=== PATIENT | male | born 1965 | race Caucasian/White ===

== ENCOUNTER 2017-12-07 01:11 | Inpatient (IN) | payer SELFPAY ==
--- NOTE | 2017-12-07 01:23 | ER Document Report ---
ED Extremity Problem, Upper - General Chief Complaint: Arm Injury Stated Complaint: FALL Time Seen by Provider: 12/07/17 01:22 Notes: 52-year-old male to the emergency department complaining of severe pain in the left arm. States that he lost his balance and fell onto his left side. Deformity noted to his left upper extremity. Pain is 10/10 on a numeric pain scale. Patient admits to being a heavy drinker and has been drinking tonight. History of "heart problems" history of dislocation in the past. Has not had a dislocation of the shoulder in over 5 years according to patient. Denies any other symptoms at this time. Denies any chest pain or shortness of breath. Does not remember if he hit his head or not. TRAVEL OUTSIDE OF THE [place] IN LAST 30 DAYS: No - HPI Patient complains to provider of: Pain, Arm, Shoulder Onset: Just prior to arrival Where: Home Severity of pain: Severe Pain Level: 5 Context: Fall Associated symptoms: None Exacerbated by: Movement Relieved by: Nothing - Related Data Allergies/Adverse Reactions: Penicillins Allergy (Unknown, Verified 06/25/16 21:15) Sulfa (Sulfonamide Antibiotics) Allergy (Unknown, Verified 10/07/11 00:42) Past Medical History - General Information source: Patient - Social History Smoking Status: Current Every Day Smoker Cigarette use (# per day): Yes Smoking Education Provided: Yes Frequency of alcohol use: Heavy Drug Abuse: None Lives with: Alone Family History: Reviewed & Not Pertinent - Past Medical History Cardiac Medical History: Reports: Hx Coronary Artery Disease, Hx Hypercholesterolemia, Hx Hypertension Denies: Hx Atrial Fibrillation, Hx Congestive Heart Failure, Hx DVT, Hx Heart Attack, Hx Peripheral Vascular Disease, Hx Pulmonary Embolism, Hx Heart Murmur Pulmonary Medical History: Reports: Hx COPD, Hx Pneumonia Denies: Hx Asthma, Hx Bronchitis, Hx Respiratory Failure, Hx Sleep Apnea, Hx Tuberculosis Neurological Medical History: Reports: Hx Cerebrovascular Accident - TIA 3 years ago, Hx Seizures - Possible seizure; see history and physical, 06/25/2016 Endocrine Medical History: Denies: Hx Diabetes Mellitus Type 1, Hx Diabetes Mellitus Type 2, Hx Graves' Disease, Hx Hyperthyroidism, Hx Hypothyroidism Renal/ Medical History: Denies: Hx Benign Prostatic Hyperplasia, Hx End Stage Renal Disease, Hx Kidney Stones, Hx Peritoneal Dialysis Malignancy Medical History: Denies Hx Leukemia, Denies Hx Lung Cancer GI Medical History: Denies: Hx Cirrhosis, Hx Crohn's Disease, Hx Gastroesophageal Reflux Disease, Hx Hepatitis, Hx Hiatal Hernia, Hx Irritable Bowel, Hx Liver Failure, Hx Pancreatitis, Hx Ulcer Musculoskeltal Medical History: Reports Hx Arthritis - hands, Denies Hx Fibromyalgia, Denies Hx Multiple Sclerosis, Denies Hx Muscular Dystrophy Psychiatric Medical History: Reports: Hx Depression Denies: Hx Bipolar Disorder, Hx Dementia, Hx Post Traumatic Stress Disorder, Hx Schizophrenia Traumatic Medical History: Denies: Hx Fractures Infectious Medical History: Denies: Hx Hepatitis, Hx HIV Past Surgical History: Reports: Hx Cardiac Surgery, Hx Coronary Artery Bypass Graft - x3 (2009), Hx Coronary Stent, Hx Open Heart Surgery, Other - Incision and drainage of dental abscess, with tooth extraction, 2005.. Denies: Hx Appendectomy, Hx Bowel Surgery, Hx Cholecystectomy, Hx Colostomy, Hx Gastric Bypass Surgery, Hx Herniorrhaphy, Hx Pacemaker, Hx Tonsillectomy - Immunizations Hx Diphtheria, Pertussis, Tetanus Vaccination: Yes Hx Pneumococcal Vaccination: 05/18/12 Review of Systems - Review of Systems Constitutional: denies: Fever, Malaise, Weakness EENT: denies: Ear pain, Difficulty swallowing, Throat swelling, Mouth pain Cardiovascular: denies: Chest pain, Palpitations, Heart racing, Syncope, Dizziness, Lightheaded Respiratory: denies: Cough, Hurts to breathe, Short of breath, Wheezing Gastrointestinal: denies: Abdominal pain, Diarrhea, Nausea Genitourinary: denies: Burning, Dysuria, Discharge Musculoskeletal: See HPI, Joint pain, Deformity. denies: Back pain, Gout Skin: denies: Dryness, Lesions, Lumps, Rash Hematologic/Lymphatic: Easy bleeding, Easy bruising. denies: Anemia, Blood clots Neurological/Psychological: denies: Confusion, Weakness, Numbness Physical Exam - Vital signs Vitals: Resp Pulse Ox 11 L 100 12/07/17 01:24 12/07/17 01:24 Interpretation: Normal - Notes Notes: Intoxicated. Strong smell of alcohol on breath. - General General appearance: Appears well, Alert - HEENT Head: Normocephalic, Atraumatic Eyes: Normal Pupils: PERRL - Respiratory Respiratory status: No respiratory distress Chest status: Nontender Breath sounds: Normal Chest palpation: Normal - Cardiovascular Rhythm: Regular Heart sounds: Normal auscultation Murmur: No - Abdominal Inspection: Normal Distension: No distension Bowel sounds: Normal Tenderness: Nontender Organomegaly: No organomegaly - Back Back: Normal, Nontender - Extremities General upper extremity: Nontender, Tender, Normal color, Normal strength, Normal temperature, Other - There is tenderness to palpation of the left upper extremity with potential for dislocation of the left shoulder. Clavicle appears intact. Pulses are present in the radius and ulnar arteries at the wrist of the affected extremity. No: Normal ROM General lower extremity: Normal inspection, Nontender, Normal color, Normal ROM , Normal temperature, Normal weight bearing. No: Amanda's sign Shoulder: Tender, Deformity, Dislocation Arm: Normal Forearm: Normal Wrist: Normal Hand: Normal Hip: Normal Ankle: Normal - Neurological Neuro grossly intact: Yes Cognition: Normal Orientation: AAOx4 [place] Coma Scale Eye Opening: Spontaneous [place] Coma Scale Verbal: Oriented [place] Coma Scale Motor: Obeys Commands [place] Coma Scale Total: 15 Speech: Normal Motor strength normal: LUE, RUE, LLE, RLE Sensory: Normal - Psychological Associated symptoms: Normal affect, Normal mood - Skin Skin Temperature: Warm Skin Moisture: Dry Skin Color: Normal Course - Re-evaluation Re-evalutation: 12/07/17 03:24 X-ray was obtained which revealed anterior shoulder dislocation. No obvious fracture. Patient is intoxicated than 200 mcg of fentanyl were given. Shoulder was even easily reduced. Postreduction films reveal shoulder was dislocated. Repeat dose of 100 mcg of fentanyl was given. Shoulder was ranged and there was an audible and palpable pop consistent with reduction. Patient was placed in a sling and shoulder would pop back out and become dislocated again. My colleague was asked to come assess patient as well. Dr. Perrin was able to mobilize shoulder and had same results with very easy reduction but then shoulder with re-dislocate. At that time decision was made to place patient in a sling and consult with orthopedics. Patient will need to be evaluated by orthopedics. Will admit to the hospitalist at this time based on patient's comorbid conditions he will need to be assessed and evaluated for potential for intraoperative repair if needed. Dr. Morel was consulted. Hospitalist consulted will proceed with admission at this time. 12/07/17 03:59 Hospitalist consulted. Hospitalist to follow-up on the CT head and chest x-ray as well as labs. Will go ahead and put order for admission at this time. - Vital Signs Vital signs: Temp Pulse Resp BP Pulse Ox 97.7 F 11 L 163/77 H 100 12/07/17 01:30 12/07/17 03:03 12/07/17 03:03 12/07/17 03:03 - EKG Interpretation by Me EKG shows normal: Sinus rhythm, Intervals, QRS Complexes, ST-T Waves. abnormal : [place]/QRS: Left axis deviation Voltage: Consistant with LVH When compared to previous EKG there are: No significant change Procedures - Joint Reduction/Fracture Care Left Shoulder Time completed: 03:27 Consent obtained: Yes Conscious sedation: No Pre-procedure NV exam: Yes Post-procedure NV exam: Yes Post-reduction x-ray: Joint not reduced, No fracture seen Reduction attempts: 4 Complications: No Discharge - Discharge Clinical Impression: Intoxication Anterior dislocation of left shoulder Qualifiers: Encounter type: initial encounter Qualified Code(s): S43.015A - Anterior dislocation of left humerus, initial encounter Condition: Good Disposition: ADMITTED OBSERVATION Admitting Provider: Hospitalist - [facility] Unit Admitted: Telemetry
[2017-12-07] MEDS: FENTANYL CITRATE INJ/PF 100 MCG/2 ML AMPUL IV PRN ×4 (01:30→06:52)
--- NOTE | 2017-12-07 01:44 | RADIOLOGY REPORT (SQ) ---
EXAM DESCRIPTION: HUMERUS LEFT CLINICAL HISTORY: possible fx COMPARISON: None. FINDINGS: 2 views of the left humerus. Left anterior glenohumeral dislocation. No definite fractures identified. No abnormalities of the visualized left hemithorax. IMPRESSION: 1. Left anterior shoulder dislocation.
--- NOTE | 2017-12-07 02:27 | RADIOLOGY REPORT (SQ) ---
EXAM DESCRIPTION: SHOULDER LEFT 1 VIEW CLINICAL HISTORY: post red COMPARISON: None. FINDINGS: Single view of the left shoulder. Persistent left anterior shoulder dislocation. No acute abnormalities of left hemithorax. No acute fractures identified. IMPRESSION: 1. Persistent left anterior shoulder dislocation.
--- NOTE | 2017-12-07 03:17 | RADIOLOGY REPORT (SQ) ---
EXAM DESCRIPTION: SHOULDER LEFT 1 VIEW CLINICAL HISTORY: post reduction COMPARISON: None. FINDINGS: 3 views of the left shoulder. The first image demonstrates persistent dislocation. Second image demonstrates partial reduction however third image in sequence demonstrate persistent anterior dislocation. No acute abnormalities of the left hemithorax. IMPRESSION: 1. Persistent anterior dislocation of the left shoulder.
[2017-12-07] MEDS ORDERED: ONDANSETRON HCL INJ/PF 4 MG/2 ML SDV IV PRN (03:48)
[2017-12-07] MEDS ORDERED: LORAZEPAM INJ 2 MG/1 ML VIAL IV PRN (03:52)
[2017-12-07] MEDS ORDERED: FOLIC ACID INJ 5 MG/1 ML 10 ML VIAL IV PRN (04:26)
[2017-12-07] MEDS ORDERED: THIAMINE HCL INJ 200 MG/2 ML VIAL IV PRN (04:27)
[2017-12-07 04:30] LABS: APPEARANCE,URINE CLEAR; BILIRUBIN,URINE NEGATIVE (NEGATIVE); COLOR,URINE YELLOW; GLUCOSE, URINE NEGATIVE (NEGATIVE); KETONES,URINE NEGATIVE (NEGATIVE); LEUKOCYTE ESTERASE,URINE NEGATIVE (NEGATIVE); NITRITE,URINE NEGATIVE (NEGATIVE); PROTEIN,URINE NEGATIVE (NEGATIVE); URINE SPECIFIC GRAVITY 1.011
[2017-12-07] MEDS ORDERED: THIAMINE HCL 100 MG, FOLIC ACID 1 MG in NORMAL SALINE 250 ML IV ONE (04:30)
[2017-12-07 04:34] LABS: INTERNATIONAL RATION (INR) 1.48; PROTHROMBIN TIME 18.6 SEC (11.4-15.4)
[2017-12-07 04:35] LABS: PARTIAL THROMBOPLASTIN TIME 47.6 SEC (23.5-35.8)
[2017-12-07 04:40] LABS: ABSOLUTE LYMPHOCYTES (AUTO) 1.1 10^3/uL (0.5-4.7); ABSOLUTE MONOCYTES (AUTO) 0.4 10^3/uL (0.1-1.4); ABSOLUTE NEUT (AUTO) 3.5 10^3/uL (1.7-8.2); BASOPHILS % (AUTO) 0.8 % (0-2); EOSINOPHILS % (AUTO) 0.4 % (0-6); HEMATOCRIT 36.2 % (37.9-51.0); HEMOGLOBIN 12.4 g/dL (13.5-17.0); MEAN CORPUSCULAR HGB CONC 34.2 g/dL (32.0-36.0); MEAN CORPUSCULAR VOLUME 105 fl (80-97); MONOCYTES % (AUTO) 8.7 % (3-13); RED BLOOD COUNT 3.44 10^6/uL (4.35-5.55); RED CELL DISTRIBUTION WIDTH 16.2 % (11.5-14.0); SEGMENTED NEUTROPHILS % (AUTO) 68.1 % (42-78); TOTAL CELLS COUNTED % (AUTO) 100 %; WHITE BLOOD COUNT 5.1 10^3/uL (4.0-10.5)
[2017-12-07 04:42] LABS: ALANINE AMINOTRANSFERASE 58 U/L (21-72); ALBUMIN 3.7 g/dL (3.5-5.0); ALCOHOL 277 mg/dL (NONE DETECTED); ALKALINE PHOSPHATASE 209 U/L (38-126); ANION GAP 18 (5-19); ASPARTATE AMINO TRANSFERASE 131 U/L (17-59); BILIRUBIN,DIRECT 1.7 mg/dL (0.0-0.4); BILIRUBIN,TOTAL 3.8 mg/dL (0.2-1.3); BLOOD UREA NITROGEN 8 mg/dL (7-20); CALCIUM 8.9 mg/dL (8.4-10.2); CARBON DIOXIDE 22 mmol/L (22-30); CHLORIDE 108 mmol/L (98-107); GLUCOSE 141 mg/dL (75-110); POTASSIUM 4.2 mmol/L (3.6-5.0); SODIUM 148.1 mmol/L (137-145)
--- NOTE | 2017-12-07 04:43 | PDOC H&P ---
History of Present Illness Admission Date/PCP: 12/07/17 03:56 History of Present Illness: TASHA FUENTES is a 52 year old male patient whose past medical history of hypertension, hyperlipidemia, CAD status post CABG and alcohol dependence and possible cirrhosis of the liver presents after being involved mechanical fall and dislocated his left shoulder. He states that he lost his balance and fell onto his left side. His plain x-ray showed left anterior dislocation. During my encounter patient is acutely intoxicated but he is able to give some history history. He complains of excruciating left shoulder pain. ER attending attempt to correct the dislocation but failed. Orthopedic surgeon consulted and he is going to see him in the morning. Past Medical History Cardiac Medical History: Reports: Coronary Artery Disease, Hyperlipidema, Hypertension Denies: Atrial Fibrillation, Congestive Heart Failure, DVT, Myocardial Infarction, Peripheral Vascular Disease, Pulmonary Embolism, Heart Murmur Pulmonary Medical History: Reports: Chronic Obstructive Pulmonary Disease (COPD) , Pneumonia Denies: Asthma, Bronchitis, Respiratory Failure, Sleep Apnea, Tuberculosis Neurological Medical History: Reports: Seizures - Possible seizure; see history and physical, 06/25/2016 Endocrine Medical History: Denies: Diabetes Mellitus Type 1, Diabetes Mellitus Type 2, Hyperthyroidism, Hypothyroidism Renal/ Medical History: Denies: End Stage Renal Disease Malignancy Medical History: Denies: Leukemia, Lung Cancer GI Medical History: Denies: Cirrhosis, Crohn's Disease, Gastroesophageal Reflux Disease, Hepatitis, Hiatal Hernia Musculoskeltal Medical History: Reports: Arthritis - hands Denies: Fibromyalgia Psychiatric Medical History: Reports: Depression Denies: Bipolar Disorder, Dementia, Post Traumatic Stress Disorder Hematology: Denies: Anemia, Hemophilia, Sickle Cell Disease Infectious Medical History: Denies: HIV Past Surgical History Past Surgical History: Reports: Coronary Artery Bypass Graft - x3 (2009), Coronary Stent, Other - Incision and drainage of dental abscess, with tooth extraction, 2005. Denies: Appendectomy, Cholecystectomy, Colostomy, Gastric Bypass Surgery, Herniorrhaphy, Pacemaker, Tonsillectomy Social History Lives with: Alone Smoking Status: Current Every Day Smoker Frequency of Alcohol Use: Heavy - History of alcohol abuse; now down to 3-5 beers a week, per patient Hx Recreational Drug Use: No Hx Prescription Drug Abuse: No Family History Family History: Reviewed & Not Pertinent Parental Family History Reviewed: Yes Children Family History Reviewed: Yes Sibling(s) Family History Reviewed.: Yes Medication/Allergy Home Medications: No Home Medications 06/26/16 Allergies/Adverse Reactions: Penicillins Allergy (Unknown, Verified 06/25/16 21:15) Sulfa (Sulfonamide Antibiotics) Allergy (Unknown, Verified 10/07/11 00:42) Review of Systems Constitutional: ABSENT: chills, fever(s), headache(s), weight gain, weight loss Respiratory: ABSENT: cough, hemoptysis Gastrointestinal: ABSENT: abdominal pain, constipation, diarrhea, hematemesis, hematochezia, nausea, vomiting Psychiatric: PRESENT: as per HPI Physical Exam Vital Signs: Temp Pulse Resp BP Pulse Ox 97.7 F 11 L 163/77 H 100 12/07/17 01:30 12/07/17 03:03 12/07/17 03:03 12/07/17 03:03 General appearance: PRESENT: mild distress Head exam: PRESENT: atraumatic Respiratory exam: PRESENT: clear to auscultation noreen. ABSENT: rales, rhonchi, wheezes Cardiovascular exam: PRESENT: RRR. ABSENT: diastolic murmur, rubs, systolic murmur GI/Abdominal exam: PRESENT: normal bowel sounds, soft. ABSENT: distended, guarding, mass, organolmegaly, rebound, tenderness Extremities exam: PRESENT: joint swelling - Right shoulder Results Laboratory Results: 12/07/17 04:03 Urine Color YELLOW Urine Appearance CLEAR Urine pH 6.0 Ur Specific [place] 1.011 Urine Protein NEGATIVE Urine Glucose (UA) NEGATIVE Urine Ketones NEGATIVE Urine Blood NEGATIVE Urine Nitrite NEGATIVE Ur Leukocyte Esterase NEGATIVE Urine WBC (Auto) 1 Urine RBC (Auto) 0 Impressions: Humerus X-Ray 12/07/17 00:00 IMPRESSION: 1. Left anterior shoulder dislocation. Shoulder X-Ray 12/07/17 01:56 IMPRESSION: 1. Persistent left anterior shoulder dislocation. Assessment & Plan - Diagnosis (1) Anterior dislocation of left shoulder Qualifiers: Encounter type: subsequent encounter Qualified Code(s): S43.015D - Anterior dislocation of left humerus, subsequent encounter Is this a current diagnosis for this admission?: Yes Plan: Pain management. Definitive management per orthopedic surgeon (2) Alcohol intoxication Qualifiers: Complication of substance-induced condition: uncomplicated Qualified Code(s ): F10.920 - Alcohol use, unspecified with intoxication, uncomplicated Is this a current diagnosis for this admission?: Yes Plan: Monitor (3) Coronary artery disease Qualifiers: Coronary Disease-Associated Artery/Lesion type: [place] artery Is this a current diagnosis for this admission?: Yes Plan: Continue his home medications. (4) Alcohol dependence Qualifiers: Substance use status: with intoxication Is this a current diagnosis for this admission?: Yes Plan: Patient has been started on 2 mg every 2 hours as needed and scheduled dose of diazepam. He started also on folic acid, thiamine and magnesium. - Time Time Spent: 30 to 50 Minutes - Inpatient Certification Medical Necessity: Need Close Monitoring Due to Risk of Patient Decompensation
[2017-12-07 04:50] LABS: URINE AMPHETAMINES SCREEN NEGATIVE; URINE BARBITURATES SCREEN NEGATIVE; URINE BENZODIAZEPINES SCREEN NEGATIVE; URINE COCAINE SCREEN NEGATIVE; URINE MARIJUANA (THC) SCREEN NEGATIVE; URINE METHADONE SCREEN NEGATIVE; URINE PHENCYCLIDINE SCREEN NEGATIVE
[2017-12-07 05:02] LABS: PLATELET COUNT 50 10^3/uL (150-450)
--- NOTE | 2017-12-07 05:04 | RADIOLOGY REPORT (SQ) ---
EXAM DESCRIPTION: CHEST SINGLE VIEW CLINICAL HISTORY: fall COMPARISON: None. FINDINGS: Single frontal view of the chest. Prior median sternotomy. Heart is upper limits of normal in size. Leads overlie the chest. No consolidation, pneumothorax, or pleural effusion. Left anterior shoulder dislocation again identified. Upper abdominal soft tissues are unremarkable. IMPRESSION: 1. No acute pulmonary process identified. 2. Left anterior shoulder dislocation.
--- NOTE | 2017-12-07 05:09 | RADIOLOGY REPORT (SQ) ---
EXAM DESCRIPTION: CT HEAD WITHOUT CLINICAL HISTORY: fall,thrombocytopenia COMPARISON: None available TECHNIQUE: Axial CT of the head obtained from the skull apex to the skull base without contrast. FINDINGS: No acute intracranial hemorrhage identified. No mass, mass effect, shift of the midline, abnormal extra-axial fluid collection or CT evidence of acute ischemic change identified. The ventricular system and sulcal spaces are mildly enlarged compatible with mild cerebral atrophy. Scattered areas of hypodensity throughout the supratentorial white matter are nonspecific and may be related to chronic small vessel ischemic change. The visualized paranasal sinuses and the mastoids are clear. No skull fracture identified. Visualized orbits and globes are unremarkable. Atherosclerotic calcification of the intracranial internal carotid arteries. 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 DLP: 1017.17 mGy-cm IMPRESSION: 1. No acute intracranial abnormality by CT criteria. This exam was performed according to our departmental dose-optimization program, which includes automated exposure control, adjustment of the mA and/or kV according to patient size and/or use of iterative reconstruction technique.
[2017-12-07] MEDS: LANSOPRAZOLE 30 MG TAB.RAP.DR PO SCH (05:31)
[2017-12-07] MEDS: THIAMINE HCL 100 MG, FOLIC ACID 1 MG in NORMAL SALINE 250 ML IV SCH (05:34)
[2017-12-07] MEDS ORDERED: DIAZEPAM 5 MG TABLET PO SCH (06:00)
[2017-12-07] MEDS: OXYCODONE-ACETAMINOPHEN 5-325 MG TABLET PO PRN ×3 (06:35→20:28)
--- NOTE | 2017-12-07 09:15 | EKG REPORT ---
SEVERITY:- ABNORMAL ECG - SINUS RHYTHM LEFT ATRIAL ABNORMALITY LEFT VENTRICULAR HYPERTROPHY PROBABLE INFERIOR INFARCT, OLD BORDERLINE PROLONGED QT INTERVAL : Confirmed by: Howard Adrian 07-Dec-2017 09:13:46
[2017-12-07] MEDS: NORMAL SALINE 1000 ML 1,000 ML IV PRN (09:23)
[2017-12-07] MEDS ORDERED: THIAMINE HCL 100 MG, FOLIC ACID 1 MG in NORMAL SALINE 250 ML IV SCH (10:00)
[2017-12-07] MEDS ORDERED: ASPIRIN 325 MG TABLET PO ONE (15:00)
--- NOTE | 2017-12-07 17:38 | PDOC PROGRESS REPORT ---
Subjective Progress Note for:: 12/07/17 Subjective:: TASHA FUENTES is a 52 year old male with a PMH of HTN, HLD, CAD post CABG, EtOH dependence. He presents to the emergency department following a mechanical fall that dislocated his left shoulder. X-ray reveals anterior dislocation of the left shoulder, no fractures noted. The patient was seen this morning on rounds. He is resting comfortably in bed on supplemental oxygen wearing a left arm sling. He endorses pain to the left shoulder, which is grossly deformed. The patient does complain of paresthesia to the L hand but has full range of motion of his wrist and all fingers. Did not remove sling to test ROM of L elbow. The patient was seen by orthopedic surgeon, . Plan for manual shoulder replacement tomorrow morning, if unsuccessful the patient will require surgical intervention. Reason For Visit: LEFT ANTERIOR SHOULDER DISLOCATION Physical Exam Vital Signs: Temp Pulse Resp BP Pulse Ox 98.0 F 94 16 130/66 H 100 12/07/17 15:23 12/07/17 15:23 12/07/17 15:23 12/07/17 15:23 12/07/17 15:23 Intake & Output 12/06/17 12/07/17 12/08/17 06:59 06:59 06:59 Intake Total 200 Output Total 400 Balance -200 Weight 89.4 kg Extremities exam: PRESENT: joint swelling - Left shoulder Musculoskeletal exam: ABSENT: full ROM - No range of motion to the left shoulder. Patient is currently in a sling Neurological exam: PRESENT: alert, awake, oriented to person, oriented to place , oriented to time, oriented to situation Results Laboratory Results: 12/07/17 04:10 12/07/17 04:10 12/07/17 12/07/17 12/07/17 04:03 04:10 04:10 WBC 5.1 RBC 3.44 L Hgb 12.4 L Hct 36.2 L MCV 105 H MCH 36.0 H MCHC 34.2 RDW 16.2 H Plt Count 50 L Seg Neutrophils % 68.1 Lymphocytes % 22.0 Monocytes % 8.7 Eosinophils % 0.4 Basophils % 0.8 Absolute Neutrophils 3.5 Absolute Lymphocytes 1.1 Absolute Monocytes 0.4 Absolute Eosinophils 0.0 Absolute Basophils 0.0 Sodium 148.1 H Potassium 4.2 Chloride 108 H Carbon Dioxide 22 Anion Gap 18 BUN 8 Creatinine 0.91 Est GFR ( Amer) > 60 Est GFR (Non-Af Amer) > 60 Glucose 141 H Calcium 8.9 Magnesium 1.8 Total Bilirubin 3.8 H AST 131 H ALT 58 Alkaline Phosphatase 209 H Total Protein 8.0 Albumin 3.7 Urine Color YELLOW Urine Appearance CLEAR Urine pH 6.0 Ur Specific [place] 1.011 Urine Protein NEGATIVE Urine Glucose (UA) NEGATIVE Urine Ketones NEGATIVE Urine Blood NEGATIVE Urine Nitrite NEGATIVE Ur Leukocyte Esterase NEGATIVE Urine WBC (Auto) 1 Urine RBC (Auto) 0 Blood Type Antibody Screen 12/07/17 09:24 WBC RBC Hgb Hct MCV MCH MCHC RDW Plt Count Seg Neutrophils % Lymphocytes % Monocytes % Eosinophils % Basophils % Absolute Neutrophils Absolute Lymphocytes Absolute Monocytes Absolute Eosinophils Absolute Basophils Sodium Potassium Chloride Carbon Dioxide Anion Gap BUN Creatinine Est GFR ( Amer) Est GFR (Non-Af Amer) Glucose Calcium Magnesium Total Bilirubin AST ALT Alkaline Phosphatase Total Protein Albumin Urine Color Urine Appearance Urine pH Ur Specific [place] Urine Protein Urine Glucose (UA) Urine Ketones Urine Blood Urine Nitrite Ur Leukocyte Esterase Urine WBC (Auto) Urine RBC (Auto) Blood Type O POSITIVE Antibody Screen NEGATIVE Impressions: Humerus X-Ray 12/07/17 00:00 IMPRESSION: 1. Left anterior shoulder dislocation. Shoulder X-Ray 12/07/17 01:56 IMPRESSION: 1. Persistent left anterior shoulder dislocation. Head CT 12/07/17 03:07 IMPRESSION: 1. No acute intracranial abnormality by CT criteria. This exam was performed according to our departmental dose-optimization program, which includes automated exposure control, adjustment of the mA and/or kV according to patient size and/or use of iterative reconstruction technique. Chest X-Ray 12/07/17 03:36 IMPRESSION: 1. No acute pulmonary process identified. 2. Left anterior shoulder dislocation. Status: Imported from PACS Assessment & Plan - Diagnosis (1) Anterior dislocation of left shoulder Qualifiers: Encounter type: initial encounter Qualified Code(s): S43.015A - Anterior dislocation of left humerus, initial encounter Is this a current diagnosis for this admission?: Yes Plan: Anterior dislocation of left shoulder following mechanical fall. The patient denies LOC. Denies head trauma. Unsuccessful manual replacement of left shoulder by emergency department physician. Patient evaluated by orthopedic surgeon, . Plan for trip to [place] tomorrow morning. First attempt to manually replace shoulder, if unsuccessful plan for surgical intervention. Patient endorses 5 out of 5 pain to left shoulder. Percocet and IV morphine as needed. The patient will wear the left arm sling until otherwise directed. (2) Alcohol intoxication Qualifiers: Complication of substance-induced condition: uncomplicated Qualified Code(s ): F10.920 - Alcohol use, unspecified with intoxication, uncomplicated Is this a current diagnosis for this admission?: Yes Plan: The patient endorses drinking 2-3 beers "most" days of the week. The patient denies a history of seizures while withdrawing from alcohol. EtOH level upon admission 277. Maintenance IVF. Daily thiamine and folate. PRN IV Ativan for EtOH withdrawal symptoms (3) Coronary artery disease Qualifiers: Coronary Disease-Associated Artery/Lesion type: [place] artery Is this a current diagnosis for this admission?: Yes Plan: The patient endorses a history of coronary artery disease Continue full dose aspirin - Time Time Spent with patient: 15-24 minutes Medications reviewed and adjusted accordingly: Yes Anticipated discharge: Home - Inpatient Certification Based on my medical assessment, after consideration of the patient's comorbidities, presenting symptoms, or acuity I expect that the services needed warrant INPATIENT care.: Yes I certify that my determination is in accordance with my understanding of Medicare's requirements for reasonable and necessary INPATIENT services [42 CFR 412.3e].: Yes Medical Necessity: Need for Surgery - Plan Summary Plan Summary: At this time, the plan is for orthopedic surgery to evaluate and treat the patient tomorrow. Unclear at this time if the patient will require surgical intervention. Appreciate orthopedic surgery recommendations.
[2017-12-07] MEDS: MORPHINE SULFATE 10 MG/ML INJ IV PRN ×2 (18:09→22:49)
[2017-12-08] MEDS: LORAZEPAM INJ 2 MG/1 ML VIAL IV PRN ×2 (02:48→21:12)
[2017-12-08] MEDS: NORMAL SALINE 1000 ML 1,000 ML IV PRN ×2 (02:48→16:24)
[2017-12-08] MEDS: LANSOPRAZOLE 30 MG TAB.RAP.DR PO SCH (04:23)
[2017-12-08] MEDS: MORPHINE SULFATE 10 MG/ML INJ IV PRN (05:35)
[2017-12-08] MEDS ORDERED: FENTANYL CITRATE INJ/PF 100 MCG/2 ML AMPUL ONE (06:49)
[2017-12-08] MEDS ORDERED: LIDOCAINE 2% INJ-PF (20 MG/ML) 10 ML AMPUL ONE (06:49)
[2017-12-08] MEDS ORDERED: PROPOFOL INJ 200 MG/20 ML VIAL IV ONE (06:50)
[2017-12-08] MEDS ORDERED: MIDAZOLAM 2 MG/2 ML INJ ONE (06:50)
[2017-12-08 06:52] LABS: ALANINE AMINOTRANSFERASE 51 U/L (21-72); ALKALINE PHOSPHATASE 111 U/L (38-126); ANION GAP 12 (5-19); ASPARTATE AMINO TRANSFERASE 97 U/L (17-59); BLOOD UREA NITROGEN 12 mg/dL (7-20); CALCIUM 8.3 mg/dL (8.4-10.2); CARBON DIOXIDE 21 mmol/L (22-30); CHLORIDE 109 mmol/L (98-107); GLUCOSE 102 mg/dL (75-110); POTASSIUM 4.2 mmol/L (3.6-5.0); SODIUM 142.1 mmol/L (137-145); TOTAL PROTEIN 6.4 g/dL (6.3-8.2)
[2017-12-08 08:18] LABS: ABSOLUTE EOSINOPHILS # (AUTO) 0.1 10^3/uL (0.0-0.6); ABSOLUTE LYMPHOCYTES (AUTO) 1.2 10^3/uL (0.5-4.7); ABSOLUTE MONOCYTES (AUTO) 0.7 10^3/uL (0.1-1.4); ABSOLUTE NEUT (AUTO) 3.3 10^3/uL (1.7-8.2); BASOPHILS % (AUTO) 0.9 % (0-2); EOSINOPHILS % (AUTO) 1.9 % (0-6); HEMATOCRIT 23.7 % (37.9-51.0); LYMPHOCYTES % (AUTO) 22.8 % (13-45); MEAN CORPUSCULAR HEMOGLOBIN 36.5 pg (27.0-33.4); MEAN CORPUSCULAR HGB CONC 34.7 g/dL (32.0-36.0); MEAN CORPUSCULAR VOLUME 105 fl (80-97); MONOCYTES % (AUTO) 12.9 % (3-13); RED BLOOD COUNT 2.24 10^6/uL (4.35-5.55); RED CELL DISTRIBUTION WIDTH 15.8 % (11.5-14.0); SEGMENTED NEUTROPHILS % (AUTO) 61.5 % (42-78); TOTAL CELLS COUNTED % (AUTO) 100 %; WHITE BLOOD COUNT 5.4 10^3/uL (4.0-10.5)
[2017-12-08 08:46] LABS: HEMOGLOBIN 8.2 g/dL (13.5-17.0)
[2017-12-08 08:48] LABS: PLATELET COUNT 35 10^3/uL (150-450)
[2017-12-08 09:18] LABS: INTERNATIONAL RATION (INR) 1.75; PROTHROMBIN TIME 21.3 SEC (11.4-15.4)
[2017-12-08] MEDS ORDERED: ASPIRIN 325 MG TABLET PO SCH (10:00)
--- NOTE | 2017-12-08 11:37 | RADIOLOGY REPORT (SQ) ---
EXAM DESCRIPTION: SHOULDER LEFT 2 OR MORE VIEWS; NO CHG FLUORO COMPLETED DATE/TIME: 12/08/2017 11:03 am REASON FOR STUDY: CLOSED REDUCTION ASST WITH FLUORO IN OR COMPARISON: 12/07/2017 left shoulder three views FLUOROSCOPY TIME: 30 seconds total fluoro time 4 digital C-arm images saved to PACS. TECHNIQUE: Intra-operative images acquired during surgical procedure to evaluate progress. NUMBER OF IMAGES: 4 digital C-arm images saved to pac's LIMITATIONS: None. FINDINGS: Post closed reduction left glenohumeral dislocation in the OR. Post manipulation fluoro i mages demonstrate anatomic alignment. Please see the operative report for further details IMPRESSION: Intra procedural imaging and fluoro COMMENT: Quality ID [id number]: Final reports for procedures using fluoroscopy that document radiation exp osure indices, or exposure time and number of fluorographic images (if radiation exposure indices are not available) Please consult full operative report of the attending physician for description of the procedure. TECHNICAL DOCUMENTATION: JOB ID: [id number] [employer]- All Rights Reserved Reading location - IP/workstation name: [email or web address]
--- NOTE | 2017-12-08 11:37 | RADIOLOGY REPORT (SQ) ---
EXAM DESCRIPTION: SHOULDER LEFT 2 OR MORE VIEWS; NO CHG FLUORO COMPLETED DATE/TIME: 12/08/2017 11:03 am REASON FOR STUDY: CLOSED REDUCTION ASST WITH FLUORO IN OR COMPARISON: 12/07/2017 left shoulder three views FLUOROSCOPY TIME: 30 seconds total fluoro time 4 digital C-arm images saved to PACS. TECHNIQUE: Intra-operative images acquired during surgical procedure to evaluate progress. NUMBER OF IMAGES: 4 digital C-arm images saved to pac's LIMITATIONS: None. FINDINGS: Post closed reduction left glenohumeral dislocation in the OR. Post manipulation fluoro i mages demonstrate anatomic alignment. Please see the operative report for further details IMPRESSION: Intra procedural imaging and fluoro COMMENT: Quality ID [id number]: Final reports for procedures using fluoroscopy that document radiation exp osure indices, or exposure time and number of fluorographic images (if radiation exposure indices are not available) Please consult full operative report of the attending physician for description of the procedure. TECHNICAL DOCUMENTATION: JOB ID: [id number] [employer]- All Rights Reserved Reading location - IP/workstation name: [email or web address]
[2017-12-08] MEDS: OXYCODONE-ACETAMINOPHEN 5-325 MG TABLET PO PRN (12:41)
[2017-12-08 12:58] LABS: ABSOLUTE BASOPHILS # (AUTO) 0.1 10^3/uL (0.0-0.2); ABSOLUTE EOSINOPHILS # (AUTO) 0.1 10^3/uL (0.0-0.6); ABSOLUTE LYMPHOCYTES (AUTO) 1.1 10^3/uL (0.5-4.7); ABSOLUTE MONOCYTES (AUTO) 0.5 10^3/uL (0.1-1.4); ABSOLUTE NEUT (AUTO) 2.6 10^3/uL (1.7-8.2); BASOPHILS % (AUTO) 1.4 % (0-2); EOSINOPHILS % (AUTO) 2.2 % (0-6); HEMATOCRIT 22.6 % (37.9-51.0); LYMPHOCYTES % (AUTO) 25.3 % (13-45); MEAN CORPUSCULAR HEMOGLOBIN 36.8 pg (27.0-33.4); MEAN CORPUSCULAR HGB CONC 34.9 g/dL (32.0-36.0); MEAN CORPUSCULAR VOLUME 105 fl (80-97); RED BLOOD COUNT 2.14 10^6/uL (4.35-5.55); RED CELL DISTRIBUTION WIDTH 15.7 % (11.5-14.0); SEGMENTED NEUTROPHILS % (AUTO) 59.1 % (42-78); TOTAL CELLS COUNTED % (AUTO) 100 %; WHITE BLOOD COUNT 4.4 10^3/uL (4.0-10.5)
[2017-12-08 13:12] LABS: ALANINE AMINOTRANSFERASE 47 U/L (21-72); ALBUMIN 2.9 g/dL (3.5-5.0); ALKALINE PHOSPHATASE 99 U/L (38-126); ANION GAP 9 (5-19); ASPARTATE AMINO TRANSFERASE 92 U/L (17-59); BILIRUBIN,DIRECT 2.1 mg/dL (0.0-0.4); BILIRUBIN,TOTAL 6.9 mg/dL (0.2-1.3); BLOOD UREA NITROGEN 13 mg/dL (7-20); CALCIUM 8.3 mg/dL (8.4-10.2); CARBON DIOXIDE 24 mmol/L (22-30); CHLORIDE 108 mmol/L (98-107); GLUCOSE 92 mg/dL (75-110); PHOSPHORUS 3.3 mg/dL (2.5-4.5); POTASSIUM 4.3 mmol/L (3.6-5.0); TOTAL PROTEIN 6.4 g/dL (6.3-8.2)
[2017-12-08 13:18] LABS: HEMOGLOBIN 7.9 g/dL (13.5-17.0); PLATELET COUNT 31 10^3/uL (150-450)
[2017-12-08] MEDS ORDERED: LORAZEPAM INJ 2 MG/1 ML VIAL IV ONE (16:35)
--- NOTE | 2017-12-08 17:01 | PDOC PROGRESS REPORT ---
Subjective Progress Note for:: 12/08/17 Subjective:: TASHA FUENTES is a 52 year old male with a PMH of HTN, HLD, CAD post CABG, EtOH dependence. He presents to the emergency department following a mechanical fall that dislocated his left shoulder. X-ray reveals anterior dislocation of the left shoulder, no fractures noted. The patient was seen this morning on rounds following fluoroscopy-guided shoulder replacement. He is resting comfortably in bed on supplemental oxygen wearing a left arm sling. He states that his left shoulder feels "much better" now that is back in place. The patient still endorses paresthesia to the L hand but has full range of motion of his wrist and all fingers. Of note, the patient appears to be noticeably jaundice today. + Icterus. The patient denies abdominal pain, abdominal distention, nausea or vomiting. Patient denies a history of liver disease, but as noted earlier he does have a history of alcohol dependence. Reason For Visit: LEFT ANTERIOR SHOULDER DISLOCATION Physical Exam Vital Signs: Temp Pulse Resp BP Pulse Ox 98.4 F 96 20 137/69 H 100 12/08/17 15:34 12/08/17 15:34 12/08/17 15:34 12/08/17 15:34 12/08/17 15:34 Intake & Output 12/07/17 12/08/17 12/09/17 06:59 06:59 06:59 Intake Total 935 1350 Output Total 950 Balance -15 1350 Weight 99.1 kg General appearance: PRESENT: no acute distress Eye exam: PRESENT: EOMI, PERRLA, scleral icterus Mouth exam: PRESENT: dry mucosa, other - dried blood along the gumline Teeth exam: PRESENT: poor dentation Neck exam: PRESENT: full ROM Respiratory exam: PRESENT: clear to auscultation noreen, symmetrical, unlabored Cardiovascular exam: PRESENT: +S1, +S2 Pulses: PRESENT: normal radial pulses, normal dorsalis pedis pul GI/Abdominal exam: PRESENT: normal bowel sounds, soft. ABSENT: ascites, distended, tenderness Rectal exam: PRESENT: deferred Extremities exam: PRESENT: full ROM. ABSENT: pedal edema Musculoskeletal exam: PRESENT: ambulatory, full ROM Neurological exam: PRESENT: alert, awake, oriented to person, oriented to place , oriented to time, oriented to situation Psychiatric exam: PRESENT: anxious Skin exam: PRESENT: dry, intact, jaundice Results Laboratory Results: 12/08/17 12:34 12/08/17 12:34 12/08/17 12/08/17 12/08/17 05:42 05:42 12:34 WBC 5.4 4.4 RBC 2.24 L 2.14 L Hgb 8.2 L D 7.9 L Hct 23.7 L 22.6 L MCV 105 H 105 H MCH 36.5 H 36.8 H MCHC 34.7 34.9 RDW 15.8 H 15.7 H Plt Count 35 L 31 L Seg Neutrophils % 61.5 59.1 Lymphocytes % 22.8 25.3 Monocytes % 12.9 12.0 Eosinophils % 1.9 2.2 Basophils % 0.9 1.4 Absolute Neutrophils 3.3 2.6 Absolute Lymphocytes 1.2 1.1 Absolute Monocytes 0.7 0.5 Absolute Eosinophils 0.1 0.1 Absolute Basophils 0.0 0.1 Sodium 142.1 Potassium 4.2 Chloride 109 H Carbon Dioxide 21 L Anion Gap 12 BUN 12 Creatinine 0.69 Est GFR ( Amer) > 60 Est GFR (Non-Af Amer) > 60 Glucose 102 Calcium 8.3 L Phosphorus Magnesium 1.7 Total Bilirubin 7.0 H AST 97 H ALT 51 Alkaline Phosphatase 111 Total Protein 6.4 Albumin 3.0 L 12/08/17 12:34 WBC RBC Hgb Hct MCV MCH MCHC RDW Plt Count Seg Neutrophils % Lymphocytes % Monocytes % Eosinophils % Basophils % Absolute Neutrophils Absolute Lymphocytes Absolute Monocytes Absolute Eosinophils Absolute Basophils Sodium 141.0 Potassium 4.3 Chloride 108 H Carbon Dioxide 24 Anion Gap 9 BUN 13 Creatinine 0.68 Est GFR ( Amer) > 60 Est GFR (Non-Af Amer) > 60 Glucose 92 Calcium 8.3 L Phosphorus 3.3 Magnesium 1.6 Total Bilirubin 6.9 H AST 92 H ALT 47 Alkaline Phosphatase 99 Total Protein 6.4 Albumin 2.9 L Impressions: Humerus X-Ray 12/07/17 00:00 IMPRESSION: 1. Left anterior shoulder dislocation. Head CT 12/07/17 03:07 IMPRESSION: 1. No acute intracranial abnormality by CT criteria. This exam was performed according to our departmental dose-optimization program, which includes automated exposure control, adjustment of the mA and/or kV according to patient size and/or use of iterative reconstruction technique. Chest X-Ray 12/07/17 03:36 IMPRESSION: 1. No acute pulmonary process identified. 2. Left anterior shoulder dislocation. Fluoroscopy 12/08/17 00:00 IMPRESSION: Intra procedural imaging and fluoro Shoulder X-Ray 12/08/17 00:00 IMPRESSION: Intra procedural imaging and fluoro Assessment & Plan - Diagnosis (1) Anterior dislocation of left shoulder Qualifiers: Encounter type: initial encounter Qualified Code(s): S43.015A - Anterior dislocation of left humerus, initial encounter Is this a current diagnosis for this admission?: Yes Plan: S/p fluoroscopy-guided manual replacement of left shoulder by orthopedic surgeon. Presented with anterior dislocation of left shoulder following mechanical fall. The patient denies LOC or head trauma. Unsuccessful manual replacement of left shoulder by emergency department physician. The patient will wear the left arm sling until otherwise directed. (2) Liver cirrhosis, alcoholic Qualifiers: Ascites presence: without ascites Qualified Code(s): K70.30 - Alcoholic cirrhosis of liver without ascites Is this a current diagnosis for this admission?: Yes Plan: Possible acute liver failure secondary to alcoholic cirrhosis. Patient admits to drinking 2-3 beers "most" days of the week, and he endorses a history of "heavier" drinking. The patient is jaundiced this morning with icterus. This is a new finding today. Bleeding gums noted this morning upon evaluation, nursing staff reports spontaneous epistaxis MRI abdomen pending Moderate elevation of AST 92, ALT 47 is within normal range Worsening INR 1.4 -> 1.75 LDH pending Thrombocytopenia Platelets 31,000. Transfuse if platelet count drops < 20 Hgb downtrending 12 -> 7.9. This could be dilutional as the patient received multiple IVF boluses in the ED as well as in the OR. If Hgb drops < 7.0 plan to transfuse. This patient has a high bleeding risk. Plan for q6h CBC starting 1800 tonight (3) Alcohol intoxication Qualifiers: Complication of substance-induced condition: uncomplicated Qualified Code(s ): F10.920 - Alcohol use, unspecified with intoxication, uncomplicated Is this a current diagnosis for this admission?: Yes Plan: The patient endorses drinking 2-3 beers "most" days of the week. The patient denies a history of seizures while withdrawing from alcohol. EtOH level upon admission 277. Down to < 10 this morning Maintenance IVF. Daily thiamine and folate. PRN IV Ativan for EtOH withdrawal symptoms (4) Coronary artery disease Qualifiers: Coronary Disease-Associated Artery/Lesion type: [place] artery Is this a current diagnosis for this admission?: Yes Plan: The patient endorses a history of coronary artery disease In light of his worsening anemia and thrombocytopenia, discontinued Aspirin therapy - Time Time Spent with patient: 15-24 minutes Medications reviewed and adjusted accordingly: Yes Anticipated discharge: Home - Inpatient Certification Based on my medical assessment, after consideration of the patient's comorbidities, presenting symptoms, or acuity I expect that the services needed warrant INPATIENT care.: Yes I certify that my determination is in accordance with my understanding of Medicare's requirements for reasonable and necessary INPATIENT services [42 CFR 412.3e].: Yes Medical Necessity: Need For IV Fluids, Risk of Complication if Not Cared For in Hospital - Plan Summary Plan Summary: At this time, the patient's disposition is unclear. He is currently too unstable to discharge home. He is experiencing symptoms of alcohol withdrawal as well as possible acute liver failure secondary to alcoholic cirrhosis. The patient will remain inpatient for the time being.
--- NOTE | 2017-12-08 18:03 | Operative Report ---
Operative Report DATE OF SURGERY: 12/08/17 PREOPERATIVE DIAGNOSIS: Left shoulder dislocation POSTOPERATIVE DIAGNOSIS: Same OPERATION: Closed reduction of left shoulder glenohumeral joint dislocation under anesthesia SURGEON: MEREDITH TSE ANESTHESIA: Moderate Sedation TISSUE REMOVED OR ALTERED: None COMPLICATIONS: None ESTIMATED BLOOD LOSS: None INTRAOPERATIVE FINDINGS: As above PROCEDURE: 52-year-old gentleman was brought to the operating room where he received minimal anesthetic concentration. A she was placed under the left armpit for countertraction. C-arm pictures confirm patient still anterior inferior dislocated glenohumeral joint on the left side. After timeout was done identifying the left shoulder is a correct site I pulled traction and with C and was able to confirm reduction of the left shoulder dislocation. AP and modified scapular Y pictures confirm reduction. Patient was then placed in a sling immobilizer and re-x-ray to make sure that he did not really dislocate. At this point sedation was alleviated patient then was transferred to PACU in a stable condition.
[2017-12-08 18:11] LABS: HEMATOCRIT 21.5 % (37.9-51.0); MEAN CORPUSCULAR HEMOGLOBIN 36.1 pg (27.0-33.4); MEAN CORPUSCULAR HGB CONC 34.2 g/dL (32.0-36.0); MEAN CORPUSCULAR VOLUME 105 fl (80-97); RED BLOOD COUNT 2.04 10^6/uL (4.35-5.55); RED CELL DISTRIBUTION WIDTH 15.8 % (11.5-14.0); WHITE BLOOD COUNT 4.5 10^3/uL (4.0-10.5)
[2017-12-08 18:18] LABS: HEMOGLOBIN 7.4 g/dL (13.5-17.0); PLATELET COUNT 30 10^3/uL (150-450)
[2017-12-08] MEDS ORDERED: NORMAL SALINE 250 ML IV PRN (19:31)
[2017-12-09] MEDS: MORPHINE SULFATE 10 MG/ML INJ IV PRN ×2 (06:01→20:10)
[2017-12-09] MEDS: LANSOPRAZOLE 30 MG TAB.RAP.DR PO SCH (06:01)
[2017-12-09 06:16] LABS: ALANINE AMINOTRANSFERASE 48 U/L (21-72); ALBUMIN 2.7 g/dL (3.5-5.0); ALKALINE PHOSPHATASE 90 U/L (38-126); ANION GAP 11 (5-19); ASPARTATE AMINO TRANSFERASE 82 U/L (17-59); BILIRUBIN,DIRECT 2.1 mg/dL (0.0-0.4); BILIRUBIN,TOTAL 7.3 mg/dL (0.2-1.3); BLOOD UREA NITROGEN 14 mg/dL (7-20); CALCIUM 8.3 mg/dL (8.4-10.2); CARBON DIOXIDE 22 mmol/L (22-30); CHLORIDE 108 mmol/L (98-107); GLUCOSE 92 mg/dL (75-110); POTASSIUM 3.9 mmol/L (3.6-5.0); SODIUM 140.9 mmol/L (137-145); TOTAL PROTEIN 6.1 g/dL (6.3-8.2)
[2017-12-09 06:40] LABS: HEMATOCRIT 23.8 % (37.9-51.0); HEMOGLOBIN 8.3 g/dL (13.5-17.0); MEAN CORPUSCULAR HEMOGLOBIN 35.5 pg (27.0-33.4); MEAN CORPUSCULAR VOLUME 102 fl (80-97); RED BLOOD COUNT 2.33 10^6/uL (4.35-5.55); WHITE BLOOD COUNT 4.7 10^3/uL (4.0-10.5)
[2017-12-09 06:41] LABS: MEAN CORPUSCULAR HGB CONC 34.8 g/dL (32.0-36.0); RED CELL DISTRIBUTION WIDTH 18.5 % (11.5-14.0)
[2017-12-09 06:50] LABS: PLATELET COUNT 29 10^3/uL (150-450)
[2017-12-09 08:44] LABS: HEPATITIS A AB IGM Negative (Negative); HEPATITIS B CORE AB IGM Negative (Negative); HEPATITS B SURFACE ANTIGEN Negative (Negative)
[2017-12-09 09:31] LABS: HEPATITIS C VIRUS ANTIBODY <0.1 s/co ratio (0.0-0.9)
[2017-12-09] MEDS: THIAMINE HCL 100 MG, FOLIC ACID 1 MG in NORMAL SALINE 250 ML IV SCH (09:32)
[2017-12-09] MEDS: LORAZEPAM INJ 2 MG/1 ML VIAL IV PRN ×2 (11:02→22:23)
--- NOTE | 2017-12-09 11:09 | RADIOLOGY REPORT (SQ) ---
EXAM DESCRIPTION: U/S ABDOMEN COMPLETE W/DOPPLER COMPLETED DATE/TIME: 12/09/2017 10:55 am REASON FOR STUDY: acute liver failure. Splenic pathology. COMPARISON: 05/18/2012 TECHNIQUE: Dynamic and static grayscale images acquired of the abdomen and recorded on PACS. Norris wolf selected color Doppler and spectral images recorded. LIMITATIONS: None. FINDINGS: PANCREAS: Obscured by gas. LIVER: 17.7 cm. Increased echogenicity. LIVER VASCULATURE: Normal directional flow of the main portal vein and hepatic veins. GALLBLADDER: No stones or wall thickening. There does appear to be some pericholecystic fluid. ULTRASOUND-DETECTED ECHE[place]RIA'S SIGN: Negative. INTRAHEPATIC DUCTS AND COMMON DUCT: Common bile duct is dilated at 9 mm. There does not appear to be significant intrahepatic ductal dilatation. INFERIOR VENA CAVA: Patent AORTA: Obscured by gas. RIGHT KIDNEY: Normal size, 10.5 cm. Normal echogenicity. No solid or suspicious masses. No hyd ronephrosis. No calcifications. LEFT KIDNEY: Normal size, 10.8 cm. The left kidney is poorly seen. No obvious masses, calcificati ons, or hydronephrosis. SPLEEN: 15.1 cm. PERITONEAL AND PLEURAL SPACES: No ascites or effusions. OTHER: No other significant finding. IMPRESSION: 1. Fatty infiltration of the liver. Splenomegaly. 2. Dilatation of the common bile duct with no significant intrahepatic ductal dilatation. 3. There appears to be some pericholecystic fluid. No gallstones are present. No gallbladder wall thickening is seen. TECHNICAL DOCUMENTATION: JOB ID: [id number] [employer]- All Rights Reserved Reading location - IP/workstation name: [email or web address]
[2017-12-09 12:55] LABS: HEMATOCRIT 24.8 % (37.9-51.0); HEMOGLOBIN 8.7 g/dL (13.5-17.0); MEAN CORPUSCULAR HEMOGLOBIN 35.7 pg (27.0-33.4); MEAN CORPUSCULAR VOLUME 102 fl (80-97); RED BLOOD COUNT 2.43 10^6/uL (4.35-5.55); RED CELL DISTRIBUTION WIDTH 18.8 % (11.5-14.0); WHITE BLOOD COUNT 5.2 10^3/uL (4.0-10.5)
[2017-12-09 13:24] LABS: PLATELET COUNT 33 10^3/uL (150-450)
--- NOTE | 2017-12-09 14:12 | PDOC CONSULTATION ---
Consultation Consult Date: 12/07/17 Consult reason:: Left shoulder dislocation History of Present Illness Admission Date/PCP: 12/07/17 03:56 History of Present Illness: TASHA FUENTES is a 52 year old male with a blood alcohol of 277 and status post fall suffered a left shoulder dislocation that the ER attempt to reduce but felt like it was dislocating again. Patient was admitted due to his blood alcohol level although patient denies drinking more than a couple beers a day. Patient denies any numbness or tingling or paresthesias distally. Complains of swelling and pain and inability to move his left shoulder. He states the fall happened the day before and 12/07. No previous surgeries and no previous injuries except for the fact that he does admit he dislocated that left shoulder about 20 years ago. Past Medical History Cardiac Medical History: Reports: Coronary Artery Disease, Hyperlipidema, Hypertension Denies: Atrial Fibrillation, Congestive Heart Failure, DVT, Myocardial Infarction, Peripheral Vascular Disease, Pulmonary Embolism, Heart Murmur Pulmonary Medical History: Reports: Chronic Obstructive Pulmonary Disease (COPD) , Pneumonia Denies: Asthma, Bronchitis, Respiratory Failure, Sleep Apnea, Tuberculosis Neurological Medical History: Reports: Seizures - Possible seizure; see history and physical, 06/25/2016 Endocrine Medical History: Denies: Diabetes Mellitus Type 1, Diabetes Mellitus Type 2, Hyperthyroidism, Hypothyroidism Renal/ Medical History: Denies: End Stage Renal Disease Malignancy Medical History: Denies: Leukemia, Lung Cancer GI Medical History: Denies: Cirrhosis, Crohn's Disease, Gastroesophageal Reflux Disease, Hepatitis, Hiatal Hernia Musculoskeltal Medical History: Reports: Arthritis - hands Denies: Fibromyalgia Psychiatric Medical History: Reports: Depression Denies: Bipolar Disorder, Dementia, Post Traumatic Stress Disorder Hematology: Denies: Anemia, Hemophilia, Sickle Cell Disease Infectious Medical History: Denies: HIV Past Surgical History Past Surgical History: Reports: Coronary Artery Bypass Graft - x3 (2009), Coronary Stent, Other - Incision and drainage of dental abscess, with tooth extraction, 2005. Denies: Appendectomy, Cholecystectomy, Colostomy, Gastric Bypass Surgery, Herniorrhaphy, Pacemaker, Tonsillectomy Social History Lives with: Alone Smoking Status: Current Every Day Smoker Frequency of Alcohol Use: Occasional Hx Recreational Drug Use: No Drugs: None Hx Prescription Drug Abuse: No Family History Family History: None Parental Family History Reviewed: No Children Family History Reviewed: Yes Sibling(s) Family History Reviewed.: Yes Medication/Allergy Home Medications: No Home Medications 06/26/16 Aspirin [Aspirin 325 mg Tablet] 325 mg PO DAILY 12/07/17 Allergies/Adverse Reactions: Penicillins Allergy (Unknown, Verified 06/25/16 21:15) Sulfa (Sulfonamide Antibiotics) Allergy (Unknown, Verified 10/07/11 00:42) Review of Systems ROS unobtainable: Due to mental status - intoxicated. Physical Exam Vital Signs: Temp Pulse Resp BP Pulse Ox 36.7 C 14 119/71 100 12/07/17 06:01 12/07/17 10:49 12/07/17 10:49 12/07/17 10:49 General appearance: PRESENT: disheveled, other - Overweight Eye exam: PRESENT: EOMI, scleral icterus. ABSENT: nystagmus Ear exam: PRESENT: normal external ear exam Mouth exam: PRESENT: neck supple Neck exam: ABSENT: lymphadenopathy, thyromegaly Respiratory exam: PRESENT: symmetrical, unlabored. ABSENT: tachypnea Pulses: PRESENT: normal radial pulses Vascular exam: PRESENT: normal capillary refill Neurological exam: PRESENT: awake, oriented to person, oriented to place. ABSENT: alert Skin exam: ABSENT: rash, skin tears, vesicles Adult Front & Back Image: 1 - Ecchymosis and bruising of the left anterior shoulder, arm and part of the chest wall. He has obvious deformity with inability to move the left shoulder. Any attempted range of motion causes exquisite pain. He is neurovascular intact distally to the radial ulnar median nerve distribution to his left hand. Results Laboratory Results: 12/07/17 04:10 12/07/17 04:10 12/07/17 12/07/17 12/07/17 04:03 04:10 04:10 WBC 5.1 RBC 3.44 L Hgb 12.4 L Hct 36.2 L MCV 105 H MCH 36.0 H MCHC 34.2 RDW 16.2 H Plt Count 50 L Seg Neutrophils % 68.1 Lymphocytes % 22.0 Monocytes % 8.7 Eosinophils % 0.4 Basophils % 0.8 Absolute Neutrophils 3.5 Absolute Lymphocytes 1.1 Absolute Monocytes 0.4 Absolute Eosinophils 0.0 Absolute Basophils 0.0 Sodium 148.1 H Potassium 4.2 Chloride 108 H Carbon Dioxide 22 Anion Gap 18 BUN 8 Creatinine 0.91 Est GFR ( Amer) > 60 Est GFR (Non-Af Amer) > 60 Glucose 141 H Calcium 8.9 Magnesium 1.8 Total Bilirubin 3.8 H AST 131 H ALT 58 Alkaline Phosphatase 209 H Total Protein 8.0 Albumin 3.7 Urine Color YELLOW Urine Appearance CLEAR Urine pH 6.0 Ur Specific [place] 1.011 Urine Protein NEGATIVE Urine Glucose (UA) NEGATIVE Urine Ketones NEGATIVE Urine Blood NEGATIVE Urine Nitrite NEGATIVE Ur Leukocyte Esterase NEGATIVE Urine WBC (Auto) 1 Urine RBC (Auto) 0 Blood Type Antibody Screen 12/07/17 09:24 WBC RBC Hgb Hct MCV MCH MCHC RDW Plt Count Seg Neutrophils % Lymphocytes % Monocytes % Eosinophils % Basophils % Absolute Neutrophils Absolute Lymphocytes Absolute Monocytes Absolute Eosinophils Absolute Basophils Sodium Potassium Chloride Carbon Dioxide Anion Gap BUN Creatinine Est GFR ( Amer) Est GFR (Non-Af Amer) Glucose Calcium Magnesium Total Bilirubin AST ALT Alkaline Phosphatase Total Protein Albumin Urine Color Urine Appearance Urine pH Ur Specific [place] Urine Protein Urine Glucose (UA) Urine Ketones Urine Blood Urine Nitrite Ur Leukocyte Esterase Urine WBC (Auto) Urine RBC (Auto) Blood Type O POSITIVE Antibody Screen NEGATIVE Impressions: Humerus X-Ray 12/07/17 00:00 IMPRESSION: 1. Left anterior shoulder dislocation. Shoulder X-Ray 12/07/17 01:56 IMPRESSION: 1. Persistent left anterior shoulder dislocation. Head CT 12/07/17 03:07 IMPRESSION: 1. No acute intracranial abnormality by CT criteria. This exam was performed according to our departmental dose-optimization program, which includes automated exposure control, adjustment of the mA and/or kV according to patient size and/or use of iterative reconstruction technique. Chest X-Ray 12/07/17 03:36 IMPRESSION: 1. No acute pulmonary process identified. 2. Left anterior shoulder dislocation. Status: Image reviewed by me Assessment & Plan - Diagnosis (1) Anterior dislocation of left shoulder Qualifiers: Encounter type: initial encounter Qualified Code(s): S43.015A - Anterior dislocation of left humerus, initial encounter Is this a current diagnosis for this admission?: Yes Plan: 52-year-old gentleman admitted for his alcohol level. Will take the patient's to the OR for closed reduction of his left shoulder in the next 24 hours. Meantime chest pain control in a sling. Limits range of motion or motion of the left shoulder in the meantime. Okay to give pain control as necessary. Will defer to primary team for any further management
--- NOTE | 2017-12-09 14:13 | PDOC PROGRESS REPORT ---
Subjective Progress Note for:: 12/09/17 Subjective:: Patient sleeping in bed with the sling on. Pain is slightly improved from yesterday. Reason For Visit: ETOH WITHDRAWL, ACUTE LIVER FAILURE Physical Exam Vital Signs: Temp Pulse Resp BP Pulse Ox 37.2 C 99 16 144/74 H 100 12/09/17 11:46 12/09/17 11:46 12/09/17 11:46 12/09/17 11:46 12/09/17 11:46 Intake & Output 12/08/17 12/09/17 12/10/17 06:59 06:59 06:59 Intake Total 935 2670 Output Total 950 910 Balance -15 1760 Weight 99.1 kg 99.1 kg Adult Front & Back Image: 1 - Sling on left shoulder with normal swelling ecchymosis. Neurovascular intact distally. Unchanged from yesterday. Has more motion at the shoulder before pain develops. Results Laboratory Results: 12/09/17 12:22 12/09/17 04:48 12/07/17 12/08/17 12/09/17 09:24 17:44 04:48 WBC 4.5 4.7 RBC 2.04 L 2.33 L Hgb 7.4 L 8.3 L Hct 21.5 L 23.8 L MCV 105 H 102 H MCH 36.1 H 35.5 H MCHC 34.2 34.8 RDW 15.8 H 18.5 H Plt Count 30 L* 29 L* Sodium Potassium Chloride Carbon Dioxide Anion Gap BUN Creatinine Est GFR ( Amer) Est GFR (Non-Af Amer) Glucose Calcium Total Bilirubin AST ALT Alkaline Phosphatase Total Protein Albumin Blood Type O POSITIVE Antibody Screen NEGATIVE 12/09/17 12/09/17 04:48 12:22 WBC 5.2 RBC 2.43 L Hgb 8.7 L Hct 24.8 L MCV 102 H MCH 35.7 H MCHC 35.0 RDW 18.8 H Plt Count 33 L Sodium 140.9 Potassium 3.9 Chloride 108 H Carbon Dioxide 22 Anion Gap 11 BUN 14 Creatinine 0.78 Est GFR ( Amer) > 60 Est GFR (Non-Af Amer) > 60 Glucose 92 Calcium 8.3 L Total Bilirubin 7.3 H AST 82 H ALT 48 Alkaline Phosphatase 90 Total Protein 6.1 L Albumin 2.7 L Blood Type Antibody Screen Impressions: Humerus X-Ray 12/07/17 00:00 IMPRESSION: 1. Left anterior shoulder dislocation. Head CT 12/07/17 03:07 IMPRESSION: 1. No acute intracranial abnormality by CT criteria. This exam was performed according to our departmental dose-optimization program, which includes automated exposure control, adjustment of the mA and/or kV according to patient size and/or use of iterative reconstruction technique. Chest X-Ray 12/07/17 03:36 IMPRESSION: 1. No acute pulmonary process identified. 2. Left anterior shoulder dislocation. Fluoroscopy 12/08/17 00:00 IMPRESSION: Intra procedural imaging and fluoro Shoulder X-Ray 12/08/17 00:00 IMPRESSION: Intra procedural imaging and fluoro Abdomen Ultrasound 12/09/17 00:00 IMPRESSION: 1. Fatty infiltration of the liver. Splenomegaly. 2. Dilatation of the common bile duct with no significant intrahepatic ductal dilatation. 3. There appears to be some pericholecystic fluid. No gallstones are present. No gallbladder wall thickening is seen. Assessment & Plan - Diagnosis (1) Anterior dislocation of left shoulder Qualifiers: Encounter type: initial encounter Qualified Code(s): S43.015A - Anterior dislocation of left humerus, initial encounter Is this a current diagnosis for this admission?: Yes - Plan Summary Plan Summary: 52-year-old gentleman status post close reduction of the left shoulder. Instructed to wear the sling for the next 6 weeks. Instructed to be nonweightbearing. Can be discharged per orthopedic issue and will defer to primary team for his other medical issues.
--- NOTE | 2017-12-09 18:22 | PDOC PROGRESS REPORT ---
Subjective Progress Note for:: 12/09/17 Subjective:: TASHA FUENTES is a 52 year old male with a PMH of HTN, HLD, CAD post CABG, EtOH dependence. He presents to the emergency department following a mechanical fall that dislocated his left shoulder. X-ray reveals anterior dislocation of the left shoulder, no fractures noted. The patient was seen this morning on rounds, he is resting comfortably in bed on supplemental oxygen wearing a left arm sling. The patient still appears to be noticeably jaundice today. + Icterus. The patient denies abdominal pain, abdominal distention, nausea or vomiting. Patient denies a history of liver disease, but as noted earlier he does have a history of alcohol dependence. The patient's lab work is consistent with severe anemia, requiring 2 Units PRBCs. Post transfusion CBC shows mild improvement. Reason For Visit: ETOH WITHDRAWL, ACUTE LIVER FAILURE Physical Exam Vital Signs: Temp Pulse Resp BP Pulse Ox 99.0 F 103 H 16 144/74 H 100 12/09/17 11:46 12/09/17 14:00 12/09/17 11:46 12/09/17 11:46 12/09/17 11:46 Intake & Output 12/08/17 12/09/17 12/10/17 06:59 06:59 06:59 Intake Total 935 2670 1600 Output Total 950 910 Balance -15 1760 1600 Weight 99.1 kg 99.1 kg General appearance: PRESENT: no acute distress Eye exam: PRESENT: conjunctiva pink, EOMI, PERRLA Mouth exam: PRESENT: moist Neck exam: PRESENT: full ROM Cardiovascular exam: PRESENT: RRR, +S1, +S2 Pulses: PRESENT: normal radial pulses, normal dorsalis pedis pul GI/Abdominal exam: PRESENT: normal bowel sounds, soft. ABSENT: ascites, tenderness Extremities exam: PRESENT: full ROM - Left upper extremity in sling. fluro guided shoulder replacement s/p anterior shoulder dislocation Musculoskeletal exam: PRESENT: ambulatory, full ROM Neurological exam: PRESENT: alert, awake, oriented to person, oriented to place , oriented to time, oriented to situation Psychiatric exam: PRESENT: unusual affect, other Skin exam: PRESENT: dry, jaundice Results Laboratory Results: 12/09/17 12:22 12/09/17 04:48 12/07/17 12/08/17 12/09/17 09:24 17:44 04:48 WBC 4.5 4.7 RBC 2.04 L 2.33 L Hgb 7.4 L 8.3 L Hct 21.5 L 23.8 L MCV 105 H 102 H MCH 36.1 H 35.5 H MCHC 34.2 34.8 RDW 15.8 H 18.5 H Plt Count 30 L* 29 L* Sodium Potassium Chloride Carbon Dioxide Anion Gap BUN Creatinine Est GFR ( Amer) Est GFR (Non-Af Amer) Glucose Calcium Total Bilirubin AST ALT Alkaline Phosphatase Total Protein Albumin Blood Type O POSITIVE Antibody Screen NEGATIVE 12/09/17 12/09/17 04:48 12:22 WBC 5.2 RBC 2.43 L Hgb 8.7 L Hct 24.8 L MCV 102 H MCH 35.7 H MCHC 35.0 RDW 18.8 H Plt Count 33 L Sodium 140.9 Potassium 3.9 Chloride 108 H Carbon Dioxide 22 Anion Gap 11 BUN 14 Creatinine 0.78 Est GFR ( Amer) > 60 Est GFR (Non-Af Amer) > 60 Glucose 92 Calcium 8.3 L Total Bilirubin 7.3 H AST 82 H ALT 48 Alkaline Phosphatase 90 Total Protein 6.1 L Albumin 2.7 L Blood Type Antibody Screen Impressions: Humerus X-Ray 12/07/17 00:00 IMPRESSION: 1. Left anterior shoulder dislocation. Head CT 12/07/17 03:07 IMPRESSION: 1. No acute intracranial abnormality by CT criteria. This exam was performed according to our departmental dose-optimization program, which includes automated exposure control, adjustment of the mA and/or kV according to patient size and/or use of iterative reconstruction technique. Chest X-Ray 12/07/17 03:36 IMPRESSION: 1. No acute pulmonary process identified. 2. Left anterior shoulder dislocation. Fluoroscopy 12/08/17 00:00 IMPRESSION: Intra procedural imaging and fluoro Shoulder X-Ray 12/08/17 00:00 IMPRESSION: Intra procedural imaging and fluoro Abdomen Ultrasound 12/09/17 00:00 IMPRESSION: 1. Fatty infiltration of the liver. Splenomegaly. 2. Dilatation of the common bile duct with no significant intrahepatic ductal dilatation. 3. There appears to be some pericholecystic fluid. No gallstones are present. No gallbladder wall thickening is seen. Status: Imported from PACS Assessment & Plan - Diagnosis (1) Liver cirrhosis, alcoholic Qualifiers: Ascites presence: without ascites Qualified Code(s): K70.30 - Alcoholic cirrhosis of liver without ascites Is this a current diagnosis for this admission?: Yes Plan: Possible acute liver failure secondary to alcoholic cirrhosis. Patient admits to drinking 2-3 beers "most" days of the week, and he endorses a history of "heavier" drinking. The patient is jaundiced this morning with icterus. This is a new finding during this hospitalization US abdomen reveals fatty infiltration of liver, splenomegaly, dilation of the CBD with no significant intrahepatic ductal dilation, some castillo-cholecystic fluid. No call stones or wall thickening. Bleeding gums noted and nursing staff reports spontaneous epistaxis MRI abdomen pending Moderate elevation of AST 82, ALT 48 is within normal range Worsening INR 1.4 -> 1.75 LDH 586 Thrombocytopenia Platelets 31,000. Transfuse if platelet count drops < 20 Hgb downtrending over initial 24hrs 12 -> 7.9. Transfused 2U PRBC. Hgb now up to 8.3 This patient has a high bleeding risk. Plan for q6h CBC (2) Anterior dislocation of left shoulder Qualifiers: Encounter type: initial encounter Qualified Code(s): S43.015A - Anterior dislocation of left humerus, initial encounter Is this a current diagnosis for this admission?: Yes Plan: S/p fluoroscopy-guided manual replacement of left shoulder by orthopedic surgeon. Presented with anterior dislocation of left shoulder following mechanical fall. The patient denies LOC or head trauma. Unsuccessful manual replacement of left shoulder by emergency department physician. The patient will wear the left arm sling until otherwise directed. (3) Alcohol intoxication Qualifiers: Complication of substance-induced condition: uncomplicated Qualified Code(s ): F10.920 - Alcohol use, unspecified with intoxication, uncomplicated Is this a current diagnosis for this admission?: Yes Plan: The patient endorses drinking 2-3 beers "most" days of the week. The patient denies a history of seizures while withdrawing from alcohol. EtOH level upon admission 277. Maintenance IVF. Daily thiamine and folate. PRN IV Ativan for EtOH withdrawal symptoms (4) Coronary artery disease Qualifiers: Coronary Disease-Associated Artery/Lesion type: [place] artery Is this a current diagnosis for this admission?: Yes Plan: The patient endorses a history of coronary artery disease In light of his worsening anemia and thrombocytopenia, discontinued Aspirin therapy - Time Time Spent with patient: 15-24 minutes Medications reviewed and adjusted accordingly: Yes Anticipated discharge: Home - Inpatient Certification Based on my medical assessment, after consideration of the patient's comorbidities, presenting symptoms, or acuity I expect that the services needed warrant INPATIENT care.: Yes I certify that my determination is in accordance with my understanding of Medicare's requirements for reasonable and necessary INPATIENT services [42 CFR 412.3e].: Yes Medical Necessity: Risk of Complication if Not Cared For in Hospital
[2017-12-09 18:32] LABS: ABSOLUTE RETICS # 0.065 10^6/uL (0.028-0.122); HEMATOCRIT 24.9 % (37.9-51.0); HEMOGLOBIN 8.8 g/dL (13.5-17.0); MEAN CORPUSCULAR HEMOGLOBIN 35.9 pg (27.0-33.4); MEAN CORPUSCULAR HGB CONC 35.1 g/dL (32.0-36.0); MEAN CORPUSCULAR VOLUME 102 fl (80-97); RED BLOOD COUNT 2.44 10^6/uL (4.35-5.55); RED CELL DISTRIBUTION WIDTH 18.7 % (11.5-14.0); RETICULOCYTE COUNT (AUTO) 2.66 % (0.66-2.85)
[2017-12-09 18:54] LABS: PLATELET COUNT 34 10^3/uL (150-450)
[2017-12-10] MEDS: MORPHINE SULFATE 10 MG/ML INJ IV PRN ×2 (00:33→22:47)
[2017-12-10] MEDS ORDERED: NORMAL SALINE 250 ML IV PRN ×3 (01:57→17:47)
[2017-12-10 02:41] LABS: ABSOLUTE EOSINOPHILS # (AUTO) 0.1 10^3/uL (0.0-0.6); ABSOLUTE LYMPHOCYTES (AUTO) 1.1 10^3/uL (0.5-4.7); ABSOLUTE MONOCYTES (AUTO) 0.7 10^3/uL (0.1-1.4); ABSOLUTE NEUT (AUTO) 4.1 10^3/uL (1.7-8.2); BASOPHILS % (AUTO) 0.6 % (0-2); EOSINOPHILS % (AUTO) 2.2 % (0-6); HEMATOCRIT 23.3 % (37.9-51.0); LYMPHOCYTES % (AUTO) 18.1 % (13-45); MEAN CORPUSCULAR HEMOGLOBIN 35.7 pg (27.0-33.4); MEAN CORPUSCULAR HGB CONC 34.6 g/dL (32.0-36.0); MEAN CORPUSCULAR VOLUME 103 fl (80-97); MONOCYTES % (AUTO) 11.7 % (3-13); RED BLOOD COUNT 2.25 10^6/uL (4.35-5.55); RED CELL DISTRIBUTION WIDTH 18.3 % (11.5-14.0); SEGMENTED NEUTROPHILS % (AUTO) 67.4 % (42-78); TOTAL CELLS COUNTED % (AUTO) 100 %; WHITE BLOOD COUNT 6.1 10^3/uL (4.0-10.5)
[2017-12-10 02:50] LABS: ALANINE AMINOTRANSFERASE 47 U/L (21-72); ALBUMIN 2.8 g/dL (3.5-5.0); ALKALINE PHOSPHATASE 87 U/L (38-126); ANION GAP 13 (5-19); ASPARTATE AMINO TRANSFERASE 75 U/L (17-59); BILIRUBIN,DIRECT 3.1 mg/dL (0.0-0.4); BILIRUBIN,TOTAL 8.1 mg/dL (0.2-1.3); BLOOD UREA NITROGEN 11 mg/dL (7-20); CALCIUM 8.3 mg/dL (8.4-10.2); CARBON DIOXIDE 21 mmol/L (22-30); CHLORIDE 107 mmol/L (98-107); GLUCOSE 103 mg/dL (75-110); POTASSIUM 3.8 mmol/L (3.6-5.0); SODIUM 140.7 mmol/L (137-145); TOTAL PROTEIN 6.2 g/dL (6.3-8.2)
[2017-12-10 02:57] LABS: PLATELET COUNT 34 10^3/uL (150-450)
[2017-12-10] MEDS: LANSOPRAZOLE 30 MG TAB.RAP.DR PO SCH (05:07)
[2017-12-10] MEDS: LORAZEPAM INJ 2 MG/1 ML VIAL IV PRN ×8 (06:14→22:46)
[2017-12-10] MEDS: THIAMINE HCL 100 MG, FOLIC ACID 1 MG in NORMAL SALINE 250 ML IV SCH (08:49)
[2017-12-10 09:06] LABS: INTERNATIONAL RATION (INR) 1.58; PROTHROMBIN TIME 19.7 SEC (11.4-15.4)
[2017-12-10] MEDS ORDERED: PHYTONADIONE INJ 10 MG/1 ML AMPULE SUBCUT ONE (11:30)
[2017-12-10 17:28] LABS: HEMATOCRIT 21.8 % (37.9-51.0); MEAN CORPUSCULAR HEMOGLOBIN 36.1 pg (27.0-33.4); MEAN CORPUSCULAR HGB CONC 34.7 g/dL (32.0-36.0); MEAN CORPUSCULAR VOLUME 104 fl (80-97); RED CELL DISTRIBUTION WIDTH 18.5 % (11.5-14.0); WHITE BLOOD COUNT 7.9 10^3/uL (4.0-10.5)
[2017-12-10 17:30] LABS: HEMOGLOBIN 7.6 g/dL (13.5-17.0)
[2017-12-10 17:31] LABS: PLATELET COUNT 90 10^3/uL (150-450)
[2017-12-11 03:12] LABS: ABSOLUTE EOSINOPHILS # (AUTO) 0.2 10^3/uL (0.0-0.6); ABSOLUTE LYMPHOCYTES (AUTO) 1.2 10^3/uL (0.5-4.7); ABSOLUTE MONOCYTES (AUTO) 0.7 10^3/uL (0.1-1.4); ABSOLUTE NEUT (AUTO) 3.8 10^3/uL (1.7-8.2); BASOPHILS % (AUTO) 0.8 % (0-2); EOSINOPHILS % (AUTO) 2.9 % (0-6); HEMATOCRIT 24.4 % (37.9-51.0); HEMOGLOBIN 8.8 g/dL (13.5-17.0); LYMPHOCYTES % (AUTO) 19.6 % (13-45); MEAN CORPUSCULAR HEMOGLOBIN 35.4 pg (27.0-33.4); MONOCYTES % (AUTO) 12.6 % (3-13); RED BLOOD COUNT 2.49 10^6/uL (4.35-5.55); RED CELL DISTRIBUTION WIDTH 20.2 % (11.5-14.0); SEGMENTED NEUTROPHILS % (AUTO) 64.1 % (42-78); TOTAL CELLS COUNTED % (AUTO) 100 %; WHITE BLOOD COUNT 5.9 10^3/uL (4.0-10.5)
[2017-12-11 03:18] LABS: MEAN CORPUSCULAR VOLUME 98 fl (80-97); PLATELET COUNT 57 10^3/uL (150-450)
[2017-12-11 03:24] LABS: ALANINE AMINOTRANSFERASE 39 U/L (21-72); ALBUMIN 2.6 g/dL (3.5-5.0); ALKALINE PHOSPHATASE 74 U/L (38-126); ANION GAP 10 (5-19); ASPARTATE AMINO TRANSFERASE 83 U/L (17-59); BILIRUBIN,DIRECT 3.6 mg/dL (0.0-0.4); BILIRUBIN,TOTAL 8.9 mg/dL (0.2-1.3); BLOOD UREA NITROGEN 10 mg/dL (7-20); CARBON DIOXIDE 23 mmol/L (22-30); CHLORIDE 109 mmol/L (98-107); GLUCOSE 93 mg/dL (75-110); POTASSIUM 3.5 mmol/L (3.6-5.0); SODIUM 141.9 mmol/L (137-145); TOTAL PROTEIN 5.9 g/dL (6.3-8.2)
[2017-12-11] MEDS: LORAZEPAM INJ 2 MG/1 ML VIAL IV PRN ×2 (04:13→22:09)
[2017-12-11] MEDS: LANSOPRAZOLE 30 MG TAB.RAP.DR PO SCH (05:29)
[2017-12-11] MEDS: THIAMINE HCL 100 MG, FOLIC ACID 1 MG in NORMAL SALINE 250 ML IV SCH (07:58)
[2017-12-11] MEDS ORDERED: POTASSI CL 20 MEQ/50 ML RIDER 20 MEQ/50 ML RTUPB IV ONE (10:00)
[2017-12-11] MEDS ORDERED: ALBUMIN HUMAN 50 ML IV ONE (10:00)
[2017-12-11] MEDS: MORPHINE SULFATE 10 MG/ML INJ IV PRN (14:49)
[2017-12-11 17:19] LABS: HEMATOCRIT 26.2 % (37.9-51.0); HEMOGLOBIN 9.2 g/dL (13.5-17.0); MEAN CORPUSCULAR HEMOGLOBIN 34.9 pg (27.0-33.4); MEAN CORPUSCULAR HGB CONC 35.3 g/dL (32.0-36.0); MEAN CORPUSCULAR VOLUME 99 fl (80-97); RED BLOOD COUNT 2.65 10^6/uL (4.35-5.55); RED CELL DISTRIBUTION WIDTH 20.9 % (11.5-14.0)
[2017-12-11 17:42] LABS: PLATELET COUNT 56 10^3/uL (150-450)
[2017-12-11] MEDS: NORMAL SALINE 1000 ML 1,000 ML IV PRN (19:25)
[2017-12-12] MEDS: LORAZEPAM INJ 2 MG/1 ML VIAL IV PRN ×2 (00:38→04:10)
[2017-12-12] MEDS: MORPHINE SULFATE 10 MG/ML INJ IV PRN ×2 (02:14→12:11)
[2017-12-12] MEDS: NORMAL SALINE 1000 ML 1,000 ML IV PRN ×2 (03:51→14:36)
[2017-12-12] MEDS: LANSOPRAZOLE 30 MG TAB.RAP.DR PO SCH (05:16)
[2017-12-12] MEDS: THIAMINE HCL 100 MG, FOLIC ACID 1 MG in NORMAL SALINE 250 ML IV SCH (09:50)
[2017-12-12 09:52] LABS: HEMATOCRIT 27.2 % (37.9-51.0); HEMOGLOBIN 9.5 g/dL (13.5-17.0); MEAN CORPUSCULAR HGB CONC 34.9 g/dL (32.0-36.0); MEAN CORPUSCULAR VOLUME 100 fl (80-97); RED BLOOD COUNT 2.72 10^6/uL (4.35-5.55); RED CELL DISTRIBUTION WIDTH 21.1 % (11.5-14.0); WHITE BLOOD COUNT 5.5 10^3/uL (4.0-10.5)
[2017-12-12] MEDS: MAGNESIUM SULFATE/D5W 1 GM/100 ML RTUPB IV SCH ×2 (09:52→11:13)
[2017-12-12 10:14] LABS: PLATELET COUNT 59 10^3/uL (150-450)
[2017-12-12] MEDS: POTASSI CL 20 MEQ/50 ML RIDER 20 MEQ/50 ML RTUPB IV SCH ×2 (12:24→14:31)
[2017-12-12 12:35] LABS: ANION GAP 11 (5-19); BLOOD UREA NITROGEN 9 mg/dL (7-20); CALCIUM 8.1 mg/dL (8.4-10.2); CARBON DIOXIDE 22 mmol/L (22-30); CHLORIDE 109 mmol/L (98-107); GLUCOSE 95 mg/dL (75-110); POTASSIUM 3.4 mmol/L (3.6-5.0); SODIUM 141.8 mmol/L (137-145)
--- NOTE | 2017-12-12 13:51 | PDOC PROGRESS REPORT ---
Subjective Progress Note for:: 12/10/17 Subjective:: TASHA FUENTES is a 52 year old male with a PMH of HTN, HLD, CAD post CABG, EtOH dependence. He presents to the emergency department following a mechanical fall that dislocated his left shoulder. X-ray reveals anterior dislocation of the left shoulder, no fractures noted. The patient is found resting in bed on room air. He has removed his left shoulder sling. Nursing reports staff that the patient has become increasingly confused overnight, attempting to get out of bed, removing his left shoulder sling, and not consistently oriented to time place person situation. The patient still appears to be noticeably jaundice today. + Icterus. The patient denies abdominal pain, abdominal distention, nausea or vomiting. Nursing staff reported to [facility] that the patient began experiencing hematuria. 4 packed cells of platelets were ordered, currently being shipped from [place]. [facility] GI/Print Inspector Attending, Dr. Saucedo, was consulted this morning. He does not think that this patient needs to be transferred to a tertiary facility. He he believes that the patient is exhibiting signs and symptoms of alcoholic hepatitis. He recommends administering a dose of vitamin K, and otherwise simply offer supportive care. He states that the patient is not in acute liver failure as evidenced by his relatively normal liver enzymes and his downtrending bilirubin. There is no further imaging warranted at this time. He recommends to continue with the current plan of care. Reason For Visit: ETOH WITHDRAWL, ACUTE LIVER FAILURE Physical Exam Vital Signs: Temp Pulse Resp BP Pulse Ox 98.6 F 96 20 124/60 99 12/10/17 13:37 12/10/17 13:37 12/10/17 13:37 12/10/17 13:37 12/10/17 13:37 Intake & Output 12/09/17 12/10/17 12/11/17 06:59 06:59 06:59 Intake Total 2670 2300 398 Output Total 910 600 160 Balance 1760 1700 238 Weight 99.1 kg 100.8 kg General appearance: PRESENT: no acute distress Eye exam: PRESENT: conjunctiva pink, PERRLA Mouth exam: PRESENT: moist Teeth exam: PRESENT: poor dentation Neck exam: PRESENT: full ROM Respiratory exam: PRESENT: clear to auscultation noreen, symmetrical, unlabored Cardiovascular exam: PRESENT: RRR, +S1, +S2 Pulses: PRESENT: normal radial pulses, normal dorsalis pedis pul GI/Abdominal exam: PRESENT: normal bowel sounds, soft. ABSENT: ascites, distended, tenderness Rectal exam: PRESENT: deferred Gentrourinary exam: PRESENT: other - Nursing reports episodes of hematuria overnight. ABSENT: indwelling catheter Extremities exam: PRESENT: full ROM - Limited R OM to left upper extremity, joint swelling - Left shoulder Musculoskeletal exam: PRESENT: ambulatory, full ROM - Limited range of motion 2 left upper extremity, tenderness Neurological exam: PRESENT: alert, awake, oriented to person, oriented to place , oriented to time, oriented to situation Psychiatric exam: PRESENT: appropriate affect Skin exam: PRESENT: jaundice Results Laboratory Results: 12/10/17 02:28 12/10/17 02:28 12/09/17 12/10/17 12/10/17 18:08 02:28 02:28 WBC 6.0 6.1 RBC 2.44 L 2.25 L Hgb 8.8 L 8.0 L Hct 24.9 L 23.3 L MCV 102 H 103 H MCH 35.9 H 35.7 H MCHC 35.1 34.6 RDW 18.7 H 18.3 H Plt Count 34 L 34 L Seg Neutrophils % 67.4 Lymphocytes % 18.1 Monocytes % 11.7 Eosinophils % 2.2 Basophils % 0.6 Absolute Neutrophils 4.1 Absolute Lymphocytes 1.1 Absolute Monocytes 0.7 Absolute Eosinophils 0.1 Absolute Basophils 0.0 Retic Count (auto) 2.66 Absolute Retic 0.065 Sodium 140.7 Potassium 3.8 Chloride 107 Carbon Dioxide 21 L Anion Gap 13 BUN 11 Creatinine 0.69 Est GFR ( Amer) > 60 Est GFR (Non-Af Amer) > 60 Glucose 103 Calcium 8.3 L Total Bilirubin 8.1 H AST 75 H ALT 47 Alkaline Phosphatase 87 Total Protein 6.2 L Albumin 2.8 L Blood Type Antibody Screen 12/10/17 08:13 WBC RBC Hgb Hct MCV MCH MCHC RDW Plt Count Seg Neutrophils % Lymphocytes % Monocytes % Eosinophils % Basophils % Absolute Neutrophils Absolute Lymphocytes Absolute Monocytes Absolute Eosinophils Absolute Basophils Retic Count (auto) Absolute Retic Sodium Potassium Chloride Carbon Dioxide Anion Gap BUN Creatinine Est GFR ( Amer) Est GFR (Non-Af Amer) Glucose Calcium Total Bilirubin AST ALT Alkaline Phosphatase Total Protein Albumin Blood Type O POSITIVE Antibody Screen NEGATIVE Impressions: Humerus X-Ray 12/07/17 00:00 IMPRESSION: 1. Left anterior shoulder dislocation. Head CT 12/07/17 03:07 IMPRESSION: 1. No acute intracranial abnormality by CT criteria. This exam was performed according to our departmental dose-optimization program, which includes automated exposure control, adjustment of the mA and/or kV according to patient size and/or use of iterative reconstruction technique. Chest X-Ray 12/07/17 03:36 IMPRESSION: 1. No acute pulmonary process identified. 2. Left anterior shoulder dislocation. Fluoroscopy 12/08/17 00:00 IMPRESSION: Intra procedural imaging and fluoro Shoulder X-Ray 12/08/17 00:00 IMPRESSION: Intra procedural imaging and fluoro Abdomen Ultrasound 12/09/17 00:00 IMPRESSION: 1. Fatty infiltration of the liver. Splenomegaly. 2. Dilatation of the common bile duct with no significant intrahepatic ductal dilatation. 3. There appears to be some pericholecystic fluid. No gallstones are present. No gallbladder wall thickening is seen. Status: Imported from PACS Assessment & Plan - Diagnosis (1) Liver cirrhosis, alcoholic Qualifiers: Ascites presence: without ascites Qualified Code(s): K70.30 - Alcoholic cirrhosis of liver without ascites Is this a current diagnosis for this admission?: Yes Plan: Possible acute liver failure secondary to alcoholic cirrhosis. Patient admits to drinking 2-3 beers "most" days of the week, and he endorses a history of "heavier" drinking. The patient is jaundiced this morning with icterus. This is a new finding during this hospitalization US abdomen reveals fatty infiltration of liver, splenomegaly, dilation of the CBD with no significant intrahepatic ductal dilation, some castillo-cholecystic fluid. No gallstones or wall thickening. Thrombocytopenia Platelets 31,000. Bleeding gums noted and nursing staff reports spontaneous epistaxis. Nursing staff reports hematuria, twister doffer ordered 4pk Platelets. They are currently being shipped from [place]. Moderate elevation of AST 82, ALT 48 is within normal range Improving INR 1.75-> 1.58 [facility] GI/Print Inspector consulted, he recommends Vitamin K 10mg SC x 1 and supportive care. No need for transfer at this time LDH 586 Hgb downtrending over initial 24hrs 12 -> 7.9. Transfused 2U PRBC. Hgb now stabilized at 8.3 This patient has a high bleeding risk. Plan for q12h CBC (2) Anterior dislocation of left shoulder Qualifiers: Encounter type: initial encounter Qualified Code(s): S43.015A - Anterior dislocation of left humerus, initial encounter Is this a current diagnosis for this admission?: Yes Plan: S/p fluoroscopy-guided manual replacement of left shoulder by orthopedic surgeon. Presented with anterior dislocation of left shoulder following mechanical fall. The patient denies LOC or head trauma. Unsuccessful manual replacement of left shoulder by emergency department physician. The patient will wear the left arm sling until otherwise directed. (3) Alcohol intoxication Qualifiers: Complication of substance-induced condition: uncomplicated Qualified Code(s ): F10.920 - Alcohol use, unspecified with intoxication, uncomplicated Is this a current diagnosis for this admission?: Yes Plan: The patient endorses drinking 2-3 beers "most" days of the week. The patient denies a history of seizures while withdrawing from alcohol. EtOH level upon admission 277. Maintenance IVF. Daily thiamine and folate. PRN IV Ativan for EtOH withdrawal symptoms (4) Coronary artery disease Qualifiers: Coronary Disease-Associated Artery/Lesion type: [place] artery Is this a current diagnosis for this admission?: Yes Plan: The patient endorses a history of coronary artery disease In light of his worsening anemia and thrombocytopenia, discontinued Aspirin therapy - Time Time Spent with patient: 15-24 minutes Smoking Cessation Education: 3 to 10 minutes Medications reviewed and adjusted accordingly: Yes Anticipated discharge: Home - Inpatient Certification Based on my medical assessment, after consideration of the patient's comorbidities, presenting symptoms, or acuity I expect that the services needed warrant INPATIENT care.: Yes I certify that my determination is in accordance with my understanding of Medicare's requirements for reasonable and necessary INPATIENT services [42 CFR 412.3e].: Yes Medical Necessity: Risk of Complication if Not Cared For in Hospital - Plan Summary Plan Summary: At this time, the patient's disposition is unclear. He remains too unstable for discharge give his active ETOH withdrawal and persistent anemia/thrombocytopenia
--- NOTE | 2017-12-12 13:53 | PDOC PROGRESS REPORT ---
Subjective Progress Note for:: 12/11/17 Subjective:: TASHA FUENTES is a 52 year old male with a PMH of HTN, HLD, CAD post CABG, EtOH dependence. He presents to the emergency department following a mechanical fall that dislocated his left shoulder. X-ray reveals anterior dislocation of the left shoulder, no fractures noted. The patient is found resting in bed on room air. Nursing reports staff that the patient is very calm and cooperative today. The patient still appears to be noticeably jaundice today. + Icterus. The patient denies abdominal pain, abdominal distention, nausea or vomiting. [facility] GI/Outdoor Advertising Leasing Agent Attending, Dr. Saucedo, was consulted yesterday. He does not think that this patient needs to be transferred to a tertiary facility. He he believes that the patient is exhibiting signs and symptoms of alcoholic hepatitis. He recommends administering a dose of vitamin K, and otherwise simply offer supportive care. He states that the patient is not in acute liver failure as evidenced by his relatively normal liver enzymes and his downtrending bilirubin. There is no further imaging warranted at this time. He recommends to continue with the current plan of care. Reason For Visit: ETOH WITHDRAWL, ACUTE LIVER FAILURE Physical Exam Vital Signs: Temp Pulse Resp BP Pulse Ox 98.7 F 92 20 125/67 99 12/11/17 11:24 12/11/17 14:00 12/11/17 11:24 12/11/17 11:24 12/11/17 11:24 Intake & Output 12/10/17 12/11/17 12/12/17 06:59 06:59 06:59 Intake Total 2300 3287 118 Output Total 600 970 550 Balance 1700 2317 -432 Weight 100.8 kg 101.5 kg General appearance: PRESENT: no acute distress Eye exam: PRESENT: PERRLA, scleral icterus Mouth exam: PRESENT: moist Teeth exam: PRESENT: poor dentation Neck exam: PRESENT: full ROM Respiratory exam: PRESENT: clear to auscultation noreen, symmetrical, unlabored Cardiovascular exam: PRESENT: +S1, +S2 Pulses: PRESENT: normal radial pulses, normal dorsalis pedis pul GI/Abdominal exam: PRESENT: normal bowel sounds, soft. ABSENT: ascites, distended, tenderness Rectal exam: PRESENT: deferred Extremities exam: PRESENT: full ROM - limited ROM to LUE Musculoskeletal exam: PRESENT: ambulatory, full ROM - limited ROM to LUE Neurological exam: PRESENT: alert, awake, oriented to person, oriented to place , oriented to time, oriented to situation Psychiatric exam: PRESENT: appropriate affect Skin exam: PRESENT: jaundice Results Laboratory Results: 12/11/17 03:02 12/11/17 03:02 12/10/17 12/10/17 12/11/17 08:13 16:45 03:02 WBC 7.9 RBC 2.10 L Hgb 7.6 L Hct 21.8 L MCV 104 H MCH 36.1 H MCHC 34.7 RDW 18.5 H Plt Count 90 L D Seg Neutrophils % Lymphocytes % Monocytes % Eosinophils % Basophils % Absolute Neutrophils Absolute Lymphocytes Absolute Monocytes Absolute Eosinophils Absolute Basophils Sodium 141.9 Potassium 3.5 L Chloride 109 H Carbon Dioxide 23 Anion Gap 10 BUN 10 Creatinine 0.64 Est GFR ( Amer) > 60 Est GFR (Non-Af Amer) > 60 Glucose 93 Calcium 8.0 L Total Bilirubin 8.9 H AST 83 H ALT 39 Alkaline Phosphatase 74 Total Protein 5.9 L Albumin 2.6 L Blood Type O POSITIVE Antibody Screen NEGATIVE 12/11/17 03:02 WBC 5.9 RBC 2.49 L Hgb 8.8 L Hct 24.4 L MCV 98 H D MCH 35.4 H MCHC 36.0 RDW 20.2 H Plt Count 57 L Seg Neutrophils % 64.1 Lymphocytes % 19.6 Monocytes % 12.6 Eosinophils % 2.9 Basophils % 0.8 Absolute Neutrophils 3.8 Absolute Lymphocytes 1.2 Absolute Monocytes 0.7 Absolute Eosinophils 0.2 Absolute Basophils 0.0 Sodium Potassium Chloride Carbon Dioxide Anion Gap BUN Creatinine Est GFR ( Amer) Est GFR (Non-Af Amer) Glucose Calcium Total Bilirubin AST ALT Alkaline Phosphatase Total Protein Albumin Blood Type Antibody Screen Impressions: Humerus X-Ray 12/07/17 00:00 IMPRESSION: 1. Left anterior shoulder dislocation. Head CT 12/07/17 03:07 IMPRESSION: 1. No acute intracranial abnormality by CT criteria. This exam was performed according to our departmental dose-optimization program, which includes automated exposure control, adjustment of the mA and/or kV according to patient size and/or use of iterative reconstruction technique. Chest X-Ray 12/07/17 03:36 IMPRESSION: 1. No acute pulmonary process identified. 2. Left anterior shoulder dislocation. Fluoroscopy 12/08/17 00:00 IMPRESSION: Intra procedural imaging and fluoro Shoulder X-Ray 12/08/17 00:00 IMPRESSION: Intra procedural imaging and fluoro Abdomen Ultrasound 12/09/17 00:00 IMPRESSION: 1. Fatty infiltration of the liver. Splenomegaly. 2. Dilatation of the common bile duct with no significant intrahepatic ductal dilatation. 3. There appears to be some pericholecystic fluid. No gallstones are present. No gallbladder wall thickening is seen. Status: Imported from PACS Assessment & Plan - Diagnosis (1) Liver cirrhosis, alcoholic Qualifiers: Ascites presence: without ascites Qualified Code(s): K70.30 - Alcoholic cirrhosis of liver without ascites Is this a current diagnosis for this admission?: Yes Plan: Possible acute liver failure secondary to alcoholic cirrhosis. Patient admits to drinking 2-3 beers "most" days of the week, and he endorses a history of "heavier" drinking. The patient is jaundiced this morning with icterus. This is a new finding during this hospitalization US abdomen reveals fatty infiltration of liver, splenomegaly, dilation of the CBD with no significant intrahepatic ductal dilation, some castillo-cholecystic fluid. No gallstones or wall thickening. Thrombocytopenia requiring transfusion of 4pk Platelets. Bleeding gums noted, nursing staff reports spontaneous epistaxis and hematuria. Platelet count dropped as low as 29. Moderate elevation of AST 83, ALT 39 is within normal range Improving INR 1.75-> 1.6 [facility] GI/Outdoor Advertising Leasing Agent consulted, he recommended Vitamin K 10mg SC x 1 and supportive care. No need for transfer at this time LDH 586 Hgb stabilized at 8.4 following multiple transfusions (2) Anterior dislocation of left shoulder Qualifiers: Encounter type: initial encounter Qualified Code(s): S43.015A - Anterior dislocation of left humerus, initial encounter Is this a current diagnosis for this admission?: Yes Plan: S/p fluoroscopy-guided manual replacement of left shoulder by orthopedic surgeon. Presented with anterior dislocation of left shoulder following mechanical fall. The patient denies LOC or head trauma. Unsuccessful manual replacement of left shoulder by emergency department physician. The patient will wear the left arm sling until otherwise directed. (3) Alcohol intoxication Qualifiers: Complication of substance-induced condition: uncomplicated Qualified Code(s ): F10.920 - Alcohol use, unspecified with intoxication, uncomplicated Is this a current diagnosis for this admission?: Yes Plan: The patient endorses drinking 2-3 beers "most" days of the week. The patient denies a history of seizures while withdrawing from alcohol. EtOH level upon admission 277. Maintenance IVF. Daily thiamine and folate. PRN IV Ativan for EtOH withdrawal symptoms (4) Coronary artery disease Qualifiers: Coronary Disease-Associated Artery/Lesion type: [place] artery Is this a current diagnosis for this admission?: Yes Plan: The patient endorses a history of coronary artery disease In light of his anemia and thrombocytopenia, discontinued Aspirin therapy - Time Time Spent with patient: 15-24 minutes Medications reviewed and adjusted accordingly: Yes Anticipated discharge: Home - Inpatient Certification Based on my medical assessment, after consideration of the patient's comorbidities, presenting symptoms, or acuity I expect that the services needed warrant INPATIENT care.: Yes I certify that my determination is in accordance with my understanding of Medicare's requirements for reasonable and necessary INPATIENT services [42 CFR 412.3e].: Yes
--- NOTE | 2017-12-12 14:35 | PDOC PROGRESS REPORT ---
Subjective Progress Note for:: 12/12/17 Subjective:: TASHA FUENTES is a 52 year old male with a PMH of HTN, HLD, CAD post CABG, EtOH dependence. He presents to the emergency department following a mechanical fall that dislocated his left shoulder. X-ray reveals anterior dislocation of the left shoulder, no fractures noted. Ortho performed a fluoroscopy guided closed reduction of the L shoulder on 12/08/2017. The patient is found resting in bed on room air with his legs hanging off the side of the bed and he has pulled off his shoulder sling. The patient is oriented to self, location, and situation, he does not know the year. The patient still appears to be noticeably jaundice today. + Icterus. The patient denies abdominal pain, abdominal distention, nausea or vomiting. Nursing reports that the patient has been calm and cooperative for the last 36 hrs, no longer requiring a 1:1 sitter. Reason For Visit: ETOH WITHDRAWL, ACUTE LIVER FAILURE Physical Exam Vital Signs: Temp Pulse Resp BP Pulse Ox 99.6 F 95 18 149/78 H 98 12/12/17 11:22 12/12/17 11:22 12/12/17 11:22 12/12/17 11:22 12/12/17 11:22 Intake & Output 12/11/17 12/12/17 12/13/17 06:59 06:59 06:59 Intake Total 3287 2818 Output Total 970 550 Balance 2317 2268 Weight 101.5 kg 102.7 kg General appearance: PRESENT: disheveled, well-developed Head exam: PRESENT: atraumatic Eye exam: PRESENT: EOMI, PERRLA, scleral icterus Mouth exam: PRESENT: moist Teeth exam: PRESENT: poor dentation Neck exam: PRESENT: full ROM Respiratory exam: PRESENT: clear to auscultation noreen, symmetrical, unlabored Cardiovascular exam: PRESENT: +S1, +S2 Pulses: PRESENT: normal radial pulses, normal dorsalis pedis pul GI/Abdominal exam: PRESENT: normal bowel sounds, soft. ABSENT: ascites, distended, tenderness Rectal exam: PRESENT: deferred Extremities exam: PRESENT: full ROM Musculoskeletal exam: PRESENT: ambulatory, full ROM Neurological exam: PRESENT: alert, awake, oriented to person, oriented to place , oriented to time, oriented to situation. ABSENT: normal gait Skin exam: PRESENT: dry, intact, jaundice, other - BRUISING TO THE ANTERIOR L CHEST AND ANTERIOR L SHOULDER Results Laboratory Results: 12/12/17 09:35 12/12/17 09:35 12/11/17 12/11/17 12/12/17 17:10 17:10 09:35 WBC 5.0 5.5 RBC 2.65 L 2.72 L Hgb 9.2 L 9.5 L Hct 26.2 L 27.2 L MCV 99 H 100 H MCH 34.9 H 35.0 H MCHC 35.3 34.9 RDW 20.9 H 21.1 H Plt Count 56 L 59 L Sodium Potassium Chloride Carbon Dioxide Anion Gap BUN Creatinine Est GFR ( Amer) Est GFR (Non-Af Amer) Glucose Calcium Phosphorus 3.7 Magnesium 12/12/17 12/12/17 09:35 09:35 WBC RBC Hgb Hct MCV MCH MCHC RDW Plt Count Sodium 141.8 Potassium 3.4 L Chloride 109 H Carbon Dioxide 22 Anion Gap 11 BUN 9 Creatinine 0.67 Est GFR ( Amer) > 60 Est GFR (Non-Af Amer) > 60 Glucose 95 Calcium 8.1 L Phosphorus 3.5 Magnesium 1.6 Impressions: Humerus X-Ray 12/07/17 00:00 IMPRESSION: 1. Left anterior shoulder dislocation. Head CT 12/07/17 03:07 IMPRESSION: 1. No acute intracranial abnormality by CT criteria. This exam was performed according to our departmental dose-optimization program, which includes automated exposure control, adjustment of the mA and/or kV according to patient size and/or use of iterative reconstruction technique. Chest X-Ray 12/07/17 03:36 IMPRESSION: 1. No acute pulmonary process identified. 2. Left anterior shoulder dislocation. Fluoroscopy 12/08/17 00:00 IMPRESSION: Intra procedural imaging and fluoro Shoulder X-Ray 12/08/17 00:00 IMPRESSION: Intra procedural imaging and fluoro Abdomen Ultrasound 12/09/17 00:00 IMPRESSION: 1. Fatty infiltration of the liver. Splenomegaly. 2. Dilatation of the common bile duct with no significant intrahepatic ductal dilatation. 3. There appears to be some pericholecystic fluid. No gallstones are present. No gallbladder wall thickening is seen. Status: Imported from PACS Assessment & Plan - Diagnosis (1) Liver cirrhosis, alcoholic Qualifiers: Ascites presence: without ascites Qualified Code(s): K70.30 - Alcoholic cirrhosis of liver without ascites Is this a current diagnosis for this admission?: Yes Plan: Possible acute liver failure secondary to alcoholic cirrhosis. Patient admits to drinking 2-3 beers "most" days of the week, and he endorses a history of "heavier" drinking. The patient jaundice with icterus 24hrs after admission. This is a new finding during this hospitalization US abdomen reveals fatty infiltration of liver, splenomegaly, dilation of the CBD with no significant intrahepatic ductal dilation, some castillo-cholecystic fluid. No gallstones or wall thickening. Thrombocytopenia requiring transfusion of 4pk Platelets. Bleeding gums noted, nursing staff reports spontaneous epistaxis and hematuria. Platelet count dropped as low as 29. Moderate elevation of AST 83, ALT 39 is within normal range MELD score 20, has not changed since admission. Associated mortality rate 27% Improving INR 1.75-> 1.6 LDH 586 Hgb stabilized at 9.5 following multiple transfusions [facility] GI/Transport Aide Attending, Dr. Saucedo, was consulted 12/10/2017. He does not think that this patient needs to be transferred to a tertiary facility. He he believes that the patient is exhibiting signs and symptoms of alcoholic hepatitis. He recommends administering a dose of vitamin K, and otherwise simply offer supportive care. He states that the patient is not in acute liver failure as evidenced by his relatively normal liver enzymes and his downtrending bilirubin. There is no further imaging warranted at this time. He recommends to continue with the current plan of care. (2) Anterior dislocation of left shoulder Qualifiers: Encounter type: initial encounter Qualified Code(s): S43.015A - Anterior dislocation of left humerus, initial encounter Is this a current diagnosis for this admission?: Yes Plan: S/p fluoroscopy-guided manual replacement of left shoulder by orthopedic surgeon. Presented with anterior dislocation of left shoulder following mechanical fall. The patient denies LOC or head trauma. Unsuccessful manual replacement of left shoulder by emergency department physician. Given the patient's altered mental state secondary to his ETOH withdrawal, he oftentimes removes his shoulder sling. Large area of bruising to the L anterior chest and shoulder, mild swelling to L arm. Ortho, Dr. Banks, aware. No plans for imaging or intervention. (3) Alcohol intoxication Qualifiers: Complication of substance-induced condition: uncomplicated Qualified Code(s ): F10.920 - Alcohol use, unspecified with intoxication, uncomplicated Is this a current diagnosis for this admission?: Yes Plan: The patient is currently in active alcohol withdrawal. He is oriented to person and place only. No visible tremors. Nursing staff reports the patient was hallucinating 5/4 and 5/5, requiring a 1:1 sitter. His mental state has improved since that time, but he is still very impulsive, confused, and not eligible for discharge at this time. The patient endorses drinking 2-3 beers "most" days of the week. The patient denies a history of seizures while withdrawing from alcohol. EtOH level upon admission 277. Maintenance IVF. Daily thiamine and folate. PRN IV Ativan for EtOH withdrawal symptoms (4) Electrolyte abnormality Is this a current diagnosis for this admission?: Yes Plan: Consisten HYPOkalemia and HYPOmagnesemia likely secondary to malnutrition and acute disease process Requiring IV electrolyte replacement, not a candidate for oral medication due to his altered mental status Continue to monitor CMP daily (5) Coronary artery disease Qualifiers: Coronary Disease-Associated Artery/Lesion type: [place] artery Is this a current diagnosis for this admission?: Yes Plan: The patient endorses a history of coronary artery disease In light of his anemia and thrombocytopenia, discontinued Aspirin therapy - Time Time Spent with patient: 15-24 minutes Medications reviewed and adjusted accordingly: Yes Anticipated discharge: Home - Inpatient Certification Based on my medical assessment, after consideration of the patient's comorbidities, presenting symptoms, or acuity I expect that the services needed warrant INPATIENT care.: Yes I certify that my determination is in accordance with my understanding of Medicare's requirements for reasonable and necessary INPATIENT services [42 CFR 412.3e].: Yes Medical Necessity: Risk of Complication if Not Cared For in Hospital
[2017-12-13 05:15] LABS: HEMATOCRIT 27.8 % (37.9-51.0); HEMOGLOBIN 9.6 g/dL (13.5-17.0); MEAN CORPUSCULAR HEMOGLOBIN 34.8 pg (27.0-33.4); MEAN CORPUSCULAR HGB CONC 34.6 g/dL (32.0-36.0); MEAN CORPUSCULAR VOLUME 101 fl (80-97); RED BLOOD COUNT 2.76 10^6/uL (4.35-5.55); RED CELL DISTRIBUTION WIDTH 21.6 % (11.5-14.0); WHITE BLOOD COUNT 5.9 10^3/uL (4.0-10.5)
[2017-12-13 05:27] LABS: ALANINE AMINOTRANSFERASE 50 U/L (21-72); ALBUMIN 2.8 g/dL (3.5-5.0); ALKALINE PHOSPHATASE 89 U/L (38-126); ANION GAP 11 (5-19); ASPARTATE AMINO TRANSFERASE 131 U/L (17-59); BILIRUBIN,DIRECT 6.3 mg/dL (0.0-0.4); BILIRUBIN,TOTAL 13.7 mg/dL (0.2-1.3); BLOOD UREA NITROGEN 9 mg/dL (7-20); CALCIUM 8.2 mg/dL (8.4-10.2); CARBON DIOXIDE 20 mmol/L (22-30); CHLORIDE 110 mmol/L (98-107); GLUCOSE 89 mg/dL (75-110); PHOSPHORUS 3.5 mg/dL (2.5-4.5); POTASSIUM 3.6 mmol/L (3.6-5.0); TOTAL PROTEIN 6.4 g/dL (6.3-8.2)
[2017-12-13 05:37] LABS: INTERNATIONAL RATION (INR) 1.73; PROTHROMBIN TIME 21.1 SEC (11.4-15.4)
[2017-12-13 05:41] LABS: PLATELET COUNT 57 10^3/uL (150-450)
[2017-12-13] MEDS: LANSOPRAZOLE 30 MG TAB.RAP.DR PO SCH (05:43)
[2017-12-13] MEDS: NORMAL SALINE 1000 ML 1,000 ML IV PRN (05:43)
[2017-12-13] MEDS ORDERED: IPRATROPIUM/ALBUTEROL 0.5-2.5 MG/3 ML AMPUL NEB ONE (08:32)
[2017-12-13] MEDS ORDERED: IPRATROPIUM/ALBUTEROL 0.5-2.5 MG/3 ML AMPUL NEB PRN (08:32)
[2017-12-13] MEDS ORDERED: LORAZEPAM INJ 2 MG/1 ML VIAL IV PRN (08:33)
[2017-12-13 09:19] LABS: VENOUS BLOOD BASE EXCESS -3.2 mmol/L; VENOUS BLOOD HCO3 19.8 mmol/L (20-32); VENOUS BLOOD PCO2 28.3 mmHg (35-63); VENOUS BLOOD PH 7.46 (7.30-7.42)
--- NOTE | 2017-12-13 09:28 | RADIOLOGY REPORT (SQ) ---
EXAM DESCRIPTION: CHEST SINGLE VIEW COMPLETED DATE/TIME: 12/13/2017 9:18 am REASON FOR STUDY: fever, rhonchi/wheezing COMPARISON: None. EXAM PARAMETERS: NUMBER OF VIEWS: One view. TECHNIQUE: Single frontal radiographic view of the chest acquired. RADIATION DOSE: NA LIMITATIONS: None. FINDINGS: LUNGS AND PLEURA: Few markings left base. MEDIASTINUM AND HILAR STRUCTURES: No masses. Contour normal. HEART AND VASCULAR STRUCTURES: Heart normal in size. Normal vasculature. BONES: No acute findings. HARDWARE: None in the chest. OTHER: No other significant finding. IMPRESSION: Atelectasis or infiltrate left base. TECHNICAL DOCUMENTATION: JOB ID: [id number] [employer]- All Rights Reserved Reading location - IP/workstation name: [email or web address]
[2017-12-13] MEDS: THIAMINE HCL 100 MG, FOLIC ACID 1 MG in NORMAL SALINE 250 ML IV SCH (10:00)
[2017-12-13] MEDS ORDERED: NORMAL SALINE 1000 ML 1,000 ML IV PRN (10:07)
[2017-12-13 12:40] LABS: ARTERIAL BLOOD BASE EXCESS -2.1 mmol/L; ARTERIAL BLOOD H2CO3 0.85 mmol/L (1.05-1.35); ARTERIAL BLOOD HCO3 20.6 mmol/L (20-26); ARTERIAL BLOOD O2 SATURATION 96.7 % (94-98); ARTERIAL BLOOD PCO2 28.2 mmHg (35-45); ARTERIAL BLOOD PH 7.48 (7.35-7.45); ARTERIAL BLOOD PO2 80.2 mmHg (80-100); ARTERIAL BLOOD TOTAL CO2 21.4 mmol/L (23-27)
[2017-12-13 12:41] LABS: ARTERIAL BLOOD FIO2 21%
[2017-12-13] MEDS ORDERED: POTASSI CL 20 MEQ/D5NS 1L 20 MEQ/1,000 ML RTUINJ IV PRN (12:57)
[2017-12-13] MEDS: IPRATROPIUM/ALBUTEROL 0.5-2.5 MG/3 ML AMPUL NEB SCH ×2 (13:11→19:47)
[2017-12-13] MEDS ORDERED: FUROSEMIDE INJ/PF 20 MG/2 ML SDV IV ONE (13:30)
[2017-12-13] MEDS ORDERED: SPIRONOLACTONE 25 MG TABLET PO ONE (14:00)
[2017-12-13] MEDS ORDERED: LEVALBUTEROL HCL NEB 1.25 MG/3 ML AMPUL NEB PRN (14:13)
--- NOTE | 2017-12-13 14:25 | PDOC PROGRESS REPORT ---
Subjective Progress Note for:: 12/13/17 Subjective:: The patient is a 52-year-old male with past medical history of hypertension, hyperlipidemia, CAD post CABG, EtOH dependence who was admitted on 12/08/17 for a left shoulder dislocation requiring fluoroscopic guided close reduction by orthopedics. He subsequently developed acute alcohol liver failure. The patient is seen on morning rounds. He is found resting in bed on room air. He is quite obtunded and does not respond to verbal or tactile stimuli; he does withdraw to sternal rub. He is noted to have tachypnea, rhonchi, and wheezing. Per nursing, the patient had a low-grade temperature overnight. Otherwise, they have no new concerns. ROS is unable to be obtained secondary to altered mental status. Reason For Visit: ETOH WITHDRAWL, ACUTE LIVER FAILURE Physical Exam Vital Signs: Temp Pulse Resp BP Pulse Ox 99.7 F 93 19 131/73 H 98 12/13/17 07:41 12/13/17 07:41 12/13/17 07:41 12/13/17 07:41 12/13/17 07:41 Intake & Output 12/12/17 12/13/17 12/14/17 06:59 06:59 06:59 Intake Total 2818 1363 Output Total 550 Balance 2268 1363 Weight 102.7 kg 102.5 kg General appearance: PRESENT: no acute distress, well-developed, well-nourished, other - Overweight Head exam: PRESENT: atraumatic, normocephalic Eye exam: PRESENT: conjunctiva pink, PERRLA, scleral icterus Ear exam: PRESENT: normal external ear exam Mouth exam: PRESENT: moist, tongue midline Neck exam: ABSENT: carotid bruit, JVD, lymphadenopathy, thyromegaly Respiratory exam: PRESENT: prolonged expiratory phas, rhonchi, tachypnea, wheezes. ABSENT: rales Cardiovascular exam: PRESENT: RRR. ABSENT: diastolic murmur, rubs, systolic murmur Pulses: PRESENT: normal dorsalis pedis pul Vascular exam: PRESENT: normal capillary refill GI/Abdominal exam: PRESENT: ascites, normal bowel sounds, soft. ABSENT: distended, guarding, mass, organolmegaly, rebound, tenderness Rectal exam: PRESENT: deferred Extremities exam: ABSENT: calf tenderness, clubbing, full ROM - Rt shoulder limited 2/2 pain, pedal edema Neurological exam: PRESENT: other - Obtunded. ABSENT: motor sensory deficit Psychiatric exam: ABSENT: homicidal ideation, suicidal ideation Skin exam: PRESENT: dry, intact, jaundice, warm, other - Echymosis to Rt shoulder, chest, and rt flank. ABSENT: cyanosis, rash Results Laboratory Results: 12/13/17 04:18 12/13/17 04:18 12/12/17 12/12/17 12/12/17 09:35 09:35 09:35 WBC 5.5 RBC 2.72 L Hgb 9.5 L Hct 27.2 L MCV 100 H MCH 35.0 H MCHC 34.9 RDW 21.1 H Plt Count 59 L Sodium 141.8 Potassium 3.4 L Chloride 109 H Carbon Dioxide 22 Anion Gap 11 BUN 9 Creatinine 0.67 Est GFR ( Amer) > 60 Est GFR (Non-Af Amer) > 60 Glucose 95 Calcium 8.1 L Phosphorus 3.5 Magnesium 1.6 Total Bilirubin AST ALT Alkaline Phosphatase Total Protein Albumin 12/13/17 12/13/17 04:18 04:18 WBC 5.9 RBC 2.76 L Hgb 9.6 L Hct 27.8 L MCV 101 H MCH 34.8 H MCHC 34.6 RDW 21.6 H Plt Count 57 L Sodium 141.0 Potassium 3.6 Chloride 110 H Carbon Dioxide 20 L Anion Gap 11 BUN 9 Creatinine 0.63 Est GFR ( Amer) > 60 Est GFR (Non-Af Amer) > 60 Glucose 89 Calcium 8.2 L Phosphorus 3.5 Magnesium 1.7 Total Bilirubin 13.7 H AST 131 H ALT 50 Alkaline Phosphatase 89 Total Protein 6.4 Albumin 2.8 L Impressions: Humerus X-Ray 12/07/17 00:00 IMPRESSION: 1. Left anterior shoulder dislocation. Head CT 12/07/17 03:07 IMPRESSION: 1. No acute intracranial abnormality by CT criteria. This exam was performed according to our departmental dose-optimization program, which includes automated exposure control, adjustment of the mA and/or kV according to patient size and/or use of iterative reconstruction technique. Chest X-Ray 12/07/17 03:36 IMPRESSION: 1. No acute pulmonary process identified. 2. Left anterior shoulder dislocation. Fluoroscopy 12/08/17 00:00 IMPRESSION: Intra procedural imaging and fluoro Shoulder X-Ray 12/08/17 00:00 IMPRESSION: Intra procedural imaging and fluoro Abdomen Ultrasound 12/09/17 00:00 IMPRESSION: 1. Fatty infiltration of the liver. Splenomegaly. 2. Dilatation of the common bile duct with no significant intrahepatic ductal dilatation. 3. There appears to be some pericholecystic fluid. No gallstones are present. No gallbladder wall thickening is seen. Assessment & Plan - Diagnosis (1) Alcoholic hepatitis with ascites Is this a current diagnosis for this admission?: Yes Plan: Per H&P, the patient admitted to drinking 2-3 beers most days of the week with endorsing recent history of heavier drinking. He was also found to be acutely intoxicated with an alcohol level of 277. The patient developed jaundice with icterus 24 hours following admission. The patient developed thrombocytopenia (PLT 29) requiring transfusions of 4 packs of platelets, and anemia (Hgb 7.4) with active bleeding requiring 4 units of packed red blood cells. Ultrasound of the abdomen revealed fatty infiltration of the liver, splenomegaly , dilatation of the common bile duct without significant intrahepatic ductal dilatation, some pericholecystic fluid. No gallstones or wall thickening was noted. LFTs reveal an elevated bilirubin of 13.7, AST 131, ALT 50, alkaline phosphatase 89, and albumin of 2.8. Hemoglobin currently 9.6 and platelets 57. Ammonia 25.2 MELD score: 22; 3 month mortality estimated to be approximately 19%. The previous provider spoke with [facility] GI/energy management specialist attending, who believed that the patient was exhibiting signs of alcoholic hepatitis. He recommended administering a dose of vitamin K, which the patient received, and supportive care. He stated that the patient was not in acute liver failure and so no further imaging was warranted at this time. He did not feel that the patient needed to be transferred to a tertiary facility at that time. Today the patient is placed on Lasix 40 mg twice daily for evidence of ascites as well as fluid volume overload (BNP greater than 2000). He is placed on spironolactone 100 mg p.o. daily. He is receiving Prevacid for ulcer prophylaxis. IV fluids are changed to D5NS w/ 20 KCL at 75 mL/hr. Will monitor closely for signs of worsening fluid volume overload. We will consult the registered dietitian in anticipation of need for TPN; the patient has already had minimal p.o. intake for the previous 5 days. (2) Anterior dislocation of left shoulder Qualifiers: Encounter type: initial encounter Qualified Code(s): S43.015A - Anterior dislocation of left humerus, initial encounter Is this a current diagnosis for this admission?: Yes Plan: S/p fluoroscopy-guided reduction of left shoulder by orthopedic surgeon. Large area of swelling and ecchymosis to left shoulder, anterior and left chest wall. Orthopedics is aware. Shoulder sling in place; encourage use. Primary plan per Orthopedics. (3) Acute metabolic encephalopathy Is this a current diagnosis for this admission?: Yes Plan: Multifactorial secondary to acute alcohol intoxication with withdrawal, alcohol hepatitis, respiratory alkalosis and sedating medications. Ammonia is 25.2. Plan for alcohol hepatitis as above. Acute intoxicated period is resolved; no evidence of ongoing withdrawal symptoms. Will decrease available Ativan from 4mg q2 hrs prn to Ativan 1 mg IV as needed q 6 hours. Have discontinued IV morphine. Respiratory alkalosis likely secondary to LLL PNA. Will start IV antibiotics, scheduled nebulizer treatments, and oxygen as needed to maintain oxygen saturations. Fall and aspiration precautions are instituted. (4) LLL pneumonia Qualifiers: Pneumonia type: due to unspecified organism Qualified Code(s): J18.1 - Lobar pneumonia, unspecified organism Is this a current diagnosis for this admission?: Yes Plan: Patient was noted to be tachypnic with rhonchi and wheezing. ABG reveals Respiratory Alkalosis. CXR atelectasis versus infiltrate of the left lung base. Blood cultures are pending. The patient is empirically placed on IV Levaquin (penicillin and sulfa allergy is noted). Scheduled and as needed nebulizer treatments are provided. Turn/reposition patient every 2 hours; encourage IS once more alert. Supplemental oxygen as required to maintain oxygen saturations greater than 90%. (5) Fluid volume excess Qualifiers: Hypervolemia type: unspecified Qualified Code(s): E87.70 - Fluid overload, unspecified Is this a current diagnosis for this admission?: Yes Plan: The patient is noted to have 13.1 kg weight gain over the course of this admission. He is s/p 4 units of PLT and 4 units of PRBC. I&Os confirm a positive 8 L of combined IVF. pro-BNP elevated to 2230. Will monitor strict I&Os and daily weight. Have initiated furosemide 40 mg IV twice daily and spironolactone 100 mg p.o daily. As the patient has a history of CAD with CABG; will also obtain echocardiogram to evaluate for underlying CHF. (6) Electrolyte abnormality Is this a current diagnosis for this admission?: Yes Plan: Corrected; patient had persistent hypokalemia and hypomagnesemia secondary to malnutrition, chronic alcohol abuse, and acute disease process. Will continue to monitor daily chemistries and replace as needed. (7) Coronary artery disease Qualifiers: Coronary Disease-Associated Artery/Lesion type: [place] artery Is this a current diagnosis for this admission?: Yes Plan: Holding Aspirin secondary to thrombocytopenia and anemia with acute blood loss requiring transfusions. (8) Tobacco abuse Is this a current diagnosis for this admission?: Yes Plan: Nicotine replacement therapy is provided. (9) Alcohol intoxication Qualifiers: Complication of substance-induced condition: uncomplicated Qualified Code(s ): F10.920 - Alcohol use, unspecified with intoxication, uncomplicated Is this a current diagnosis for this admission?: Yes Plan: The patient was admitted with an EtOH level of 277. He endorses as chronic alcohol intake of at least 2-3 beers daily. He was placed on alcohol withdrawal protocol with IV Ativan, maintenance IV fluids, daily thiamine and folate supplementation, and a 1:1 sitter for safety. Will begin weaning ativan today. - Time Time Spent with patient: 35 or more minutes Medications reviewed and adjusted accordingly: Yes - Inpatient Certification Based on my medical assessment, after consideration of the patient's comorbidities, presenting symptoms, or acuity I expect that the services needed warrant INPATIENT care.: Yes I certify that my determination is in accordance with my understanding of Medicare's requirements for reasonable and necessary INPATIENT services [42 CFR 412.3e].: Yes Medical Necessity: Need Close Monitoring Due to Risk of Patient Decompensation - Plan Summary Plan Summary: Patient case reviewed with Dr. Funes.
[2017-12-13] MEDS: LEVOFLOXACIN 750 MG/D5W RTU 750 MG/150 ML RTUPB IV SCH (18:11)
[2017-12-13] MEDS: LORAZEPAM INJ 2 MG/1 ML VIAL IV PRN ×2 (18:11→22:22)
[2017-12-13] MEDS: FUROSEMIDE INJ/PF 20 MG/2 ML SDV IV SCH (22:23)
[2017-12-14] MEDS: IPRATROPIUM/ALBUTEROL 0.5-2.5 MG/3 ML AMPUL NEB SCH ×4 (02:06→19:53)
[2017-12-14] MEDS: LORAZEPAM INJ 2 MG/1 ML VIAL IV PRN ×3 (04:28→20:47)
[2017-12-14] MEDS: LANSOPRAZOLE 30 MG TAB.RAP.DR PO SCH (06:51)
[2017-12-14 07:10] LABS: HEMATOCRIT 29.4 % (37.9-51.0); HEMOGLOBIN 10.3 g/dL (13.5-17.0); MEAN CORPUSCULAR HEMOGLOBIN 35.1 pg (27.0-33.4); MEAN CORPUSCULAR HGB CONC 34.8 g/dL (32.0-36.0); MEAN CORPUSCULAR VOLUME 101 fl (80-97); RED BLOOD COUNT 2.92 10^6/uL (4.35-5.55)
[2017-12-14 07:27] LABS: ALANINE AMINOTRANSFERASE 56 U/L (21-72); ALBUMIN 3.1 g/dL (3.5-5.0); ALKALINE PHOSPHATASE 96 U/L (38-126); ANION GAP 14 (5-19); ASPARTATE AMINO TRANSFERASE 136 U/L (17-59); BILIRUBIN,DIRECT 6.8 mg/dL (0.0-0.4); BILIRUBIN,TOTAL 15.7 mg/dL (0.2-1.3); BLOOD UREA NITROGEN 8 mg/dL (7-20); CALCIUM 8.6 mg/dL (8.4-10.2); CARBON DIOXIDE 25 mmol/L (22-30); CHLORIDE 102 mmol/L (98-107); GLUCOSE 104 mg/dL (75-110); PHOSPHORUS 3.7 mg/dL (2.5-4.5); SODIUM 141.4 mmol/L (137-145); TOTAL PROTEIN 6.9 g/dL (6.3-8.2)
[2017-12-14 07:41] LABS: PLATELET COUNT 60 10^3/uL (150-450)
[2017-12-14] MEDS ORDERED: DEXTROSE 5%-NORMAL SALINE 1,000 ML IV PRN (07:53)
[2017-12-14] MEDS ORDERED: POTASSI CL 20 MEQ/50 ML RIDER 20 MEQ/50 ML RTUPB IV SCH (08:00)
[2017-12-14] MEDS: POTASSI CL 20 MEQ/D5NS 1L 20 MEQ/1,000 ML RTUINJ IV PRN ×2 (09:20→14:34)
[2017-12-14] MEDS: FUROSEMIDE INJ/PF 20 MG/2 ML SDV IV SCH (09:54)
[2017-12-14] MEDS: NICOTINE 14 MG/24 HR PATCH.TD24 TD SCH (09:54)
[2017-12-14] MEDS: FOLIC ACID IV SCH (09:54)
[2017-12-14] MEDS: SPIRONOLACTONE 25 MG TABLET PO SCH (09:54)
[2017-12-14] MEDS: NORMAL SALINE IV SCH (09:54)
[2017-12-14] MEDS: THIAMINE HCL IV SCH (09:54)
[2017-12-14] MEDS ORDERED: FUROSEMIDE INJ/PF 20 MG/2 ML SDV IV SCH (10:00)
[2017-12-14] MEDS ORDERED: LEVOFLOXACIN 750 MG/D5W RTU 750 MG/150 ML RTUPB IV SCH (10:00)
[2017-12-14] MEDS: POTASSIUM CHLORIDE 20 MEQ/15 ML UDCUP PO SCH ×2 (14:29→20:44)
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
[2017-12-14] MEDS: LEVOFLOXACIN 750 MG/D5W RTU 750 MG/150 ML RTUPB IV SCH (17:37)
[2017-12-15] MEDS: IPRATROPIUM/ALBUTEROL 0.5-2.5 MG/3 ML AMPUL NEB SCH ×3 (01:04→14:10)
[2017-12-15] MEDS: LORAZEPAM INJ 2 MG/1 ML VIAL IV PRN ×3 (03:39→23:16)
[2017-12-15] MEDS: POTASSI CL 20 MEQ/D5NS 1L 20 MEQ/1,000 ML RTUINJ IV PRN ×2 (03:39→22:57)
[2017-12-15] MEDS ORDERED: LORAZEPAM INJ 2 MG/1 ML VIAL IV ONE ×2 (05:15→05:52)
[2017-12-15] MEDS ORDERED: LORAZEPAM INJ 2 MG/1 ML VIAL ONE ×2 (05:18→05:52)
[2017-12-15 05:42] LABS: ALANINE AMINOTRANSFERASE 47 U/L (21-72); ALKALINE PHOSPHATASE 86 U/L (38-126); ANION GAP 11 (5-19); ASPARTATE AMINO TRANSFERASE 104 U/L (17-59); BILIRUBIN,DIRECT 6.1 mg/dL (0.0-0.4); BLOOD UREA NITROGEN 8 mg/dL (7-20); CALCIUM 8.5 mg/dL (8.4-10.2); CARBON DIOXIDE 26 mmol/L (22-30); CHLORIDE 105 mmol/L (98-107); GLUCOSE 105 mg/dL (75-110); LIPASE 91.2 U/L (23-300); PHOSPHORUS 3.5 mg/dL (2.5-4.5); POTASSIUM 3.3 mmol/L (3.6-5.0); SODIUM 141.7 mmol/L (137-145); TOTAL PROTEIN 6.8 g/dL (6.3-8.2)
[2017-12-15] MEDS: LANSOPRAZOLE 30 MG TAB.RAP.DR PO SCH (05:55)
[2017-12-15 07:28] LABS: HEMOGLOBIN 9.8 g/dL (13.5-17.0); MEAN CORPUSCULAR HEMOGLOBIN 35.2 pg (27.0-33.4); MEAN CORPUSCULAR HGB CONC 35.1 g/dL (32.0-36.0); MEAN CORPUSCULAR VOLUME 100 fl (80-97); RED BLOOD COUNT 2.79 10^6/uL (4.35-5.55); RED CELL DISTRIBUTION WIDTH 22.4 % (11.5-14.0); WHITE BLOOD COUNT 4.7 10^3/uL (4.0-10.5)
[2017-12-15 07:32] LABS: PLATELET COUNT 47 10^3/uL (150-450)
[2017-12-15] MEDS ORDERED: FUROSEMIDE INJ/PF 20 MG/2 ML SDV IV SCH (08:00)
[2017-12-15] MEDS: FUROSEMIDE INJ/PF 40 MG/4 ML SDV IV SCH ×2 (08:07→13:31)
[2017-12-15] MEDS: MAGNESIUM SULFATE/D5W 1 GM/100 ML RTUPB IV SCH ×2 (08:16→09:10)
[2017-12-15] MEDS: POTASSIUM CHLORIDE 20 MEQ/15 ML UDCUP PO SCH ×3 (08:16→19:43)
[2017-12-15] MEDS ORDERED: ONDANSETRON HCL INJ/PF 4 MG/2 ML SDV IV PRN (08:30)
[2017-12-15] MEDS: SPIRONOLACTONE 25 MG TABLET PO SCH (09:11)
[2017-12-15] MEDS: NICOTINE 14 MG/24 HR PATCH.TD24 TD SCH (09:12)
[2017-12-15] MEDS: NORMAL SALINE IV SCH (11:30)
[2017-12-15] MEDS: FOLIC ACID IV SCH (11:30)
[2017-12-15] MEDS: THIAMINE HCL IV SCH (11:30)
[2017-12-15] MEDS: VALPROATE SODIUM SYRUP 250 MG/5 ML UDCUP PO SCH ×2 (11:58→17:18)
[2017-12-15] MEDS ORDERED: FUROSEMIDE INJ/PF 40 MG/4 ML SDV IV SCH (16:33)
[2017-12-15] MEDS: LEVOFLOXACIN 750 MG/D5W RTU 750 MG/150 ML RTUPB IV SCH (17:18)
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
--- NOTE | 2017-12-15 18:44 | XCELERA REPORT ---
[address] [address] Transthoracic Echocardiogram Report Name: TASHA FUENTES Age: 52 yrs Gender: Male : 1965 Patient Status: Inpatient Patient Location: [address] [place] [address] Study Date: 12/15/2017 10:48 AM Procedure: A complete two-dimensional transthoracic echocardiogram was performed (2D, M-mode, spectral and color flow Doppler). The study was technically difficult with many images being suboptimal in quality. Reason For Study: fluid volume overload, Hx CAD s/p GABG ?CHF Ordering Physician: TIN HERNANDES, TAPPER SHANK-C Performed By: Neelima Brandt Interpretation Summary The left ventricular ejection fraction is normal. There is mild concentric left ventricular hypertrophy. The left ventricle is grossly normal size. Doppler measurements suggest pseudonormalized left ventricular relaxation, which is associated with grade II/IV or mild to moderate diastolic dysfunction Regional wall motion abnormalities cannot be excluded due to limited visualization. The right ventricle is mildly dilated. The right ventricular systolic function is normal. Borderline right atrial enlargement. Borderline left atrial enlargement. There is a trace amount of mitral regurgitation There is no mitral valve stenosis. There is a trace to mild amount of aortic regurgitation There is no aortic valve stenosis There is no tricuspid stenosis. No tricuspid regurgitation. The aortic root is not well visualized but is probably normal size. The inferior vena cava appeared normal and decreased > 50% with respiration (RAP 5-10 mmHg) There is no pericardial effusion. The study was technically difficult with many images being suboptimal in quality. MMode/2D Measurements & Calculations RVDd: 3.0 cm LVIDd: 4.8 cmFS: 45.4 % Ao root diam: 3.7 cm IVSd: 1.5 cm LVIDs: 2.6 cmEDV(Teich): 109.8 mlAo root area: 10.5 cm2 LVPWd: 1.3 cmESV(Teich): 25.7 ml LA dimension: 3.8 cm EF(Teich): 76.6 % LVOT diam: 2.3 cm LVOT area: 4.2 cm2 Doppler Measurements & Calculations MV E max charity: MV P1/2t max charity: Ao V2 max: LV V1 max P.9 cm/sec 92.5 cm/sec 185.2 cm/sec 8.9 mmHg MV A max charity: MV P1/2t: 67.0 msec Ao max PG: LV V1 max: 87.6 cm/sec 13.7 mmHg 149.5 cm/sec MV E/A: 1.0 MVA(P1/2t): 3.3 cm2 MV dec slope: LAURENCE(V,D): 3.4 cm2 404.6 cm/sec2 TV V2 max: PA V2 max: 133.8 cm/sec 98.1 cm/sec TV max PG: PA max P.9 mmHg 7.2 mmHg Left Ventricle The left ventricle is grossly normal size. There is mild concentric left ventricular hypertrophy. The left ventricular ejection fraction is normal. Doppler measurements suggest pseudonormalized left ventricular relaxation, which is associated with grade II/IV or mild to moderate diastolic dysfunction. Regional wall motion abnormalities cannot be excluded due to limited visualization. Right Ventricle The right ventricle is mildly dilated. There is normal right ventricular wall thickness. The right ventricular systolic function is normal. Atria Borderline right atrial enlargement. Borderline left atrial enlargement. Interarterial septum not well visualized and not well dopplered. Cannot comment on ASD/PFO presence. Mitral Valve There is mild mitral leaflet calcification. There is no mitral valve stenosis. There is a trace amount of mitral regurgitation. Aortic Valve The aortic valve is not well visualized secondary to technical limitations. There is no aortic valve stenosis. There is a trace to mild amount of aortic regurgitation. Tricuspid Valve The tricuspid valve is not well visualized secondary to technical limitations. There is no tricuspid stenosis. No tricuspid regurgitation. Pulmonic Valve The pulmonic valve is not well visualized. Great Vessels The aortic root is not well visualized but is probably normal size. The inferior vena cava appeared normal and decreased > 50% with respiration (RAP 5-10 mmHg). Effusions There is no pericardial effusion. : JOSE ROMERO > Howard Adrian
[2017-12-16] MEDS: VALPROATE SODIUM SYRUP 250 MG/5 ML UDCUP PO SCH ×4 (00:23→17:25)
[2017-12-16] MEDS: POTASSIUM CHLORIDE 20 MEQ/15 ML UDCUP PO SCH ×3 (05:14→17:25)
[2017-12-16] MEDS: LORAZEPAM INJ 2 MG/1 ML VIAL IV PRN (05:33)
[2017-12-16] MEDS: LANSOPRAZOLE 30 MG TAB.RAP.DR PO SCH (05:33)
[2017-12-16 07:05] LABS: HEMATOCRIT 27.3 % (37.9-51.0); HEMOGLOBIN 9.5 g/dL (13.5-17.0); MEAN CORPUSCULAR HEMOGLOBIN 35.3 pg (27.0-33.4); MEAN CORPUSCULAR VOLUME 101 fl (80-97); RED BLOOD COUNT 2.71 10^6/uL (4.35-5.55); RED CELL DISTRIBUTION WIDTH 22.5 % (11.5-14.0); WHITE BLOOD COUNT 5.7 10^3/uL (4.0-10.5)
[2017-12-16 07:15] LABS: ALANINE AMINOTRANSFERASE 42 U/L (21-72); ALBUMIN 2.8 g/dL (3.5-5.0); ALKALINE PHOSPHATASE 93 U/L (38-126); ANION GAP 10 (5-19); ASPARTATE AMINO TRANSFERASE 82 U/L (17-59); BILIRUBIN,DIRECT 4.8 mg/dL (0.0-0.4); BILIRUBIN,TOTAL 12.7 mg/dL (0.2-1.3); BLOOD UREA NITROGEN 13 mg/dL (7-20); CALCIUM 8.8 mg/dL (8.4-10.2); CARBON DIOXIDE 26 mmol/L (22-30); CHLORIDE 106 mmol/L (98-107); GLUCOSE 108 mg/dL (75-110); POTASSIUM 3.6 mmol/L (3.6-5.0); SODIUM 141.8 mmol/L (137-145); TOTAL PROTEIN 6.4 g/dL (6.3-8.2)
[2017-12-16 07:58] LABS: PLATELET COUNT 51 10^3/uL (150-450)
[2017-12-16] MEDS: FUROSEMIDE INJ/PF 20 MG/2 ML SDV IV SCH ×2 (09:36→14:23)
[2017-12-16] MEDS: NORMAL SALINE IV SCH (11:22)
[2017-12-16] MEDS: FOLIC ACID IV SCH (11:22)
[2017-12-16] MEDS: SPIRONOLACTONE 25 MG TABLET PO SCH (11:22)
[2017-12-16] MEDS: NICOTINE 14 MG/24 HR PATCH.TD24 TD SCH (11:22)
[2017-12-16] MEDS: THIAMINE HCL IV SCH (11:22)
[2017-12-16] MEDS: POTASSI CL 20 MEQ/D5NS 1L 20 MEQ/1,000 ML RTUINJ IV PRN (14:20)
--- NOTE | 2017-12-16 15:37 | PDOC PROGRESS REPORT ---
Subjective Progress Note for:: 12/16/17 Subjective:: The patient is a 52-year-old male with past medical history of hypertension, hyperlipidemia, CAD post CABG, EtOH dependence who was admitted on 12/08/17 for a left shoulder dislocation requiring fluoroscopic guided close reduction by orthopedics. He subsequently developed acute alcohol liver failure. The patient is seen on morning rounds. He is found resting in bed on room air. He is sleeping soundly and will not wake at this time; he received IV Ativan earlier this morning for agitation and aggressive outbursts. The patient was attempting to get out of bed and again began fighting with the nursing staff as they were directed to him. Nursing has no other questions or concerns today. Reason For Visit: ETOH WITHDRAWL, ACUTE LIVER FAILURE Physical Exam Vital Signs: Temp Pulse Resp BP Pulse Ox 98.6 F 82 18 139/75 H 100 12/16/17 11:16 12/16/17 14:00 12/16/17 11:16 12/16/17 11:16 12/16/17 11:16 Intake & Output 12/15/17 12/16/17 12/17/17 06:59 06:59 06:59 Intake Total 1455 1853 355 Balance 1455 1853 355 Weight 98.1 kg 95.1 kg General appearance: PRESENT: no acute distress, disheveled, well-developed, well -nourished, other - Overweight Head exam: PRESENT: atraumatic, normocephalic Eye exam: PRESENT: conjunctiva pink, PERRLA, scleral icterus Ear exam: PRESENT: normal external ear exam Mouth exam: PRESENT: moist, tongue midline Neck exam: ABSENT: carotid bruit, JVD, lymphadenopathy, thyromegaly Respiratory exam: PRESENT: clear to auscultation noreen, symmetrical, unlabored. ABSENT: rales, rhonchi, wheezes Cardiovascular exam: PRESENT: RRR, +S1, +S2. ABSENT: diastolic murmur, rubs, systolic murmur Pulses: PRESENT: normal dorsalis pedis pul Vascular exam: PRESENT: normal capillary refill GI/Abdominal exam: PRESENT: ascites, normal bowel sounds, soft. ABSENT: distended, guarding, mass, organolmegaly, rebound, tenderness Rectal exam: PRESENT: deferred Extremities exam: PRESENT: full ROM. ABSENT: calf tenderness, clubbing, pedal edema Neurological exam: PRESENT: oriented to person, oriented to place, other - Somnolent. ABSENT: oriented to time, oriented to situation, motor sensory deficit Psychiatric exam: ABSENT: homicidal ideation, suicidal ideation Skin exam: PRESENT: dry, intact, jaundice, warm, other - Ecchymosis 2 anterior chest wall and left shoulder and upper extremity. ABSENT: cyanosis, rash Results Laboratory Results: 12/16/17 06:20 12/16/17 06:20 12/16/17 12/16/17 06:20 06:20 WBC 5.7 RBC 2.71 L Hgb 9.5 L Hct 27.3 L MCV 101 H MCH 35.3 H MCHC 35.0 RDW 22.5 H Plt Count 51 L Sodium 141.8 Potassium 3.6 Chloride 106 Carbon Dioxide 26 Anion Gap 10 BUN 13 Creatinine 0.73 Est GFR ( Amer) > 60 Est GFR (Non-Af Amer) > 60 Glucose 108 Calcium 8.8 Total Bilirubin 12.7 H AST 82 H ALT 42 Alkaline Phosphatase 93 Total Protein 6.4 Albumin 2.8 L 12/13/17 12/15/17 09:03 04:28 NT-Pro-B Natriuret Pep 2230 H 913 H Impressions: Humerus X-Ray 12/07/17 00:00 IMPRESSION: 1. Left anterior shoulder dislocation. Head CT 12/07/17 03:07 IMPRESSION: 1. No acute intracranial abnormality by CT criteria. This exam was performed according to our departmental dose-optimization program, which includes automated exposure control, adjustment of the mA and/or kV according to patient size and/or use of iterative reconstruction technique. Fluoroscopy 12/08/17 00:00 IMPRESSION: Intra procedural imaging and fluoro Shoulder X-Ray 12/08/17 00:00 IMPRESSION: Intra procedural imaging and fluoro Abdomen Ultrasound 12/09/17 00:00 IMPRESSION: 1. Fatty infiltration of the liver. Splenomegaly. 2. Dilatation of the common bile duct with no significant intrahepatic ductal dilatation. 3. There appears to be some pericholecystic fluid. No gallstones are present. No gallbladder wall thickening is seen. Chest X-Ray 12/13/17 00:00 IMPRESSION: Atelectasis or infiltrate left base. Assessment & Plan - Diagnosis (1) Alcoholic hepatitis with ascites Is this a current diagnosis for this admission?: Yes Plan: Slight improvement noted in laboratory work today; bilirubin is 12.7 and AST is 82. The patient continues to have altered mental status with agitation, icterus , and jaundice. Per H&P, the patient admitted to drinking 2-3 beers most days of the week with endorsing recent history of heavier drinking. He was also found to be acutely intoxicated with an alcohol level of 277. The patient developed jaundice with icterus 24 hours following admission. The patient developed thrombocytopenia (PLT 29) requiring transfusions of 4 packs of platelets, and anemia (Hgb 7.4) with active bleeding requiring 4 units of packed red blood cells. Ultrasound of the abdomen revealed fatty infiltration of the liver, splenomegaly , dilatation of the common bile duct without significant intrahepatic ductal dilatation, some pericholecystic fluid. No gallstones or wall thickening was noted. Hgb and PLT stable; no evidence of active bleeding. Ammonia 13.6 Lipase is 91.2 MELD score: 23; 3 month mortality estimated to be approximately 19%. Continue Lasix 20 mg twice daily and spironolactone 100 mg p.o. daily. He is receiving Prevacid for ulcer prophylaxis. Continue D5NS w/ 20 KCL at 75 mL/hr. Will monitor closely for signs of worsening fluid volume overload. We will monitor nutritional status closely and initiate tube feeds as necessary. I did speak with the patient's brother today, Mark, who is his next of kin. Per Mark, the patient has been a chronic alcoholic for several years. He reports that he is on surprised by the significance of the patient's liver failure. He advises that he wishes the patient to be made DNR. All questions and concerns were addressed to his satisfaction. (2) Anterior dislocation of left shoulder Qualifiers: Encounter type: initial encounter Qualified Code(s): S43.015A - Anterior dislocation of left humerus, initial encounter Is this a current diagnosis for this admission?: Yes Plan: S/p fluoroscopy-guided reduction of left shoulder by orthopedic surgeon. Large area of swelling and ecchymosis to left shoulder, anterior and left chest wall. Orthopedics is aware. Shoulder sling in place; encourage use. Primary plan per Orthopedics. (3) Acute metabolic encephalopathy Is this a current diagnosis for this admission?: Yes Plan: Unchanged, remains significantly disoriented and confused. Acute metabolic encephalopathy is secondary to alcohol hepatitis and sedating medications. Ammonia is 13.6. Plan for alcohol hepatitis as above. Ativan 2 mg IV as needed q 3 hours for acute agitation. Avoid narcotics. Fall and aspiration precautions are instituted. (4) LLL pneumonia Qualifiers: Pneumonia type: due to unspecified organism Qualified Code(s): J18.1 - Lobar pneumonia, unspecified organism Is this a current diagnosis for this admission?: Yes Plan: Improved today; lung sounds are clear and the patient is maintaining oxygen saturations on room air. ABG revealed Respiratory Alkalosis. CXR atelectasis versus infiltrate of the left lung base. Blood cultures have no growth to date. The patient is empirically placed on Levaquin (penicillin and sulfa allergy is noted); day #4 of 7. As needed nebulizer treatments are provided. Turn/reposition patient every 2 hours; encourage IS once more alert. Supplemental oxygen as required to maintain oxygen saturations greater than 90%. (5) Fluid volume excess Qualifiers: Hypervolemia type: unspecified Qualified Code(s): E87.70 - Fluid overload, unspecified Is this a current diagnosis for this admission?: Yes Plan: Improving. Pro BNP trending down from 2230 to 913. Weight is down approximately 5 kg. Echocardiogram reveals mild to moderate diastolic dysfunction with a preserved ejection fraction. Strict I&Os limited secondary to incontinence. I am concerned about placing a Martinez as the patient has been removing IV lines. I do not wish to restrain or sedate if avoidable. Daily weights. Continue furosemide 20 mg IV twice daily and spironolactone 100 mg p.o daily. (6) Electrolyte abnormality Is this a current diagnosis for this admission?: Yes Plan: Patient had persistent hypokalemia and hypomagnesemia secondary to malnutrition , chronic alcohol abuse, and acute disease process. IV fluids have been changed to D5NS with 20 KCl. Anticipating that electrolytes will stabilize as the patient is now eating meals ; however, he may require chronic potassium replacement as he has been initiated on Lasix for management of liver disease with ascites. Will continue to monitor daily chemistries and replace as needed. (7) Coronary artery disease Qualifiers: Coronary Disease-Associated Artery/Lesion type: [place] artery Is this a current diagnosis for this admission?: Yes Plan: Holding Aspirin secondary to thrombocytopenia and anemia with acute blood loss requiring transfusions. (8) Tobacco abuse Is this a current diagnosis for this admission?: Yes Plan: Nicotine replacement therapy is provided. (9) Alcohol intoxication Qualifiers: Complication of substance-induced condition: uncomplicated Qualified Code(s ): F10.920 - Alcohol use, unspecified with intoxication, uncomplicated Is this a current diagnosis for this admission?: Yes Plan: Resolved; The patient was admitted with an EtOH level of 277, repeat EtOH <10 He endorses as chronic alcohol intake of at least 2-3 beers daily. He was placed on alcohol withdrawal protocol with IV Ativan, maintenance IV fluids, daily thiamine and folate supplementation, and a 1:1 sitter for safety. (10) DNR (do not resuscitate) Is this a current diagnosis for this admission?: Yes - Time Time Spent with patient: [id number] time with patient 40 minutes with greater than 50% spent in counseling and coordination of care (specifically discussion of diagnoses, prognoses, and likely need for usp versus hospice services with the patient's brother/next of kin). Time Spent with patient: 35 or more minutes
[2017-12-16] MEDS: LEVOFLOXACIN 750 MG TABLET PO SCH (17:25)
[2017-12-17] MEDS: LORAZEPAM INJ 2 MG/1 ML VIAL IV PRN ×2 (00:10→20:37)
[2017-12-17] MEDS: VALPROATE SODIUM SYRUP 250 MG/5 ML UDCUP PO SCH ×5 (00:10→23:01)
[2017-12-17] MEDS: POTASSIUM CHLORIDE 20 MEQ/15 ML UDCUP PO SCH ×5 (00:15→23:01)
[2017-12-17] MEDS: POTASSI CL 20 MEQ/D5NS 1L 20 MEQ/1,000 ML RTUINJ IV PRN ×2 (03:28→16:08)
[2017-12-17 05:18] LABS: HEMATOCRIT 27.7 % (37.9-51.0); HEMOGLOBIN 9.5 g/dL (13.5-17.0); MEAN CORPUSCULAR HGB CONC 34.3 g/dL (32.0-36.0); MEAN CORPUSCULAR VOLUME 102 fl (80-97); RED BLOOD COUNT 2.72 10^6/uL (4.35-5.55); RED CELL DISTRIBUTION WIDTH 23.1 % (11.5-14.0); WHITE BLOOD COUNT 6.1 10^3/uL (4.0-10.5)
[2017-12-17 05:32] LABS: INTERNATIONAL RATION (INR) 1.76; PROTHROMBIN TIME 21.4 SEC (11.4-15.4)
[2017-12-17 05:37] LABS: PLATELET COUNT 49 10^3/uL (150-450)
[2017-12-17 05:40] LABS: ALANINE AMINOTRANSFERASE 40 U/L (21-72); ALBUMIN 2.9 g/dL (3.5-5.0); ALKALINE PHOSPHATASE 108 U/L (38-126); ANION GAP 9 (5-19); ASPARTATE AMINO TRANSFERASE 67 U/L (17-59); BILIRUBIN,DIRECT 4.4 mg/dL (0.0-0.4); BILIRUBIN,TOTAL 11.7 mg/dL (0.2-1.3); BLOOD UREA NITROGEN 13 mg/dL (7-20); CALCIUM 8.9 mg/dL (8.4-10.2); CARBON DIOXIDE 23 mmol/L (22-30); CHLORIDE 107 mmol/L (98-107); GLUCOSE 97 mg/dL (75-110); TOTAL PROTEIN 6.7 g/dL (6.3-8.2)
[2017-12-17 05:55] LABS: POTASSIUM 4.6 mmol/L (3.6-5.0)
[2017-12-17] MEDS: LANSOPRAZOLE 30 MG TAB.RAP.DR PO SCH (06:05)
[2017-12-17] MEDS: FUROSEMIDE INJ/PF 20 MG/2 ML SDV IV SCH (08:32)
[2017-12-17] MEDS: SPIRONOLACTONE 25 MG TABLET PO SCH (10:17)
[2017-12-17] MEDS: NICOTINE 14 MG/24 HR PATCH.TD24 TD SCH (10:17)
[2017-12-17] MEDS: NORMAL SALINE IV SCH (10:18)
[2017-12-17] MEDS: THIAMINE HCL IV SCH (10:18)
[2017-12-17] MEDS: FOLIC ACID IV SCH (10:18)
--- NOTE | 2017-12-17 12:37 | PDOC PROGRESS REPORT ---
Subjective Progress Note for:: 12/17/17 Subjective:: The patient is a 52-year-old male with past medical history of hypertension, hyperlipidemia, CAD post CABG, EtOH dependence who was admitted on 12/08/17 for a left shoulder dislocation requiring fluoroscopic guided close reduction by orthopedics. He subsequently developed acute alcohol liver failure. The patient is seen on morning rounds. He is found resting in bed on room air. He is sleeping but wakes easily when I say his name. He is oriented to self and [facility]. He tells me that he was admitted for multiple surgeries (did go to the OR suite for a closed reduction of left shoulder) and states that the year is 1997, but knows that the president is Roseline. He is much more clear in speech with more coherent sentences. Although he is not fully oriented to situation, it is much more appropriate than what he has had previously. He denies headache, dizziness, chest pain, palpitations, shortness of breath, abdominal pain, nausea vomiting and diarrhea. He does endorse shoulder and hip pain. He also tells me that he has generalized weakness and he is afraid of falling. Nursing has no concerns; did not require Ativan overnight. Reason For Visit: ETOH WITHDRAWL, ACUTE LIVER FAILURE Physical Exam Vital Signs: Temp Pulse Resp BP Pulse Ox 98.9 F 74 20 117/53 L 94 12/17/17 11:33 12/17/17 11:33 12/17/17 11:33 12/17/17 11:33 12/17/17 11:33 Intake & Output 12/16/17 12/17/17 12/18/17 06:59 06:59 06:59 Intake Total 1852 2046 Balance [id number] Weight 95.1 kg 97.9 kg General appearance: PRESENT: no acute distress, disheveled, well-developed, well -nourished Head exam: PRESENT: atraumatic, normocephalic Eye exam: PRESENT: conjunctiva pink, EOMI, PERRLA, scleral icterus - Improved from yesterday Ear exam: PRESENT: normal external ear exam Mouth exam: PRESENT: moist, tongue midline Neck exam: ABSENT: carotid bruit, JVD, lymphadenopathy, thyromegaly Respiratory exam: PRESENT: clear to auscultation noreen, symmetrical, unlabored. ABSENT: rales, rhonchi, wheezes Cardiovascular exam: PRESENT: RRR, +S1, +S2. ABSENT: diastolic murmur, rubs, systolic murmur Pulses: PRESENT: normal dorsalis pedis pul Vascular exam: PRESENT: normal capillary refill GI/Abdominal exam: PRESENT: ascites, normal bowel sounds, soft. ABSENT: distended, guarding, mass, organolmegaly, rebound, tenderness Rectal exam: PRESENT: deferred Extremities exam: ABSENT: calf tenderness, clubbing, full ROM - Left shoulder limited secondary to pain; recent dislocation, pedal edema Neurological exam: PRESENT: alert, awake, oriented to person, oriented to place , CN II-XII grossly intact, other - Mental alertness and orientation significantly improved from yesterday.. ABSENT: oriented to time, oriented to situation, motor sensory deficit Psychiatric exam: PRESENT: appropriate affect, normal mood. ABSENT: homicidal ideation, suicidal ideation Skin exam: PRESENT: dry, intact, jaundice - Improved from yesterday, warm, other - Ecchymosis to anterior chest wall and left shoulder; improved. ABSENT: cyanosis, rash Results Laboratory Results: 12/17/17 04:33 12/17/17 04:33 12/17/17 12/17/17 04:33 04:33 WBC 6.1 RBC 2.72 L Hgb 9.5 L Hct 27.7 L MCV 102 H MCH 35.0 H MCHC 34.3 RDW 23.1 H Plt Count 49 L Sodium 139.0 Potassium 4.6 D Chloride 107 Carbon Dioxide 23 Anion Gap 9 BUN 13 Creatinine 0.70 Est GFR ( Amer) > 60 Est GFR (Non-Af Amer) > 60 Glucose 97 Calcium 8.9 Total Bilirubin 11.7 H AST 67 H ALT 40 Alkaline Phosphatase 108 Total Protein 6.7 Albumin 2.9 L 12/13/17 12/15/17 09:03 04:28 NT-Pro-B Natriuret Pep 2230 H 913 H Impressions: Humerus X-Ray 12/07/17 00:00 IMPRESSION: 1. Left anterior shoulder dislocation. Head CT 12/07/17 03:07 IMPRESSION: 1. No acute intracranial abnormality by CT criteria. This exam was performed according to our departmental dose-optimization program, which includes automated exposure control, adjustment of the mA and/or kV according to patient size and/or use of iterative reconstruction technique. Fluoroscopy 12/08/17 00:00 IMPRESSION: Intra procedural imaging and fluoro Shoulder X-Ray 12/08/17 00:00 IMPRESSION: Intra procedural imaging and fluoro Abdomen Ultrasound 12/09/17 00:00 IMPRESSION: 1. Fatty infiltration of the liver. Splenomegaly. 2. Dilatation of the common bile duct with no significant intrahepatic ductal dilatation. 3. There appears to be some pericholecystic fluid. No gallstones are present. No gallbladder wall thickening is seen. Chest X-Ray 12/13/17 00: IMPRESSION: Atelectasis or infiltrate left base. Assessment & Plan - Diagnosis (1) Alcoholic hepatitis with ascites Is this a current diagnosis for this admission?: Yes Plan: Continued improvement noted in laboratory work today; bilirubin is 11.7 and AST is 67. The patient continues to be disoriented. His orientation, jaundice, and icterus are all notably improved today. Per H&P, the patient admitted to drinking 2-3 beers most days of the week with endorsing recent history of heavier drinking. He was also found to be acutely intoxicated with an alcohol level of 277. The patient developed jaundice with icterus 24 hours following admission. The patient developed thrombocytopenia (PLT 29) requiring transfusions of 4 packs of platelets, and anemia (Hgb 7.4) with active bleeding requiring 4 units of packed red blood cells. Ultrasound of the abdomen revealed fatty infiltration of the liver, splenomegaly , dilatation of the common bile duct without significant intrahepatic ductal dilatation, some pericholecystic fluid. No gallstones or wall thickening was noted. Hgb and PLT stable; no evidence of active bleeding. Ammonia 13.6 Lipase is 91.2 MELD score: 22; 3 month mortality estimated to be approximately 19%. Continue Lasix 20 mg twice daily and spironolactone 100 mg p.o. daily. He is receiving Prevacid for ulcer prophylaxis. Continue banana bag daily. Will monitor closely for signs of worsening fluid volume overload. We will monitor nutritional status closely and initiate tube feeds as necessary. I did speak with the patient's brother yesterday, Mark, who is his next of kin. Per Mark, the patient has been a chronic alcoholic for several years. He reports that he is on surprised by the significance of the patient's liver failure. He advises that he wishes the patient to be made DNR. All questions and concerns were addressed to his satisfaction. (2) Anterior dislocation of left shoulder Qualifiers: Encounter type: initial encounter Qualified Code(s): S43.015A - Anterior dislocation of left humerus, initial encounter Is this a current diagnosis for this admission?: Yes Plan: S/p fluoroscopy-guided reduction of left shoulder by orthopedic surgeon. Large area of swelling and ecchymosis to left shoulder, anterior and left chest wall. Orthopedics is aware. Shoulder sling in place; encourage use. Primary plan per Orthopedics. (3) Acute metabolic encephalopathy Is this a current diagnosis for this admission?: Yes Plan: Improved; now oriented to self and place. While he remains disoriented to situation and time he is conversationally appropriate Acute metabolic encephalopathy is secondary to alcohol hepatitis and sedating medications. Plan for alcohol hepatitis as above. Ativan 2 mg IV as needed q 3 hours for acute agitation. Avoid narcotics. Fall and aspiration precautions are instituted. (4) LLL pneumonia Qualifiers: Pneumonia type: due to unspecified organism Qualified Code(s): J18.1 - Lobar pneumonia, unspecified organism Is this a current diagnosis for this admission?: Yes Plan: Improved; lung sounds are clear and the patient is maintaining oxygen saturations on room air. ABG revealed Respiratory Alkalosis. CXR atelectasis versus infiltrate of the left lung base. Blood cultures have no growth to date. The patient is empirically placed on Levaquin (penicillin and sulfa allergy is noted); day #5 of 7. As needed nebulizer treatments are provided. Turn/reposition patient every 2 hours; encourage IS once more alert. Supplemental oxygen as required to maintain oxygen saturations greater than 90%. (5) Fluid volume excess Qualifiers: Hypervolemia type: unspecified Qualified Code(s): E87.70 - Fluid overload, unspecified Is this a current diagnosis for this admission?: Yes Plan: Improving. Pro BNP trending down from 2230 to 913. Echocardiogram reveals mild to moderate diastolic dysfunction with a preserved ejection fraction. Strict I&Os limited secondary to incontinence. I am concerned about placing a Martinez as the patient has been removing IV lines. I do not wish to restrain or sedate if avoidable. Daily weights. Continue furosemide 20 mg p.o twice daily and spironolactone 100 mg p.o daily. (6) Electrolyte abnormality Is this a current diagnosis for this admission?: Yes Plan: Patient had persistent hypokalemia and hypomagnesemia secondary to malnutrition , chronic alcohol abuse, and acute disease process. Anticipating that electrolytes will stabilize as the patient is now eating meals ; however, he may require chronic potassium replacement as he has been initiated on Lasix for management of liver disease with ascites. Will continue to monitor daily chemistries and replace as needed. (7) Coronary artery disease Qualifiers: Coronary Disease-Associated Artery/Lesion type: [place] artery Is this a current diagnosis for this admission?: Yes Plan: Holding Aspirin secondary to thrombocytopenia and anemia with acute blood loss requiring transfusions. (8) Tobacco abuse Is this a current diagnosis for this admission?: Yes Plan: Nicotine replacement therapy is provided. (9) Alcohol intoxication Qualifiers: Complication of substance-induced condition: uncomplicated Qualified Code(s ): F10.920 - Alcohol use, unspecified with intoxication, uncomplicated Is this a current diagnosis for this admission?: Yes Plan: Resolved; The patient was admitted with an EtOH level of 277, repeat EtOH <10 He endorses as chronic alcohol intake of at least 2-3 beers daily. He was placed on alcohol withdrawal protocol with IV Ativan, maintenance IV fluids, daily thiamine and folate supplementation, and a 1:1 sitter for safety. (10) DNR (do not resuscitate) Is this a current diagnosis for this admission?: Yes - Time Time Spent with patient: 25-34 minutes Medications reviewed and adjusted accordingly: Yes
[2017-12-17] MEDS: IPRATROPIUM/ALBUTEROL 0.5-2.5 MG/3 ML AMPUL NEB PRN (12:55)
[2017-12-17] MEDS: FUROSEMIDE 20 MG TABLET PO SCH (13:21)
[2017-12-17 14:45] LABS: HEMOGLOBIN 10.6 g/dL (13.5-17.0); MEAN CORPUSCULAR HEMOGLOBIN 34.9 pg (27.0-33.4); MEAN CORPUSCULAR HGB CONC 34.2 g/dL (32.0-36.0); MEAN CORPUSCULAR VOLUME 102 fl (80-97); RED BLOOD COUNT 3.03 10^6/uL (4.35-5.55); RED CELL DISTRIBUTION WIDTH 22.8 % (11.5-14.0); WHITE BLOOD COUNT 5.9 10^3/uL (4.0-10.5)
[2017-12-17 14:49] LABS: ALANINE AMINOTRANSFERASE 36 U/L (21-72); ALBUMIN 3.1 g/dL (3.5-5.0); ALKALINE PHOSPHATASE 99 U/L (38-126); ANION GAP 12 (5-19); ASPARTATE AMINO TRANSFERASE 65 U/L (17-59); BILIRUBIN,DIRECT 4.1 mg/dL (0.0-0.4); BILIRUBIN,TOTAL 11.2 mg/dL (0.2-1.3); BLOOD UREA NITROGEN 12 mg/dL (7-20); CALCIUM 8.9 mg/dL (8.4-10.2); CARBON DIOXIDE 23 mmol/L (22-30); CHLORIDE 105 mmol/L (98-107); GLUCOSE 119 mg/dL (75-110); POTASSIUM 4.9 mmol/L (3.6-5.0); SODIUM 139.5 mmol/L (137-145)
[2017-12-17 14:57] LABS: PLATELET COUNT 53 10^3/uL (150-450)
[2017-12-17 15:06] LABS: ABSOLUTE LYMPHOCYTES# (MANUAL) 1.9 10^3/uL (0.5-4.7); ABSOLUTE MONOCYTES # (MANUAL) 0.6 10^3/uL (0.1-1.4); ABSOLUTE NEUTROPHILS# (MANUAL) 3.2 10^3/uL (1.7-8.2); BASOPHILS % (MANUAL) 0 % (0-2); EOSINOPHILS % (MANUAL) 1 % (0-6); LYMPHOCYTES % (MANUAL) 33 % (13-45); MONOCYTES % (MANUAL) 11 % (3-13); SEGMENTED NEUTROPHILS % (MAN) 55 % (42-78); TOTAL CELLS COUNTED 100
[2017-12-17 15:07] LABS: ANISOCYTOSIS 3+; POLYCHROMASIA SLIGHT
[2017-12-17 15:08] LABS: PLATELET COMMENT DECREASED
[2017-12-17] MEDS: LEVOFLOXACIN 750 MG TABLET PO SCH (17:22)
[2017-12-18] MEDS: LORAZEPAM INJ 2 MG/1 ML VIAL IV PRN ×2 (01:09→11:04)
[2017-12-18 05:10] LABS: HEMATOCRIT 29.6 % (37.9-51.0); HEMOGLOBIN 10.4 g/dL (13.5-17.0); MEAN CORPUSCULAR HEMOGLOBIN 35.3 pg (27.0-33.4); MEAN CORPUSCULAR HGB CONC 35.1 g/dL (32.0-36.0); MEAN CORPUSCULAR VOLUME 101 fl (80-97); RED BLOOD COUNT 2.94 10^6/uL (4.35-5.55); WHITE BLOOD COUNT 6.8 10^3/uL (4.0-10.5)
[2017-12-18 05:13] LABS: PLATELET COUNT 49 10^3/uL (150-450)
[2017-12-18 05:21] LABS: ALANINE AMINOTRANSFERASE 35 U/L (21-72); ALBUMIN 2.8 g/dL (3.5-5.0); ALKALINE PHOSPHATASE 102 U/L (38-126); ANION GAP 13 (5-19); ASPARTATE AMINO TRANSFERASE 60 U/L (17-59); BILIRUBIN,DIRECT 3.7 mg/dL (0.0-0.4); BILIRUBIN,TOTAL 10.7 mg/dL (0.2-1.3); BLOOD UREA NITROGEN 11 mg/dL (7-20); CALCIUM 8.8 mg/dL (8.4-10.2); CARBON DIOXIDE 24 mmol/L (22-30); CHLORIDE 104 mmol/L (98-107); GLUCOSE 102 mg/dL (75-110); POTASSIUM 4.4 mmol/L (3.6-5.0); SODIUM 140.5 mmol/L (137-145); TOTAL PROTEIN 6.7 g/dL (6.3-8.2)
[2017-12-18] MEDS: POTASSIUM CHLORIDE 20 MEQ/15 ML UDCUP PO SCH ×3 (05:45→17:25)
[2017-12-18] MEDS: LANSOPRAZOLE 30 MG TAB.RAP.DR PO SCH (05:45)
[2017-12-18] MEDS: VALPROATE SODIUM SYRUP 250 MG/5 ML UDCUP PO SCH ×3 (05:45→17:25)
[2017-12-18] MEDS: FUROSEMIDE 20 MG TABLET PO SCH ×2 (07:50→14:32)
[2017-12-18] MEDS: SPIRONOLACTONE 25 MG TABLET PO SCH (10:42)
[2017-12-18] MEDS: THIAMINE HCL IV SCH (10:42)
[2017-12-18] MEDS: NORMAL SALINE IV SCH (10:42)
[2017-12-18] MEDS: FOLIC ACID IV SCH (10:42)
[2017-12-18] MEDS: NICOTINE 14 MG/24 HR PATCH.TD24 TD SCH (10:43)
[2017-12-18] MEDS ORDERED: LORAZEPAM INJ 2 MG/1 ML VIAL IV PRN (12:48)
--- NOTE | 2017-12-18 13:09 | PDOC PROGRESS REPORT ---
Subjective Progress Note for:: 12/18/17 Subjective:: The patient is a 52-year-old male with past medical history of hypertension, hyperlipidemia, CAD post CABG, EtOH dependence who was admitted on 12/08/17 for a left shoulder dislocation requiring fluoroscopic guided close reduction by orthopedics. He subsequently developed acute alcohol liver failure. The patient is seen on morning rounds. He is found resting in bed comfortably on room air. He is sleeping and arouses slightly when I say his name but does not fully wake. Per nursing staff, the patient recently received IV Ativan for anxiety. He did drink some Boost this morning but was not interested in eating breakfast. Nursing reports that he was oriented to self, place but not time or situation. 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 Otherwise, they felt him to have overall improved orientation and decreased confusion from yesterday. Nursing has no concerns. Reason For Visit: ETOH WITHDRAWL, ACUTE LIVER FAILURE Physical Exam Vital Signs: Temp Pulse Resp BP Pulse Ox 98.6 F 77 17 112/49 L 100 12/18/17 07:42 12/18/17 07:42 12/18/17 07:42 12/18/17 07:42 12/18/17 07:42 Intake & Output 12/17/17 12/18/17 12/19/17 06:59 06:59 06:59 Intake Total 2046 2255 Output Total 625 Balance 2046 1630 Weight 97.9 kg 96.8 kg General appearance: PRESENT: no acute distress, well-developed, other - Overweight Head exam: PRESENT: atraumatic, normocephalic Eye exam: PRESENT: conjunctiva pink, PERRLA, scleral icterus Ear exam: PRESENT: normal external ear exam Mouth exam: PRESENT: moist, tongue midline Neck exam: ABSENT: carotid bruit, JVD, lymphadenopathy, thyromegaly Respiratory exam: PRESENT: clear to auscultation noreen, symmetrical, unlabored. ABSENT: rales, rhonchi, wheezes Cardiovascular exam: PRESENT: RRR, +S1, +S2. ABSENT: diastolic murmur, rubs, systolic murmur Pulses: PRESENT: normal dorsalis pedis pul Vascular exam: PRESENT: normal capillary refill GI/Abdominal exam: PRESENT: ascites, normal bowel sounds, soft. ABSENT: distended, guarding, mass, organolmegaly, rebound, tenderness Rectal exam: PRESENT: deferred Extremities exam: ABSENT: calf tenderness, clubbing, full ROM - Left arm secondary to pain; recent dislocation., pedal edema Neurological exam: PRESENT: altered, other - Somnolent after receiving Ativan. Per nursing patient is oriented to person and place only.. ABSENT: oriented to time, oriented to situation, motor sensory deficit Psychiatric exam: ABSENT: homicidal ideation, suicidal ideation Skin exam: PRESENT: dry, intact, jaundice - Improved from yesterday, warm, other - Ecchymosis to anterior chest wall and left upper extremity. ABSENT: cyanosis, rash Results Laboratory Results: 12/18/17 04:21 12/18/17 04:21 12/17/17 12/17/17 12/18/17 13:38 13:38 04:21 WBC 5.9 6.8 RBC 3.03 L 2.94 L Hgb 10.6 L 10.4 L Hct 31.0 L 29.6 L MCV 102 H 101 H MCH 34.9 H 35.3 H MCHC 34.2 35.1 RDW 22.8 H 23.0 H Plt Count 53 L 49 L Seg Neutrophils % Not Reportable Lymphocytes % Not Reportable Monocytes % Not Reportable Eosinophils % Not Reportable Basophils % Not Reportable Absolute Neutrophils Not Reportable Absolute Lymphocytes Not Reportable Absolute Monocytes Not Reportable Absolute Eosinophils Not Reportable Absolute Basophils Not Reportable Sodium 139.5 Potassium 4.9 Chloride 105 Carbon Dioxide 23 Anion Gap 12 BUN 12 Creatinine 0.73 Est GFR ( Amer) > 60 Est GFR (Non-Af Amer) > 60 Glucose 119 H Calcium 8.9 Total Bilirubin 11.2 H AST 65 H ALT 36 Alkaline Phosphatase 99 Total Protein 7.0 Albumin 3.1 L 12/18/17 04:21 WBC RBC Hgb Hct MCV MCH MCHC RDW Plt Count Seg Neutrophils % Lymphocytes % Monocytes % Eosinophils % Basophils % Absolute Neutrophils Absolute Lymphocytes Absolute Monocytes Absolute Eosinophils Absolute Basophils Sodium 140.5 Potassium 4.4 Chloride 104 Carbon Dioxide 24 Anion Gap 13 BUN 11 Creatinine 0.70 Est GFR ( Amer) > 60 Est GFR (Non-Af Amer) > 60 Glucose 102 Calcium 8.8 Total Bilirubin 10.7 H AST 60 H ALT 35 Alkaline Phosphatase 102 Total Protein 6.7 Albumin 2.8 L 12/13/17 12/15/17 09:03 04:28 NT-Pro-B Natriuret Pep 2230 H 913 H Impressions: Humerus X-Ray 12/07/17 00:00 IMPRESSION: 1. Left anterior shoulder dislocation. Head CT 12/07/17 03:07 IMPRESSION: 1. No acute intracranial abnormality by CT criteria. This exam was performed according to our departmental dose-optimization program, which includes automated exposure control, adjustment of the mA and/or kV according to patient size and/or use of iterative reconstruction technique. Fluoroscopy 12/08/17 00:00 IMPRESSION: Intra procedural imaging and fluoro Shoulder X-Ray 12/08/17 00:00 IMPRESSION: Intra procedural imaging and fluoro Abdomen Ultrasound 12/09/17 00:00 IMPRESSION: 1. Fatty infiltration of the liver. Splenomegaly. 2. Dilatation of the common bile duct with no significant intrahepatic ductal dilatation. 3. There appears to be some pericholecystic fluid. No gallstones are present. No gallbladder wall thickening is seen. Chest X-Ray 12/13/17 00:00 IMPRESSION: Atelectasis or infiltrate left base. Assessment & Plan - Diagnosis (1) Alcoholic hepatitis with ascites Is this a current diagnosis for this admission?: Yes Plan: Continued improvement noted in laboratory work today; bilirubin is 10.7 and AST is 60. The patient continues to be disoriented. His orientation, jaundice, and icterus are all notably improved today. Per H&P, the patient admitted to drinking 2-3 beers most days of the week with endorsing recent history of heavier drinking. He was also found to be acutely intoxicated with an alcohol level of 277. The patient developed jaundice with icterus 24 hours following admission. The patient developed thrombocytopenia (PLT 29) requiring transfusions of 4 packs of platelets, and anemia (Hgb 7.4) with active bleeding requiring 4 units of packed red blood cells. Ultrasound of the abdomen revealed fatty infiltration of the liver, splenomegaly , dilatation of the common bile duct without significant intrahepatic ductal dilatation, some pericholecystic fluid. No gallstones or wall thickening was noted. Hgb and PLT stable; no evidence of active bleeding. Ammonia 13.6 Lipase is 91.2 MELD score: 22; 3 month mortality estimated to be approximately 19%. Continue Lasix 20 mg twice daily and spironolactone 100 mg p.o. daily. He is receiving Prevacid for ulcer prophylaxis. Continue banana bag daily. Will monitor closely for signs of worsening fluid volume overload. We will monitor nutritional status closely and initiate tube feeds as necessary. (2) Anterior dislocation of left shoulder Qualifiers: Encounter type: initial encounter Qualified Code(s): S43.015A - Anterior dislocation of left humerus, initial encounter Is this a current diagnosis for this admission?: Yes Plan: S/p fluoroscopy-guided reduction of left shoulder by orthopedic surgeon. Large area of swelling and ecchymosis to left shoulder, anterior and left chest wall. Shoulder sling in place; encourage use. Primary plan per Orthopedics. (3) Acute metabolic encephalopathy Is this a current diagnosis for this admission?: Yes Plan: Improved; now oriented to self and place. While he remains disoriented to situation and time he is conversationally appropriate. Acute metabolic encephalopathy is secondary to alcohol hepatitis and sedating medications. Plan for alcohol hepatitis as above. Depakote 250 mg every 6 hours for anxiety, agitation, aggressive behaviors. Ativan 1 mg IV as needed q 4 hours for acute agitation. Avoid narcotics. Fall and aspiration precautions are instituted. (4) LLL pneumonia Qualifiers: Pneumonia type: due to unspecified organism Qualified Code(s): J18.1 - Lobar pneumonia, unspecified organism Is this a current diagnosis for this admission?: Yes Plan: Improved; lung sounds are clear and the patient is maintaining oxygen saturations on room air. ABG revealed Respiratory Alkalosis. CXR atelectasis versus infiltrate of the left lung base. Blood cultures have no growth to date. The patient is empirically placed on Levaquin (penicillin and sulfa allergy is noted); day #6 of 7. As needed nebulizer treatments are provided. Turn/reposition patient every 2 hours; encourage IS once more alert. Supplemental oxygen as required to maintain oxygen saturations greater than 90%. (5) Fluid volume excess Qualifiers: Hypervolemia type: unspecified Qualified Code(s): E87.70 - Fluid overload, unspecified Is this a current diagnosis for this admission?: Yes Plan: Resolved; breath sounds are clear, no edema to perineum/extremities. Pro BNP trending down from 2230 to 913. Echocardiogram reveals mild to moderate diastolic dysfunction with a preserved ejection fraction. Strict I&Os limited secondary to incontinence. I am concerned about placing a Martinez as the patient has been removing IV lines. I do not wish to restrain or sedate if avoidable. Daily weights. Continue furosemide 20 mg p.o twice daily and spironolactone 100 mg p.o daily. (6) Electrolyte abnormality Is this a current diagnosis for this admission?: Yes Plan: Resolved. Patient had persistent hypokalemia and hypomagnesemia secondary to malnutrition , chronic alcohol abuse, and acute disease process. Anticipating that electrolytes will stabilize as the patient is now eating meals ; however, he may require chronic potassium replacement as he has been initiated on Lasix for management of liver disease with ascites. Will continue to monitor daily chemistries and replace as needed. (7) Coronary artery disease Qualifiers: Coronary Disease-Associated Artery/Lesion type: [place] artery Is this a current diagnosis for this admission?: Yes Plan: Holding Aspirin secondary to thrombocytopenia and anemia with acute blood loss requiring transfusions. (8) Tobacco abuse Is this a current diagnosis for this admission?: Yes Plan: Nicotine replacement therapy is provided. (9) Alcohol intoxication Qualifiers: Complication of substance-induced condition: uncomplicated Qualified Code(s ): F10.920 - Alcohol use, unspecified with intoxication, uncomplicated Is this a current diagnosis for this admission?: Yes Plan: Resolved; The patient was admitted with an EtOH level of 277, repeat EtOH <10 He endorses as chronic alcohol intake of at least 2-3 beers daily. He was placed on alcohol withdrawal protocol with IV Ativan, maintenance IV fluids, daily thiamine and folate supplementation, and a 1:1 sitter for safety. (10) DNR (do not resuscitate) Is this a current diagnosis for this admission?: Yes (11) Hypoalbuminemia Is this a current diagnosis for this admission?: Yes Plan: Secondary to alcohol hepatitis and ascites. The patient has also had very low p.o. intake for the last 11 days (ate 50% of breakfast and lunch on one day and otherwise has either refused or only bites documented). Albumin is trending down from 3.8-2.7. The registered dietitian has been consulted and has made recommendations for tube feedings should the patient's p.o. intake not improve. Will obtain BMP, magnesium, and phosphorus levels with morning labs in anticipation of beginning tube feeds. - Time Time Spent with patient: 15-24 minutes Medications reviewed and adjusted accordingly: Yes
[2017-12-18] MEDS: IPRATROPIUM/ALBUTEROL 0.5-2.5 MG/3 ML AMPUL NEB PRN (14:58)
[2017-12-18] MEDS: LEVOFLOXACIN 750 MG TABLET PO SCH (17:25)
[2017-12-18] MEDS ORDERED: OXYCODONE HCL IR 5 MG TABLET PO ONE (18:30)
[2017-12-18] MEDS: POTASSI CL 20 MEQ/D5NS 1L 20 MEQ/1,000 ML RTUINJ IV PRN (20:24)
[2017-12-19] MEDS: VALPROATE SODIUM SYRUP 250 MG/5 ML UDCUP PO SCH ×2 (00:42→06:27)
[2017-12-19] MEDS: POTASSIUM CHLORIDE 20 MEQ/15 ML UDCUP PO SCH ×5 (00:42→23:02)
[2017-12-19] MEDS: LANSOPRAZOLE 30 MG TAB.RAP.DR PO SCH (06:27)
[2017-12-19 07:29] LABS: ALANINE AMINOTRANSFERASE 34 U/L (21-72); ALBUMIN 3.1 g/dL (3.5-5.0); ALKALINE PHOSPHATASE 105 U/L (38-126); ANION GAP 13 (5-19); ASPARTATE AMINO TRANSFERASE 54 U/L (17-59); BILIRUBIN,DIRECT 3.5 mg/dL (0.0-0.4); BLOOD UREA NITROGEN 13 mg/dL (7-20); CARBON DIOXIDE 26 mmol/L (22-30); CHLORIDE 101 mmol/L (98-107); GLUCOSE 103 mg/dL (75-110); PHOSPHORUS 5.2 mg/dL (2.5-4.5); SODIUM 139.9 mmol/L (137-145); TOTAL PROTEIN 7.2 g/dL (6.3-8.2)
[2017-12-19 08:45] LABS: HEMATOCRIT 33.8 % (37.9-51.0); HEMOGLOBIN 11.4 g/dL (13.5-17.0); MEAN CORPUSCULAR HEMOGLOBIN 34.8 pg (27.0-33.4); MEAN CORPUSCULAR HGB CONC 33.9 g/dL (32.0-36.0); MEAN CORPUSCULAR VOLUME 103 fl (80-97); RED BLOOD COUNT 3.29 10^6/uL (4.35-5.55); RED CELL DISTRIBUTION WIDTH 23.4 % (11.5-14.0); WHITE BLOOD COUNT 6.2 10^3/uL (4.0-10.5)
[2017-12-19 09:23] LABS: PLATELET COUNT 50 10^3/uL (150-450)
[2017-12-19] MEDS ORDERED: LORAZEPAM INJ 2 MG/1 ML VIAL IV PRN (10:02)
[2017-12-19] MEDS ORDERED: TRAMADOL HCL 50 MG TABLET PO PRN (10:03)
[2017-12-19] MEDS: POTASSI CL 20 MEQ/D5NS 1L 20 MEQ/1,000 ML RTUINJ IV PRN (10:17)
[2017-12-19] MEDS: FUROSEMIDE 20 MG TABLET PO SCH ×2 (10:21→14:36)
[2017-12-19] MEDS: SPIRONOLACTONE 25 MG TABLET PO SCH (10:22)
[2017-12-19] MEDS: NICOTINE 14 MG/24 HR PATCH.TD24 TD SCH (10:22)
--- NOTE | 2017-12-19 11:18 | PDOC PROGRESS REPORT ---
Subjective Progress Note for:: 12/19/17 Subjective:: The patient is a 52-year-old male with past medical history of hypertension, hyperlipidemia, CAD post CABG, EtOH dependence who was admitted on 12/08/17 for a left shoulder dislocation requiring fluoroscopic guided close reduction by orthopedics. He subsequently developed acute alcohol liver failure. The patient is seen on morning rounds. He is found resting in bed comfortably on room air. He is sleeping but arouses easily when I say his name. He is sluggish and slow to respond but alert and orientated x 4. He reports left shoulder pain and asks for pain medication. Per nursing, the patient has been eating small bites, but requires frequent prompting and assistance. They report only needing ativan x 1 overnight. The patient denies headache, dizziness, chest pain, palpitations, shortness of breath, cough, abdominal pain, nausea vomiting and diarrhea. He does endorse left shoulder pain. He has no other questions or concerns. Reason For Visit: ETOH WITHDRAWL, ACUTE LIVER FAILURE Physical Exam Vital Signs: Temp Pulse Resp BP Pulse Ox 97.8 F 73 19 114/59 L 100 12/19/17 07:43 12/19/17 07:43 12/19/17 07:43 12/19/17 07:43 12/19/17 07:43 Intake & Output 12/18/17 12/19/17 12/20/17 06:59 06:59 06:59 Intake Total 2255 3187 Output Total 625 1200 Balance 1630 1987 Weight 96.8 kg 96.8 kg General appearance: PRESENT: no acute distress, disheveled, well-developed, well -nourished Head exam: PRESENT: atraumatic, normocephalic Eye exam: PRESENT: conjunctiva pink, EOMI, PERRLA, scleral icterus - Improved from yesterday Ear exam: PRESENT: normal external ear exam Mouth exam: PRESENT: moist, tongue midline Neck exam: ABSENT: carotid bruit, JVD, lymphadenopathy, thyromegaly Respiratory exam: PRESENT: clear to auscultation noreen, symmetrical, unlabored. ABSENT: rales, rhonchi, wheezes Cardiovascular exam: PRESENT: RRR, +S1, +S2. ABSENT: diastolic murmur, rubs, systolic murmur Pulses: PRESENT: normal dorsalis pedis pul Vascular exam: PRESENT: normal capillary refill GI/Abdominal exam: PRESENT: normal bowel sounds, soft. ABSENT: distended, guarding, mass, organolmegaly, rebound, tenderness Rectal exam: PRESENT: deferred Extremities exam: PRESENT: tenderness - Lt shoulder. ABSENT: calf tenderness, clubbing, full ROM - Left shoulder, pedal edema Neurological exam: PRESENT: alert, awake, oriented to person, oriented to place , oriented to time, oriented to situation, CN II-XII grossly intact, other - Sluggish/delayed responses but with clear speach and appropriate responses.. ABSENT: motor sensory deficit Psychiatric exam: PRESENT: appropriate affect, normal mood. ABSENT: homicidal ideation, suicidal ideation Skin exam: PRESENT: dry, intact, jaundice, warm, other - echymosis to anterior chest wall and LUE. ABSENT: cyanosis, rash Results Laboratory Results: 12/19/17 08:30 12/19/17 06:21 12/19/17 12/19/17 12/19/17 06:21 06:21 08:30 WBC Cancelled 6.2 RBC Cancelled 3.29 L Hgb Cancelled 11.4 L Hct Cancelled 33.8 L MCV Cancelled 103 H MCH Cancelled 34.8 H MCHC Cancelled 33.9 RDW Cancelled 23.4 H Plt Count Cancelled 50 L Sodium 139.9 Potassium 5.0 Chloride 101 Carbon Dioxide 26 Anion Gap 13 BUN 13 Creatinine 0.74 Est GFR ( Amer) > 60 Est GFR (Non-Af Amer) > 60 Glucose 103 Calcium 9.0 Phosphorus 5.2 H Magnesium 1.9 Total Bilirubin 11.0 H AST 54 ALT 34 Alkaline Phosphatase 105 Total Protein 7.2 Albumin 3.1 L 12/13/17 15:00 Blood Blood Culture - Final NO GROWTH IN 5 DAYS 12/13/17 14:33 Blood Blood Culture - Final NO GROWTH IN 5 DAYS 12/13/17 12/15/17 09:03 04:28 NT-Pro-B Natriuret Pep 2230 H 913 H Impressions: Humerus X-Ray 12/07/17 00:00 IMPRESSION: 1. Left anterior shoulder dislocation. Head CT 12/07/17 03:07 IMPRESSION: 1. No acute intracranial abnormality by CT criteria. This exam was performed according to our departmental dose-optimization program, which includes automated exposure control, adjustment of the mA and/or kV according to patient size and/or use of iterative reconstruction technique. Fluoroscopy 12/08/17 00:00 IMPRESSION: Intra procedural imaging and fluoro Shoulder X-Ray 12/08/17 00:00 IMPRESSION: Intra procedural imaging and fluoro Abdomen Ultrasound 12/09/17 00:00 IMPRESSION: 1. Fatty infiltration of the liver. Splenomegaly. 2. Dilatation of the common bile duct with no significant intrahepatic ductal dilatation. 3. There appears to be some pericholecystic fluid. No gallstones are present. No gallbladder wall thickening is seen. Chest X-Ray 12/13/17 00:00 IMPRESSION: Atelectasis or infiltrate left base. Assessment & Plan - Diagnosis (1) Alcoholic hepatitis with ascites Is this a current diagnosis for this admission?: Yes Plan: Improved mentation today; bilirubin is 11.0 and AST is 54. His jaundice and icterus continue to improve. Per H&P, the patient admitted to drinking 2-3 beers most days of the week with endorsing recent history of heavier drinking. He was also found to be acutely intoxicated with an alcohol level of 277. The patient developed jaundice with icterus 24 hours following admission. The patient developed thrombocytopenia (PLT 29) requiring transfusions of 4 packs of platelets, and anemia (Hgb 7.4) with active bleeding requiring 4 units of packed red blood cells. Ultrasound of the abdomen revealed fatty infiltration of the liver, splenomegaly , dilatation of the common bile duct without significant intrahepatic ductal dilatation, some pericholecystic fluid. No gallstones or wall thickening was noted. Hgb and PLT stable; no evidence of active bleeding. Ammonia 13.6 Lipase is 91.2 MELD score: 22; 3 month mortality estimated to be approximately 19%. Continue Lasix 20 mg twice daily and spironolactone 100 mg p.o. daily. He is receiving Prevacid for ulcer prophylaxis. Continue banana bag daily. Will monitor closely for signs of worsening fluid volume overload. Once tolerating increase p.o. fluids will transition to oral thiamin and folic acid supplements. We will monitor nutritional status closely and initiate tube feeds as necessary. (2) Anterior dislocation of left shoulder Qualifiers: Encounter type: initial encounter Qualified Code(s): S43.015A - Anterior dislocation of left humerus, initial encounter Is this a current diagnosis for this admission?: Yes Plan: S/p fluoroscopy-guided reduction of left shoulder by orthopedic surgeon. Large area of ecchymosis to left shoulder, anterior and left chest wall; slight improvement. Shoulder sling in place; encourage use. Orthopedics has signed off. Hepatically dosed tramadol for pain. Avoid sedating (narcotic) medications. (3) Acute metabolic encephalopathy Is this a current diagnosis for this admission?: Yes Plan: Improved; now A&O x4. Acute metabolic encephalopathy is secondary to alcohol hepatitis and sedating medications. Plan for alcohol hepatitis as above. Depakote EC 250 mg BID for anxiety, agitation, aggressive behaviors. Ativan 0.5 mg IV as needed q 8 hours for acute agitation. Avoid narcotics. Fall and aspiration precautions are instituted. (4) LLL pneumonia Qualifiers: Pneumonia type: due to unspecified organism Qualified Code(s): J18.1 - Lobar pneumonia, unspecified organism Is this a current diagnosis for this admission?: Yes Plan: Improved; lung sounds are clear and the patient is maintaining oxygen saturations on room air. ABG revealed Respiratory Alkalosis. CXR atelectasis versus infiltrate of the left lung base. Blood cultures have no growth to date. The patient is empirically placed on Levaquin (penicillin and sulfa allergy is noted); day #7 of 7. As needed nebulizer treatments are provided. Turn/reposition patient every 2 hours; encourage IS once more alert. Supplemental oxygen as required to maintain oxygen saturations greater than 90%. (5) Fluid volume excess Qualifiers: Hypervolemia type: unspecified Qualified Code(s): E87.70 - Fluid overload, unspecified Is this a current diagnosis for this admission?: Yes Plan: Resolved; breath sounds are clear, no edema to perineum/extremities. Pro BNP trending down from 2230 to 913. Echocardiogram reveals mild to moderate diastolic dysfunction with a preserved ejection fraction. Strict I&Os limited secondary to incontinence. I am concerned about placing a Martinez as the patient has been removing IV lines. I do not wish to restrain or sedate if avoidable. Daily weights. Wt trending down (103.5 kg --> 96.8 kg) Continue furosemide 20 mg p.o twice daily and spironolactone 100 mg p.o daily. (6) Electrolyte abnormality Is this a current diagnosis for this admission?: Yes Plan: Resolved. Patient had persistent hypokalemia and hypomagnesemia secondary to malnutrition , chronic alcohol abuse, and acute disease process. Anticipating that electrolytes will stabilize as the patient is now eating meals ; however, he may require chronic potassium replacement as he has been initiated on Lasix for management of liver disease with ascites. Will continue to monitor daily chemistries and replace as needed. (7) Coronary artery disease Qualifiers: Coronary Disease-Associated Artery/Lesion type: campo artery Is this a current diagnosis for this admission?: Yes Plan: Holding Aspirin secondary to thrombocytopenia and anemia with acute blood loss requiring transfusions. (8) Tobacco abuse Is this a current diagnosis for this admission?: Yes Plan: Nicotine replacement therapy is provided. (9) Alcohol intoxication Qualifiers: Complication of substance-induced condition: uncomplicated Qualified Code(s ): F10.920 - Alcohol use, unspecified with intoxication, uncomplicated Is this a current diagnosis for this admission?: Yes Plan: Resolved; The patient was admitted with an EtOH level of 277, repeat EtOH <10 He endorses as chronic alcohol intake of at least 2-3 beers daily. He was placed on alcohol withdrawal protocol with IV Ativan, maintenance IV fluids, daily thiamine and folate supplementation, and a 1:1 sitter for safety. (10) DNR (do not resuscitate) Is this a current diagnosis for this admission?: Yes (11) Hypoalbuminemia Is this a current diagnosis for this admission?: Yes Plan: Secondary to alcohol hepatitis and ascites. The patient has also had very low p.o. intake for the last 11 days (ate 50% of breakfast and lunch on one day and otherwise has either refused or only bites documented). Albumin is trending down from 3.8-2.7. The registered dietitian has been consulted and has made recommendations for tube feedings should the patient's p.o. intake not improve. Patient's mentation is significantly improved this morning. Discussed with nursing the importance of frequent offerings/assistance with meals. Patient likely will not tolerate large meals and will need frequent/small bites or sips. Will continue to monitor. (12) Thrombocytopenia Is this a current diagnosis for this admission?: Yes Plan: Stable; PLTs 50. Secondary to liver failure. Now s/p 4 units PLTs. Will continue to monitor closely. Fall and bleeding precautions. (13) Anemia Qualifiers: Anemia type: unspecified type Qualified Code(s): D64.9 - Anemia, unspecified Is this a current diagnosis for this admission?: Yes Plan: Multifactorial secondary to alcohol dependence, liver failure, folate/B12 deficiency and ABLA anemia. Pt is now s/p 4 units PRBC. Hgb trending up, 11.4 today. Folate and thiamin supplementation. Will continue to monitor. - Time Time Spent with patient: 25-34 minutes Medications reviewed and adjusted accordingly: Yes Anticipated discharge: Other - Unclear; patient may require [facility]/SNF at discharge if mentation does not continue to improve.
[2017-12-19] MEDS: FOLIC ACID IV SCH (12:14)
[2017-12-19] MEDS: NORMAL SALINE IV SCH (12:14)
[2017-12-19] MEDS: THIAMINE HCL IV SCH (12:14)
--- NOTE | 2017-12-19 14:12 | RADIOLOGY REPORT (SQ) ---
EXAM DESCRIPTION: SHOULDER LEFT 2 OR MORE VIEWS COMPLETED DATE/TIME: 12/19/2017 2:03 pm REASON FOR STUDY: pain; dislocation 1 week ago s/p reduction COMPARISON: Left shoulder fluoroscopy 12/08/2017 Left shoulder films 12/07/2017 NUMBER OF VIEWS: AP and Y-view TECHNIQUE: AP and Y-view images acquired of the left shoulder. LIMITATIONS: None. FINDINGS: MINERALIZATION: Osteopenic BONES: No acute fracture. No lytic or blastic lesions JOINTS: No glenohumeral dislocation. No acromioclavicular joint widening. VISUALIZED LUNGS AND RIBS: No pneumothorax. No rib fracture. SOFT TISSUES: No radiopaque foreign body. OTHER: No other significant finding. IMPRESSION: No acute fracture. No glenohumeral joint or AC joint malalignment TECHNICAL DOCUMENTATION: JOB ID: [id number] [employer]- All Rights Reserved Reading location - IP/workstation name: [email or web address]
[2017-12-19] MEDS ORDERED: LIDOCAINE 5% (700 MG) TRANSDERMAL ADH..PATCH TP ONE (14:30)
[2017-12-19] MEDS: OXYCODONE HCL IR 5 MG TABLET PO PRN ×2 (14:34→22:58)
[2017-12-19] MEDS: LEVOFLOXACIN 750 MG TABLET PO SCH (17:09)
[2017-12-19] MEDS: DIVALPROEX SODIUM 250 MG TABLET.DR PO SCH (22:58)
[2017-12-20] MEDS: POTASSI CL 20 MEQ/D5NS 1L 20 MEQ/1,000 ML RTUINJ IV PRN ×2 (00:52→17:03)
[2017-12-20 05:16] LABS: HEMATOCRIT 31.3 % (37.9-51.0); HEMOGLOBIN 10.8 g/dL (13.5-17.0); MEAN CORPUSCULAR HEMOGLOBIN 35.2 pg (27.0-33.4); MEAN CORPUSCULAR HGB CONC 34.4 g/dL (32.0-36.0); MEAN CORPUSCULAR VOLUME 102 fl (80-97); RED BLOOD COUNT 3.06 10^6/uL (4.35-5.55); RED CELL DISTRIBUTION WIDTH 22.7 % (11.5-14.0); WHITE BLOOD COUNT 7.3 10^3/uL (4.0-10.5)
[2017-12-20] MEDS: POTASSIUM CHLORIDE 20 MEQ/15 ML UDCUP PO SCH ×3 (05:22→17:06)
[2017-12-20] MEDS: LANSOPRAZOLE 30 MG TAB.RAP.DR PO SCH (05:22)
[2017-12-20 05:33] LABS: ALANINE AMINOTRANSFERASE 30 U/L (21-72); ALBUMIN 3.5 g/dL (3.5-5.0); ALKALINE PHOSPHATASE 113 U/L (38-126); ANION GAP 12 (5-19); ASPARTATE AMINO TRANSFERASE 53 U/L (17-59); BILIRUBIN,DIRECT 4.4 mg/dL (0.0-0.4); BILIRUBIN,TOTAL 12.9 mg/dL (0.2-1.3); BLOOD UREA NITROGEN 13 mg/dL (7-20); CALCIUM 9.5 mg/dL (8.4-10.2); CARBON DIOXIDE 24 mmol/L (22-30); CHLORIDE 99 mmol/L (98-107); GLUCOSE 112 mg/dL (75-110); POTASSIUM 5.1 mmol/L (3.6-5.0); SODIUM 135.1 mmol/L (137-145); TOTAL PROTEIN 7.7 g/dL (6.3-8.2)
[2017-12-20 05:38] LABS: INTERNATIONAL RATION (INR) 1.56; PROTHROMBIN TIME 19.4 SEC (11.4-15.4)
[2017-12-20 05:43] LABS: PLATELET COUNT 54 10^3/uL (150-450)
[2017-12-20] MEDS: LIDOCAINE 5% (700 MG) TRANSDERMAL ADH..PATCH TP SCH (09:31)
[2017-12-20] MEDS: FUROSEMIDE 20 MG TABLET PO SCH ×2 (09:31→14:24)
[2017-12-20] MEDS: NICOTINE 14 MG/24 HR PATCH.TD24 TD SCH (09:31)
[2017-12-20] MEDS: DIVALPROEX SODIUM 250 MG TABLET.DR PO SCH ×2 (09:31→21:42)
[2017-12-20] MEDS: SPIRONOLACTONE 25 MG TABLET PO SCH (09:31)
[2017-12-20] MEDS: THIAMINE HCL IV SCH (09:37)
[2017-12-20] MEDS: NORMAL SALINE IV SCH (09:37)
[2017-12-20] MEDS: FOLIC ACID IV SCH (09:37)
[2017-12-20] MEDS: OXYCODONE HCL IR 5 MG TABLET PO PRN (14:30)
--- NOTE | 2017-12-20 16:37 | PDOC PROGRESS REPORT ---
Subjective Progress Note for:: 12/20/17 Subjective:: TASHA FUENTES is a 52 year old male with a PMH of HTN, HLD, CAD post CABG, EtOH dependence. He presents to the emergency department following a mechanical fall that dislocated his left shoulder. X-ray reveals anterior dislocation of the left shoulder, no fractures noted. Ortho performed a fluoroscopy guided closed reduction of the L shoulder on 12/08/2017. The patient is found resting in bed on room air. The patient is oriented to self , location, and year, he does not know why he is in the hospital ("I broke my collarbone"). The patient still appears to be noticeably jaundice today. + Icterus. The patient denies abdominal pain, abdominal distention, nausea or vomiting. Nursing reports that the patient has been calm and cooperative, no longer requiring a 1:1 sitter, but his appetite remains to be very poor. Reason For Visit: ETOH WITHDRAWL, ACUTE LIVER FAILURE Physical Exam Vital Signs: Temp Pulse Resp BP Pulse Ox 97.9 F 80 18 130/54 H 99 12/20/17 15:47 12/20/17 15:47 12/20/17 15:47 12/20/17 15:47 12/20/17 15:47 Intake & Output 12/19/17 12/20/17 12/21/17 06:59 06:59 06:59 Intake Total 3187 1825 Output Total 1200 1300 Balance 1987 525 Weight 96.8 kg 96.1 kg 96.1 kg General appearance: PRESENT: disheveled Head exam: PRESENT: atraumatic Eye exam: PRESENT: EOMI, PERRLA, scleral icterus Mouth exam: PRESENT: moist Teeth exam: PRESENT: poor dentation Neck exam: PRESENT: full ROM Respiratory exam: PRESENT: clear to auscultation noreen, symmetrical, unlabored Cardiovascular exam: PRESENT: +S1, +S2 Pulses: PRESENT: normal radial pulses, normal dorsalis pedis pul GI/Abdominal exam: PRESENT: normal bowel sounds, soft. ABSENT: ascites, distended, tenderness Rectal exam: PRESENT: deferred Extremities exam: PRESENT: full ROM Musculoskeletal exam: PRESENT: ambulatory, full ROM Neurological exam: PRESENT: alert, awake, oriented to person, oriented to place , oriented to time. ABSENT: oriented to situation Psychiatric exam: PRESENT: other - drowsy. confused. impulsive but able to be redirected.. ABSENT: appropriate affect Focused psych exam: PRESENT: restlessness Skin exam: PRESENT: intact, jaundice, other - Extensive amount of bruising to the anterior chest wall. ABSENT: normal color Results Laboratory Results: 12/20/17 04:40 12/20/17 04:40 12/20/17 12/20/17 04:40 04:40 WBC 7.3 RBC 3.06 L Hgb 10.8 L Hct 31.3 L MCV 102 H MCH 35.2 H MCHC 34.4 RDW 22.7 H Plt Count 54 L Sodium 135.1 L Potassium 5.1 H Chloride 99 Carbon Dioxide 24 Anion Gap 12 BUN 13 Creatinine 0.73 Est GFR ( Amer) > 60 Est GFR (Non-Af Amer) > 60 Glucose 112 H Calcium 9.5 Total Bilirubin 12.9 H AST 53 ALT 30 Alkaline Phosphatase 113 Total Protein 7.7 Albumin 3.5 12/13/17 12/15/17 09:03 04:28 NT-Pro-B Natriuret Pep 2230 H 913 H Impressions: Humerus X-Ray 12/07/17 00:00 IMPRESSION: 1. Left anterior shoulder dislocation. Head CT 12/07/17 03:07 IMPRESSION: 1. No acute intracranial abnormality by CT criteria. This exam was performed according to our departmental dose-optimization program, which includes automated exposure control, adjustment of the mA and/or kV according to patient size and/or use of iterative reconstruction technique. Fluoroscopy 12/08/17 00:00 IMPRESSION: Intra procedural imaging and fluoro Abdomen Ultrasound 12/09/17 00:00 IMPRESSION: 1. Fatty infiltration of the liver. Splenomegaly. 2. Dilatation of the common bile duct with no significant intrahepatic ductal dilatation. 3. There appears to be some pericholecystic fluid. No gallstones are present. No gallbladder wall thickening is seen. Chest X-Ray 12/13/17 00:00 IMPRESSION: Atelectasis or infiltrate left base. Shoulder X-Ray 12/19/17 00:00 IMPRESSION: No acute fracture. No glenohumeral joint or AC joint malalignment Status: Imported from PACS Assessment & Plan - Diagnosis (1) Liver cirrhosis, alcoholic Qualifiers: Ascites presence: with ascites Qualified Code(s): K70.31 - Alcoholic cirrhosis of liver with ascites Is this a current diagnosis for this admission?: Yes Plan: Improved mentation today; bilirubin is 12.9 and AST is 53. Per H&P, the patient admitted to drinking 2-3 beers most days of the week with endorsing recent history of heavier drinking. He was also found to be acutely intoxicated with an alcohol level of 277. The patient developed jaundice with icterus 24 hours following admission. The patient developed thrombocytopenia (PLT 29) requiring transfusions of 4 packs of platelets, and anemia (Hgb 7.4) with active bleeding requiring 4 units of packed red blood cells. Ultrasound of the abdomen revealed fatty infiltration of the liver, splenomegaly , dilatation of the common bile duct without significant intrahepatic ductal dilatation, some pericholecystic fluid. No gallstones or wall thickening was noted. Hgb and PLT stable; no evidence of active bleeding. Ammonia 13.6 (12/15/2017) Lipase is 91.2 (12/15/2017) MELD score: 18; 3 month mortality estimated to be approximately 27%. Continue Lasix 20 mg twice daily and spironolactone 100 mg p.o. daily. He is receiving Prevacid for ulcer prophylaxis. Continue banana bag daily. Will monitor closely for signs of worsening fluid volume overload. Once tolerating increase p.o. fluids will transition to oral thiamin and folic acid supplements. We will monitor nutritional status closely and initiate tube feeds as necessary. (2) Anterior dislocation of left shoulder Qualifiers: Encounter type: initial encounter Qualified Code(s): S43.015A - Anterior dislocation of left humerus, initial encounter Is this a current diagnosis for this admission?: Yes Plan: S/p fluoroscopy-guided reduction of left shoulder by orthopedic surgeon. Large area of ecchymosis to left shoulder, anterior and left chest wall; slight improvement. Patient has very limited ROM to LUE, strength is only 1-2/5. XRAY done yesterday does not show dislocation. After consultation with hospitalist attending, plan for PT/OT. No further imaging warranted at this time. Shoulder sling NOT in place; patient has been consistently noncompliant, encourage use. Orthopedics has signed off. Hepatically dosed tramadol for pain. Avoid sedating (narcotic) medications. (3) LLL pneumonia Qualifiers: Pneumonia type: due to unspecified organism Qualified Code(s): J18.1 - Lobar pneumonia, unspecified organism Is this a current diagnosis for this admission?: Yes Plan: Improved; lung sounds are clear and the patient is maintaining oxygen saturations on room air. ABG revealed Respiratory Alkalosis. CXR atelectasis versus infiltrate of the left lung base. Blood cultures have no growth to date. The patient was empirically covered with 7 days of Levaquin (penicillin and sulfa allergy is noted). As needed nebulizer treatments are provided. Turn/reposition patient every 2 hours; encourage IS once more alert. Supplemental oxygen as required to maintain oxygen saturations greater than 90%. (4) Fluid volume excess Qualifiers: Hypervolemia type: unspecified Qualified Code(s): E87.70 - Fluid overload, unspecified Is this a current diagnosis for this admission?: Yes Plan: Resolved; breath sounds are clear, no edema to perineum/extremities. Pro BNP trending down from 2230 to 913. Echocardiogram reveals mild to moderate diastolic dysfunction with a preserved ejection fraction. Strict I&Os limited secondary to incontinence. No plan to place a Martinez given that the patient has been removing IV lines. Do not restrain or sedate if avoidable. Daily weights. Weight trending down (103.5 kg --> 96.8 kg) Continue furosemide 20 mg p.o twice daily and spironolactone 100 mg p.o daily. (5) Electrolyte abnormality Is this a current diagnosis for this admission?: Yes Plan: Resolved. Patient had persistent hypokalemia and hypomagnesemia secondary to malnutrition , chronic alcohol abuse, and acute disease process. Anticipating that electrolytes will stabilize as the patient is now eating meals ; however, he may require chronic potassium replacement as he has been initiated on Lasix for management of liver disease with ascites. Will continue to monitor daily chemistries and replace as needed. (6) Coronary artery disease Qualifiers: Coronary Disease-Associated Artery/Lesion type: red devil artery Is this a current diagnosis for this admission?: Yes Plan: The patient endorses a history of coronary artery disease In light of his anemia and thrombocytopenia, discontinued Aspirin therapy (7) Alcohol intoxication Qualifiers: Complication of substance-induced condition: uncomplicated Qualified Code(s ): F10.920 - Alcohol use, unspecified with intoxication, uncomplicated Is this a current diagnosis for this admission?: Yes Plan: Resolved; The patient was admitted with an EtOH level of 277, repeat EtOH <10 He endorses as chronic alcohol intake of at least 2-3 beers daily. He was placed on alcohol withdrawal protocol with IV Ativan, maintenance IV fluids, daily thiamine and folate supplementation, and a 1:1 sitter for safety. (8) Acute metabolic encephalopathy Is this a current diagnosis for this admission?: Yes (9) DNR (do not resuscitate) Is this a current diagnosis for this admission?: Yes (10) Hypoalbuminemia Is this a current diagnosis for this admission?: Yes Plan: Secondary to alcohol hepatitis and ascites. The patient has also had very low p.o. intake for the last 12 (ate 50% of breakfast and lunch on one day and otherwise has either refused or only bites documented). Albumin is trending down from 3.8-2.7. The registered dietitian has been consulted and has made recommendations for tube feedings should the patient's p.o. intake not improve. Patient's mentation is significantly improved this morning. Discussed with nursing the importance of frequent offerings/assistance with meals. Patient likely will not tolerate large meals and will need frequent/small bites or sips. Will continue to monitor. (11) Thrombocytopenia Is this a current diagnosis for this admission?: Yes Plan: Stable; PLTs 51. Secondary to liver failure. Now s/p 4 units PLTs. Will continue to monitor closely. Fall and bleeding precautions. (12) Anemia Qualifiers: Anemia type: unspecified type Qualified Code(s): D64.9 - Anemia, unspecified Is this a current diagnosis for this admission?: Yes Plan: Multifactorial secondary to alcohol dependence, liver failure, folate/B12 deficiency and ABLA anemia. Patient is now s/p 4 units PRBC. Hgb trending up, 10.8 today. Folate and thiamin supplementation. Will continue to monitor. (13) Tobacco abuse Is this a current diagnosis for this admission?: Yes Plan: Nicotine patch provided - Time Time Spent with patient: 15-24 minutes Medications reviewed and adjusted accordingly: Yes Anticipated discharge: Home - Inpatient Certification Based on my medical assessment, after consideration of the patient's comorbidities, presenting symptoms, or acuity I expect that the services needed warrant INPATIENT care.: Yes I certify that my determination is in accordance with my understanding of Medicare's requirements for reasonable and necessary INPATIENT services [42 CFR 412.3e].: Yes Medical Necessity: Risk of Complication if Not Cared For in Hospital - Plan Summary Plan Summary: Ultimately, the plan is to discharge the patient home once he is no longer withdrawing from alcohol.
[2017-12-20] MEDS: LEVOFLOXACIN 750 MG TABLET PO SCH (17:06)
[2017-12-21] MEDS: POTASSIUM CHLORIDE 20 MEQ/15 ML UDCUP PO SCH ×4 (00:02→18:44)
[2017-12-21 05:05] LABS: INTERNATIONAL RATION (INR) 1.61; PROTHROMBIN TIME 19.9 SEC (11.4-15.4)
[2017-12-21 05:13] LABS: HEMATOCRIT 32.7 % (37.9-51.0); HEMOGLOBIN 11.3 g/dL (13.5-17.0); MEAN CORPUSCULAR HEMOGLOBIN 35.3 pg (27.0-33.4); MEAN CORPUSCULAR HGB CONC 34.6 g/dL (32.0-36.0); MEAN CORPUSCULAR VOLUME 102 fl (80-97); RED CELL DISTRIBUTION WIDTH 22.4 % (11.5-14.0); WHITE BLOOD COUNT 7.3 10^3/uL (4.0-10.5)
[2017-12-21 05:30] LABS: ALANINE AMINOTRANSFERASE 30 U/L (21-72); ALBUMIN 3.6 g/dL (3.5-5.0); ALKALINE PHOSPHATASE 138 U/L (38-126); ANION GAP 15 (5-19); ASPARTATE AMINO TRANSFERASE 60 U/L (17-59); BILIRUBIN,DIRECT 4.9 mg/dL (0.0-0.4); BILIRUBIN,TOTAL 13.6 mg/dL (0.2-1.3); BLOOD UREA NITROGEN 14 mg/dL (7-20); CALCIUM 9.6 mg/dL (8.4-10.2); CARBON DIOXIDE 24 mmol/L (22-30); CHLORIDE 96 mmol/L (98-107); GLUCOSE 128 mg/dL (75-110); POTASSIUM 5.3 mmol/L (3.6-5.0); SODIUM 135.1 mmol/L (137-145); TOTAL PROTEIN 8.2 g/dL (6.3-8.2)
[2017-12-21 05:52] LABS: PLATELET COUNT 57 10^3/uL (150-450)
[2017-12-21 05:59] LABS: ABSOLUTE LYMPHOCYTES# (MANUAL) 0.9 10^3/uL (0.5-4.7); ABSOLUTE MONOCYTES # (MANUAL) 1.2 10^3/uL (0.1-1.4); BAND NEUTROPHILS % (MANUAL) 1 % (3-5); BASOPHILS % (MANUAL) 0 % (0-2); EOSINOPHILS % (MANUAL) 2 % (0-6); LYMPHOCYTES % (MANUAL) 13 % (13-45); MONOCYTES % (MANUAL) 16 % (3-13); SEGMENTED NEUTROPHILS % (MAN) 68 % (42-78); TOTAL CELLS COUNTED 100; TOXIC GRANULATION SLIGHT; TOXIC VACUOLATION PRESENT
[2017-12-21 06:00] LABS: ACANTHOCYTES 2+; ANISOCYTOSIS 3+; PLATELET COMMENT DECREASED; PLATELET LARGE PRESENT; POIKILOCYTOSIS 1+
[2017-12-21] MEDS: LANSOPRAZOLE 30 MG TAB.RAP.DR PO SCH (06:46)
[2017-12-21] MEDS: POTASSI CL 20 MEQ/D5NS 1L 20 MEQ/1,000 ML RTUINJ IV PRN ×2 (08:48→22:51)
[2017-12-21] MEDS: FUROSEMIDE 20 MG TABLET PO SCH ×2 (08:48→13:42)
[2017-12-21] MEDS ORDERED: DIVALPROEX SODIUM 250 MG TABLET.DR PO SCH (10:00)
[2017-12-21] MEDS: THIAMINE HCL IV SCH (10:12)
[2017-12-21] MEDS: NICOTINE 14 MG/24 HR PATCH.TD24 TD SCH (10:12)
[2017-12-21] MEDS: SPIRONOLACTONE 25 MG TABLET PO SCH (10:12)
[2017-12-21] MEDS: LIDOCAINE 5% (700 MG) TRANSDERMAL ADH..PATCH TP SCH (10:12)
[2017-12-21] MEDS: FOLIC ACID IV SCH (10:12)
[2017-12-21] MEDS: DIVALPROEX SODIUM 250 MG TABLET.DR PO SCH (10:12)
[2017-12-21] MEDS: NORMAL SALINE IV SCH (10:12)
[2017-12-21] MEDS: OXYCODONE HCL IR 5 MG TABLET PO PRN (15:06)
--- NOTE | 2017-12-21 15:57 | PDOC PROGRESS REPORT ---
Subjective Progress Note for:: 12/21/17 Subjective:: TASHA FUENTES is a 52 year old male with a PMH of HTN, HLD, CAD post CABG, EtOH dependence. He presents to the emergency department following a mechanical fall that dislocated his left shoulder. X-ray reveals anterior dislocation of the left shoulder, no fractures noted. Ortho performed a fluoroscopy guided closed reduction of the L shoulder on 12/08/2017. The patient is found resting in bed on room air. He is very drowsy but arousable. The patient is oriented to self, location, and year, he does not know why he is in the hospital. The patient still appears to be noticeably jaundice. + Icterus. The patient denies abdominal pain, abdominal distention, nausea or vomiting. Nursing reports that the patient has been calm and cooperative, no longer requiring a 1:1 sitter, but his appetite remains to be very poor. Encouraged nursing staff to have DRIVING TEACHER feed the patient at each meal. Reason For Visit: ETOH WITHDRAWL, ACUTE LIVER FAILURE Physical Exam Vital Signs: Temp Pulse Resp BP Pulse Ox 97.9 F 89 18 117/61 100 12/21/17 11:34 12/21/17 11:34 12/21/17 11:34 12/21/17 11:34 12/21/17 11:34 Intake & Output 12/20/17 12/21/17 12/22/17 06:59 06:59 06:59 Intake Total 1825 800 Output Total 1300 600 Balance 525 200 Weight 96.1 kg 93.1 kg General appearance: PRESENT: no acute distress Eye exam: PRESENT: PERRLA, scleral icterus Mouth exam: PRESENT: moist Teeth exam: PRESENT: poor dentation Neck exam: PRESENT: full ROM Respiratory exam: PRESENT: clear to auscultation noreen, symmetrical, unlabored Cardiovascular exam: PRESENT: +S1, +S2 Pulses: PRESENT: normal radial pulses, normal dorsalis pedis pul GI/Abdominal exam: PRESENT: normal bowel sounds, soft. ABSENT: ascites, distended, tenderness Rectal exam: PRESENT: deferred Extremities exam: PRESENT: full ROM. ABSENT: pedal edema Musculoskeletal exam: PRESENT: full ROM Neurological exam: PRESENT: oriented to person, oriented to place, oriented to time. ABSENT: awake - drowsy, oriented to situation Skin exam: PRESENT: dry, other - Large area of bruising covering the anterior chest wall Results Laboratory Results: 05/16/18 04:48 12/21/17 04:48 12/21/17 12/21/17 12/21/17 04:48 04:48 04:48 WBC 7.3 RBC 3.20 L Hgb 11.3 L Hct 32.7 L MCV 102 H MCH 35.3 H MCHC 34.6 RDW 22.4 H Plt Count 57 L Seg Neutrophils % Not Reportable Lymphocytes % Not Reportable Monocytes % Not Reportable Eosinophils % Not Reportable Basophils % Not Reportable Absolute Neutrophils Not Reportable Absolute Lymphocytes Not Reportable Absolute Monocytes Not Reportable Absolute Eosinophils Not Reportable Absolute Basophils Not Reportable Sodium 135.1 L Potassium 5.3 H Chloride 96 L Carbon Dioxide 24 Anion Gap 15 BUN 14 Creatinine 0.74 Est GFR ( Amer) > 60 Est GFR (Non-Af Amer) > 60 Glucose 128 H Calcium 9.6 Total Bilirubin 13.6 H AST 60 H ALT 30 Alkaline Phosphatase 138 H Ammonia 23.8 Total Protein 8.2 Albumin 3.6 12/13/17 12/15/17 09:03 04:28 NT-Pro-B Natriuret Pep 2230 H 913 H Impressions: Humerus X-Ray 12/07/17 00:00 IMPRESSION: 1. Left anterior shoulder dislocation. Head CT 12/07/17 03:07 IMPRESSION: 1. No acute intracranial abnormality by CT criteria. This exam was performed according to our departmental dose-optimization program, which includes automated exposure control, adjustment of the mA and/or kV according to patient size and/or use of iterative reconstruction technique. Fluoroscopy 12/08/17 00:00 IMPRESSION: Intra procedural imaging and fluoro Abdomen Ultrasound 12/09/17 00:00 IMPRESSION: 1. Fatty infiltration of the liver. Splenomegaly. 2. Dilatation of the common bile duct with no significant intrahepatic ductal dilatation. 3. There appears to be some pericholecystic fluid. No gallstones are present. No gallbladder wall thickening is seen. Chest X-Ray 12/13/17 00:00 IMPRESSION: Atelectasis or infiltrate left base. Shoulder X-Ray 12/19/17 00:00 IMPRESSION: No acute fracture. No glenohumeral joint or AC joint malalignment Status: Imported from PACS Assessment & Plan - Diagnosis (1) Liver cirrhosis, alcoholic Qualifiers: Ascites presence: with ascites Qualified Code(s): K70.31 - Alcoholic cirrhosis of liver with ascites Is this a current diagnosis for this admission?: Yes Plan: Improved mentation today; bilirubin is 13.6 and AST is 60. Per H&P, the patient admitted to drinking 2-3 beers most days of the week with endorsing recent history of heavier drinking. He was also found to be acutely intoxicated with an alcohol level of 277. The patient developed jaundice with icterus 24 hours following admission. The patient developed thrombocytopenia (PLT 29) requiring transfusions of 4 packs of platelets, and anemia (Hgb 7.4) with active bleeding requiring 4 units of packed red blood cells. Ultrasound of the abdomen revealed fatty infiltration of the liver, splenomegaly , dilatation of the common bile duct without significant intrahepatic ductal dilatation, some pericholecystic fluid. No gallstones or wall thickening was noted. Hgb and PLT stable; no evidence of active bleeding. Ammonia 23.8 (12/21/2017) Lipase is 91.2 (12/15/2017) MELD score: 18; 3 month mortality estimated to be approximately 27%. Continue Lasix 20 mg twice daily and spironolactone 100 mg p.o. daily. He is receiving Prevacid for ulcer prophylaxis. Continue banana bag daily. Will monitor closely for signs of worsening fluid volume overload. Once tolerating increase p.o. fluids will transition to oral thiamin and folic acid supplements. We will monitor nutritional status closely and initiate tube feeds as necessary. (2) Anterior dislocation of left shoulder Qualifiers: Encounter type: initial encounter Qualified Code(s): S43.015A - Anterior dislocation of left humerus, initial encounter Is this a current diagnosis for this admission?: Yes Plan: S/p fluoroscopy-guided reduction of left shoulder by orthopedic surgeon. Large area of ecchymosis to left shoulder, anterior and left chest wall; slight improvement. Patient has very limited ROM to LUE, strength is only 1-2/5. XRAY done yesterday does not show dislocation. After consultation with hospitalist attending, plan for PT/OT. No further imaging warranted at this time. Shoulder sling NOT in place; patient has been consistently noncompliant, encourage use. Orthopedics has signed off. Hepatically dosed tramadol for pain. Avoid sedating (narcotic) medications. (3) LLL pneumonia Qualifiers: Pneumonia type: due to unspecified organism Qualified Code(s): J18.1 - Lobar pneumonia, unspecified organism Is this a current diagnosis for this admission?: Yes Plan: Improved; lung sounds are clear and the patient is maintaining oxygen saturations on room air. ABG revealed Respiratory Alkalosis. CXR atelectasis versus infiltrate of the left lung base. Blood cultures have no growth to date. The patient was empirically covered with 7 days of Levaquin (penicillin and sulfa allergy is noted). As needed nebulizer treatments are provided. Turn/reposition patient every 2 hours; encourage IS once more alert. Supplemental oxygen as required to maintain oxygen saturations greater than 90%. (4) Fluid volume excess Qualifiers: Hypervolemia type: unspecified Qualified Code(s): E87.70 - Fluid overload, unspecified Is this a current diagnosis for this admission?: Yes Plan: Resolved; breath sounds are clear, no edema to perineum/extremities. Pro BNP trending down from 2230 to 913. Echocardiogram reveals mild to moderate diastolic dysfunction with a preserved ejection fraction. Strict I&Os limited secondary to incontinence. No plan to place a Martinez given that the patient has been removing IV lines. Do not restrain or sedate if avoidable. Daily weights. Weight trending down (103.5 kg --> 93.1 kg) Continue furosemide 20 mg p.o twice daily and spironolactone 100 mg p.o daily. (5) Electrolyte abnormality Is this a current diagnosis for this admission?: Yes Plan: Resolved. Patient had persistent hypokalemia and hypomagnesemia secondary to malnutrition , chronic alcohol abuse, and acute disease process. Anticipating that electrolytes will stabilize as the patient is now eating meals ; however, he may require chronic potassium replacement as he has been initiated on Lasix for management of liver disease with ascites. Will continue to monitor daily chemistries and replace as needed. (6) Coronary artery disease Qualifiers: Coronary Disease-Associated Artery/Lesion type: [place] artery Is this a current diagnosis for this admission?: Yes Plan: The patient endorses a history of coronary artery disease In light of his anemia and thrombocytopenia, discontinued Aspirin therapy (7) Alcohol intoxication Qualifiers: Complication of substance-induced condition: uncomplicated Qualified Code(s ): F10.920 - Alcohol use, unspecified with intoxication, uncomplicated Is this a current diagnosis for this admission?: Yes Plan: Resolved; The patient was admitted with an EtOH level of 277, repeat EtOH <10 He endorses as chronic alcohol intake of at least 2-3 beers daily. He was placed on alcohol withdrawal protocol with IV Ativan, maintenance IV fluids, daily thiamine and folate supplementation, and a 1:1 sitter for safety. (8) Acute metabolic encephalopathy Is this a current diagnosis for this admission?: Yes Plan: Improved. Now A&O 3 Acute metabolic encephalopathy secondary to alcoholic hepatitis and sedating medications. Plan for alcoholic hepatitis listed above. Plan to wean from Depakote, originally prescribed for anxiety, agitation, aggressive behaviors. However, the patient continues to be excessively drowsy, not very participatory in care and not interested in eating. Hopefully, as the patient wakes up, he will be more participatory in his rehabilitation can continue to progress. Ativan 0.5 mg IV as needed every 8 hours for acute agitation. Avoid narcotics. Fall and aspiration precautions. (9) DNR (do not resuscitate) Is this a current diagnosis for this admission?: Yes (10) Hypoalbuminemia Is this a current diagnosis for this admission?: Yes Plan: Secondary to alcohol hepatitis and ascites. The patient has also had very low p.o. intake for the last 12 (ate 50% of breakfast and lunch on one day and otherwise has either refused or only bites documented). Albumin is trending down from 3.8-3.0. The registered dietitian has been consulted and has made recommendations for tube feedings should the patient's p.o. intake not improve. Patient's mentation is significantly improved this morning. Discussed with nursing the importance of frequent offerings/assistance with meals. Patient likely will not tolerate large meals and will need frequent/small bites or sips. Will continue to monitor. (11) Thrombocytopenia Is this a current diagnosis for this admission?: Yes Plan: Stable; PLTs 57. Secondary to liver failure. Now s/p 4 units PLTs. Will continue to monitor closely. Fall and bleeding precautions. (12) Anemia Qualifiers: Anemia type: unspecified type Qualified Code(s): D64.9 - Anemia, unspecified Is this a current diagnosis for this admission?: Yes Plan: Multifactorial secondary to alcohol dependence, liver failure, folate/B12 deficiency and ABLA anemia. Patient is now s/p 4 units PRBC. Hgb trending up, 10.8 today. Folate and thiamin supplementation. Will continue to monitor. (13) Tobacco abuse Is this a current diagnosis for this admission?: Yes Plan: Nicotine patch provided - Time Time Spent with patient: 15-24 minutes Medications reviewed and adjusted accordingly: Yes Anticipated discharge: Home - Inpatient Certification Based on my medical assessment, after consideration of the patient's comorbidities, presenting symptoms, or acuity I expect that the services needed warrant INPATIENT care.: Yes I certify that my determination is in accordance with my understanding of Medicare's requirements for reasonable and necessary INPATIENT services [42 CFR 412.3e].: Yes Medical Necessity: Risk of Complication if Not Cared For in Hospital - Plan Summary Plan Summary: Plan is to wean the patient from Depakote. He has not exhibited seizure-like activity, and he is not very aggressive or agitated. Hopefully, the patient become more awake following the discontinuation of his Depakote.
[2017-12-22] MEDS: POTASSIUM CHLORIDE 20 MEQ/15 ML UDCUP PO SCH ×2 (00:20→05:33)
[2017-12-22] MEDS: OXYCODONE HCL IR 5 MG TABLET PO PRN ×2 (03:04→13:42)
[2017-12-22] MEDS: LANSOPRAZOLE 30 MG TAB.RAP.DR PO SCH (05:33)
[2017-12-22] MEDS: FUROSEMIDE 20 MG TABLET PO SCH ×2 (08:10→13:42)
[2017-12-22] MEDS: FOLIC ACID IV SCH (09:11)
[2017-12-22] MEDS: NORMAL SALINE IV SCH (09:11)
[2017-12-22] MEDS: THIAMINE HCL IV SCH (09:11)
[2017-12-22] MEDS: LIDOCAINE 5% (700 MG) TRANSDERMAL ADH..PATCH TP SCH (09:19)
[2017-12-22] MEDS: NICOTINE 14 MG/24 HR PATCH.TD24 TD SCH (09:19)
[2017-12-22] MEDS: SPIRONOLACTONE 25 MG TABLET PO SCH (09:19)
[2017-12-22 09:48] LABS: HEMOGLOBIN 10.7 g/dL (13.5-17.0); MEAN CORPUSCULAR HEMOGLOBIN 35.4 pg (27.0-33.4); MEAN CORPUSCULAR HGB CONC 34.6 g/dL (32.0-36.0); MEAN CORPUSCULAR VOLUME 102 fl (80-97); RED BLOOD COUNT 3.03 10^6/uL (4.35-5.55); RED CELL DISTRIBUTION WIDTH 23.5 % (11.5-14.0); WHITE BLOOD COUNT 8.2 10^3/uL (4.0-10.5)
[2017-12-22 09:57] LABS: INTERNATIONAL RATION (INR) 1.57; PROTHROMBIN TIME 19.6 SEC (11.4-15.4)
--- NOTE | 2017-12-22 10:00 | EKG REPORT ---
SEVERITY:- ABNORMAL ECG - SINUS RHYTHM PROBABLE LEFT ATRIAL ABNORMALITY PROBABLE INFERIOR INFARCT, OLD BORDERLINE PROLONGED QT INTERVAL : Confirmed by: Howard Adrian 22-Dec-2017 10:00:16
[2017-12-22 10:03] LABS: ALANINE AMINOTRANSFERASE 29 U/L (21-72); ALBUMIN 3.6 g/dL (3.5-5.0); ALKALINE PHOSPHATASE 104 U/L (38-126); ANION GAP 15 (5-19); ASPARTATE AMINO TRANSFERASE 57 U/L (17-59); BILIRUBIN,DIRECT 5.5 mg/dL (0.0-0.4); BLOOD UREA NITROGEN 18 mg/dL (7-20); CALCIUM 9.6 mg/dL (8.4-10.2); CARBON DIOXIDE 24 mmol/L (22-30); CHLORIDE 98 mmol/L (98-107); GLUCOSE 111 mg/dL (75-110); POTASSIUM 5.3 mmol/L (3.6-5.0); TOTAL PROTEIN 8.2 g/dL (6.3-8.2)
[2017-12-22 10:25] LABS: ABSOLUTE LYMPHOCYTES# (MANUAL) 1.6 10^3/uL (0.5-4.7); ABSOLUTE MONOCYTES # (MANUAL) 1.4 10^3/uL (0.1-1.4); BASOPHILS % (MANUAL) 2 % (0-2); EOSINOPHILS % (MANUAL) 0 % (0-6); LYMPHOCYTES % (MANUAL) 20 % (13-45); MONOCYTES % (MANUAL) 17 % (3-13); SEGMENTED NEUTROPHILS % (MAN) 61 % (42-78); TOTAL CELLS COUNTED 100
[2017-12-22 10:31] LABS: TOXIC VACUOLATION PRESENT
[2017-12-22 10:32] LABS: ANISOCYTOSIS 3+; BURR CELLS 1+; OVALOCYTES 1+; PLATELET COMMENT DECREASED; PLATELET COUNT 75 10^3/uL (150-450); POIKILOCYTOSIS 1+; SCHISTOCYTES SLIGHT
--- NOTE | 2017-12-22 15:53 | PDOC PROGRESS REPORT ---
Subjective Progress Note for:: 12/22/17 Subjective:: TASHA FUENTES is a 52 year old male with a PMH of HTN, HLD, CAD post CABG, EtOH dependence. He presents to the emergency department following a mechanical fall that dislocated his left shoulder. X-ray reveals anterior dislocation of the left shoulder, no fractures noted. Ortho performed a fluoroscopy guided closed reduction of the L shoulder on 12/08/2017. The patient is found resting in bed on room air. He is very drowsy but arousable. The patient is oriented to self, and year, he does not know the location or why he is in the hospital (states "I broke my clavicle") The patient still appears to be noticeably jaundice. + Icterus. The patient denies abdominal pain, abdominal distention, nausea or vomiting. Nursing reports that the patient has been calm and cooperative, no longer requiring a 1:1 sitter. The POUL[employer]NER has been assisting with feeding the patient at each meal, and he now tolerates about 25% of his meals. Reason For Visit: ETOH WITHDRAWL, ACUTE LIVER FAILURE Physical Exam Vital Signs: Temp Pulse Resp BP Pulse Ox 99.9 F 91 16 123/59 L 100 12/22/17 11:24 12/22/17 14:00 12/22/17 11:24 12/22/17 11:24 12/22/17 11:24 Intake & Output 12/21/17 12/22/17 12/23/17 06:59 06:59 06:59 Intake Total 800 1437 Output Total 600 850 Balance 200 587 Weight 93.1 kg 91.2 kg General appearance: PRESENT: no acute distress Eye exam: PRESENT: PERRLA, scleral icterus Mouth exam: PRESENT: moist Teeth exam: PRESENT: poor dentation Neck exam: PRESENT: full ROM Respiratory exam: PRESENT: clear to auscultation noreen, symmetrical, unlabored Cardiovascular exam: PRESENT: irregular rhythm, +S1, +S2 Pulses: PRESENT: normal radial pulses, normal dorsalis pedis pul GI/Abdominal exam: PRESENT: normal bowel sounds, soft. ABSENT: ascites, distended, tenderness Rectal exam: PRESENT: deferred Extremities exam: PRESENT: full ROM Musculoskeletal exam: PRESENT: full ROM Neurological exam: PRESENT: alert, awake, oriented to person. ABSENT: oriented to place, oriented to time, oriented to situation Skin exam: PRESENT: dry, intact, jaundice Results Laboratory Results: 12/22/17 09:30 12/22/17 09:30 12/22/17 12/22/17 09:30 09:30 WBC 8.2 RBC 3.03 L Hgb 10.7 L Hct 31.0 L MCV 102 H MCH 35.4 H MCHC 34.6 RDW 23.5 H Plt Count 75 L Seg Neutrophils % Not Reportable Lymphocytes % Not Reportable Monocytes % Not Reportable Eosinophils % Not Reportable Basophils % Not Reportable Absolute Neutrophils Not Reportable Absolute Lymphocytes Not Reportable Absolute Monocytes Not Reportable Absolute Eosinophils Not Reportable Absolute Basophils Not Reportable Sodium 137.0 Potassium 5.3 H Chloride 98 Carbon Dioxide 24 Anion Gap 15 BUN 18 Creatinine 0.83 Est GFR ( Amer) > 60 Est GFR (Non-Af Amer) > 60 Glucose 111 H Calcium 9.6 Total Bilirubin 15.0 H AST 57 ALT 29 Alkaline Phosphatase 104 Total Protein 8.2 Albumin 3.6 12/13/17 12/15/17 09:03 04:28 NT-Pro-B Natriuret Pep 2230 H 913 H Impressions: Humerus X-Ray 12/07/17 00:00 IMPRESSION: 1. Left anterior shoulder dislocation. Head CT 12/07/17 03:07 IMPRESSION: 1. No acute intracranial abnormality by CT criteria. This exam was performed according to our departmental dose-optimization program, which includes automated exposure control, adjustment of the mA and/or kV according to patient size and/or use of iterative reconstruction technique. Fluoroscopy 12/08/17 00:00 IMPRESSION: Intra procedural imaging and fluoro Abdomen Ultrasound 12/09/17 00:00 IMPRESSION: 1. Fatty infiltration of the liver. Splenomegaly. 2. Dilatation of the common bile duct with no significant intrahepatic ductal dilatation. 3. There appears to be some pericholecystic fluid. No gallstones are present. No gallbladder wall thickening is seen. Chest X-Ray 12/13/17 00:00 IMPRESSION: Atelectasis or infiltrate left base. Shoulder X-Ray 12/19/17 00:00 IMPRESSION: No acute fracture. No glenohumeral joint or AC joint malalignment Status: Imported from PACS Assessment & Plan - Diagnosis (1) Liver cirrhosis, alcoholic Qualifiers: Ascites presence: with ascites Qualified Code(s): K70.31 - Alcoholic cirrhosis of liver with ascites Is this a current diagnosis for this admission?: Yes Plan: Improved mentation today; bilirubin is 15 and AST is 57. Per H&P, the patient admitted to drinking 2-3 beers most days of the week with endorsing recent history of heavier drinking. He was also found to be acutely intoxicated with an alcohol level of 277. The patient developed jaundice with icterus 24 hours following admission. The patient developed thrombocytopenia (PLT 29) requiring transfusions of 4 packs of platelets, and anemia (Hgb 7.4) with active bleeding requiring 4 units of packed red blood cells. Ultrasound of the abdomen revealed fatty infiltration of the liver, splenomegaly , dilatation of the common bile duct without significant intrahepatic ductal dilatation, some pericholecystic fluid. No gallstones or wall thickening was noted. Hgb and PLT stable; no evidence of active bleeding. Ammonia 23.8 (12/21/2017) Lipase is 91.2 (12/15/2017) MELD score: 18; 3 month mortality estimated to be approximately 27%. Continue Lasix 20 mg twice daily and spironolactone 100 mg p.o. daily. He is receiving Prevacid for ulcer prophylaxis. Continue daily multivitamin. Now tolerating p.o. fluids, will transition to oral thiamin and folic acid supplements. We will monitor nutritional status closely. Since the patient is able to eat, albeit requiring a lot of coaching, I don't think he will require enteral feeding. (2) Anterior dislocation of left shoulder Qualifiers: Encounter type: initial encounter Qualified Code(s): S43.015A - Anterior dislocation of left humerus, initial encounter Is this a current diagnosis for this admission?: Yes Plan: S/p fluoroscopy-guided reduction of left shoulder by orthopedic surgeon. Large area of ecchymosis to left shoulder, anterior and left chest wall; slight improvement. Patient has very limited ROM to LUE, strength is only 1-2/5. XRAY done yesterday does not show dislocation. After consultation with hospitalist attending, plan for PT/OT. No further imaging warranted at this time. Shoulder sling NOT in place; patient has been consistently noncompliant, encourage use. Orthopedics has signed off. Hepatically dosed tramadol for pain. Avoid sedating (narcotic) medications. (3) LLL pneumonia Qualifiers: Pneumonia type: due to unspecified organism Qualified Code(s): J18.1 - Lobar pneumonia, unspecified organism Is this a current diagnosis for this admission?: Yes Plan: Improved; lung sounds are clear and the patient is maintaining oxygen saturations on room air. ABG revealed Respiratory Alkalosis. CXR atelectasis versus infiltrate of the left lung base. Blood cultures have no growth to date. The patient was empirically covered with 7 days of Levaquin (penicillin and sulfa allergy is noted). As needed nebulizer treatments are provided. Turn/reposition patient every 2 hours; encourage IS once more alert. Supplemental oxygen as required to maintain oxygen saturations greater than 90%. (4) Fluid volume excess Qualifiers: Hypervolemia type: unspecified Qualified Code(s): E87.70 - Fluid overload, unspecified Is this a current diagnosis for this admission?: Yes Plan: Resolved; breath sounds are clear, no edema to perineum/extremities. Pro BNP trending down from 2230 to 913. Echocardiogram reveals mild to moderate diastolic dysfunction with a preserved ejection fraction. Strict I&Os limited secondary to incontinence. No plan to place a Martinez given that the patient has been removing IV lines. Do not restrain or sedate if avoidable. Daily weights. Weight trending down (103.5 kg --> 91.2 kg) Continue furosemide 20 mg p.o twice daily and spironolactone 100 mg p.o daily. (5) Electrolyte abnormality Is this a current diagnosis for this admission?: Yes Plan: Resolved. Patient had persistent hypokalemia and hypomagnesemia secondary to malnutrition , chronic alcohol abuse, and acute disease process. Daily potassium has been discontinued. Anticipating that electrolytes will stabilize as the patient is now eating meals ; On Lasix for management of liver disease with ascites. Will continue to monitor daily chemistries and replace as needed. (6) Coronary artery disease Qualifiers: Coronary Disease-Associated Artery/Lesion type: [place] artery Is this a current diagnosis for this admission?: Yes Plan: The patient endorses a history of coronary artery disease In light of his anemia and thrombocytopenia, discontinued Aspirin therapy (7) Alcohol intoxication Qualifiers: Complication of substance-induced condition: uncomplicated Qualified Code(s ): F10.920 - Alcohol use, unspecified with intoxication, uncomplicated Is this a current diagnosis for this admission?: Yes Plan: Resolved; The patient was admitted with an EtOH level of 277, repeat EtOH <10 He endorses as chronic alcohol intake of at least 2-3 beers daily. He was placed on alcohol withdrawal protocol with IV Ativan, maintenance IV fluids, daily thiamine and folate supplementation, and a 1:1 sitter for safety. (8) Acute metabolic encephalopathy Is this a current diagnosis for this admission?: Yes Plan: Waxes and wanes. At the time of my assessment, the patient was only oriented to self, but he has previously been A&O 3. Acute metabolic encephalopathy secondary to alcoholic hepatitis and sedating medications. Plan for alcoholic hepatitis listed above. Depakote has been discontinued, originally prescribed for anxiety, agitation, aggressive behaviors. However, the patient continues to be excessively drowsy, not very participatory in care and not interested in eating. Hopefully, as the patient wakes up, he will be more participatory and his rehabilitation can continue to progress. Ativan 0.5 mg IV as needed every 8 hours for acute agitation. Avoid narcotics. Fall and aspiration precautions. (9) DNR (do not resuscitate) Is this a current diagnosis for this admission?: Yes (10) Hypoalbuminemia Is this a current diagnosis for this admission?: Yes Plan: Secondary to alcohol hepatitis and ascites. The patient has also had very low p.o. intake. With assistance from the [employer], he is able to eat about 25% of his meals. Albumin is trending down from 3.8-3.0. The registered dietitian has been consulted and has made recommendations for tube feedings should the patient's p.o. intake not improve. Patient's mentation relatively the same this morning. Discussed with nursing the importance of frequent offerings/assistance with meals. Patient likely will not tolerate large meals and will need frequent/small bites or sips. Will continue to monitor. (11) Thrombocytopenia Is this a current diagnosis for this admission?: Yes Plan: Stable; PLTs 75. Secondary to liver failure. Now s/p 4 units PLTs. Will continue to monitor closely. Fall and bleeding precautions. (12) Anemia Qualifiers: Anemia type: unspecified type Qualified Code(s): D64.9 - Anemia, unspecified Is this a current diagnosis for this admission?: Yes Plan: Multifactorial secondary to alcohol dependence, liver failure, folate/B12 deficiency and ABLA anemia. Patient is now s/p 4 units PRBC. Hgb trending up, 10.7 today. Folate and thiamin supplementation. Will continue to monitor. (13) Tobacco abuse Is this a current diagnosis for this admission?: Yes Plan: Nicotine patch provided - Time Time Spent with patient: 15-24 minutes Medications reviewed and adjusted accordingly: Yes Anticipated discharge: Home - Inpatient Certification Based on my medical assessment, after consideration of the patient's comorbidities, presenting symptoms, or acuity I expect that the services needed warrant INPATIENT care.: Yes I certify that my determination is in accordance with my understanding of Medicare's requirements for reasonable and necessary INPATIENT services [42 CFR 412.3e].: Yes Medical Necessity: Risk of Complication if Not Cared For in Hospital - Plan Summary Plan Summary: Ultimately, the plan is to discharge the patient home.
[2017-12-22] MEDS: PHARMACY COMMUNICATION ORDER MC SCH (21:42)
[2017-12-23] MEDS: OXYCODONE HCL IR 5 MG TABLET PO PRN ×2 (03:04→11:45)
[2017-12-23] MEDS: LANSOPRAZOLE 30 MG TAB.RAP.DR PO SCH (06:14)
[2017-12-23 07:08] LABS: HEMATOCRIT 30.5 % (37.9-51.0); HEMOGLOBIN 10.9 g/dL (13.5-17.0); MEAN CORPUSCULAR HEMOGLOBIN 36.3 pg (27.0-33.4); MEAN CORPUSCULAR HGB CONC 35.9 g/dL (32.0-36.0); MEAN CORPUSCULAR VOLUME 101 fl (80-97); RED BLOOD COUNT 3.02 10^6/uL (4.35-5.55); RED CELL DISTRIBUTION WIDTH 22.8 % (11.5-14.0); WHITE BLOOD COUNT 9.3 10^3/uL (4.0-10.5)
[2017-12-23 07:23] LABS: ALANINE AMINOTRANSFERASE 26 U/L (21-72); ALBUMIN 3.7 g/dL (3.5-5.0); ALKALINE PHOSPHATASE 130 U/L (38-126); ANION GAP 14 (5-19); ASPARTATE AMINO TRANSFERASE 62 U/L (17-59); BILIRUBIN,DIRECT 6.5 mg/dL (0.0-0.4); BILIRUBIN,TOTAL 16.4 mg/dL (0.2-1.3); BLOOD UREA NITROGEN 20 mg/dL (7-20); CALCIUM 9.6 mg/dL (8.4-10.2); CARBON DIOXIDE 23 mmol/L (22-30); CHLORIDE 95 mmol/L (98-107); GLUCOSE 111 mg/dL (75-110); POTASSIUM 4.5 mmol/L (3.6-5.0); SODIUM 131.8 mmol/L (137-145); TOTAL PROTEIN 8.4 g/dL (6.3-8.2)
[2017-12-23 08:00] LABS: PLATELET COUNT 84 10^3/uL (150-450)
[2017-12-23] MEDS: FUROSEMIDE 20 MG TABLET PO SCH ×2 (08:48→14:39)
[2017-12-23] MEDS: SPIRONOLACTONE 25 MG TABLET PO SCH (09:40)
[2017-12-23] MEDS: NICOTINE 14 MG/24 HR PATCH.TD24 TD SCH (09:41)
[2017-12-23] MEDS: LIDOCAINE 5% (700 MG) TRANSDERMAL ADH..PATCH TP SCH (09:44)
[2017-12-23] MEDS: THIAMINE HCL IV SCH (09:46)
[2017-12-23] MEDS: NORMAL SALINE IV SCH (09:46)
[2017-12-23] MEDS: FOLIC ACID IV SCH (09:46)
--- NOTE | 2017-12-23 17:06 | PDOC PROGRESS REPORT ---
Subjective Progress Note for:: 12/23/17 Subjective:: TASHA FUENTES is a 52 year old male with a PMH of HTN, HLD, CAD post CABG, EtOH dependence. He presents to the emergency department following a mechanical fall that dislocated his left shoulder. X-ray reveals anterior dislocation of the left shoulder, no fractures noted. Ortho performed a fluoroscopy guided closed reduction of the L shoulder on 12/08/2017. The patient is found resting in bed on room air. His mental status has greatly improved today. The patient is oriented to self, and year, location and situation. The patient still appears to be noticeably jaundice. + Icterus. The patient denies abdominal pain, abdominal distention, nausea or vomiting. Nursing reports that the patient has been calm and cooperative, no longer requiring a 1:1 sitter. The [employer]ARD has been assisting with feeding the patient at each meal, and he now tolerates about 25% of his meals. Reason For Visit: ETOH WITHDRAWL, ACUTE LIVER FAILURE Physical Exam Vital Signs: Temp Pulse Resp BP Pulse Ox 99.6 F 91 18 108/52 L 98 12/23/17 15:34 12/23/17 15:34 12/23/17 15:34 12/23/17 15:34 12/23/17 15:34 Intake & Output 12/22/17 12/23/17 12/24/17 06:59 06:59 06:59 Intake Total 1437 1263 Output Total 850 900 Balance 587 363 Weight 91.2 kg 90.4 kg General appearance: PRESENT: no acute distress Eye exam: PRESENT: PERRLA, scleral icterus Mouth exam: PRESENT: moist Teeth exam: PRESENT: poor dentation Neck exam: PRESENT: full ROM Respiratory exam: PRESENT: clear to auscultation noreen, symmetrical, unlabored Cardiovascular exam: PRESENT: +S1, +S2 Pulses: PRESENT: normal radial pulses, normal dorsalis pedis pul Vascular exam: PRESENT: normal capillary refill GI/Abdominal exam: PRESENT: normal bowel sounds, soft. ABSENT: ascites, tenderness Rectal exam: PRESENT: deferred Extremities exam: PRESENT: full ROM, joint swelling - L shoulder Musculoskeletal exam: PRESENT: ambulatory, full ROM Neurological exam: PRESENT: alert, awake, oriented to person, oriented to place , oriented to time, oriented to situation Skin exam: PRESENT: dry, intact, other - large area of ecchymosis over the L shoulder and anterior chest wall. ABSENT: normal color Results Laboratory Results: 12/23/17 06:30 12/23/17 06:30 12/23/17 12/23/17 06:30 06:30 WBC 9.3 RBC 3.02 L Hgb 10.9 L Hct 30.5 L MCV 101 H MCH 36.3 H MCHC 35.9 RDW 22.8 H Plt Count 84 L Sodium 131.8 L Potassium 4.5 Chloride 95 L Carbon Dioxide 23 Anion Gap 14 BUN 20 Creatinine 0.76 Est GFR ( Amer) > 60 Est GFR (Non-Af Amer) > 60 Glucose 111 H Calcium 9.6 Total Bilirubin 16.4 H AST 62 H ALT 26 Alkaline Phosphatase 130 H Total Protein 8.4 H Albumin 3.7 12/13/17 12/15/17 09:03 04:28 NT-Pro-B Natriuret Pep 2230 H 913 H Impressions: Humerus X-Ray 12/07/17 00:00 IMPRESSION: 1. Left anterior shoulder dislocation. Head CT 12/07/17 03:07 IMPRESSION: 1. No acute intracranial abnormality by CT criteria. This exam was performed according to our departmental dose-optimization program, which includes automated exposure control, adjustment of the mA and/or kV according to patient size and/or use of iterative reconstruction technique. Fluoroscopy 12/08/17 00:00 IMPRESSION: Intra procedural imaging and fluoro Abdomen Ultrasound 12/09/17 00:00 IMPRESSION: 1. Fatty infiltration of the liver. Splenomegaly. 2. Dilatation of the common bile duct with no significant intrahepatic ductal dilatation. 3. There appears to be some pericholecystic fluid. No gallstones are present. No gallbladder wall thickening is seen. Chest X-Ray 12/13/17 00:00 IMPRESSION: Atelectasis or infiltrate left base. Shoulder X-Ray 12/19/17 00:00 IMPRESSION: No acute fracture. No glenohumeral joint or AC joint malalignment Status: Imported from PACS Assessment & Plan - Diagnosis (1) Liver cirrhosis, alcoholic Qualifiers: Ascites presence: with ascites Qualified Code(s): K70.31 - Alcoholic cirrhosis of liver with ascites Is this a current diagnosis for this admission?: Yes Plan: Improved mentation today; bilirubin is 16.4 and AST is 62. Per H&P, the patient admitted to drinking 2-3 beers most days of the week with endorsing recent history of heavier drinking. He was also found to be acutely intoxicated with an alcohol level of 277. The patient developed jaundice with icterus 24 hours following admission. The patient developed thrombocytopenia (PLT 29) requiring transfusions of 4 packs of platelets, and anemia (Hgb 7.4) with active bleeding requiring 4 units of packed red blood cells. Ultrasound of the abdomen revealed fatty infiltration of the liver, splenomegaly , dilatation of the common bile duct without significant intrahepatic ductal dilatation, some pericholecystic fluid. No gallstones or wall thickening was noted. Hgb and PLT stable; no evidence of active bleeding. Ammonia 23.8 (12/21/2017) Lipase is 91.2 (12/15/2017) MELD score: 18; 3 month mortality estimated to be approximately 27%. Continue Lasix 20 mg twice daily and spironolactone 100 mg p.o. daily. He is receiving Prevacid for ulcer prophylaxis. Continue daily multivitamin. Now tolerating p.o. fluids, will transition to oral thiamin and folic acid supplements. We will monitor nutritional status closely. Since the patient is able to eat, albeit requiring a lot of coaching, I don't think he will require enteral feeding. (2) Anterior dislocation of left shoulder Qualifiers: Encounter type: initial encounter Qualified Code(s): S43.015A - Anterior dislocation of left humerus, initial encounter Is this a current diagnosis for this admission?: Yes Plan: S/p fluoroscopy-guided reduction of left shoulder by orthopedic surgeon. Large area of ecchymosis to left shoulder, anterior and left chest wall; slight improvement. Patient has very limited ROM to LUE, strength is only 1-2/5. XRAY done yesterday does not show dislocation. After consultation with hospitalist attending, plan for PT/OT. No further imaging warranted at this time. Shoulder sling NOT in place; patient has been consistently noncompliant, encourage use. Orthopedics has signed off. Hepatically dosed tramadol for pain. Avoid sedating (narcotic) medications. (3) LLL pneumonia Qualifiers: Pneumonia type: due to unspecified organism Qualified Code(s): J18.1 - Lobar pneumonia, unspecified organism Is this a current diagnosis for this admission?: Yes Plan: Improved; lung sounds are clear and the patient is maintaining oxygen saturations on room air. ABG initially revealed Respiratory Alkalosis. CXR atelectasis versus infiltrate of the left lung base. Blood cultures have no growth to date. The patient was empirically covered with 7 days of Levaquin (penicillin and sulfa allergy is noted). As needed nebulizer treatments are provided. Turn/reposition patient every 2 hours; encourage IS once more alert. Supplemental oxygen as required to maintain oxygen saturations greater than 90%. (4) Fluid volume excess Qualifiers: Hypervolemia type: unspecified Qualified Code(s): E87.70 - Fluid overload, unspecified Is this a current diagnosis for this admission?: Yes Plan: Resolved; breath sounds are clear, no edema to perineum/extremities. Pro BNP trending down from 2230 to 913. Echocardiogram reveals mild to moderate diastolic dysfunction with a preserved ejection fraction. Strict I&Os limited secondary to incontinence. No plan to place a Martinez given that the patient has been removing IV lines. Do not restrain or sedate if avoidable. Daily weights. Weight trending down (103.5 kg --> 91.2 kg) Continue furosemide 20 mg p.o twice daily and spironolactone 100 mg p.o daily. (5) Electrolyte abnormality Is this a current diagnosis for this admission?: Yes Plan: Resolved. Patient had persistent hypokalemia and hypomagnesemia secondary to malnutrition , chronic alcohol abuse, and acute disease process. Daily potassium has been discontinued. Anticipating that electrolytes will stabilize as the patient is now eating meals ; On Lasix for management of liver disease with ascites. Will continue to monitor daily chemistries and replace as needed. (6) Coronary artery disease Qualifiers: Coronary Disease-Associated Artery/Lesion type: [place] artery Is this a current diagnosis for this admission?: Yes Plan: The patient endorses a history of coronary artery disease In light of his anemia and thrombocytopenia, discontinued Aspirin therapy (7) Alcohol intoxication Qualifiers: Complication of substance-induced condition: uncomplicated Qualified Code(s ): F10.920 - Alcohol use, unspecified with intoxication, uncomplicated Is this a current diagnosis for this admission?: Yes Plan: Resolved; The patient was admitted with an EtOH level of 277, repeat EtOH <10 He endorses as chronic alcohol intake of at least 2-3 beers daily. The patient' s roommate states he was drinking 2-3 40oz beers per day. Not long ago, he was drinking 10-12 40 oz. beers per day. He was placed on alcohol withdrawal protocol with IV Ativan, maintenance IV fluids, daily thiamine and folate supplementation, and a 1:1 sitter for safety. (8) Acute metabolic encephalopathy Is this a current diagnosis for this admission?: Yes Plan: Greatly improved today, the patient A&O x 3, he is able to state why he is in the hospital (which he previously always answered incorrectly) Acute metabolic encephalopathy secondary to alcoholic hepatitis and sedating medications. Plan for alcoholic hepatitis listed above. Noticeable improvement in level of alertness since discontinuation of Depakote. Ativan 0.5 mg IV as needed every 8 hours for acute agitation. Avoid narcotics. Fall and aspiration precautions. (9) DNR (do not resuscitate) Is this a current diagnosis for this admission?: Yes (10) Hypoalbuminemia Is this a current diagnosis for this admission?: Yes Plan: Secondary to alcohol hepatitis and ascites. The patient has also had very low p.o. intake. With assistance from the [employer], he is able to eat about 25% of his meals. Albumin is trending down from 3.8-3.0. The registered dietitian has been consulted and has made recommendations for tube feedings should the patient's p.o. intake not improve. Patient's mentation is greatly improved today, he is much more awake and alert. He still requires frequent food and drink offerings/assistance at mealtime. Patient likely will not tolerate large meals and will need frequent/small bites or sips. Will continue to monitor. (11) Thrombocytopenia Is this a current diagnosis for this admission?: Yes Plan: Improving; PLTs 84. Secondary to liver failure. Now s/p 4 units PLTs. Will continue to monitor closely. Fall and bleeding precautions. (12) Anemia Qualifiers: Anemia type: unspecified type Qualified Code(s): D64.9 - Anemia, unspecified Is this a current diagnosis for this admission?: Yes Plan: Multifactorial secondary to alcohol dependence, liver failure, folate/B12 deficiency and ABLA anemia. Patient is now s/p 4 units PRBC. Hgb trending up, 10.9 today. Folate and thiamin supplementation. Will continue to monitor. (13) Tobacco abuse Is this a current diagnosis for this admission?: Yes Plan: Nicotine patch provided - Time Time Spent with patient: 15-24 minutes Medications reviewed and adjusted accordingly: Yes Anticipated discharge: Home - Inpatient Certification Based on my medical assessment, after consideration of the patient's comorbidities, presenting symptoms, or acuity I expect that the services needed warrant INPATIENT care.: Yes I certify that my determination is in accordance with my understanding of Medicare's requirements for reasonable and necessary INPATIENT services [42 CFR 412.3e].: Yes Medical Necessity: Risk of Complication if Not Cared For in Hospital - Plan Summary Plan Summary: Ultimately, the plan is to discharge the patient home
[2017-12-23] MEDS: ACETAMINOPHEN 325 MG TABLET PO PRN (21:25)
[2017-12-24] MEDS: OXYCODONE HCL IR 5 MG TABLET PO PRN (01:03)
[2017-12-24] MEDS: PHARMACY COMMUNICATION ORDER MC SCH ×2 (01:24→23:24)
[2017-12-24] MEDS: LANSOPRAZOLE 30 MG TAB.RAP.DR PO SCH (05:19)
[2017-12-24 06:30] LABS: HEMATOCRIT 27.7 % (37.9-51.0); MEAN CORPUSCULAR HEMOGLOBIN 36.6 pg (27.0-33.4); MEAN CORPUSCULAR HGB CONC 36.1 g/dL (32.0-36.0); MEAN CORPUSCULAR VOLUME 101 fl (80-97); RED BLOOD COUNT 2.74 10^6/uL (4.35-5.55); RED CELL DISTRIBUTION WIDTH 23.2 % (11.5-14.0)
[2017-12-24 06:51] LABS: ALANINE AMINOTRANSFERASE 31 U/L (21-72); ALBUMIN 3.4 g/dL (3.5-5.0); ALKALINE PHOSPHATASE 146 U/L (38-126); ANION GAP 12 (5-19); ASPARTATE AMINO TRANSFERASE 59 U/L (17-59); BILIRUBIN,DIRECT 5.8 mg/dL (0.0-0.4); BILIRUBIN,TOTAL 14.2 mg/dL (0.2-1.3); BLOOD UREA NITROGEN 23 mg/dL (7-20); CALCIUM 9.3 mg/dL (8.4-10.2); CARBON DIOXIDE 26 mmol/L (22-30); CHLORIDE 94 mmol/L (98-107); GLUCOSE 98 mg/dL (75-110); LIPASE 63.8 U/L (23-300); POTASSIUM 4.2 mmol/L (3.6-5.0); TOTAL PROTEIN 7.8 g/dL (6.3-8.2)
[2017-12-24 06:54] LABS: PLATELET COUNT 84 10^3/uL (150-450)
[2017-12-24] MEDS: FUROSEMIDE 20 MG TABLET PO SCH ×2 (08:33→15:31)
[2017-12-24] MEDS: THIAMINE HCL 100 MG TABLET PO SCH (11:06)
[2017-12-24] MEDS: NICOTINE 14 MG/24 HR PATCH.TD24 TD SCH (11:06)
[2017-12-24] MEDS: SPIRONOLACTONE 25 MG TABLET PO SCH (11:06)
[2017-12-24] MEDS: LIDOCAINE 5% (700 MG) TRANSDERMAL ADH..PATCH TP SCH (11:07)
[2017-12-24] MEDS: FOLIC ACID 1 MG TABLET PO SCH (11:07)
[2017-12-25] MEDS: ACETAMINOPHEN 325 MG TABLET PO PRN (00:07)
[2017-12-25 04:15] LABS: HEMATOCRIT 27.8 % (37.9-51.0); MEAN CORPUSCULAR HGB CONC 35.8 g/dL (32.0-36.0); MEAN CORPUSCULAR VOLUME 103 fl (80-97); RED BLOOD COUNT 2.69 10^6/uL (4.35-5.55); WHITE BLOOD COUNT 10.3 10^3/uL (4.0-10.5)
[2017-12-25 04:17] LABS: INTERNATIONAL RATION (INR) 1.77; PROTHROMBIN TIME 21.5 SEC (11.4-15.4)
[2017-12-25 04:30] LABS: PLATELET COUNT 98 10^3/uL (150-450)
[2017-12-25 04:32] LABS: ALANINE AMINOTRANSFERASE 35 U/L (21-72); ALBUMIN 3.4 g/dL (3.5-5.0); ALKALINE PHOSPHATASE 141 U/L (38-126); ANION GAP 15 (5-19); ASPARTATE AMINO TRANSFERASE 75 U/L (17-59); BILIRUBIN,DIRECT 5.7 mg/dL (0.0-0.4); BILIRUBIN,TOTAL 14.7 mg/dL (0.2-1.3); BLOOD UREA NITROGEN 24 mg/dL (7-20); CALCIUM 9.3 mg/dL (8.4-10.2); CARBON DIOXIDE 24 mmol/L (22-30); CHLORIDE 95 mmol/L (98-107); GLUCOSE 124 mg/dL (75-110); POTASSIUM 4.3 mmol/L (3.6-5.0); SODIUM 133.8 mmol/L (137-145); TOTAL PROTEIN 7.8 g/dL (6.3-8.2)
[2017-12-25] MEDS: LANSOPRAZOLE 30 MG TAB.RAP.DR PO SCH (05:39)
[2017-12-25] MEDS ORDERED: ONDANSETRON 4 MG TAB.RAPDIS PO PRN (09:50)
[2017-12-25] MEDS: SPIRONOLACTONE 25 MG TABLET PO SCH (10:49)
[2017-12-25] MEDS: FUROSEMIDE 20 MG TABLET PO SCH ×2 (10:49→15:43)
[2017-12-25] MEDS: FOLIC ACID 1 MG TABLET PO SCH (10:49)
[2017-12-25] MEDS: THIAMINE HCL 100 MG TABLET PO SCH (10:49)
[2017-12-25] MEDS: NICOTINE 14 MG/24 HR PATCH.TD24 TD SCH (10:50)
[2017-12-25] MEDS: LIDOCAINE 5% (700 MG) TRANSDERMAL ADH..PATCH TP SCH (10:51)
[2017-12-25] MEDS ORDERED: HALOPERIDOL LACTATE INJ 5 MG/1 ML VIAL IV PRN (11:02)
[2017-12-25] MEDS: TRAMADOL HCL 50 MG TABLET PO PRN (13:02)
--- NOTE | 2017-12-25 14:32 | RADIOLOGY REPORT (SQ) ---
EXAM DESCRIPTION: CT CHEST WITH; CT ABD/PELVIS WITH IV ONLY COMPLETED DATE/TIME: 12/25/2017 1:53 pm REASON FOR STUDY: new L flank bruising. Eval for RP hemorrhage CONTRAST TYPE AND DOSE: contrast/concentration: Isovue 370.00 mg/ml; Total Contrast Delivered: 96.0 ml; Total Saline Delivered: 71.0 ml RENAL FUNCTION: GFR > 60. COMPARISON: None. TECHNIQUE: CT scan of the chest performed using helical scanning technique with dynamic intravenous contrast injection. Images reviewed with lung, soft tissue and bone windows. Reconstructed coronal a nd sagittal MPR images reviewed. All images stored on PACS. All CT scanners at this facility use dose modulation, iterative reconstruction, and/or weight based d osing when appropriate to reduce radiation dose to as low as reasonably achievable (ALARA). [facility]: Dose Right [facility]: CareDose [facility]: Dose Right [facility]: Teradose 4D [facility]: HeatGenie RADIATION DOSE: CT Rad equipment meets quality standard of care and radiation dose reduction techniq ues were employed. CTDIvol: 16.1 - 19.4 mGy. DLP: 2208 mGy-cm.. LIMITATIONS: Respiratory motion artifact at the level of the diaphragm FINDINGS: AXILLAE: No adenopathy. CHEST WALL: No masses. No subcutaneous air. Bilateral gynecomastia is present. LUNGS: No nodules or masses. No pneumothorax. No infiltrates. PLEURA: No effusions. No calcifications. THYROID: No masses or significant asymmetry. HILAR AND MEDIASTINAL STRUCTURES: No identified masses or abnormal nodes. AORTA AND GREAT VESSELS: No aneurysm. No dissection. Scattered aortic mural calcifications present. PULMONARY ARTERIES: No identified pulmonary emboli. Study not optimized for the pulmonary arteries. HEART: No pericardial effusion. Coronary artery calcifications are observed. HARDWARE AND LIFELINES: None. BONES: No significant finding. OTHER: No other significant finding. IMPRESSION: CHRONIC CHANGES ABOVE. NO ACUTE FINDINGS. COMPARISON: None. RADIATION DOSE: CT Rad equipment meets quality standard of care and radiation dose reduction techniq ues were employed. CTDIvol: 16.1 - 19.4 mGy. DLP: 2208 mGy-cm.mGy. TECHNIQUE: CT scan of the abdomen and pelvis performed with intravenous contrast using helical scann ing technique with dynamic intravenous contrast injection. Images reviewed with lung, soft tissue an d bone windows. Reconstructed coronal and sagittal MPR images reviewed. Delayed images for evaluati on of the urinary system also acquired and evaluated. All images stored on PACS. All CT scanners at this facility use dose modulation, iterative reconstruction, and/or weight based d osing when appropriate to reduce radiation dose to as low as reasonably achievable (ALARA). [facility]: Dose Right [facility]: SureCare [facility]: Dose Right [facility]: Teradose 4D [facility]: HeatGenie FINDINGS: LIVER: Limited evaluation of the liver secondary to respiratory motion artifact. Otherwi se, size. No masses. No dilated ducts appreciated. SPLEEN: Normal size. No focal lesions. PANCREAS: No masses. No significant calcifications. No adjacent inflammation or peripancreatic flui d collections. Pancreatic duct not dilated. GALLBLADDER: No identified stones by CT criteria. No inflammatory changes to suggest cholecystitis. ADRENAL GLANDS: No significant masses or asymmetry. RIGHT KIDNEY AND URETER: No solid masses. No significant calcification. No hydronephrosis or hydroure ter. LEFT KIDNEY AND URETER: No solid masses. No significant calcification. No hydronephrosis or hydrouret er. AORTA AND VESSELS: No aneurysm or dissection. Diffuse mural calcifications are present. There are a re calcifications at the origin of the superior mesenteric artery as well as the inferior mesenteric artery however the distal arteries appear to be opacified. RETROPERITONEUM: No retroperitoneal adenopathy, hemorrhage or masses. LARGE AND SMALL BOWEL: No dilatation. No masses. No wall thickening. APPENDIX: Normal. ABDOMINAL WALL: Just superior to the umbilicus there is dilatation and herniation of the umbilical ve in into the subcutaneous soft tissues anterior abdomen. Small bilateral fat containing inguinal macario ias are present. There is some fat stranding and induration within the subcutaneous soft tissues of the left flank. PERITONEAL CAVITY: There is mesenteric induration/edema present within the right lower quadrant and t o a lesser extent in the upper mid abdomen. This edema is clearly within the peritoneal space, not t he retroperitoneal space. No discrete inflammatory causes are appreciated. PELVIS: No mass or free fluid. Normal bladder. BONES: No significant or acute findings. OTHER: No other significant finding. IMPRESSION: 1. Moderate amount of mesenteric edema and induration, most prominent in the right lowe r quadrant. No organized fluid collection is present. No clear source of inflammation is identified . Recommend correlation with patient's history. 2. Enlarged umbilical vein with herniation into the anterior subcutaneous space is just superior to the umbilicus. Recommend clinical correlation. 3. Left flank subcutaneous inflammation/possible hematoma. Recommend correlation with patient's sym ptoms and any history of trauma. No evidence of underlying fracture. 4. Vascular calcifications at the origin of the superior mesenteric and inferior mesenteric arteries . This exam is not optimized to evaluate the patency of these vessels, as such, stenosis cannot be e xcluded however there is no evidence of bowel wall thickening or other signs of bowel injury with the exception of the previously mentioned mesenteric induration. TECHNICAL DOCUMENTATION: JOB ID: [id number] Quality ID # [id number]: Final reports with documentation of one or more dose reduction techniques (e.g., Au tomated exposure control, adjustment of the mA and/or kV according to patient size, use of iterative reconstruction technique) 2010 [employer]- All Rights Reserved Reading location - IP/workstation name: [email or web address]
[2017-12-25] MEDS ORDERED: PHYTONADIONE 5 MG TABLET PO ONE (18:25)
[2017-12-25] MEDS ORDERED: PHYTONADIONE 5 MG TABLET ONE (21:04)
[2017-12-25] MEDS: PHARMACY COMMUNICATION ORDER MC SCH (21:54)
--- NOTE | 2017-12-25 22:18 | PDOC PROGRESS REPORT ---
Subjective Progress Note for:: 12/25/17 Subjective:: TASHA FUENTES is a 52 year old male with a PMH of HTN, HLD, CAD post CABG, EtOH dependence. He presents to the emergency department following a mechanical fall that dislocated his left shoulder. X-ray reveals anterior dislocation of the left shoulder, no fractures noted. Ortho performed a fluoroscopy guided closed reduction of the L shoulder on 12/08/2017. The patient is found resting in his bed on room air. His mental status has greatly improved today. The patient is oriented to self, and year, location and situation. The patient still appears to be noticeably jaundice. + Icterus. The patient complains of left lower back pain. He denies abdominal pain, abdominal distention, nausea or vomiting. Upon further assessment, a large area of bruising is covering the L flank area. The patient and nursing staff deny a recent history of falls. Plan for CT chest/abdomen/pelvis to evaluate for a possible retropertioneal hemorrhage. Reason For Visit: ETOH WITHDRAWL, ACUTE LIVER FAILURE Physical Exam Vital Signs: Temp Pulse Resp BP Pulse Ox 100.4 F 92 16 123/67 97 12/25/17 19:41 12/25/17 19:41 12/25/17 19:41 12/25/17 19:41 12/25/17 19:41 Intake & Output 12/24/17 12/25/17 12/26/17 06:59 06:59 06:59 Intake Total 1124 1092 665 Output Total 1200 425 Balance -76 667 665 Weight 88.9 kg 89.1 kg General appearance: PRESENT: no acute distress Eye exam: PRESENT: PERRLA, scleral icterus Mouth exam: PRESENT: moist Teeth exam: PRESENT: poor dentation Neck exam: PRESENT: full ROM Respiratory exam: PRESENT: clear to auscultation noreen, symmetrical, unlabored Cardiovascular exam: PRESENT: +S1, +S2 Pulses: PRESENT: normal radial pulses, normal dorsalis pedis pul GI/Abdominal exam: PRESENT: normal bowel sounds, soft. ABSENT: tenderness Rectal exam: PRESENT: deferred Extremities exam: PRESENT: full ROM Musculoskeletal exam: PRESENT: full ROM. ABSENT: ambulatory Neurological exam: PRESENT: awake, oriented to person, oriented to place, oriented to time, oriented to situation. ABSENT: normal gait Skin exam: PRESENT: jaundice, other - Large area of bruising the the L flank ( new finding). Large area of bruising across L shoulder and anterior chest wall Results Laboratory Results: 12/25/17 04:02 12/25/17 04:02 12/25/17 12/25/17 04:02 04:02 WBC 10.3 RBC 2.69 L Hgb 10.0 L Hct 27.8 L MCV 103 H MCH 37.0 H MCHC 35.8 RDW 24.0 H Plt Count 98 L Sodium 133.8 L Potassium 4.3 Chloride 95 L Carbon Dioxide 24 Anion Gap 15 BUN 24 H Creatinine 0.73 Est GFR ( Amer) > 60 Est GFR (Non-Af Amer) > 60 Glucose 124 H Calcium 9.3 Total Bilirubin 14.7 H AST 75 H ALT 35 Alkaline Phosphatase 141 H Total Protein 7.8 Albumin 3.4 L 12/13/17 12/15/17 12/24/17 09:03 04:28 04:57 NT-Pro-B Natriuret Pep 2230 H 913 H 463 Impressions: Humerus X-Ray 12/07/17 00:00 IMPRESSION: 1. Left anterior shoulder dislocation. Head CT 12/07/17 03:07 IMPRESSION: 1. No acute intracranial abnormality by CT criteria. This exam was performed according to our departmental dose-optimization program, which includes automated exposure control, adjustment of the mA and/or kV according to patient size and/or use of iterative reconstruction technique. Fluoroscopy 12/08/17 00:00 IMPRESSION: Intra procedural imaging and fluoro Abdomen Ultrasound 12/09/17 00:00 IMPRESSION: 1. Fatty infiltration of the liver. Splenomegaly. 2. Dilatation of the common bile duct with no significant intrahepatic ductal dilatation. 3. There appears to be some pericholecystic fluid. No gallstones are present. No gallbladder wall thickening is seen. Chest X-Ray 12/13/17 00:00 IMPRESSION: Atelectasis or infiltrate left base. Shoulder X-Ray 12/19/17 00:00 IMPRESSION: No acute fracture. No glenohumeral joint or AC joint malalignment Abdomen/Pelvis CT 12/25/17 00:00 IMPRESSION: CHRONIC CHANGES ABOVE. NO ACUTE FINDINGS. IMPRESSION: 1. Moderate amount of mesenteric edema and induration, most prominent in the right lower quadrant. No organized fluid collection is present. No clear source of inflammation is identified. Recommend correlation with patient's history. 2. Enlarged umbilical vein with herniation into the anterior subcutaneous space is just superior to the umbilicus. Recommend clinical correlation. 3. Left flank subcutaneous inflammation/possible hematoma. Recommend correlation with patient's symptoms and any history of trauma. No evidence of underlying fracture. 4. Vascular calcifications at the origin of the superior mesenteric and inferior mesenteric arteries. This exam is not optimized to evaluate the patency of these vessels, as such, stenosis cannot be excluded however there is no evidence of bowel wall thickening or other signs of bowel injury with the exception of the previously mentioned mesenteric induration. Chest CT 12/25/17 00:00 IMPRESSION: CHRONIC CHANGES ABOVE. NO ACUTE FINDINGS. IMPRESSION: 1. Moderate amount of mesenteric edema and induration, most prominent in the right lower quadrant. No organized fluid collection is present. No clear source of inflammation is identified. Recommend correlation with patient's history. 2. Enlarged umbilical vein with herniation into the anterior subcutaneous space is just superior to the umbilicus. Recommend clinical correlation. 3. Left flank subcutaneous inflammation/possible hematoma. Recommend correlation with patient's symptoms and any history of trauma. No evidence of underlying fracture. 4. Vascular calcifications at the origin of the superior mesenteric and inferior mesenteric arteries. This exam is not optimized to evaluate the patency of these vessels, as such, stenosis cannot be excluded however there is no evidence of bowel wall thickening or other signs of bowel injury with the exception of the previously mentioned mesenteric induration. Status: Imported from PACS Assessment & Plan - Diagnosis (1) Liver cirrhosis, alcoholic Qualifiers: Ascites presence: with ascites Qualified Code(s): K70.31 - Alcoholic cirrhosis of liver with ascites Is this a current diagnosis for this admission?: Yes Plan: Improved mentation today; bilirubin is 14.7 and AST is 75. Per H&P, the patient admitted to drinking 2-3 beers most days of the week with endorsing recent history of heavier drinking. He was also found to be acutely intoxicated with an alcohol level of 277. The patient developed jaundice with icterus 24 hours following admission. The patient developed thrombocytopenia (PLT 29) requiring transfusions of 4 packs of platelets, and anemia (Hgb 7.4) with active bleeding requiring 4 units of packed red blood cells. Ultrasound of the abdomen revealed fatty infiltration of the liver, splenomegaly , dilatation of the common bile duct without significant intrahepatic ductal dilatation, some pericholecystic fluid. No gallstones or wall thickening was noted. Hgb and PLT stable; no evidence of active bleeding. Ammonia 23.8 (12/21/2017) Lipase is 63.8 (12/23/2017) MELD score: 19.97; 3 month mortality estimated to be approximately 27%. Continue Lasix 20 mg twice daily and spironolactone 100 mg p.o. daily. He is receiving Prevacid for ulcer prophylaxis. Continue daily multivitamin. Now tolerating p.o. fluids, will transition to oral thiamin and folic acid supplements. We will monitor nutritional status closely. Since the patient is able to eat, albeit requiring a lot of coaching, I don't think he will require enteral feeding. (2) Anterior dislocation of left shoulder Qualifiers: Encounter type: initial encounter Qualified Code(s): S43.015A - Anterior dislocation of left humerus, initial encounter Is this a current diagnosis for this admission?: Yes Plan: S/p fluoroscopy-guided reduction of left shoulder by orthopedic surgeon. Large area of ecchymosis to left shoulder, anterior and left chest wall; slight improvement. Patient has very limited ROM to LUE, strength is only 1-2/5. XRAY done yesterday does not show dislocation. After consultation with hospitalist attending, plan for PT/OT. No further imaging warranted at this time. Shoulder sling NOT in place; patient has been consistently noncompliant, encourage use. Orthopedics has signed off. Hepatically dosed tramadol for pain. Avoid sedating (narcotic) medications. (3) LLL pneumonia Qualifiers: Pneumonia type: due to unspecified organism Qualified Code(s): J18.1 - Lobar pneumonia, unspecified organism Is this a current diagnosis for this admission?: Yes Plan: Improved; lung sounds are clear and the patient is maintaining oxygen saturations on room air. ABG initially revealed Respiratory Alkalosis. CXR atelectasis versus infiltrate of the left lung base. Blood cultures have no growth to date. The patient was empirically covered with 7 days of Levaquin (penicillin and sulfa allergy is noted). As needed nebulizer treatments are provided. Turn/reposition patient every 2 hours; encourage IS once more alert. Supplemental oxygen as required to maintain oxygen saturations greater than 90%. (4) Fluid volume excess Qualifiers: Hypervolemia type: unspecified Qualified Code(s): E87.70 - Fluid overload, unspecified Is this a current diagnosis for this admission?: Yes Plan: Resolved; breath sounds are clear, no edema to perineum/extremities. Pro BNP trending down from 2230 to 463. Echocardiogram reveals mild to moderate diastolic dysfunction with a preserved ejection fraction. Strict I&Os limited secondary to incontinence. No plan to place a Martinez given that the patient has been removing IV lines. Do not restrain or sedate if avoidable. Daily weights. Weight trending down (103.5 kg --> 89.1 kg) Continue furosemide 20 mg p.o twice daily and spironolactone 100 mg p.o daily. (5) Electrolyte abnormality Is this a current diagnosis for this admission?: Yes Plan: Resolved. Patient had persistent hypokalemia and hypomagnesemia secondary to malnutrition , chronic alcohol abuse, and acute disease process. Daily potassium has been discontinued. Anticipating that electrolytes will stabilize as the patient is now eating meals ; On Lasix for management of liver disease with ascites. Will continue to monitor daily chemistries and replace as needed. (6) Coronary artery disease Qualifiers: Coronary Disease-Associated Artery/Lesion type: [place] artery Is this a current diagnosis for this admission?: Yes Plan: The patient endorses a history of coronary artery disease In light of his anemia and thrombocytopenia, discontinued Aspirin therapy (7) Alcohol intoxication Qualifiers: Complication of substance-induced condition: uncomplicated Qualified Code(s ): F10.920 - Alcohol use, unspecified with intoxication, uncomplicated Is this a current diagnosis for this admission?: Yes Plan: Resolved; The patient was admitted with an EtOH level of 277, repeat EtOH <10 He endorses as chronic alcohol intake of at least 2-3 beers daily. The patient' s roommate states he was drinking 2-3 40oz beers per day. Not long ago, he was drinking 10-12 40 oz. beers per day. Moitor for alcohol withdrawal, IV Haldol, maintenance IV fluids, daily thiamine and folate supplementation, and a 1:1 sitter for safety. (8) Acute metabolic encephalopathy Is this a current diagnosis for this admission?: Yes Plan: Greatly improved today, the patient A&O x 3, he is able to state why he is in the hospital (which he previously always answered incorrectly) Acute metabolic encephalopathy secondary to alcoholic hepatitis and sedating medications. Plan for alcoholic hepatitis listed above. Noticeable improvement in level of alertness since discontinuation of Depakote. Ativan 0.5 mg IV as needed every 8 hours for acute agitation. Avoid narcotics. Fall and aspiration precautions. (9) DNR (do not resuscitate) Is this a current diagnosis for this admission?: Yes (10) Hypoalbuminemia Is this a current diagnosis for this admission?: Yes Plan: Secondary to alcohol hepatitis and ascites. The patient has also had very low p.o. intake. With assistance from the [employer]RO[employer] ATTENDANT, he is able to eat about 25% of his meals. Albumin is trending down from 3.8-3.0. The registered dietitian has been consulted and has made recommendations for tube feedings should the patient's p.o. intake not improve. Patient's mentation is greatly improved today, he is much more awake and alert. He still requires frequent food and drink offerings/assistance at mealtime. Patient likely will not tolerate large meals and will need frequent/small bites or sips. Will continue to monitor. (11) Thrombocytopenia Is this a current diagnosis for this admission?: Yes Plan: Improving; PLTs 98. Secondary to liver failure. Now s/p 4 units PLTs. Will continue to monitor closely. Fall and bleeding precautions. (12) Anemia Qualifiers: Anemia type: unspecified type Qualified Code(s): D64.9 - Anemia, unspecified Is this a current diagnosis for this admission?: Yes Plan: Multifactorial secondary to alcohol dependence, liver failure, folate/B12 deficiency and ABLA anemia. Patient is now s/p 4 units PRBC. Hgb 10.0 today, has drifted from 11.3 over the course of 5 days. Folate and thiamin supplementation. Will continue to monitor. (13) Tobacco abuse Is this a current diagnosis for this admission?: Yes Plan: Nicotine patch provided - Time Time Spent with patient: 25-34 minutes Medications reviewed and adjusted accordingly: Yes Anticipated discharge: Acute Rehab - Inpatient Certification Based on my medical assessment, after consideration of the patient's comorbidities, presenting symptoms, or acuity I expect that the services needed warrant INPATIENT care.: Yes I certify that my determination is in accordance with my understanding of Medicare's requirements for reasonable and necessary INPATIENT services [42 CFR 412.3e].: Yes Medical Necessity: Risk of Complication if Not Cared For in Hospital
[2017-12-25] MEDS ORDERED: ACETAMINOPHEN 325 MG TABLET PO ONE (23:45)
[2017-12-26 05:33] LABS: HEMATOCRIT 28.7 % (37.9-51.0); HEMOGLOBIN 10.1 g/dL (13.5-17.0); MEAN CORPUSCULAR HEMOGLOBIN 36.6 pg (27.0-33.4); MEAN CORPUSCULAR HGB CONC 35.3 g/dL (32.0-36.0); MEAN CORPUSCULAR VOLUME 104 fl (80-97); PLATELET COUNT 108 10^3/uL (150-450); RED BLOOD COUNT 2.76 10^6/uL (4.35-5.55); RED CELL DISTRIBUTION WIDTH 24.8 % (11.5-14.0); WHITE BLOOD COUNT 10.8 10^3/uL (4.0-10.5)
[2017-12-26 05:39] LABS: ALANINE AMINOTRANSFERASE 35 U/L (21-72); ALBUMIN 3.5 g/dL (3.5-5.0); ALKALINE PHOSPHATASE 120 U/L (38-126); ANION GAP 14 (5-19); ASPARTATE AMINO TRANSFERASE 87 U/L (17-59); BILIRUBIN,DIRECT 6.6 mg/dL (0.0-0.4); BILIRUBIN,TOTAL 16.1 mg/dL (0.2-1.3); BLOOD UREA NITROGEN 27 mg/dL (7-20); CALCIUM 9.2 mg/dL (8.4-10.2); CARBON DIOXIDE 25 mmol/L (22-30); CHLORIDE 97 mmol/L (98-107); GLUCOSE 114 mg/dL (75-110); POTASSIUM 4.2 mmol/L (3.6-5.0); SODIUM 135.7 mmol/L (137-145); TOTAL PROTEIN 8.1 g/dL (6.3-8.2)
[2017-12-26] MEDS: LANSOPRAZOLE 30 MG TAB.RAP.DR PO SCH (06:29)
[2017-12-26] MEDS: TRAMADOL HCL 50 MG TABLET PO PRN ×3 (08:07→21:20)
[2017-12-26] MEDS: FUROSEMIDE 20 MG TABLET PO SCH ×2 (08:08→13:19)
[2017-12-26] MEDS ORDERED: MEGESTROL ACETATE 20 MG TABLET PO SCH (10:00)
[2017-12-26] MEDS: SPIRONOLACTONE 25 MG TABLET PO SCH (11:45)
[2017-12-26] MEDS: FOLIC ACID 1 MG TABLET PO SCH (11:46)
[2017-12-26] MEDS: THIAMINE HCL 100 MG TABLET PO SCH (11:47)
[2017-12-26] MEDS: LIDOCAINE 5% (700 MG) TRANSDERMAL ADH..PATCH TP SCH (12:17)
[2017-12-26] MEDS: NICOTINE 14 MG/24 HR PATCH.TD24 TD SCH (12:17)
[2017-12-26] MEDS: MEGESTROL ACETATE SUSP 400 MG/10 ML UDCUP PO SCH (13:19)
[2017-12-26] MEDS: PHARMACY COMMUNICATION ORDER MC SCH (21:21)
--- NOTE | 2017-12-26 22:31 | PDOC PROGRESS REPORT ---
Subjective Progress Note for:: 12/26/17 Subjective:: TASHA FUENTES is a 52 year old male with a PMH of HTN, HLD, CAD post CABG, EtOH dependence. He presents to the emergency department following a mechanical fall that dislocated his left shoulder. X-ray reveals anterior dislocation of the left shoulder, no fractures noted. Ortho performed a fluoroscopy guided closed reduction of the L shoulder on 12/08/2017. The patient is found resting in his bed on room air. His mental status has been waxing and waning. The patient is oriented to self, and year. He is disoriented to location and situation ("I'm in [place]"). The patient still appears to be noticeably jaundice. + Icterus. Reason For Visit: ETOH WITHDRAWL, ACUTE LIVER FAILURE Physical Exam Vital Signs: Temp Pulse Resp BP Pulse Ox 98.8 F 88 20 137/77 H 100 12/26/17 21:10 12/26/17 21:10 12/26/17 21:10 12/26/17 21:10 12/26/17 21:10 Intake & Output 12/25/17 12/26/17 12/27/17 06:59 06:59 06:59 Intake Total 1092 1178 1120 Output Total 425 650 Balance 667 1178 470 Weight 89.1 kg 89.1 kg General appearance: PRESENT: no acute distress Eye exam: PRESENT: PERRLA, scleral icterus Mouth exam: PRESENT: moist Teeth exam: PRESENT: poor dentation Neck exam: PRESENT: full ROM Respiratory exam: PRESENT: clear to auscultation noreen, symmetrical, unlabored Cardiovascular exam: PRESENT: +S1, +S2 GI/Abdominal exam: PRESENT: normal bowel sounds, soft. ABSENT: ascites, distended, tenderness Rectal exam: PRESENT: deferred Extremities exam: PRESENT: full ROM Musculoskeletal exam: PRESENT: full ROM. ABSENT: ambulatory Neurological exam: PRESENT: alert, awake, oriented to person, oriented to time. ABSENT: oriented to place, oriented to situation Skin exam: PRESENT: dry, intact, warm, other - LARGE AREA OF BRUISING TO ANTERIOR CHEST WALL. OTHER AREA OF BRUISING TO L FLANK Results Laboratory Results: 12/26/17 04:56 12/26/17 04:56 12/26/17 12/26/17 04:56 04:56 WBC 10.8 H RBC 2.76 L Hgb 10.1 L Hct 28.7 L MCV 104 H MCH 36.6 H MCHC 35.3 RDW 24.8 H Plt Count 108 L Sodium 135.7 L Potassium 4.2 Chloride 97 L Carbon Dioxide 25 Anion Gap 14 BUN 27 H Creatinine 0.85 Est GFR ( Amer) > 60 Est GFR (Non-Af Amer) > 60 Glucose 114 H Calcium 9.2 Total Bilirubin 16.1 H AST 87 H ALT 35 Alkaline Phosphatase 120 Total Protein 8.1 Albumin 3.5 12/13/17 12/15/17 12/24/17 09:03 04:28 04:57 NT-Pro-B Natriuret Pep 2230 H 913 H 463 Impressions: Humerus X-Ray 12/07/17 00:00 IMPRESSION: 1. Left anterior shoulder dislocation. Head CT 12/07/17 03:07 IMPRESSION: 1. No acute intracranial abnormality by CT criteria. This exam was performed according to our departmental dose-optimization program, which includes automated exposure control, adjustment of the mA and/or kV according to patient size and/or use of iterative reconstruction technique. Fluoroscopy 12/08/17 00:00 IMPRESSION: Intra procedural imaging and fluoro Abdomen Ultrasound 12/09/17 00:00 IMPRESSION: 1. Fatty infiltration of the liver. Splenomegaly. 2. Dilatation of the common bile duct with no significant intrahepatic ductal dilatation. 3. There appears to be some pericholecystic fluid. No gallstones are present. No gallbladder wall thickening is seen. Chest X-Ray 12/13/17 00:00 IMPRESSION: Atelectasis or infiltrate left base. Shoulder X-Ray 12/19/17 00:00 IMPRESSION: No acute fracture. No glenohumeral joint or AC joint malalignment Abdomen/Pelvis CT 12/25/17 00:00 IMPRESSION: CHRONIC CHANGES ABOVE. NO ACUTE FINDINGS. IMPRESSION: 1. Moderate amount of mesenteric edema and induration, most prominent in the right lower quadrant. No organized fluid collection is present. No clear source of inflammation is identified. Recommend correlation with patient's history. 2. Enlarged umbilical vein with herniation into the anterior subcutaneous space is just superior to the umbilicus. Recommend clinical correlation. 3. Left flank subcutaneous inflammation/possible hematoma. Recommend correlation with patient's symptoms and any history of trauma. No evidence of underlying fracture. 4. Vascular calcifications at the origin of the superior mesenteric and inferior mesenteric arteries. This exam is not optimized to evaluate the patency of these vessels, as such, stenosis cannot be excluded however there is no evidence of bowel wall thickening or other signs of bowel injury with the exception of the previously mentioned mesenteric induration. Chest CT 12/25/17 00:00 IMPRESSION: CHRONIC CHANGES ABOVE. NO ACUTE FINDINGS. IMPRESSION: 1. Moderate amount of mesenteric edema and induration, most prominent in the right lower quadrant. No organized fluid collection is present. No clear source of inflammation is identified. Recommend correlation with patient's history. 2. Enlarged umbilical vein with herniation into the anterior subcutaneous space is just superior to the umbilicus. Recommend clinical correlation. 3. Left flank subcutaneous inflammation/possible hematoma. Recommend correlation with patient's symptoms and any history of trauma. No evidence of underlying fracture. 4. Vascular calcifications at the origin of the superior mesenteric and inferior mesenteric arteries. This exam is not optimized to evaluate the patency of these vessels, as such, stenosis cannot be excluded however there is no evidence of bowel wall thickening or other signs of bowel injury with the exception of the previously mentioned mesenteric induration. Status: Imported from PACS Assessment & Plan - Diagnosis (1) Liver cirrhosis, alcoholic Qualifiers: Ascites presence: with ascites Qualified Code(s): K70.31 - Alcoholic cirrhosis of liver with ascites Is this a current diagnosis for this admission?: Yes Plan: Mentation is waxing and waning; bilirubin is 16.1 and AST is 87. Per H&P, the patient admitted to drinking 2-3 beers most days of the week with endorsing recent history of heavier drinking. He was also found to be acutely intoxicated with an alcohol level of 277. The patient developed jaundice with icterus 24 hours following admission. The patient developed thrombocytopenia (PLT 29) requiring transfusions of 4 packs of platelets, and anemia (Hgb 7.4) with active bleeding requiring 4 units of packed red blood cells. Ultrasound of the abdomen revealed fatty infiltration of the liver, splenomegaly , dilatation of the common bile duct without significant intrahepatic ductal dilatation, some pericholecystic fluid. No gallstones or wall thickening was noted. Hgb and PLT stable; no evidence of active bleeding. Ammonia 23.8 (12/21/2017) Lipase is 63.8 (12/23/2017) MELD score: 19.97; 3 month mortality estimated to be approximately 27%. Continue Lasix 20 mg twice daily and spironolactone 100 mg p.o. daily. He is receiving Prevacid for ulcer prophylaxis. Continue daily multivitamin. Now tolerating p.o. fluids, will transition to oral thiamin and folic acid supplements. We will monitor nutritional status closely. Since the patient is able to eat, albeit requiring a lot of coaching, I don't think he will require enteral feeding. [facility] consulted (2) Anterior dislocation of left shoulder Qualifiers: Encounter type: initial encounter Qualified Code(s): S43.015A - Anterior dislocation of left humerus, initial encounter Is this a current diagnosis for this admission?: Yes Plan: S/p fluoroscopy-guided reduction of left shoulder by orthopedic surgeon. Large area of ecchymosis to left shoulder, anterior and left chest wall; slight improvement. Patient has very limited ROM to LUE, strength is only 1-2/5. XRAY done yesterday does not show dislocation. After consultation with hospitalist attending, plan for PT/OT. No further imaging warranted at this time. Shoulder sling NOT in place; patient has been consistently noncompliant, encourage use. Orthopedics has signed off. Hepatically dosed tramadol for pain. Avoid sedating (narcotic) medications. (3) LLL pneumonia Qualifiers: Pneumonia type: due to unspecified organism Qualified Code(s): J18.1 - Lobar pneumonia, unspecified organism Is this a current diagnosis for this admission?: Yes Plan: Improved; lung sounds are clear and the patient is maintaining oxygen saturations on room air. ABG initially revealed Respiratory Alkalosis. CXR atelectasis versus infiltrate of the left lung base. Blood cultures have no growth to date. The patient was empirically covered with 7 days of Levaquin (penicillin and sulfa allergy is noted). As needed nebulizer treatments are provided. Turn/reposition patient every 2 hours; encourage IS once more alert. Supplemental oxygen as required to maintain oxygen saturations greater than 90%. (4) Fluid volume excess Qualifiers: Hypervolemia type: unspecified Qualified Code(s): E87.70 - Fluid overload, unspecified Is this a current diagnosis for this admission?: Yes Plan: Resolved; breath sounds are clear, no edema to perineum/extremities. Pro BNP trending down from 2230 to 463. Echocardiogram reveals mild to moderate diastolic dysfunction with a preserved ejection fraction. Strict I&Os limited secondary to incontinence. No plan to place a Martinez given that the patient has been removing IV lines. Do not restrain or sedate if avoidable. Daily weights. Weight trending down (103.5 kg --> 89.1 kg) Continue furosemide 20 mg p.o twice daily and spironolactone 100 mg p.o daily. (5) Electrolyte abnormality Is this a current diagnosis for this admission?: Yes Plan: Resolved. Patient had persistent hypokalemia and hypomagnesemia secondary to malnutrition , chronic alcohol abuse, and acute disease process. Daily potassium has been discontinued. Anticipating that electrolytes will stabilize as the patient is now eating meals ; On Lasix for management of liver disease with ascites. Will continue to monitor daily chemistries and replace as needed. (6) Coronary artery disease Qualifiers: Coronary Disease-Associated Artery/Lesion type: [place] artery Is this a current diagnosis for this admission?: Yes Plan: The patient endorses a history of coronary artery disease In light of his anemia and thrombocytopenia, discontinued Aspirin therapy (7) Alcohol intoxication Qualifiers: Complication of substance-induced condition: uncomplicated Qualified Code(s ): F10.920 - Alcohol use, unspecified with intoxication, uncomplicated Is this a current diagnosis for this admission?: Yes Plan: Resolved; The patient was admitted with an EtOH level of 277, repeat EtOH <10 He endorses as chronic alcohol intake of at least 2-3 beers daily. The patient' s roommate states he was drinking 2-3 40oz beers per day. Not long ago, he was drinking 10-12 40 oz. beers per day. Nursing staff reports that ativan has paradoxical effect, replaced IV ativan with IV haldol Monitor for alcohol withdrawal, IV Haldol, maintenance IV fluids, daily thiamine and folate supplementation, and a 1:1 sitter for safety. (8) Acute metabolic encephalopathy Is this a current diagnosis for this admission?: Yes Plan: Waxing and waning. Some days the patient is A&O x 3, other days he is only oriented to himself. Acute metabolic encephalopathy secondary to alcoholic hepatitis and sedating medications. Plan for alcoholic hepatitis listed above. Noticeable improvement in level of alertness since discontinuation of Depakote. Haldol IV as needed every 8 hours for acute agitation. Avoid narcotics. Fall and aspiration precautions. (9) DNR (do not resuscitate) Is this a current diagnosis for this admission?: Yes (10) Hypoalbuminemia Is this a current diagnosis for this admission?: Yes Plan: Secondary to alcohol hepatitis and ascites. The patient has also had very low p.o. intake. With assistance from the HISTOLOGY TECHNOLOGIST, he is able to eat about 25% of his meals. Albumin is trending down from 3.8-3.0. The registered dietitian has been consulted and has made recommendations for tube feedings should the patient's p.o. intake not improve. Patient's mentation is greatly improved in the last 48hrs, he is much more awake and alert. He still requires frequent food and drink offerings/ assistance at mealtime. Patient likely will not tolerate large meals and will need frequent/small bites or sips. Will continue to monitor. (11) Thrombocytopenia Is this a current diagnosis for this admission?: Yes Plan: Improving; PLTs 98. Secondary to liver failure. Now s/p 4 units PLTs. Will continue to monitor closely. Fall and bleeding precautions. (12) Anemia Qualifiers: Anemia type: unspecified type Qualified Code(s): D64.9 - Anemia, unspecified Is this a current diagnosis for this admission?: Yes Plan: Multifactorial secondary to alcohol dependence, liver failure, folate/B12 deficiency and ABLA anemia. Patient is now s/p 4 units PRBC. Hgb 10.0 today, has drifted from 11.3 over the course of 5 days. Folate and thiamin supplementation. Will continue to monitor. (13) Tobacco abuse Is this a current diagnosis for this admission?: Yes Plan: Nicotine patch provided - Time Time Spent with patient: 15-24 minutes Medications reviewed and adjusted accordingly: Yes Anticipated discharge: Home, Acute Rehab - Inpatient Certification Based on my medical assessment, after consideration of the patient's comorbidities, presenting symptoms, or acuity I expect that the services needed warrant INPATIENT care.: Yes I certify that my determination is in accordance with my understanding of Medicare's requirements for reasonable and necessary INPATIENT services [42 CFR 412.3e].: Yes Medical Necessity: Risk of Complication if Not Cared For in Hospital - Plan Summary Plan Summary: Continue PT. It is very likely the patient may require some kind of rehab. Unfortunately, he doesn't have health insurance, so this could prove to be very difficult. Discharge planning is aware of his situation. Appreciate ther assistance.
[2017-12-27 04:55] LABS: HEMATOCRIT 26.5 % (37.9-51.0); HEMOGLOBIN 9.5 g/dL (13.5-17.0); MEAN CORPUSCULAR HEMOGLOBIN 37.3 pg (27.0-33.4); MEAN CORPUSCULAR HGB CONC 35.9 g/dL (32.0-36.0); MEAN CORPUSCULAR VOLUME 104 fl (80-97); RED BLOOD COUNT 2.55 10^6/uL (4.35-5.55); RED CELL DISTRIBUTION WIDTH 24.1 % (11.5-14.0); WHITE BLOOD COUNT 9.3 10^3/uL (4.0-10.5)
[2017-12-27 05:13] LABS: ALANINE AMINOTRANSFERASE 40 U/L (21-72); ALBUMIN 3.3 g/dL (3.5-5.0); ALKALINE PHOSPHATASE 100 U/L (38-126); ANION GAP 15 (5-19); ASPARTATE AMINO TRANSFERASE 89 U/L (17-59); BILIRUBIN,DIRECT 6.4 mg/dL (0.0-0.4); BLOOD UREA NITROGEN 24 mg/dL (7-20); CALCIUM 8.7 mg/dL (8.4-10.2); CARBON DIOXIDE 24 mmol/L (22-30); CHLORIDE 91 mmol/L (98-107); GLUCOSE 138 mg/dL (75-110); POTASSIUM 3.9 mmol/L (3.6-5.0); SODIUM 130.1 mmol/L (137-145); TOTAL PROTEIN 7.6 g/dL (6.3-8.2)
[2017-12-27 05:56] LABS: PLATELET COUNT 97 10^3/uL (150-450)
[2017-12-27] MEDS: TRAMADOL HCL 50 MG TABLET PO PRN (06:37)
[2017-12-27] MEDS: LANSOPRAZOLE 30 MG TAB.RAP.DR PO SCH (06:38)
[2017-12-27] MEDS: FUROSEMIDE 20 MG TABLET PO SCH ×2 (08:42→14:12)
[2017-12-27] MEDS ORDERED: LACTULOSE SYRUP 20 GM/30 ML UDCUP PO SCH (10:00)
[2017-12-27] MEDS: THIAMINE HCL 100 MG TABLET PO SCH (10:32)
[2017-12-27] MEDS: SPIRONOLACTONE 25 MG TABLET PO SCH (10:32)
[2017-12-27] MEDS: NICOTINE 14 MG/24 HR PATCH.TD24 TD SCH (10:32)
[2017-12-27] MEDS: FOLIC ACID 1 MG TABLET PO SCH (10:32)
[2017-12-27] MEDS: LIDOCAINE 5% (700 MG) TRANSDERMAL ADH..PATCH TP SCH (10:33)
--- NOTE | 2017-12-27 14:07 | PDOC CONSULTATION ---
Consultation Consult Date: 12/27/17 Attending physician:: NOHEMI SHELDON Consult reason:: Asked to see this patient for CT finidng of mesenteric edema History of Present Illness Admission Date/PCP: 12/07/17 03:56 History of Present Illness: TASHA FUENTES is a 52 year old male patient has been admitted for a dislocated should and required surgery patient admits to heavy drinking of alcohol in the past Patient has had waxing and waning mental status patient noted to have signs consistent with cirrhosis there are abnormal LFT's suggestive of an indirect hyperbilirubinemia patient has a stable H/H there appears to be a component of alcohol withdrawal status as well on CT scan , there appears to be findings that could suggest and hematoma. his albumin in low, could explain the diffuse mesenteric edema patient denies any hematemesis there is no reported melena Past Medical History Cardiac Medical History: Reports: Coronary Artery Disease, Hyperlipidema, Hypertension Denies: Atrial Fibrillation, Congestive Heart Failure, DVT, Myocardial Infarction, Peripheral Vascular Disease, Pulmonary Embolism, Heart Murmur Pulmonary Medical History: Reports: Chronic Obstructive Pulmonary Disease (COPD) , Pneumonia Denies: Asthma, Bronchitis, Respiratory Failure, Sleep Apnea, Tuberculosis Neurological Medical History: Reports: Seizures - Possible seizure; see history and physical, 06/25/2016 Endocrine Medical History: Denies: Diabetes Mellitus Type 1, Diabetes Mellitus Type 2, Hyperthyroidism, Hypothyroidism Renal/ Medical History: Denies: End Stage Renal Disease Malignancy Medical History: Denies: Leukemia, Lung Cancer GI Medical History: Denies: Cirrhosis, Crohn's Disease, Gastroesophageal Reflux Disease, Hepatitis, Hiatal Hernia Musculoskeltal Medical History: Reports: Arthritis - hands Denies: Fibromyalgia Psychiatric Medical History: Reports: Depression Denies: Bipolar Disorder, Dementia, Post Traumatic Stress Disorder Hematology: Denies: Anemia, Hemophilia, Sickle Cell Disease Infectious Medical History: Denies: HIV Past Surgical History Past Surgical History: Reports: Coronary Artery Bypass Graft - x3 (2009), Coronary Stent, Other - Incision and drainage of dental abscess, with tooth extraction, 2005. Denies: Appendectomy, Cholecystectomy, Colostomy, Gastric Bypass Surgery, Herniorrhaphy, Pacemaker, Tonsillectomy Social History Lives with: Alone Smoking Status: Current Every Day Smoker Frequency of Alcohol Use: Occasional Hx Recreational Drug Use: No Drugs: None Hx Prescription Drug Abuse: No - Advance Directive Resuscitation Status: Full Code Family History Family History: None Parental Family History Reviewed: Yes Children Family History Reviewed: Unknown Sibling(s) Family History Reviewed.: Unknown Medication/Allergy Home Medications: No Home Medications 06/26/16 Aspirin [Aspirin 325 mg Tablet] 325 mg PO DAILY 12/07/17 Allergies/Adverse Reactions: Penicillins Allergy (Unknown, Verified 06/25/16 21:15) Sulfa (Sulfonamide Antibiotics) Allergy (Unknown, Verified 10/07/11 00:42) Review of Systems Constitutional: ABSENT: fever(s), headache(s), night sweats Eyes: ABSENT: visual disturbances Ears: ABSENT: hearing changes Nose, Mouth, and Throat: ABSENT: mouth pain, sore throat Cardiovascular: ABSENT: chest pain, orthropnea Respiratory: ABSENT: dyspnea, hemoptysis Gastrointestinal: ABSENT: dysphagia, hematochezia, melena Genitourinary: ABSENT: dysuria, hematuria Musculoskeletal: ABSENT: deformity, joint swelling Integumentary: ABSENT: pruritus Neurological: ABSENT: syncope, tingling, tremor(s), vertigo Endocrine: ABSENT: polydipsia, polyphagia, polyuria Hematologic/Lymphatic: ABSENT: easy bruising Physical Exam Vital Signs: Temp Pulse Resp BP Pulse Ox 99.5 F 93 18 126/60 H 99 12/27/17 11:24 12/27/17 11:24 12/27/17 11:24 12/27/17 11:24 12/27/17 11:24 Intake & Output 12/26/17 12/27/17 12/28/17 06:59 06:59 06:59 Intake Total 1178 1430 Output Total 650 Balance 1178 780 Weight 89.1 kg 89.4 kg General appearance: PRESENT: well-developed, well-nourished Head exam: PRESENT: atraumatic, normocephalic Eye exam: PRESENT: EOMI, PERRLA, scleral icterus. ABSENT: nystagmus, periorbital swelling Mouth exam: PRESENT: moist Throat exam: ABSENT: tonsillar exudate Neck exam: ABSENT: meningismus, tenderness, thyromegaly Respiratory exam: PRESENT: symmetrical, tachypnea. ABSENT: unlabored, wheezes Cardiovascular exam: PRESENT: RRR, +S1, +S2 GI/Abdominal exam: PRESENT: soft. ABSENT: rebound, rigid, tenderness Extremities exam: ABSENT: joint swelling Neurological exam: PRESENT: altered, CN II-XII grossly intact Focused psych exam: ABSENT: restlessness Skin exam: PRESENT: normal color. ABSENT: mottled, pallor, petechiae, urticaria , vesicles Results Laboratory Results: 12/27/17 03:59 12/27/17 03:59 12/27/17 12/27/17 03:59 03:59 WBC 9.3 RBC 2.55 L Hgb 9.5 L Hct 26.5 L MCV 104 H MCH 37.3 H MCHC 35.9 RDW 24.1 H Plt Count 97 L Sodium 130.1 L Potassium 3.9 Chloride 91 L Carbon Dioxide 24 Anion Gap 15 BUN 24 H Creatinine 0.76 Est GFR ( Amer) > 60 Est GFR (Non-Af Amer) > 60 Glucose 138 H Calcium 8.7 Total Bilirubin 15.0 H AST 89 H ALT 40 Alkaline Phosphatase 100 Total Protein 7.6 Albumin 3.3 L 12/13/17 12/15/17 12/24/17 09:03 04:28 04:57 NT-Pro-B Natriuret Pep 2230 H 913 H 463 Impressions: Humerus X-Ray 12/07/17 00:00 IMPRESSION: 1. Left anterior shoulder dislocation. Head CT 12/07/17 03:07 IMPRESSION: 1. No acute intracranial abnormality by CT criteria. This exam was performed according to our departmental dose-optimization program, which includes automated exposure control, adjustment of the mA and/or kV according to patient size and/or use of iterative reconstruction technique. Fluoroscopy 12/08/17 00:00 IMPRESSION: Intra procedural imaging and fluoro Abdomen Ultrasound 12/09/17 00:00 IMPRESSION: 1. Fatty infiltration of the liver. Splenomegaly. 2. Dilatation of the common bile duct with no significant intrahepatic ductal dilatation. 3. There appears to be some pericholecystic fluid. No gallstones are present. No gallbladder wall thickening is seen. Chest X-Ray 12/13/17 00:00 IMPRESSION: Atelectasis or infiltrate left base. Shoulder X-Ray 12/19/17 00:00 IMPRESSION: No acute fracture. No glenohumeral joint or AC joint malalignment Abdomen/Pelvis CT 12/25/17 00:00 IMPRESSION: CHRONIC CHANGES ABOVE. NO ACUTE FINDINGS. IMPRESSION: 1. Moderate amount of mesenteric edema and induration, most prominent in the right lower quadrant. No organized fluid collection is present. No clear source of inflammation is identified. Recommend correlation with patient's history. 2. Enlarged umbilical vein with herniation into the anterior subcutaneous space is just superior to the umbilicus. Recommend clinical correlation. 3. Left flank subcutaneous inflammation/possible hematoma. Recommend correlation with patient's symptoms and any history of trauma. No evidence of underlying fracture. 4. Vascular calcifications at the origin of the superior mesenteric and inferior mesenteric arteries. This exam is not optimized to evaluate the patency of these vessels, as such, stenosis cannot be excluded however there is no evidence of bowel wall thickening or other signs of bowel injury with the exception of the previously mentioned mesenteric induration. Chest CT 12/25/17 00:00 IMPRESSION: CHRONIC CHANGES ABOVE. NO ACUTE FINDINGS. IMPRESSION: 1. Moderate amount of mesenteric edema and induration, most prominent in the right lower quadrant. No organized fluid collection is present. No clear source of inflammation is identified. Recommend correlation with patient's history. 2. Enlarged umbilical vein with herniation into the anterior subcutaneous space is just superior to the umbilicus. Recommend clinical correlation. 3. Left flank subcutaneous inflammation/possible hematoma. Recommend correlation with patient's symptoms and any history of trauma. No evidence of underlying fracture. 4. Vascular calcifications at the origin of the superior mesenteric and inferior mesenteric arteries. This exam is not optimized to evaluate the patency of these vessels, as such, stenosis cannot be excluded however there is no evidence of bowel wall thickening or other signs of bowel injury with the exception of the previously mentioned mesenteric induration. Assessment & Plan - Diagnosis (1) Alcoholic hepatitis with ascites Is this a current diagnosis for this admission?: Yes Plan: his LFt's are not suggestive of an acute process he mainly has an indirect elevate total bilirubin usually ETOH hepatitis has the elevated AST: ALT ratio of 3:1 will need to evaluate for other causes likely does have cirrhosis due to alcohol use likely also have DT's as well H/H is stable no hematemesis (2) Hypoalbuminemia Is this a current diagnosis for this admission?: Yes Plan: could be the explanation of this mesenteric edema continue to follow (3) Liver cirrhosis, alcoholic Qualifiers: Ascites presence: with ascites Qualified Code(s): K70.31 - Alcoholic cirrhosis of liver with ascites Is this a current diagnosis for this admission?: Yes Plan: continue to follow would explain the thrombocytopenia patient may need some lactulose to see if mental status can improve following along to make mental status not due to worsening edema of brain (4) Elevated LFTs Plan: again, since this is mainly indirect hyperbilirubinemia, other causes will need to be worked up usually both biliary stone disease and alcoholic hepatitis is a direct elevationg of the bilirubin patient can be followed H/H is stable and no need for EGD at this point. - Time Time Spent: 50 to 70 Minutes
[2017-12-27] MEDS: MEGESTROL ACETATE SUSP 400 MG/10 ML UDCUP PO SCH (14:12)
--- NOTE | 2017-12-27 18:37 | PDOC PROGRESS REPORT ---
<YANET HERNANDES - Last Filed: 12/27/17 18:09> Subjective Progress Note for:: 12/27/17 Subjective:: The patient is a 52-year-old male with past medical history of hypertension, hyperlipidemia, CAD post CABG, EtOH dependence who was admitted on 12/08/17 for a left shoulder dislocation requiring fluoroscopic guided closed reduction by orthopedics. He subsequently developed acute alcohol liver failure. The patient is seen on morning rounds. He is found resting in the recliner comfortably on room air. He is alert and oriented 4; he initially states that he was admitted for a hip dislocation and indicates his left shoulder, however, quickly self corrects. He reports persistent left shoulder pain that is intermittent and worsened by movement. He states that his current pain medications are not controlling his pain well. The patient denies headache, dizziness, chest pain, palpitations, shortness of breath, cough, abdominal pain, nausea vomiting and diarrhea. He has no other questions or concerns. Per nursing, the patient remains intermittently confused and impulsive. Reason For Visit: ETOH WITHDRAWL, ACUTE LIVER FAILURE Physical Exam Vital Signs: Temp Pulse Resp BP Pulse Ox 100.1 F 94 19 154/65 H 98 12/27/17 07:42 12/27/17 07:42 12/27/17 07:42 12/27/17 07:42 12/27/17 07:42 Intake & Output 12/26/17 12/27/17 12/28/17 06:59 06:59 06:59 Intake Total 1178 1430 Output Total 650 Balance 1178 780 Weight 89.1 kg 89.4 kg General appearance: PRESENT: no acute distress, disheveled, well-developed, other - Overweight Head exam: PRESENT: atraumatic, normocephalic Eye exam: PRESENT: conjunctiva pink, EOMI, PERRLA, scleral icterus Ear exam: PRESENT: normal external ear exam Mouth exam: PRESENT: moist, tongue midline Neck exam: ABSENT: carotid bruit, JVD, lymphadenopathy, thyromegaly Respiratory exam: PRESENT: clear to auscultation noreen, symmetrical, unlabored. ABSENT: rales, rhonchi, wheezes Cardiovascular exam: PRESENT: RRR, +S1, +S2. ABSENT: diastolic murmur, rubs, systolic murmur Pulses: PRESENT: normal dorsalis pedis pul Vascular exam: PRESENT: normal capillary refill GI/Abdominal exam: PRESENT: distended, normal bowel sounds, soft. ABSENT: guarding, mass, organolmegaly, rebound, tenderness Rectal exam: PRESENT: deferred Extremities exam: PRESENT: joint swelling - Lt shoulder, tenderness - Lt shoulder. ABSENT: calf tenderness, clubbing, full ROM - Lt shoulder, pedal edema Neurological exam: PRESENT: alert, awake, oriented to person, oriented to place , oriented to time, oriented to situation, CN II-XII grossly intact. ABSENT: motor sensory deficit Psychiatric exam: PRESENT: appropriate affect, normal mood. ABSENT: homicidal ideation, suicidal ideation Skin exam: PRESENT: dry, intact, jaundice, warm, other - Ecchymosis to left shoulder. ABSENT: cyanosis, rash Results Laboratory Results: 12/27/17 03:59 12/27/17 03:59 12/27/17 12/27/17 03:59 03:59 WBC 9.3 RBC 2.55 L Hgb 9.5 L Hct 26.5 L MCV 104 H MCH 37.3 H MCHC 35.9 RDW 24.1 H Plt Count 97 L Sodium 130.1 L Potassium 3.9 Chloride 91 L Carbon Dioxide 24 Anion Gap 15 BUN 24 H Creatinine 0.76 Est GFR ( Amer) > 60 Est GFR (Non-Af Amer) > 60 Glucose 138 H Calcium 8.7 Total Bilirubin 15.0 H AST 89 H ALT 40 Alkaline Phosphatase 100 Total Protein 7.6 Albumin 3.3 L 12/13/17 12/15/17 12/24/17 09:03 04:28 04:57 NT-Pro-B Natriuret Pep 2230 H 913 H 463 Impressions: Humerus X-Ray 12/07/17 00:00 IMPRESSION: 1. Left anterior shoulder dislocation. Head CT 12/07/17 03:07 IMPRESSION: 1. No acute intracranial abnormality by CT criteria. This exam was performed according to our departmental dose-optimization program, which includes automated exposure control, adjustment of the mA and/or kV according to patient size and/or use of iterative reconstruction technique. Fluoroscopy 12/08/17 00:00 IMPRESSION: Intra procedural imaging and fluoro Abdomen Ultrasound 12/09/17 00:00 IMPRESSION: 1. Fatty infiltration of the liver. Splenomegaly. 2. Dilatation of the common bile duct with no significant intrahepatic ductal dilatation. 3. There appears to be some pericholecystic fluid. No gallstones are present. No gallbladder wall thickening is seen. Chest X-Ray 12/13/17 00:00 IMPRESSION: Atelectasis or infiltrate left base. Shoulder X-Ray 12/19/17 00:00 IMPRESSION: No acute fracture. No glenohumeral joint or AC joint malalignment Abdomen/Pelvis CT 12/25/17 00:00 IMPRESSION: CHRONIC CHANGES ABOVE. NO ACUTE FINDINGS. IMPRESSION: 1. Moderate amount of mesenteric edema and induration, most prominent in the right lower quadrant. No organized fluid collection is present. No clear source of inflammation is identified. Recommend correlation with patient's history. 2. Enlarged umbilical vein with herniation into the anterior subcutaneous space is just superior to the umbilicus. Recommend clinical correlation. 3. Left flank subcutaneous inflammation/possible hematoma. Recommend correlation with patient's symptoms and any history of trauma. No evidence of underlying fracture. 4. Vascular calcifications at the origin of the superior mesenteric and inferior mesenteric arteries. This exam is not optimized to evaluate the patency of these vessels, as such, stenosis cannot be excluded however there is no evidence of bowel wall thickening or other signs of bowel injury with the exception of the previously mentioned mesenteric induration. Chest CT 12/25/17 00:00 IMPRESSION: CHRONIC CHANGES ABOVE. NO ACUTE FINDINGS. IMPRESSION: 1. Moderate amount of mesenteric edema and induration, most prominent in the right lower quadrant. No organized fluid collection is present. No clear source of inflammation is identified. Recommend correlation with patient's history. 2. Enlarged umbilical vein with herniation into the anterior subcutaneous space is just superior to the umbilicus. Recommend clinical correlation. 3. Left flank subcutaneous inflammation/possible hematoma. Recommend correlation with patient's symptoms and any history of trauma. No evidence of underlying fracture. 4. Vascular calcifications at the origin of the superior mesenteric and inferior mesenteric arteries. This exam is not optimized to evaluate the patency of these vessels, as such, stenosis cannot be excluded however there is no evidence of bowel wall thickening or other signs of bowel injury with the exception of the previously mentioned mesenteric induration. Assessment & Plan - Diagnosis (1) Alcoholic hepatitis with ascites Is this a current diagnosis for this admission?: Yes Plan: Improved mentation today; the patient is alert and oriented 4. He continues to have jaundice and icterus. Ultrasound of the abdomen revealed fatty infiltration of the liver, splenomegaly , dilatation of the common bile duct without significant intrahepatic ductal dilatation, some pericholecystic fluid. No gallstones or wall thickening was noted. Abdominal/pelvic CT demonstrated a moderate amount of mesenteric edema, enlarged umbilical vein with herniation into the anterior subcutaneous space, left flank subcutaneous inflammation/possible hematoma, no evidence of underlying fracture, and vascular calcifications of the superior and inferior dysenteric arteries. Hgb and PLT stable; no evidence of active bleeding. MELD score: 27 Continue Lasix 20 mg twice daily and spironolactone 100 mg p.o. daily. He is receiving Prevacid for ulcer prophylaxis. Continue lactulose 10 g daily. Continue thiamine and folic acid supplementation. We will evaluate ammonia level with AM labs. Will obtain Head Ct to evaluate for edema of the brain per GI's recommendations. Will obtain MRCP to evaluate for biliary stone disease per GI's recommendations. Gastroenterology has been consulted; appreciate Dr. Donahue's evaluation recommendations. (2) Anterior dislocation of left shoulder QualifierTitle: Encounter type: initial encounter Qualified Code(s): S43.015A - Anterior dislocation of left humerus, initial encounter Is this a current diagnosis for this admission?: Yes Plan: S/p fluoroscopy-guided reduction of left shoulder by orthopedic surgeon. Large area of ecchymosis to left shoulder, anterior and left chest wall; slight improvement. Shoulder sling in place; encourage use. Repeat shoulder xray (12/19/17) is negative for acute fracture. We will reconsult orthopedics for persistent shoulder pain, edema, and ecchymosis in patient with spontaneous bleeding (r/t liver disease/ thrombocytopenia) concerning for potential intra-articular hemorrhage. We will hold her hold on further imaging pending orthopedics evaluation. Low dose oxycodone as needed for pain. Encourage use of sling. May benefit from ice or heat therapy. (4) Acute metabolic encephalopathy Is this a current diagnosis for this admission?: Yes Plan: Waxing and waning; oriented 4 today. Acute metabolic encephalopathy is secondary to alcohol hepatitis and sedating medications. Plan for alcohol hepatitis as above. Haldol IV as needed every 8 hours for acute agitation. Fall and aspiration precautions. We will obtain CT imaging of the head. (5) Coronary artery disease QualifierTitle: Coronary Disease-Associated Artery/Lesion type: [place] artery Is this a current diagnosis for this admission?: Yes Plan: Holding Aspirin secondary to thrombocytopenia and anemia with acute blood loss requiring transfusions. (6) Tobacco abuse Is this a current diagnosis for this admission?: Yes Plan: Nicotine replacement therapy is provided. (7) Hypoalbuminemia Is this a current diagnosis for this admission?: Yes Plan: Stable. Secondary to alcohol hepatitis and ascites. The patient has also had very low p.o. intake. With assistance from nurse aide, patient eats approximately 25% of each meal. Albumin is trending down from 3.8-2.7; currently 3.0 The registered dietitian has been consulted and has made recommendations for tube feedings should the patient's p.o. intake not improve. Will continue to monitor. (8) Thrombocytopenia Is this a current diagnosis for this admission?: Yes Plan: Stable; PLTs 97. Secondary to liver failure. Now s/p 4 units PLTs. Will continue to monitor closely. Fall and bleeding precautions. (9) Anemia QualifierTitle: Anemia type: unspecified type Qualified Code(s): D64.9 - Anemia, unspecified Is this a current diagnosis for this admission?: Yes Plan: Multifactorial secondary to alcohol dependence, liver failure, folate/B12 deficiency and ABLA anemia. Pt is now s/p 4 units PRBC. Hgb 9.5 today; drifting down from 11.3 over last [address] of the abdomen and pelvis was negative for retroperitoneal bleed, however, did note a left flank hematoma. No overt signs of bleeding. GI was consulted; no indication for EGD at this time. Folate and thiamin supplementation. Will continue to monitor. (11) Alcohol intoxication QualifierTitle: Complication of substance-induced condition: uncomplicated Qualified Code(s): F10.920 - Alcohol use, unspecified with intoxication, uncomplicated Is this a current diagnosis for this admission?: Yes Plan: Resolved; The patient was admitted with an EtOH level of 277, repeat EtOH <10 He endorses as chronic alcohol intake of at least 2-3 beers daily. He was placed on alcohol withdrawal protocol with IV haldol as needed for agitation. Oral thiamine and folate supplementation. Recommend 1:1 sitter for safety. (12) LLL pneumonia QualifierTitle: Pneumonia type: due to unspecified organism Qualified Code(s): J18.1 - Lobar pneumonia, unspecified organism Is this a current diagnosis for this admission?: Yes Plan: Resolved; lung sounds are clear and the patient is maintaining oxygen saturations on room air. ABG revealed Respiratory Alkalosis. CXR atelectasis versus infiltrate of the left lung base. Blood cultures have no growth to date. The patient completed a seven-day course of Levaquin. He is maintaining oxygen saturations on room air. (13) Electrolyte abnormality Is this a current diagnosis for this admission?: Yes Plan: Resolved. Patient had persistent hypokalemia and hypomagnesemia secondary to malnutrition , chronic alcohol abuse, and acute disease process. Daily potassium has been discontinued. Will continue to monitor daily chemistries and replace as needed. (14) Fluid volume excess QualifierTitle: Hypervolemia type: unspecified Qualified Code(s): E87.70 - Fluid overload, unspecified Is this a current diagnosis for this admission?: Yes Plan: Resolved; breath sounds are clear, no edema to perineum/extremities. Pro BNP trending down from 2230 --> 913 --> 463. Echocardiogram reveals mild to moderate diastolic dysfunction with a preserved ejection fraction. Strict I&Os limited secondary to incontinence. I am concerned about placing a Martinez as the patient has been removing IV lines. I do not wish to restrain or sedate if avoidable. Daily weights. Wt trending down (103.5 kg --> 89.4 kg) Continue furosemide 20 mg p.o twice daily and spironolactone 100 mg p.o daily. (15) DNR (do not resuscitate) Is this a current diagnosis for this admission?: Yes - Time Time Spent with patient: 25-34 minutes Medications reviewed and adjusted accordingly: Yes <JUAN SANTIAGO - Last Filed: 01/08/18 18:22> Subjective Reason For Visit: ETOH WITHDRAWL, ACUTE LIVER FAILURE Physical Exam Vital Signs: Temp Pulse Resp BP Pulse Ox 98.1 F 109 H 16 136/66 H 100 12/31/17 20:48 12/31/17 20:48 12/31/17 20:48 12/31/17 20:48 12/31/17 20:48 Results Laboratory Results: 12/31/17 06:09 12/31/17 06:09 12/13/17 12/15/17 12/24/17 09:03 04:28 04:57 Creatine Kinase NT-Pro-B Natriuret Pep 2230 H 913 H 463 12/30/17 05:06 Creatine Kinase 116 NT-Pro-B Natriuret Pep Impressions: Humerus X-Ray 12/07/17 00:00 IMPRESSION: 1. Left anterior shoulder dislocation. Fluoroscopy 12/08/17 00:00 IMPRESSION: Intra procedural imaging and fluoro Abdomen Ultrasound 12/09/17 00:00 IMPRESSION: 1. Fatty infiltration of the liver. Splenomegaly. 2. Dilatation of the common bile duct with no significant intrahepatic ductal dilatation. 3. There appears to be some pericholecystic fluid. No gallstones are present. No gallbladder wall thickening is seen. Chest X-Ray 12/13/17 00:00 IMPRESSION: Atelectasis or infiltrate left base. Shoulder X-Ray 12/19/17 00:00 IMPRESSION: No acute fracture. No glenohumeral joint or AC joint malalignment Abdomen/Pelvis CT 12/25/17 00:00 IMPRESSION: CHRONIC CHANGES ABOVE. NO ACUTE FINDINGS. IMPRESSION: 1. Moderate amount of mesenteric edema and induration, most prominent in the right lower quadrant. No organized fluid collection is present. No clear source of inflammation is identified. Recommend correlation with patient's history. 2. Enlarged umbilical vein with herniation into the anterior subcutaneous space is just superior to the umbilicus. Recommend clinical correlation. 3. Left flank subcutaneous inflammation/possible hematoma. Recommend correlation with patient's symptoms and any history of trauma. No evidence of underlying fracture. 4. Vascular calcifications at the origin of the superior mesenteric and inferior mesenteric arteries. This exam is not optimized to evaluate the patency of these vessels, as such, stenosis cannot be excluded however there is no evidence of bowel wall thickening or other signs of bowel injury with the exception of the previously mentioned mesenteric induration. Head CT 12/27/17 00:00 IMPRESSION: No acute intracranial findings. EVIDENCE OF ACUTE STROKE: NO. Chest CT 12/28/17 00:00 IMPRESSION: Asymmetric diffuse enlargement of the left subscapularis muscle and left deltoid muscle, worrisome for intramuscular hematoma. Superimposed intramuscular abscess/myositis could not be excluded. Spotty calcifications/ossification along the periphery of the left shoulder capsule. No left glenohumeral malalignment on today's study. No aggressive bony demineralization, left shoulder. Abdomen MRI 12/29/17 00:00 IMPRESSION: No biliary ductal dilatation. No gallstones or common bile duct stones. Mild splenomegaly. Recannulized umbilical vein. Guidance Fluoroscopy 12/29/17 00:00 IMPRESSION: SUCCESSFUL NEEDLE PLACEMENT AND ASPIRATION OF THE LEFT SHOULDER JOINT SPACE, BLOODY SYNOVIAL FLUID SENT FOR GRAM STAIN CULTURE AND SENSITIVITY. POSTERIOR APPROACH. Hip Aspiration/Injection 12/29/17 00:00 IMPRESSION: SUCCESSFUL NEEDLE PLACEMENT AND ASPIRATION OF THE LEFT SHOULDER JOINT SPACE, BLOODY SYNOVIAL FLUID SENT FOR GRAM STAIN CULTURE AND SENSITIVITY. POSTERIOR APPROACH. Assessment & Plan - Plan Summary Plan Summary: Co-signing for Yanet Hernandes NP
--- NOTE | 2017-12-27 19:26 | RADIOLOGY REPORT (SQ) ---
EXAM DESCRIPTION: CT HEAD WITHOUT COMPLETED DATE/TIME: 12/27/2017 7:16 pm REASON FOR STUDY: Altered mental status COMPARISON: 12/07/2017 TECHNIQUE: Axial images acquired through the brain without intravenous contrast. Images reviewed wi th bone, brain and subdural windows. Images stored on PACS. All CT scanners at this facility use dose modulation, iterative reconstruction, and/or weight based d osing when appropriate to reduce radiation dose to as low as reasonably achievable (ALARA). [facility]: Dose Right [facility]: CareDose [facility]: Dose Right [facility]: Teradose 4D [facility]: [employer] RADIATION DOSE: CT Rad equipment meets quality standard of care and radiation dose reduction techniq ues were employed. CTDIvol: 53.2 mGy. DLP: 1203 mGy-cm. mGy. LIMITATIONS: None. FINDINGS: VENTRICLES: Normal size and contour. CEREBRUM: No masses. No hemorrhage. No midline shift. No evidence for acute infarction. Normal gra y/white matter differentiation. No areas of low density in the white matter. CEREBELLUM: No masses. No hemorrhage. No alteration of density. No evidence for acute infarction. EXTRAAXIAL SPACES: No fluid collections. No masses. ORBITS AND GLOBE: No intra- or extraconal masses. Normal contour of globe without masses. CALVARIUM: No fracture. PARANASAL SINUSES: No fluid or mucosal thickening. SOFT TISSUES: No mass or hematoma. OTHER: No other significant finding. IMPRESSION: No acute intracranial findings. EVIDENCE OF ACUTE STROKE: NO. COMMENT: Quality ID # [id number]: Final reports with documentation of one or more dose reduction techniques (e.g., Automated exposure control, adjustment of the mA and/or kV according to patient size, use of iterative reconstruction technique) TECHNICAL DOCUMENTATION: JOB ID: [id number] [place]-72 2010 [employer]- All Rights Reserved Reading location - IP/workstation name: [email or web address]
[2017-12-27] MEDS: PHARMACY COMMUNICATION ORDER MC SCH (21:55)
[2017-12-28] MEDS: OXYCODONE HCL IR 5 MG TABLET PO PRN ×3 (00:08→19:39)
[2017-12-28] MEDS: LANSOPRAZOLE 30 MG TAB.RAP.DR PO SCH (06:32)
[2017-12-28 07:24] LABS: HEMATOCRIT 26.6 % (37.9-51.0); HEMOGLOBIN 9.5 g/dL (13.5-17.0); MEAN CORPUSCULAR HEMOGLOBIN 37.2 pg (27.0-33.4); MEAN CORPUSCULAR HGB CONC 35.9 g/dL (32.0-36.0); MEAN CORPUSCULAR VOLUME 104 fl (80-97); PLATELET COUNT 107 10^3/uL (150-450); RED BLOOD COUNT 2.57 10^6/uL (4.35-5.55); RED CELL DISTRIBUTION WIDTH 24.1 % (11.5-14.0); WHITE BLOOD COUNT 14.7 10^3/uL (4.0-10.5)
[2017-12-28 07:36] LABS: ALANINE AMINOTRANSFERASE 43 U/L (21-72); ALBUMIN 3.4 g/dL (3.5-5.0); ALKALINE PHOSPHATASE 106 U/L (38-126); ANION GAP 15 (5-19); ASPARTATE AMINO TRANSFERASE 93 U/L (17-59); BILIRUBIN,TOTAL 17.2 mg/dL (0.2-1.3); BLOOD UREA NITROGEN 21 mg/dL (7-20); CALCIUM 8.8 mg/dL (8.4-10.2); CARBON DIOXIDE 22 mmol/L (22-30); CHLORIDE 92 mmol/L (98-107); GLUCOSE 101 mg/dL (75-110); POTASSIUM 4.1 mmol/L (3.6-5.0); SODIUM 129.1 mmol/L (137-145)
[2017-12-28 07:38] LABS: TOTAL PROTEIN 8.1 g/dL (6.3-8.2)
[2017-12-28] MEDS ORDERED: NORMAL SALINE 1000 ML 1,000 ML IV PRN (07:59)
--- NOTE | 2017-12-28 08:02 | Progress Note ---
Provider Note Provider Note: Labs appear to be worsening. now the direct bilirubin is elevated matching the total bilirubin. MRCP to exclude obstruction, no leukocytosis patient has hyponatremia and worsening PT as well may want to consider transfer to tertiary institution
[2017-12-28 09:08] LABS: ABSOLUTE RETICS # 0.216 10^6/uL (0.028-0.122); RETICULOCYTE COUNT (AUTO) 8.45 % (0.66-2.85)
[2017-12-28 09:11] LABS: INTERNATIONAL RATION (INR) 1.84; PROTHROMBIN TIME 22.1 SEC (11.4-15.4)
[2017-12-28 09:34] LABS: IRON 96.4 ug/dL (49-181)
[2017-12-28] MEDS: SPIRONOLACTONE 25 MG TABLET PO SCH (09:38)
[2017-12-28] MEDS: FOLIC ACID 1 MG TABLET PO SCH (09:38)
[2017-12-28] MEDS: THIAMINE HCL 100 MG TABLET PO SCH (09:40)
[2017-12-28] MEDS: NICOTINE 14 MG/24 HR PATCH.TD24 TD SCH (09:41)
[2017-12-28] MEDS: FUROSEMIDE 20 MG TABLET PO SCH (09:46)
[2017-12-28 09:50] LABS: FREE T4 (FREE THYROXINE) 1.51 ng/dL (0.78-2.19)
[2017-12-28 10:04] LABS: THYROID STIMULATING HORMONE 4.92 uIU/mL (0.47-4.68)
[2017-12-28 10:39] LABS: FOLATE 11.6 ng/mL (>2.76)
[2017-12-28] MEDS: LIDOCAINE 5% (700 MG) TRANSDERMAL ADH..PATCH TP SCH (10:45)
--- NOTE | 2017-12-28 15:59 | RADIOLOGY REPORT (SQ) ---
EXAM DESCRIPTION: CT CHEST WITH COMPLETED DATE/TIME: 12/28/2017 3:01 pm REASON FOR STUDY: ? Lt septic arthritis/hemorrhage COMPARISON: CT chest 12/25/2017 Left shoulder films 12/19/2017, 12/08/2017, 12/07/2017 TECHNIQUE: CT scan of the chest performed using helical scanning technique with dynamic intravenous contrast injection. Images reviewed with lung, soft tissue and bone windows. Reconstructed coronal and sagittal MPR images reviewed. All images stored on PACS. All CT scanners at this facility use dose modulation, iterative reconstruction, and/or weight based d osing when appropriate to reduce radiation dose to as low as reasonably achievable (ALARA). [facility]: Dose Right [facility]: CareDose [facility]: Dose Right [facility]: Teradose 4D [facility]: Vitals ([email or web address]) CONTRAST TYPE AND DOSE: contrast/concentration: Isovue 370.00 mg/ml; Total Contrast Delivered: 80.0 ml; Total Saline Delivered: 55.0 ml RENAL FUNCTION: Creatinine 0.75 RADIATION DOSE: CT Rad equipment meets quality standard of care and radiation dose reduction techniq ues were employed. CTDIvol: 16.3 mGy. DLP: 772 mGy-cm. . LIMITATIONS: None. FINDINGS: There is asymmetric diffuse enlargement of the left subscapularis muscle and left deltoid muscle, worrisome for intramuscular hematoma. Superimposed infection could not be excluded. Finding s were discussed with JOSE Ch. There is sparse ossification/calcification of the left shoulder joint capsule superiorly, posteriorly , and anteriorly along the inferior glenoid. No aggressive left humeral head, scapula or clavicle bony demineralization. No widening at the acrom ioclavicular joint. Normal left glenohumeral joint alignment. LUNGS AND PLEURA: No opacities, nodules, masses. No pneumothorax. No effusions. HILAR AND MEDIASTINAL STRUCTURES: No identified masses or abnormal nodes. HEART AND VASCULAR STRUCTURES: No aneurysm or dissection. No central pulmonary emboli. No pericardi al effusion. HARDWARE: Old sternotomy for CABG UPPER ABDOMEN: Distal esophageal varices, nodular contour of the liver, splenomegaly from cirrhosis a nd portal hypertension. No upper abdominal ascites. THYROID AND OTHER SOFT TISSUES: No thyroid lesions. Bilateral gynecomastia. BONES: No acute fracture. Left shoulder findings as above. OTHER: No other significant finding. IMPRESSION: Asymmetric diffuse enlargement of the left subscapularis muscle and left deltoid muscle, worrisome for intramuscular hematoma. Superimposed intramuscular abscess/myositis could not be excl uded. Spotty calcifications/ossification along the periphery of the left shoulder capsule. No left glenohumeral malalignment on today's study. No aggressive bony demineralization, left should er. TECHNICAL DOCUMENTATION: JOB ID: [id number] Quality ID # [id number]: Final reports with documentation of one or more dose reduction techniques (e.g., Au tomated exposure control, adjustment of the mA and/or kV according to patient size, use of iterative reconstruction technique) 2010 [email or web address]- All Rights Reserved Reading location - IP/workstation name: [email or web address]
--- NOTE | 2017-12-28 16:13 | PDOC PROGRESS REPORT ---
Subjective Progress Note for:: 12/28/17 Subjective:: The patient is a 52-year-old male with past medical history of hypertension, hyperlipidemia, CAD post CABG, EtOH dependence who was admitted on 12/08/17 for a left shoulder dislocation requiring fluoroscopic guided closed reduction by orthopedics. He subsequently developed acute alcohol liver failure. The patient is seen on morning rounds. He is found resting in bed comfortably on room air. He is alert and orientated to person and place, but the year 1979. Otherwise, his conversation is appropriate and he seems to be quite lucid. He reports persistent left shoulder pain that is intermittent and worsened by movement. He reports that the oxycodone has provided moderate pain control but that he has a constant sensation of pressure. The patient denies headache, dizziness, chest pain, palpitations, shortness of breath, cough, abdominal pain, nausea vomiting and diarrhea. He has no other questions or concerns. Per nursing, the patient remains intermittently confused and impulsive. Reason For Visit: ETOH WITHDRAWL, ACUTE LIVER FAILURE Physical Exam Vital Signs: Temp Pulse Resp BP Pulse Ox 98.8 F 93 14 137/57 H 100 12/28/17 12:10 12/28/17 12:10 12/28/17 12:10 12/28/17 12:10 12/28/17 12:10 Intake & Output 12/27/17 12/28/17 12/29/17 06:59 06:59 06:59 Intake Total 1430 1022 Output Total 650 600 Balance 780 422 Weight 89.4 kg 87.6 kg General appearance: PRESENT: no acute distress, cooperative, well-developed, other - overweight Head exam: PRESENT: atraumatic, normocephalic Eye exam: PRESENT: conjunctiva pink, EOMI, PERRLA. ABSENT: scleral icterus Ear exam: PRESENT: normal external ear exam Mouth exam: PRESENT: moist, tongue midline Neck exam: ABSENT: carotid bruit, JVD, lymphadenopathy, thyromegaly Respiratory exam: PRESENT: clear to auscultation noreen, symmetrical, unlabored. ABSENT: rales, rhonchi, wheezes Cardiovascular exam: PRESENT: RRR, +S1, +S2. ABSENT: diastolic murmur, rubs, systolic murmur Pulses: PRESENT: normal dorsalis pedis pul Vascular exam: PRESENT: normal capillary refill GI/Abdominal exam: PRESENT: normal bowel sounds, soft. ABSENT: distended, guarding, mass, organolmegaly, rebound, tenderness Rectal exam: PRESENT: deferred Extremities exam: PRESENT: joint swelling - Lt shoulder, tenderness, other - Ecchymosis to Lt shoulder. ABSENT: calf tenderness, clubbing, full ROM - Lt shoulder r/t pain, pedal edema Musculoskeletal exam: PRESENT: ambulatory - 2 person assist Neurological exam: PRESENT: alert, awake, oriented to person, oriented to place , CN II-XII grossly intact. ABSENT: oriented to time, oriented to situation, motor sensory deficit Psychiatric exam: PRESENT: appropriate affect, normal mood. ABSENT: homicidal ideation, suicidal ideation Skin exam: PRESENT: dry, intact, jaundice, warm, other - ecchymosis to Lt shoulder. ABSENT: cyanosis, rash Results Laboratory Results: 12/28/17 06:10 12/28/17 06:10 12/28/17 12/28/17 12/28/17 06:10 06:10 06:10 WBC 14.7 H RBC 2.57 L Hgb 9.5 L Hct 26.6 L MCV 104 H MCH 37.2 H MCHC 35.9 RDW 24.1 H Plt Count 107 L Retic Count (auto) Absolute Retic Sodium 129.1 L Potassium 4.1 Chloride 92 L Carbon Dioxide 22 Anion Gap 15 BUN 21 H Creatinine 0.75 Est GFR ( Amer) > 60 Est GFR (Non-Af Amer) > 60 Glucose 101 Calcium 8.8 Iron Total Bilirubin 17.2 H AST 93 H ALT 43 Alkaline Phosphatase 106 Ammonia Cancelled Total Protein 8.1 Albumin 3.4 L Vitamin B12 Folate TSH Free T4 12/28/17 12/28/17 12/28/17 06:10 07:23 08:24 WBC RBC Hgb Hct MCV MCH MCHC RDW Plt Count Retic Count (auto) 8.45 H Absolute Retic 0.216 H Sodium Potassium Chloride Carbon Dioxide Anion Gap BUN Creatinine Est GFR ( Amer) Est GFR (Non-Af Amer) Glucose Calcium Iron Total Bilirubin AST ALT Alkaline Phosphatase Ammonia 47.5 H Total Protein Albumin Vitamin B12 Folate TSH 4.92 H Free T4 1.51 12/28/17 08:24 WBC RBC Hgb Hct MCV MCH MCHC RDW Plt Count Retic Count (auto) Absolute Retic Sodium Potassium Chloride Carbon Dioxide Anion Gap BUN Creatinine Est GFR ( Amer) Est GFR (Non-Af Amer) Glucose Calcium Iron 96.4 Total Bilirubin AST ALT Alkaline Phosphatase Ammonia Total Protein Albumin Vitamin B12 740.0 Folate 11.60 TSH Free T4 12/13/17 12/15/17 12/24/17 09:03 04:28 04:57 NT-Pro-B Natriuret Pep 2230 H 913 H 463 Impressions: Humerus X-Ray 12/07/17 00:00 IMPRESSION: 1. Left anterior shoulder dislocation. Fluoroscopy 12/08/17 00:00 IMPRESSION: Intra procedural imaging and fluoro Abdomen Ultrasound 12/09/17 00:00 IMPRESSION: 1. Fatty infiltration of the liver. Splenomegaly. 2. Dilatation of the common bile duct with no significant intrahepatic ductal dilatation. 3. There appears to be some pericholecystic fluid. No gallstones are present. No gallbladder wall thickening is seen. Chest X-Ray 12/13/17 00:00 IMPRESSION: Atelectasis or infiltrate left base. Shoulder X-Ray 12/19/17 00:00 IMPRESSION: No acute fracture. No glenohumeral joint or AC joint malalignment Abdomen/Pelvis CT 12/25/17 00:00 IMPRESSION: CHRONIC CHANGES ABOVE. NO ACUTE FINDINGS. IMPRESSION: 1. Moderate amount of mesenteric edema and induration, most prominent in the right lower quadrant. No organized fluid collection is present. No clear source of inflammation is identified. Recommend correlation with patient's history. 2. Enlarged umbilical vein with herniation into the anterior subcutaneous space is just superior to the umbilicus. Recommend clinical correlation. 3. Left flank subcutaneous inflammation/possible hematoma. Recommend correlation with patient's symptoms and any history of trauma. No evidence of underlying fracture. 4. Vascular calcifications at the origin of the superior mesenteric and inferior mesenteric arteries. This exam is not optimized to evaluate the patency of these vessels, as such, stenosis cannot be excluded however there is no evidence of bowel wall thickening or other signs of bowel injury with the exception of the previously mentioned mesenteric induration. Head CT 12/27/17 00:00 IMPRESSION: No acute intracranial findings. EVIDENCE OF ACUTE STROKE: NO. Assessment & Plan - Diagnosis (1) Alcoholic hepatitis with ascites Is this a current diagnosis for this admission?: Yes Plan: Worsening; bilirubin and AST are elevated today. Patient is alert and oriented to person place only. He continues to have jaundice and icterus. Ultrasound of the abdomen revealed fatty infiltration of the liver, splenomegaly , dilatation of the common bile duct without significant intrahepatic ductal dilatation, some pericholecystic fluid. No gallstones or wall thickening was noted. Abdominal/pelvic CT demonstrated a moderate amount of mesenteric edema, enlarged umbilical vein with herniation into the anterior subcutaneous space, left flank subcutaneous inflammation/possible hematoma, no evidence of underlying fracture, and vascular calcifications of the superior and inferior dysenteric arteries. Head CT negative for acute processes (r/o cerebral edema per GI recommendations) Hgb and PLT stable; no evidence of active bleeding. Ammonia 47.5 MELD score: 28 Continue Lasix 20 mg twice daily and spironolactone 100 mg p.o. daily. He is receiving Prevacid for ulcer prophylaxis. Increase lactulose to 10 g twice daily. Continue thiamine and folic acid supplementation. Will obtain MRCP to evaluate for biliary stone disease per GI's recommendations ; requesting historical records from [facility] to confirm type of stenting to clear for MRI. Gastroenterology has been consulted; appreciate Dr. Donahue's evaluation recommendations. (2) Anterior dislocation of left shoulder Qualifiers: Encounter type: initial encounter Qualified Code(s): S43.015A - Anterior dislocation of left humerus, initial encounter Is this a current diagnosis for this admission?: Yes Plan: S/p fluoroscopy-guided reduction of left shoulder by orthopedic surgeon. Large area of ecchymosis to left shoulder, anterior and left chest wall; slight improvement. Shoulder sling in place; encourage use. Repeat shoulder xray (12/19/17) is negative for acute fracture. Chest CT with contrast completed today; received call from Dr. White with concerns for septic arthritis with myositis. We will reconsult orthopedics for persistent shoulder pain, edema, and ecchymosis in patient with spontaneous bleeding (r/t liver disease/ thrombocytopenia) concerning for potential intra-articular hemorrhage. Dr. Jocelyn Titus contacted; will see patient tomorrow. Will hold on antibiotics pending orthopedics evaluation and recommendations. Low dose oxycodone as needed for pain. Encourage use of sling. May benefit from ice or heat therapy. (3) Leukocytosis Qualifiers: Leukocytosis type: unspecified Qualified Code(s): D72.829 - Elevated white blood cell count, unspecified Is this a current diagnosis for this admission?: Yes Plan: Unclear source; patient with elevated WBC of 14.7 today and low-grade fever ( 100.5) Urinalysis is pending. Blood cultures obtained yesterday are pending. CT of the chest was obtained today; received a call from Dr. White with concerns regarding possible septic arthritis to the left shoulder. Finalized report not yet available, however, breath sounds are clear and the patient is without a cough so I am disinclined to believe that the patient has pneumonia. Will hold on antibiotics pending evaluation by orthopedics. (4) Acute metabolic encephalopathy Is this a current diagnosis for this admission?: Yes Plan: Waxing and waning; oriented 2 today. Acute metabolic encephalopathy is secondary to alcohol hepatitis and sedating medications. Possibly r/t infectious process. Head CT negative for acute processes. Cultures and antibiotics as above. Plan for alcohol hepatitis as above. Haldol IV as needed every 8 hours for acute agitation. Fall and aspiration precautions. We will obtain CT imaging of the head. (5) Electrolyte abnormality Is this a current diagnosis for this admission?: Yes Plan: Resolved. Patient had persistent hypokalemia and hypomagnesemia secondary to malnutrition , chronic alcohol abuse, and acute disease process. Daily potassium has been discontinued. Will continue to monitor daily chemistries and replace as needed. (6) Coronary artery disease Qualifiers: Coronary Disease-Associated Artery/Lesion type: [place] artery Is this a current diagnosis for this admission?: Yes Plan: Holding Aspirin secondary to thrombocytopenia and anemia with acute blood loss requiring transfusions. (7) Tobacco abuse Is this a current diagnosis for this admission?: Yes Plan: Nicotine replacement therapy is provided. (8) Hypoalbuminemia Is this a current diagnosis for this admission?: Yes Plan: Stable. Secondary to alcohol hepatitis and ascites. The patient has also had very low p.o. intake. With assistance from nurse aide, patient eats approximately 25% of each meal. Albumin is trending down from 3.8-2.7; currently 3.0 The registered dietitian has been consulted and has made recommendations for tube feedings should the patient's p.o. intake not improve. Will continue to monitor. (9) Thrombocytopenia Is this a current diagnosis for this admission?: Yes Plan: Stable; PLTs 107. Secondary to liver failure. Now s/p 4 units PLTs. Will continue to monitor closely. Fall and bleeding precautions. (10) Anemia Qualifiers: Anemia type: unspecified type Qualified Code(s): D64.9 - Anemia, unspecified Is this a current diagnosis for this admission?: Yes Plan: Multifactorial secondary to alcohol dependence, liver failure, folate/B12 deficiency and ABLA anemia. Pt is now s/p 4 units PRBC. Hgb 9.5 today; drifting down from 11.3 over last [address] of the abdomen and pelvis was negative for retroperitoneal bleed, however, did note a left flank hematoma. No overt signs of bleeding. Anemia panel evaluated; elevated retic count, nml iron, folate and B12. GI was consulted; no indication for EGD at this time. Folate and thiamin supplementation. Will continue to monitor. (11) Fluid volume excess Qualifiers: Hypervolemia type: unspecified Qualified Code(s): E87.70 - Fluid overload, unspecified Is this a current diagnosis for this admission?: Yes Plan: Resolved; breath sounds are clear, no edema to perineum/extremities. Pro BNP trending down from 2230 --> 913 --> 463. Echocardiogram reveals mild to moderate diastolic dysfunction with a preserved ejection fraction. Strict I&Os limited secondary to incontinence. I am concerned about placing a Martinez as the patient has been removing IV lines. I do not wish to restrain or sedate if avoidable. Daily weights. Wt trending down (103.5 kg --> 89.4 kg) Continue furosemide 20 mg p.o twice daily and spironolactone 100 mg p.o daily. (12) Hyponatremia Is this a current diagnosis for this admission?: Yes Plan: Multifactorial secondary to liver disease, poor p.o. intake, diuretic therapy. TSH was evaluated to be normal. Antidiuretic hormone and serum osmolality are pending. Resumed maintenance IV fluids; normal saline at 125 mL/hour Will monitor with daily chemistry. (13) DNR (do not resuscitate) Is this a current diagnosis for this admission?: Yes (14) Alcohol intoxication Qualifiers: Complication of substance-induced condition: uncomplicated Qualified Code(s ): F10.920 - Alcohol use, unspecified with intoxication, uncomplicated Is this a current diagnosis for this admission?: Yes Plan: Resolved; The patient was admitted with an EtOH level of 277, repeat EtOH <10 He endorses as chronic alcohol intake of at least 2-3 beers daily. He was placed on alcohol withdrawal protocol with IV haldol as needed for agitation. Oral thiamine and folate supplementation. Recommend 1:1 sitter for safety. (15) LLL pneumonia Qualifiers: Pneumonia type: due to unspecified organism Qualified Code(s): J18.1 - Lobar pneumonia, unspecified organism Is this a current diagnosis for this admission?: Yes Plan: Resolved; lung sounds are clear and the patient is maintaining oxygen saturations on room air. ABG revealed Respiratory Alkalosis. CXR atelectasis versus infiltrate of the left lung base. Blood cultures have no growth to date. The patient completed a seven-day course of Levaquin. He is maintaining oxygen saturations on room air. - Time Time Spent with patient: 35 or more minutes Medications reviewed and adjusted accordingly: Yes
[2017-12-28] MEDS: MEGESTROL ACETATE SUSP 400 MG/10 ML UDCUP PO SCH (16:51)
[2017-12-28] MEDS: LACTULOSE SYRUP 20 GM/30 ML UDCUP PO SCH ×2 (16:52→19:39)
[2017-12-28] MEDS: PHARMACY COMMUNICATION ORDER MC SCH (22:06)
[2017-12-29 05:14] LABS: HEMATOCRIT 25.3 % (37.9-51.0); MEAN CORPUSCULAR HEMOGLOBIN 37.2 pg (27.0-33.4); MEAN CORPUSCULAR HGB CONC 35.7 g/dL (32.0-36.0); MEAN CORPUSCULAR VOLUME 104 fl (80-97); PLATELET COUNT 100 10^3/uL (150-450); RED BLOOD COUNT 2.43 10^6/uL (4.35-5.55); RED CELL DISTRIBUTION WIDTH 23.7 % (11.5-14.0); WHITE BLOOD COUNT 12.3 10^3/uL (4.0-10.5)
[2017-12-29 05:27] LABS: ALANINE AMINOTRANSFERASE 47 U/L (21-72); ALBUMIN 3.1 g/dL (3.5-5.0); ALKALINE PHOSPHATASE 103 U/L (38-126); ANION GAP 12 (5-19); ASPARTATE AMINO TRANSFERASE 94 U/L (17-59); BILIRUBIN,TOTAL 18.2 mg/dL (0.2-1.3); BLOOD UREA NITROGEN 21 mg/dL (7-20); CALCIUM 8.9 mg/dL (8.4-10.2); CARBON DIOXIDE 24 mmol/L (22-30); CHLORIDE 93 mmol/L (98-107); GLUCOSE 112 mg/dL (75-110); POTASSIUM 4.2 mmol/L (3.6-5.0); SODIUM 128.5 mmol/L (137-145); TOTAL PROTEIN 7.6 g/dL (6.3-8.2)
[2017-12-29] MEDS: LANSOPRAZOLE 30 MG TAB.RAP.DR PO SCH (05:45)
[2017-12-29] MEDS: FUROSEMIDE 20 MG TABLET PO SCH ×2 (08:50→13:44)
[2017-12-29] MEDS: LIDOCAINE 5% (700 MG) TRANSDERMAL ADH..PATCH TP SCH (09:58)
[2017-12-29] MEDS: SPIRONOLACTONE 25 MG TABLET PO SCH (09:58)
[2017-12-29] MEDS: THIAMINE HCL 100 MG TABLET PO SCH (09:58)
[2017-12-29] MEDS: FOLIC ACID 1 MG TABLET PO SCH (09:59)
[2017-12-29] MEDS: LACTULOSE SYRUP 20 GM/30 ML UDCUP PO SCH ×3 (09:59→18:47)
[2017-12-29] MEDS: NICOTINE 14 MG/24 HR PATCH.TD24 TD SCH (10:00)
[2017-12-29] MEDS: OXYCODONE HCL IR 5 MG TABLET PO PRN ×2 (10:33→23:16)
[2017-12-29] MEDS ORDERED: DEXTROSE 40% GEL 15 GM TUBE PO PRN ×2 (12:02)
[2017-12-29] MEDS ORDERED: GLUCAGON,HUMAN RECOMB 1 MG INJ SUBCUT PRN (12:02)
[2017-12-29] MEDS ORDERED: DEXTROSE 50%-WATER 25 GM/50 ML DISP.SYRIN IV PRN ×2 (12:02)
[2017-12-29 12:57] LABS: APPEARANCE,URINE CLEAR; BILIRUBIN,URINE MODERATE (NEGATIVE); COLOR,URINE ORANGE; GLUCOSE, URINE NEGATIVE (NEGATIVE); KETONES,URINE NEGATIVE (NEGATIVE); LEUKOCYTE ESTERASE,URINE NEGATIVE (NEGATIVE); NITRITE,URINE NEGATIVE (NEGATIVE); PROTEIN,URINE NEGATIVE (NEGATIVE); URINE SPECIFIC GRAVITY 1.013
[2017-12-29 14:44] LABS: ANION GAP 12 (5-19); BLOOD UREA NITROGEN 19 mg/dL (7-20); CALCIUM 8.7 mg/dL (8.4-10.2); CARBON DIOXIDE 21 mmol/L (22-30); CHLORIDE 93 mmol/L (98-107); GLUCOSE 114 mg/dL (75-110); POTASSIUM 4.2 mmol/L (3.6-5.0); SODIUM 126.1 mmol/L (137-145)
--- NOTE | 2017-12-29 15:15 | RADIOLOGY REPORT (SQ) ---
EXAM DESCRIPTION: FLUORO/NEEDLE PLACEMENT; INJECT/ASPIR HIP/SHLDR/KNEE COMPLETED DATE/TIME: 12/29/2017 2:56 pm REASON FOR STUDY: LEFT SHOULDER EFFUSION S/P SHOULDER DISLOCATION COMPARISON: CT chest 12/28/2017 Multiple previous left shoulder films FLUOROSCOPY TIME: 10 seconds 1 digital radiographic images saved to PACS. LIMITATIONS: None. PROCEDURE: Procedure, risks, benefits and alternatives explained to patient who then gave written co nsent. The posterior left shoulder was marked and a time out was called for correct procedure verific ation. Posterior entry site marked using fluoroscopic guidance. Shoulder prepped and draped using s terile technique. Local anesthesia achieved using 6 mL of 1% lidocaine injection. 18 gauge spinal n eedle introduced into the joint space under direct fluoroscopic visualization. Upon entry of the nee dle tip into the left shoulder joint space, aspiration of 10 mL of bloody synovial fluid was performe d. Specimen sent to the lab for Gram stain culture and sensitivity. Needle removed and entry site c overed with sterile bandage. No immediate complications noted. TECHNIQUE: Digital images acquired during fluoroscopy and stored on PACS. Left shoulder aspirate wa s performed yielding 10 mL of bloody synovial fluid, sent for Gram stain culture and sensitivity. Re sults pending. IMPRESSION: SUCCESSFUL NEEDLE PLACEMENT AND ASPIRATION OF THE LEFT SHOULDER JOINT SPACE, BLOODY SYNO VIAL FLUID SENT FOR GRAM STAIN CULTURE AND SENSITIVITY. POSTERIOR APPROACH. COMMENT: Quality ID 145: Final reports for procedures using fluoroscopy that document radiation exp osure indices, or exposure time and number of fluorographic images (if radiation exposure indices are not available) TECHNICAL DOCUMENTATION: JOB ID: [id number] [employer]- All Rights Reserved Reading location - IP/workstation name: [facility]
--- NOTE | 2017-12-29 15:15 | RADIOLOGY REPORT (SQ) ---
EXAM DESCRIPTION: FLUORO/NEEDLE PLACEMENT; INJECT/ASPIR HIP/SHLDR/KNEE COMPLETED DATE/TIME: 12/29/2017 2:56 pm REASON FOR STUDY: LEFT SHOULDER EFFUSION S/P SHOULDER DISLOCATION COMPARISON: CT chest 12/28/2017 Multiple previous left shoulder films FLUOROSCOPY TIME: 10 seconds 1 digital radiographic images saved to PACS. LIMITATIONS: None. PROCEDURE: Procedure, risks, benefits and alternatives explained to patient who then gave written co nsent. The posterior left shoulder was marked and a time out was called for correct procedure verific ation. Posterior entry site marked using fluoroscopic guidance. Shoulder prepped and draped using s terile technique. Local anesthesia achieved using 6 mL of 1% lidocaine injection. 18 gauge spinal n eedle introduced into the joint space under direct fluoroscopic visualization. Upon entry of the nee dle tip into the left shoulder joint space, aspiration of 10 mL of bloody synovial fluid was performe d. Specimen sent to the lab for Gram stain culture and sensitivity. Needle removed and entry site c overed with sterile bandage. No immediate complications noted. TECHNIQUE: Digital images acquired during fluoroscopy and stored on PACS. Left shoulder aspirate wa s performed yielding 10 mL of bloody synovial fluid, sent for Gram stain culture and sensitivity. Re sults pending. IMPRESSION: SUCCESSFUL NEEDLE PLACEMENT AND ASPIRATION OF THE LEFT SHOULDER JOINT SPACE, BLOODY SYNO VIAL FLUID SENT FOR GRAM STAIN CULTURE AND SENSITIVITY. POSTERIOR APPROACH. COMMENT: Quality ID 145: Final reports for procedures using fluoroscopy that document radiation exp osure indices, or exposure time and number of fluorographic images (if radiation exposure indices are not available) TECHNICAL DOCUMENTATION: JOB ID: [id number] [employer]- All Rights Reserved Reading location - IP/workstation name: [facility]
[2017-12-29 15:44] LABS: CALCIUM PYROPHOSPHATE CRYSTALS NONE OBSERVED; MONOSODIUM URATE CRYSTALS NONE OBSERVED
[2017-12-29 15:45] LABS: OTHER CRYSTALS NONE OBSERVED
--- NOTE | 2017-12-29 16:30 | PDOC PROGRESS REPORT ---
Subjective Progress Note for:: 12/29/17 Subjective:: Patient still able to have a conversation but confused. He states that his shoulder although painful is not worse than it was when he first and injured it or does not complain of increased swelling. Still complains of pain and lack of motion. Reason For Visit: ETOH WITHDRAWL, ACUTE LIVER FAILURE Physical Exam Vital Signs: Temp Pulse Resp BP Pulse Ox 37.2 C 89 19 118/47 L 100 12/29/17 11:40 12/29/17 14:00 12/29/17 11:40 12/29/17 11:40 12/29/17 11:40 Intake & Output 12/28/17 12/29/17 12/30/17 06:59 06:59 06:59 Intake Total 1022 777 Output Total 600 Balance 422 777 Weight 87.6 kg 87.6 kg Adult Front & Back Image: 1 - The swelling has decreased since last time I saw home. Back then he had bruising in his chest wall and pectoralis muscle all way down to his fingers. Now the swelling is only localized to the shoulder. He is does have difficulty trying to forward flex or abduct the shoulder and is tender palpation over the anterior lateral aspect. Bruising is decreased from last visit as well. He is neurovascular intact distally. Results Laboratory Results: 12/29/17 04:00 12/29/17 13:54 12/29/17 12/29/17 12/29/17 04:00 04:00 10:10 WBC 12.3 H RBC 2.43 L Hgb 9.0 L Hct 25.3 L MCV 104 H MCH 37.2 H MCHC 35.7 RDW 23.7 H Plt Count 100 L Sodium 128.5 L Potassium 4.2 Chloride 93 L Carbon Dioxide 24 Anion Gap 12 BUN 21 H Creatinine 0.76 Est GFR ( Amer) > 60 Est GFR (Non-Af Amer) > 60 Glucose 112 H Calcium 8.9 Total Bilirubin 18.2 H AST 94 H ALT 47 Alkaline Phosphatase 103 Total Protein 7.6 Albumin 3.1 L Urine Color ORANGE Urine Appearance CLEAR Urine pH 6.0 Ur Specific [place] 1.013 Urine Protein NEGATIVE Urine Glucose (UA) NEGATIVE Urine Ketones NEGATIVE Urine Blood NEGATIVE Urine Nitrite NEGATIVE Ur Leukocyte Esterase NEGATIVE Urine WBC (Auto) 2 Urine RBC (Auto) 1 Fluid Type Fluid Source 12/29/17 12/29/17 13:54 14:45 WBC RBC Hgb Hct MCV MCH MCHC RDW Plt Count Sodium 126.1 L Potassium 4.2 Chloride 93 L Carbon Dioxide 21 L Anion Gap 12 BUN 19 Creatinine 0.72 Est GFR ( Amer) > 60 Est GFR (Non-Af Amer) > 60 Glucose 114 H Calcium 8.7 Total Bilirubin AST ALT Alkaline Phosphatase Total Protein Albumin Urine Color Urine Appearance Urine pH Ur Specific [place] Urine Protein Urine Glucose (UA) Urine Ketones Urine Blood Urine Nitrite Ur Leukocyte Esterase Urine WBC (Auto) Urine RBC (Auto) Fluid Type SYNOVIAL Fluid Source 12/13/17 12/15/17 12/24/17 09:03 04:28 04:57 NT-Pro-B Natriuret Pep 2230 H 913 H 463 Impressions: Humerus X-Ray 12/07/17 00:00 IMPRESSION: 1. Left anterior shoulder dislocation. Fluoroscopy 12/08/17 00:00 IMPRESSION: Intra procedural imaging and fluoro Abdomen Ultrasound 12/09/17 00:00 IMPRESSION: 1. Fatty infiltration of the liver. Splenomegaly. 2. Dilatation of the common bile duct with no significant intrahepatic ductal dilatation. 3. There appears to be some pericholecystic fluid. No gallstones are present. No gallbladder wall thickening is seen. Chest X-Ray 12/13/17 00:00 IMPRESSION: Atelectasis or infiltrate left base. Shoulder X-Ray 12/19/17 00:00 IMPRESSION: No acute fracture. No glenohumeral joint or AC joint malalignment Abdomen/Pelvis CT 12/25/17 00:00 IMPRESSION: CHRONIC CHANGES ABOVE. NO ACUTE FINDINGS. IMPRESSION: 1. Moderate amount of mesenteric edema and induration, most prominent in the right lower quadrant. No organized fluid collection is present. No clear source of inflammation is identified. Recommend correlation with patient's history. 2. Enlarged umbilical vein with herniation into the anterior subcutaneous space is just superior to the umbilicus. Recommend clinical correlation. 3. Left flank subcutaneous inflammation/possible hematoma. Recommend correlation with patient's symptoms and any history of trauma. No evidence of underlying fracture. 4. Vascular calcifications at the origin of the superior mesenteric and inferior mesenteric arteries. This exam is not optimized to evaluate the patency of these vessels, as such, stenosis cannot be excluded however there is no evidence of bowel wall thickening or other signs of bowel injury with the exception of the previously mentioned mesenteric induration. Head CT 12/27/17 00:00 IMPRESSION: No acute intracranial findings. EVIDENCE OF ACUTE STROKE: NO. Chest CT 12/28/17 00:00 IMPRESSION: Asymmetric diffuse enlargement of the left subscapularis muscle and left deltoid muscle, worrisome for intramuscular hematoma. Superimposed intramuscular abscess/myositis could not be excluded. Spotty calcifications/ossification along the periphery of the left shoulder capsule. No left glenohumeral malalignment on today's study. No aggressive bony demineralization, left shoulder. Guidance Fluoroscopy 12/29/17 00:00 IMPRESSION: SUCCESSFUL NEEDLE PLACEMENT AND ASPIRATION OF THE LEFT SHOULDER JOINT SPACE, BLOODY SYNOVIAL FLUID SENT FOR GRAM STAIN CULTURE AND SENSITIVITY. POSTERIOR APPROACH. Hip Aspiration/Injection 12/29/17 00:00 IMPRESSION: SUCCESSFUL NEEDLE PLACEMENT AND ASPIRATION OF THE LEFT SHOULDER JOINT SPACE, BLOODY SYNOVIAL FLUID SENT FOR GRAM STAIN CULTURE AND SENSITIVITY. POSTERIOR APPROACH. Status: Image reviewed by me Assessment & Plan - Diagnosis (1) Anterior dislocation of left shoulder Qualifiers: Encounter type: initial encounter Qualified Code(s): S43.015A - Anterior dislocation of left humerus, initial encounter Is this a current diagnosis for this admission?: Yes - Plan Summary Plan Summary: 52-year-old gentleman status post close reduction of his left shoulder. He is currently being treated for liver failure. Patient is not wearing sling as instructed. Thankfully CT scan shows reduced shoulder. The read for the CT question myositis or septic arthritis. I disagree with the were read. Blood cultures from 12/13/17 were negative and the current blood cultures are negative the last 24 hours. There is no source for the potential septic arthritis. He likely has myositis due to bleeding and trauma from the shoulder dislocation which kept his shoulder dislocated for greater than 24 hours. I actually see improvement in his swallowing. I do believe he has a high risk of rotator cuff tear but this point he can treat his liver failure and address the rotator cuff pathology as an outpatient. Patient stays in for a longer period time then I would recommend an MRI.
--- NOTE | 2017-12-29 17:10 | PDOC PROGRESS REPORT ---
Subjective Progress Note for:: 12/29/17 Subjective:: The patient is a 52-year-old male with past medical history of hypertension, hyperlipidemia, CAD post CABG, EtOH dependence who was admitted on 12/08/17 for a left shoulder dislocation requiring fluoroscopic guided closed reduction by orthopedics. He subsequently developed acute alcohol liver failure. The patient is seen on morning rounds. He is found resting in bed comfortably on room air. He is alert and orientated x4. He is able to describe his injury resulting in the shoulder dislocation, the plans today to have it evaluated by the orthopedic, as well as answer questions regarding his previous AL. The patient was even able to provide the exact date of his heart attack (which was verified by patient medical records received from [facility] yesterday). However, he does not remember talking about liver dysfunction yesterday and does not understand why we are concerned about his jaundice. Towards the end of our conversation he becomes slightly confused but, overall, he is significantly improved from yesterday. The patient denies headache, dizziness, chest pain, palpitations, shortness of breath, cough, abdominal pain, nausea vomiting and diarrhea. His only complaint at present is persistent left shoulder pain. He has no other questions or concerns. Per nursing, the patient remains intermittently confused and impulsive. Reason For Visit: ETOH WITHDRAWL, ACUTE LIVER FAILURE Physical Exam Vital Signs: Temp Pulse Resp BP Pulse Ox 98.6 F 91 18 118/56 L 100 12/29/17 15:46 12/29/17 15:46 12/29/17 15:46 12/29/17 15:46 12/29/17 15:46 Intake & Output 12/28/17 12/29/17 12/30/17 06:59 06:59 06:59 Intake Total 1022 777 497 Output Total 600 Balance 422 777 497 Weight 87.6 kg 87.6 kg General appearance: PRESENT: no acute distress, cooperative, well-developed, well-nourished, other - overweight Head exam: PRESENT: atraumatic, normocephalic Eye exam: PRESENT: conjunctiva pink, EOMI, PERRLA, scleral icterus Ear exam: PRESENT: normal external ear exam Mouth exam: PRESENT: dry mucosa, tongue midline Neck exam: ABSENT: carotid bruit, JVD, lymphadenopathy, thyromegaly Respiratory exam: PRESENT: clear to auscultation noreen, symmetrical, unlabored. ABSENT: rales, rhonchi, wheezes Cardiovascular exam: PRESENT: RRR, +S1, +S2. ABSENT: diastolic murmur, rubs, systolic murmur Pulses: PRESENT: normal dorsalis pedis pul Vascular exam: PRESENT: normal capillary refill GI/Abdominal exam: PRESENT: normal bowel sounds, soft. ABSENT: distended, guarding, mass, organolmegaly, rebound, tenderness Rectal exam: PRESENT: deferred Extremities exam: PRESENT: full ROM. ABSENT: calf tenderness, clubbing, pedal edema Musculoskeletal exam: PRESENT: tenderness - Lt shoulder tenderness, edema, and ecchymosis. ABSENT: full ROM - Left shoulder range of motion limited secondary to pain Neurological exam: PRESENT: alert, awake, oriented to person, oriented to place , oriented to time, oriented to situation, CN II-XII grossly intact. ABSENT: motor sensory deficit Psychiatric exam: PRESENT: appropriate affect, normal mood. ABSENT: homicidal ideation, suicidal ideation Skin exam: PRESENT: dry, intact, jaundice, warm, other - Scattered ecchymosis to the patient's upper anterior chest wall and left upper extremity. ABSENT: cyanosis, rash Results Laboratory Results: 12/29/17 04:00 12/29/17 13:54 12/29/17 12/29/17 12/29/17 04:00 04:00 10:10 WBC 12.3 H RBC 2.43 L Hgb 9.0 L Hct 25.3 L MCV 104 H MCH 37.2 H MCHC 35.7 RDW 23.7 H Plt Count 100 L Sodium 128.5 L Potassium 4.2 Chloride 93 L Carbon Dioxide 24 Anion Gap 12 BUN 21 H Creatinine 0.76 Est GFR ( Amer) > 60 Est GFR (Non-Af Amer) > 60 Glucose 112 H Calcium 8.9 Total Bilirubin 18.2 H AST 94 H ALT 47 Alkaline Phosphatase 103 Total Protein 7.6 Albumin 3.1 L Urine Color ORANGE Urine Appearance CLEAR Urine pH 6.0 Ur Specific [place] 1.013 Urine Protein NEGATIVE Urine Glucose (UA) NEGATIVE Urine Ketones NEGATIVE Urine Blood NEGATIVE Urine Nitrite NEGATIVE Ur Leukocyte Esterase NEGATIVE Urine WBC (Auto) 2 Urine RBC (Auto) 1 Fluid Type Fluid Source 12/29/17 12/29/17 13:54 14:45 WBC RBC Hgb Hct MCV MCH MCHC RDW Plt Count Sodium 126.1 L Potassium 4.2 Chloride 93 L Carbon Dioxide 21 L Anion Gap 12 BUN 19 Creatinine 0.72 Est GFR ( Amer) > 60 Est GFR (Non-Af Amer) > 60 Glucose 114 H Calcium 8.7 Total Bilirubin AST ALT Alkaline Phosphatase Total Protein Albumin Urine Color Urine Appearance Urine pH Ur Specific [place] Urine Protein Urine Glucose (UA) Urine Ketones Urine Blood Urine Nitrite Ur Leukocyte Esterase Urine WBC (Auto) Urine RBC (Auto) Fluid Type SYNOVIAL Fluid Source 12/13/17 12/15/17 12/24/17 09:03 04:28 04:57 NT-Pro-B Natriuret Pep 2230 H 913 H 463 Impressions: Humerus X-Ray 12/07/17 00:00 IMPRESSION: 1. Left anterior shoulder dislocation. Fluoroscopy 12/08/17 00:00 IMPRESSION: Intra procedural imaging and fluoro Abdomen Ultrasound 12/09/17 00:00 IMPRESSION: 1. Fatty infiltration of the liver. Splenomegaly. 2. Dilatation of the common bile duct with no significant intrahepatic ductal dilatation. 3. There appears to be some pericholecystic fluid. No gallstones are present. No gallbladder wall thickening is seen. Chest X-Ray 12/13/17 00:00 IMPRESSION: Atelectasis or infiltrate left base. Shoulder X-Ray 12/19/17 00:00 IMPRESSION: No acute fracture. No glenohumeral joint or AC joint malalignment Abdomen/Pelvis CT 12/25/17 00:00 IMPRESSION: CHRONIC CHANGES ABOVE. NO ACUTE FINDINGS. IMPRESSION: 1. Moderate amount of mesenteric edema and induration, most prominent in the right lower quadrant. No organized fluid collection is present. No clear source of inflammation is identified. Recommend correlation with patient's history. 2. Enlarged umbilical vein with herniation into the anterior subcutaneous space is just superior to the umbilicus. Recommend clinical correlation. 3. Left flank subcutaneous inflammation/possible hematoma. Recommend correlation with patient's symptoms and any history of trauma. No evidence of underlying fracture. 4. Vascular calcifications at the origin of the superior mesenteric and inferior mesenteric arteries. This exam is not optimized to evaluate the patency of these vessels, as such, stenosis cannot be excluded however there is no evidence of bowel wall thickening or other signs of bowel injury with the exception of the previously mentioned mesenteric induration. Head CT 12/27/17 00:00 IMPRESSION: No acute intracranial findings. EVIDENCE OF ACUTE STROKE: NO. Chest CT 12/28/17 00:00 IMPRESSION: Asymmetric diffuse enlargement of the left subscapularis muscle and left deltoid muscle, worrisome for intramuscular hematoma. Superimposed intramuscular abscess/myositis could not be excluded. Spotty calcifications/ossification along the periphery of the left shoulder capsule. No left glenohumeral malalignment on today's study. No aggressive bony demineralization, left shoulder. Guidance Fluoroscopy 12/29/17 00:00 IMPRESSION: SUCCESSFUL NEEDLE PLACEMENT AND ASPIRATION OF THE LEFT SHOULDER JOINT SPACE, BLOODY SYNOVIAL FLUID SENT FOR GRAM STAIN CULTURE AND SENSITIVITY. POSTERIOR APPROACH. Hip Aspiration/Injection 12/29/17 00:00 IMPRESSION: SUCCESSFUL NEEDLE PLACEMENT AND ASPIRATION OF THE LEFT SHOULDER JOINT SPACE, BLOODY SYNOVIAL FLUID SENT FOR GRAM STAIN CULTURE AND SENSITIVITY. POSTERIOR APPROACH. Assessment & Plan - Diagnosis (1) Alcoholic hepatitis with ascites Is this a current diagnosis for this admission?: Yes Plan: Worsening; bilirubin and AST are elevated today. I received a call from the lab reporting corrected total and direct bilirubin secondary to equipment air: Total bilirubin 18, direct bilirubin 8.8 Ultrasound of the abdomen revealed fatty infiltration of the liver, splenomegaly , dilatation of the common bile duct without significant intrahepatic ductal dilatation, some pericholecystic fluid. No gallstones or wall thickening was noted. Abdominal/pelvic CT demonstrated a moderate amount of mesenteric edema, enlarged umbilical vein with herniation into the anterior subcutaneous space, left flank subcutaneous inflammation/possible hematoma, no evidence of underlying fracture, and vascular calcifications of the superior and inferior dysenteric arteries. Head CT negative for acute processes (r/o cerebral edema per GI recommendations) Hgb and PLT stable; no evidence of active bleeding. Ammonia 47.5 MELD score: 30 MRCP pending Continue Lasix 20 mg twice daily and spironolactone 100 mg p.o. daily. He is receiving Prevacid for ulcer prophylaxis. Continue Lactulose 10 g twice daily. Continue thiamine and folic acid supplementation. Gastroenterology has been consulted; appreciate Dr. Donahue's evaluation and recommendations. (2) Anterior dislocation of left shoulder Qualifiers: Encounter type: initial encounter Qualified Code(s): S43.015A - Anterior dislocation of left humerus, initial encounter Is this a current diagnosis for this admission?: Yes Plan: S/p fluoroscopy-guided reduction of left shoulder by orthopedic surgeon. Large area of ecchymosis to left shoulder, anterior and left chest wall; slight improvement. Shoulder sling in place; encourage use. Repeat shoulder xray (12/19/17) is negative for acute fracture. Chest CT with contrast completed today; received call from Dr. White with concerns for septic arthritis with myositis. Fluoroscopic guided arthrocentesis completed today; cultures pending. Orthopedics has been reconsulted; appreciate their evaluation and recommendations. Low dose oxycodone as needed for pain. Encourage use of sling. May benefit from ice or heat therapy. (3) Leukocytosis Qualifiers: Leukocytosis type: unspecified Qualified Code(s): D72.829 - Elevated white blood cell count, unspecified Is this a current diagnosis for this admission?: Yes Plan: Unclear source; patient with elevated WBC of 12.3 down from 14.7 today and low- grade fever (100.6) Urinalysis is negative for urinary tract infection. Repeat blood cultures are negative at [address] of the chest was obtained today; received a call from Dr. White with concerns regarding possible septic arthritis to the left shoulder. Fluoroscopically guided arthrocentesis completed today; results pending Will continue to hold on antibiotics at this time. (4) Acute metabolic encephalopathy Is this a current diagnosis for this admission?: Yes Plan: Waxing and waning; oriented 4 today. Acute metabolic encephalopathy is secondary to alcohol hepatitis and sedating medications. Possibly r/t infectious process. Head CT negative for acute processes. Cultures and antibiotics as above. Plan for alcohol hepatitis as above. Haldol IV as needed every 8 hours for acute agitation. Fall and aspiration precautions. (5) Coronary artery disease Qualifiers: Coronary Disease-Associated Artery/Lesion type: sycuan artery Is this a current diagnosis for this admission?: Yes Plan: Holding Aspirin secondary to thrombocytopenia and anemia with acute blood loss requiring transfusions. (6) Tobacco abuse Is this a current diagnosis for this admission?: Yes Plan: Nicotine replacement therapy is provided. (7) Hypoalbuminemia Is this a current diagnosis for this admission?: Yes Plan: Stable. Secondary to alcohol hepatitis and ascites. The patient has also had very low p.o. intake. With assistance from nurse aide, patient eats approximately 25% of each meal. Albumin is trending down from 3.8-2.7; currently 3.1 The registered dietitian has been consulted and has made recommendations for tube feedings should the patient's p.o. intake not improve. Will continue to monitor. (8) Thrombocytopenia Is this a current diagnosis for this admission?: Yes Plan: Stable; PLTs 100. Secondary to liver failure. Now s/p 4 units PLTs. Will continue to monitor closely. Fall and bleeding precautions. (9) Anemia Qualifiers: Anemia type: unspecified type Qualified Code(s): D64.9 - Anemia, unspecified Is this a current diagnosis for this admission?: Yes Plan: Multifactorial secondary to alcohol dependence, liver failure, folate/B12 deficiency and ABLA anemia. Pt is now s/p 4 units PRBC. Hgb 9.0 today; drifting down from 11.3 over [address] of the abdomen and pelvis was negative for retroperitoneal bleed, however, did note a left flank hematoma. No overt signs of bleeding. Anemia panel evaluated; elevated retic count, nml iron, folate and B12. GI was consulted; no indication for EGD at this time. Folate and thiamin supplementation. Will continue to monitor. (10) Hyponatremia Is this a current diagnosis for this admission?: Yes Plan: Worsening; sodium continues to trend down 135.7--> 126.1. Multifactorial secondary to liver disease and poor p.o. intake. TSH was evaluated to be normal. Antidiuretic hormone and serum osmolality are pending. Urine sodium is low. We will obtain lipid panel as severely elevated (total cholesterol greater than 900) has been demonstrated to cause pseudohyponatremia. Continue maintenance IV fluids; normal saline at 125 mL/hour Continue Lasix and spironolactone. Will monitor with daily chemistry. Patient's HPI, progress, laboratory evaluation reviewed with Dr. Mathew who assisted in developing this plan of care. (11) DNR (do not resuscitate) Is this a current diagnosis for this admission?: Yes (12) Alcohol intoxication Qualifiers: Complication of substance-induced condition: uncomplicated Qualified Code(s ): F10.920 - Alcohol use, unspecified with intoxication, uncomplicated Is this a current diagnosis for this admission?: Yes Plan: Resolved; The patient was admitted with an EtOH level of 277, repeat EtOH <10 He endorses as chronic alcohol intake of at least 2-3 beers daily. He was placed on alcohol withdrawal protocol with IV haldol as needed for agitation. Oral thiamine and folate supplementation. Recommend 1:1 sitter for safety. (13) LLL pneumonia Qualifiers: Pneumonia type: due to unspecified organism Qualified Code(s): J18.1 - Lobar pneumonia, unspecified organism Is this a current diagnosis for this admission?: Yes Plan: Resolved; lung sounds are clear and the patient is maintaining oxygen saturations on room air. ABG revealed Respiratory Alkalosis. CXR atelectasis versus infiltrate of the left lung base. Blood cultures have no growth to date. The patient completed a seven-day course of Levaquin. He is maintaining oxygen saturations on room air. (14) Electrolyte abnormality Is this a current diagnosis for this admission?: Yes Plan: Hyponatremia; trending down. See above. Patient had persistent hypokalemia and hypomagnesemia secondary to malnutrition , chronic alcohol abuse, and acute disease process. Daily potassium has been discontinued. Will continue to monitor daily chemistries and replace as needed. (15) Fluid volume excess Qualifiers: Hypervolemia type: unspecified Qualified Code(s): E87.70 - Fluid overload, unspecified Is this a current diagnosis for this admission?: Yes Plan: Resolved; breath sounds are clear, no edema to perineum/extremities. Pro BNP trending down from 2230 --> 913 --> 463. Echocardiogram reveals mild to moderate diastolic dysfunction with a preserved ejection fraction. Strict I&Os limited secondary to incontinence. I am concerned about placing a Martinez as the patient has been removing IV lines. I do not wish to restrain or sedate if avoidable. Daily weights. Wt trending down (103.5 kg --> 89.4 kg) Continue furosemide 20 mg p.o twice daily and spironolactone 100 mg p.o daily. - Time Time Spent with patient: 25-34 minutes Medications reviewed and adjusted accordingly: Yes
[2017-12-29 18:11] LABS: BILIRUBIN,DIRECT 8.8 mg/dL (0.0-0.4)
[2017-12-29] MEDS: MEGESTROL ACETATE SUSP 400 MG/10 ML UDCUP PO SCH (18:25)
[2017-12-29 18:53] LABS: BILIRUBIN,DIRECT 7.5 mg/dL (0.0-0.4)
[2017-12-29] MEDS: PHARMACY COMMUNICATION ORDER MC SCH (21:21)
[2017-12-30] MEDS: LANSOPRAZOLE 30 MG TAB.RAP.DR PO SCH (05:18)
[2017-12-30 06:50] LABS: ALANINE AMINOTRANSFERASE 40 U/L (21-72); ALBUMIN 2.6 g/dL (3.5-5.0); ALKALINE PHOSPHATASE 96 U/L (38-126); ANION GAP 11 (5-19); ASPARTATE AMINO TRANSFERASE 85 U/L (17-59); BILIRUBIN,DIRECT 8.3 mg/dL (0.0-0.4); BILIRUBIN,TOTAL 15.5 mg/dL (0.2-1.3); BLOOD UREA NITROGEN 16 mg/dL (7-20); CALCIUM 8.3 mg/dL (8.4-10.2); CARBON DIOXIDE 22 mmol/L (22-30); CHLORIDE 99 mmol/L (98-107); CHOLESTEROL 100.86 mg/dL (0-200); CREATINE KINASE 116 U/L (55-170); GLUCOSE 93 mg/dL (75-110); POTASSIUM 3.9 mmol/L (3.6-5.0); SODIUM 131.5 mmol/L (137-145); TOTAL PROTEIN 6.5 g/dL (6.3-8.2); TRIGLYCERIDES 65 mg/dL (<150)
[2017-12-30 07:00] LABS: DIRECT LDL 40 mg/dL (<100)
[2017-12-30 07:42] LABS: HEMATOCRIT 22.3 % (37.9-51.0); HEMOGLOBIN 8.1 g/dL (13.5-17.0); MEAN CORPUSCULAR HEMOGLOBIN 38.3 pg (27.0-33.4); MEAN CORPUSCULAR HGB CONC 36.5 g/dL (32.0-36.0); MEAN CORPUSCULAR VOLUME 105 fl (80-97); RED BLOOD COUNT 2.13 10^6/uL (4.35-5.55); RED CELL DISTRIBUTION WIDTH 23.8 % (11.5-14.0); WHITE BLOOD COUNT 10.4 10^3/uL (4.0-10.5)
[2017-12-30 07:58] LABS: PLATELET COUNT 85 10^3/uL (150-450)
[2017-12-30] MEDS: FUROSEMIDE 20 MG TABLET PO SCH ×2 (08:08→15:21)
[2017-12-30] MEDS: OXYCODONE HCL IR 5 MG TABLET PO PRN ×2 (08:10→15:21)
--- NOTE | 2017-12-30 08:34 | RADIOLOGY REPORT (SQ) ---
EXAM DESCRIPTION: MRI ABDOMEN WITHOUT COMPLETED DATE/TIME: 12/29/2017 7:09 pm COMPARISON: CT chest 12/28/2017 CT abdomen pelvis 12/25/2017 Abdominal ultrasound 12/09/2017, 05/18/2012 TECHNIQUE: Noncontrast MRCP. Source and MIP images reviewed. LIMITATIONS: None. FINDINGS: GALLBLADDER: Normal. No stones INTRAHEPATIC DUCTS: Nondilated. EXTRAHEPATIC DUCTS: Common duct is normal caliber. No dilatation of the pancreatic duct. No ductal filling defects noted. PANCREAS: Generally homogeneous, no gross mass or significant signal alteration. No surrounding infl ammatory changes or fluid. Pancreatic duct is normal. LIVER, SPLEEN, KIDNEYS, ADRENALS: Spleen 14 cm in length. Normal-sized liver without masses or intra hepatic biliary ductal dilatation VESSELS: No evidence of abdominal aortic aneurysm. Grossly appropriate flow voids in the major vascu lar structures. LUNG BASES: Grossly clear. OTHER: There is a recannulized umbilical vein which bulges through the anterior abdominal wall and mckeon bcutaneous fat just superior to the umbilicus. No upper abdominal ascites. IMPRESSION: No biliary ductal dilatation. No gallstones or common bile duct stones. Mild splenomegaly. Recannulized umbilical vein. TECHNICAL DOCUMENTATION: JOB ID: [id number] [employer]- All Rights Reserved REASON FOR STUDY: MRCP protocol MRCP protocol abnormal liver function tests, acute liver failure, cirrhosis jaundice Reading location - IP/workstation name: [facility]
[2017-12-30 09:44] LABS: INTERNATIONAL RATION (INR) 1.88; PROTHROMBIN TIME 22.5 SEC (11.4-15.4)
[2017-12-30] MEDS: FOLIC ACID 1 MG TABLET PO SCH (09:44)
[2017-12-30] MEDS: THIAMINE HCL 100 MG TABLET PO SCH (09:44)
[2017-12-30] MEDS: SPIRONOLACTONE 25 MG TABLET PO SCH (09:45)
[2017-12-30] MEDS: NICOTINE 14 MG/24 HR PATCH.TD24 TD SCH (09:46)
[2017-12-30] MEDS: LACTULOSE SYRUP 20 GM/30 ML UDCUP PO SCH ×2 (09:46→15:22)
[2017-12-30] MEDS: LIDOCAINE 5% (700 MG) TRANSDERMAL ADH..PATCH TP SCH (09:57)
--- NOTE | 2017-12-30 14:57 | PDOC PROGRESS REPORT ---
Subjective Progress Note for:: 12/30/17 Subjective:: No issues overnight. Pain of the left shoulder is unchanged. Reason For Visit: ETOH WITHDRAWL, ACUTE LIVER FAILURE Physical Exam Vital Signs: Temp Pulse Resp BP Pulse Ox 37.2 C 86 16 114/41 L 100 12/30/17 11:25 12/30/17 11:25 12/30/17 11:25 12/30/17 11:25 12/30/17 11:25 Intake & Output 12/29/17 12/30/17 12/31/17 06:59 06:59 06:59 Intake Total 777 3944 Output Total 600 Balance 777 3344 Weight 87.6 kg 87.2 kg Adult Front & Back Image: 1 - Swelling and ecchymosis stable. Limited forward flexion and abduction of the left shoulder second to recent shoulder dislocation. Neurovascular intact distally. Results Laboratory Results: 12/30/17 07:23 12/30/17 05:06 12/29/17 12/30/17 12/30/17 14:45 05:06 05:06 WBC Cancelled RBC Cancelled Hgb Cancelled Hct Cancelled MCV Cancelled MCH Cancelled MCHC Cancelled RDW Cancelled Plt Count Cancelled Sodium 131.5 L Potassium 3.9 Chloride 99 Carbon Dioxide 22 Anion Gap 11 BUN 16 Creatinine 0.64 Est GFR ( Amer) > 60 Est GFR (Non-Af Amer) > 60 Glucose 93 Calcium 8.3 L Total Bilirubin 15.5 H AST 85 H ALT 40 Alkaline Phosphatase 96 Total Protein 6.5 Albumin 2.6 L Triglycerides 65 Cholesterol 100.86 LDL Cholesterol Direct 40 VLDL Cholesterol 13.0 HDL Cholesterol 19 L Fluid Type SYNOVIAL Fluid Source 12/30/17 07:23 WBC 10.4 RBC 2.13 L Hgb 8.1 L Hct 22.3 L MCV 105 H MCH 38.3 H MCHC 36.5 H RDW 23.8 H Plt Count 85 L Sodium Potassium Chloride Carbon Dioxide Anion Gap BUN Creatinine Est GFR ( Amer) Est GFR (Non-Af Amer) Glucose Calcium Total Bilirubin AST ALT Alkaline Phosphatase Total Protein Albumin Triglycerides Cholesterol LDL Cholesterol Direct VLDL Cholesterol HDL Cholesterol Fluid Type Fluid Source 12/13/17 12/15/17 12/24/17 09:03 04:28 04:57 Creatine Kinase NT-Pro-B Natriuret Pep 2230 H 913 H 463 12/30/17 05:06 Creatine Kinase 116 NT-Pro-B Natriuret Pep Impressions: Humerus X-Ray 12/07/17 00:00 IMPRESSION: 1. Left anterior shoulder dislocation. Fluoroscopy 12/08/17 00:00 IMPRESSION: Intra procedural imaging and fluoro Abdomen Ultrasound 12/09/17 00:00 IMPRESSION: 1. Fatty infiltration of the liver. Splenomegaly. 2. Dilatation of the common bile duct with no significant intrahepatic ductal dilatation. 3. There appears to be some pericholecystic fluid. No gallstones are present. No gallbladder wall thickening is seen. Chest X-Ray 12/13/17 00:00 IMPRESSION: Atelectasis or infiltrate left base. Shoulder X-Ray 12/19/17 00:00 IMPRESSION: No acute fracture. No glenohumeral joint or AC joint malalignment Abdomen/Pelvis CT 12/25/17 00:00 IMPRESSION: CHRONIC CHANGES ABOVE. NO ACUTE FINDINGS. IMPRESSION: 1. Moderate amount of mesenteric edema and induration, most prominent in the right lower quadrant. No organized fluid collection is present. No clear source of inflammation is identified. Recommend correlation with patient's history. 2. Enlarged umbilical vein with herniation into the anterior subcutaneous space is just superior to the umbilicus. Recommend clinical correlation. 3. Left flank subcutaneous inflammation/possible hematoma. Recommend correlation with patient's symptoms and any history of trauma. No evidence of underlying fracture. 4. Vascular calcifications at the origin of the superior mesenteric and inferior mesenteric arteries. This exam is not optimized to evaluate the patency of these vessels, as such, stenosis cannot be excluded however there is no evidence of bowel wall thickening or other signs of bowel injury with the exception of the previously mentioned mesenteric induration. Head CT 12/27/17 00:00 IMPRESSION: No acute intracranial findings. EVIDENCE OF ACUTE STROKE: NO. Chest CT 12/28/17 00:00 IMPRESSION: Asymmetric diffuse enlargement of the left subscapularis muscle and left deltoid muscle, worrisome for intramuscular hematoma. Superimposed intramuscular abscess/myositis could not be excluded. Spotty calcifications/ossification along the periphery of the left shoulder capsule. No left glenohumeral malalignment on today's study. No aggressive bony demineralization, left shoulder. Abdomen MRI 12/29/17 00:00 IMPRESSION: No biliary ductal dilatation. No gallstones or common bile duct stones. Mild splenomegaly. Recannulized umbilical vein. Guidance Fluoroscopy 12/29/17 00:00 IMPRESSION: SUCCESSFUL NEEDLE PLACEMENT AND ASPIRATION OF THE LEFT SHOULDER JOINT SPACE, BLOODY SYNOVIAL FLUID SENT FOR GRAM STAIN CULTURE AND SENSITIVITY. POSTERIOR APPROACH. Hip Aspiration/Injection 12/29/17 00:00 IMPRESSION: SUCCESSFUL NEEDLE PLACEMENT AND ASPIRATION OF THE LEFT SHOULDER JOINT SPACE, BLOODY SYNOVIAL FLUID SENT FOR GRAM STAIN CULTURE AND SENSITIVITY. POSTERIOR APPROACH. Status: Image reviewed by me Assessment & Plan - Diagnosis (1) Anterior dislocation of left shoulder Qualifiers: Encounter type: initial encounter Qualified Code(s): S43.015A - Anterior dislocation of left humerus, initial encounter Is this a current diagnosis for this admission?: Yes - Plan Summary Plan Summary: 52-year-old gentleman status post close reduction of left shoulder dislocation. Currently being managed for his hepatic failure. Aspiration was bloody and characteristic and current cultures show no bacteria. Extremely low concern for septic arthritis. Bloody effusion second to the trauma and low platelet count due to his hepatic failure. Potential rotator cuff tear from the dislocated shoulder but the patient is not a surgical candidate at this time. We will monitor her final growths and final blood cultures but like I said continue pain control and physical therapy.
[2017-12-30] MEDS: MEGESTROL ACETATE SUSP 400 MG/10 ML UDCUP PO SCH (15:25)
[2017-12-30] MEDS: PREDNISOLONE SOD PHOS 15 MG/5 ML ORAL SYRING PO SCH (18:56)
--- NOTE | 2017-12-30 19:16 | PDOC TRANSFER SUMMARY ---
General Admission Date/PCP: 12/07/17 03:56 Admission Date: 12/07/17 Accepting Facility: [facility] Accepting Physician: Dr. Aranza Rodriguez Resuscitation Status: Do Not Resuscitate - Transfer Diagnosis (1) Alcoholic hepatitis with ascites Is this a current diagnosis for this admission?: Yes Diagnosis Summary: The patient was admitted on 12/07/17 for an anterior shoulder dislocation requiring fluoroscopic guided reduction in the OR. At time of admission his total bilirubin was 3.8, direct bilirubin 1.7, AST 131, ALT 58, alkaline phosphatase 209, albumin 3.7. The following day the patient was noted to be jaundice with icterus which was a new finding. He was also observed to have bleeding gums and spontaneous epistaxis. With a moderate elevation in his LFTs with a worsening INR from 1.4-1.75. His bilirubin continue to trend upward over the following 7 days to a peak of 15.7, AST to 136, and INR to 1.76. He was primarily supported during this time with IV fluids and benzodiazepines to manage acute alcohol withdrawal. [facility]/pharmacy resident attending, Dr. Saucedo, was consulted on 12/10/17. Per progress notes, he did not feel that the patient needs to be transferred to a tertiary facility at that time and that the patient was exhibiting signs and symptoms of alcoholic hepatitis. It was recommended that the patient receive a dose of vitamin K and otherwise simply offer supportive care. No further imaging or workup was recommended at that time. Patient's liver function gradually improved with supportive therapy with bilirubin downward trending to 10.7 on 12/18/17. AST normalized on 12/19/17 through 12/24/17 and INR similarly declined to 1.56 and remained relatively in this range until the . During this time, the patient was alert and oriented to self and place, however frequently disoriented to time and location. He was tolerating 25% of most meals and drinking fluids so his IV fluids were gradually reduced and discontinued. He subsequently developed worsening of his mental status and liver function with bilirubin increasing to a peak of 18.2 on 12/29/17. AST 75 and INR 1.88 today. He has remained jaundiced with icterus throughout his admission. The patient's kidney function has remained stable throughout with a baseline creatinine of 0.75. He did develop hyponatremia on 12/23/17; at that time the patient was not on IV maintenance fluids. Those have been resumed and his sodium is gradually trending upward, it is currently 131.5. He is currently on spironolactone 100 mg p.o. daily, Lasix 20 mg twice daily, p.o. Prevacid twice daily, lactulose 10 g twice daily, and thiamine and folic acid supplementation. Imaging: Ultrasound of the abdomen (12/09/17) revealed fatty infiltration of the liver, splenomegaly, dilatation of the common bile duct without significant intrahepatic ductal dilatation, some pericholecystic fluid. No gallstones or wall thickening was noted. Abdominal/pelvic CT (she 12/25/17) demonstrated a moderate amount of mesenteric edema, enlarged umbilical vein with herniation into the anterior subcutaneous space, left flank subcutaneous inflammation/possible hematoma, no evidence of underlying fracture, and vascular calcifications of the superior and inferior dysenteric arteries. MRCP (12/29/17) is negative for biliary ductal dilatation. There are no gallstones or common bile duct stones. Mild splenomegaly is noted with the spleen 14 cm in length. And a recannulized umbilical vein is noted. When reviewing the patient's progress with family members today, they requested the patient be transferred to a tertiary care center for further evaluation. I contacted Dr. Rodriguez at [facility] who has graciously agreed to accept this patient. He recommends the patient be placed on prednisolone 40 mg daily which has been initiated. (2) Anterior dislocation of left shoulder Is this a current diagnosis for this admission?: Yes Diagnosis Summary: The patient was admitted on 12/07/17 with a anterior shoulder dislocation that required fluoroscopy-guided reduction by orthopedic surgeon. A large area of ecchymosis to left shoulder, anterior and left chest wall has persisted since that time. The patient reports continued shoulder pain and has significantly limited range of motion. Repeat shoulder xray (12/19/17) is negative for acute fracture. Chest CT with contrast completed 12/28 was concerning for septic arthritis with myositis. Fluoroscopic guided arthrocentesis completed 12/29/17; bloody synovial fluid was obtained. This was negative for crystals and urate. Cultures are pending. Orthopedics was reconsulted; Dr. Jocelyn Titus reports that he has extremely low concern for septic arthritis. And that the bloody effusion is secondary to the trauma and low platelet count due to hepatic failure. There is a potential for rotator cuff tear and recommend outpatient follow-up. (3) Leukocytosis Is this a current diagnosis for this admission?: Yes Diagnosis Summary: Intermittent leukocytosis of unclear source; the patient developed leukocytosis on 12/26/17 (10.8) which resolved the following day, recurrent on 12/28/17 (14.7) , and had resolved 2 days later. Today his white count is 10.4 This coincides with a fever developed on 12/25/17 with a T-max of 101.3 that has occurred every other day coinciding with leukocytosis. A CT of the chest was obtained 12/25/17 and repeated on 12/28/17; both negative for atelectasis/infiltrates. Urinalysis was negative for urinary tract infection. Thorough skin examination was negative for cellulitis. Repeat blood cultures on 12/28/17 have no growth at 48 hours. He was noted to have continued edema and tenderness of the left shoulder from his previous dislocation. Repeat imaging on the revealed asymmetric diffuse enlargement of the left subscapularis muscle and left deltoid muscle worrisome for intramuscular hematoma. A superimposed intramuscular abscess/ myositis cannot be excluded. Orthopedics was reconsulted and an arthrocentesis was completed on 12/29/17. Synovial fluid was negative for fluid crystals and urate; cultures are pending. As no obvious source of the leukocytosis and fever was identified, antibiotics have not been initiated. T-max in the last 48 hours 100.3. (4) Acute metabolic encephalopathy Is this a current diagnosis for this admission?: Yes Diagnosis Summary: Waxing and waning; alert and oriented 4 today, however, is unable to maintain conversation for any period of time before becoming confused to situation. Initial head CT obtained on admission (12/07/17) was negative for acute processes. Repeat head CT (12/27/17) is also benign. Ammonia was found to be elevated to 47 and he was placed on lactulose 10 g twice daily. (5) Coronary artery disease Is this a current diagnosis for this admission?: Yes Diagnosis Summary: The patient has a history of coronary artery disease. He had an VT in July 2009 and underwent cardiac catheterization at [facility]. He had a drug-eluting stent placed to his mid right coronary. Approximately 1 month later, while in [place] (records unavailable) the patient had a subsequent VT and underwent a CABG. The patient is ambulatory recall the number of vessels bypassed. The patient's aspirin has been held secondary to thrombocytopenia and spontaneous bleeding. Echocardiogram was obtained; mild to moderate diastolic failure with preserved ejection fraction. Troponins have not been assessed as the patient has remained chest pain-free. (6) Tobacco abuse Is this a current diagnosis for this admission?: Yes Diagnosis Summary: Current smoker; placed on Nicoderm patch. (7) Hypoalbuminemia Is this a current diagnosis for this admission?: Yes (8) Thrombocytopenia Is this a current diagnosis for this admission?: Yes Diagnosis Summary: Platelets are currently 85. On admission his platelets were 50 and declined to 29 two days later. His aspirin therapy was added and he was provided 4 units of platelets. Since that time, they have waxed and waned between 49 and 108. (9) Anemia Is this a current diagnosis for this admission?: Yes Diagnosis Summary: Anemia is multifactorial secondary to alcohol dependence, liver failure, folate/ B12 deficiency and acute blood loss anemia. He is now status post 4 units of packed red blood cells, 4 units platelets, and 2 vitamin K injections. Blood transfusions were completed 12/08/17-12/10/17. Hemoglobin on admission was 12.4 which decreased to 7.4 the following day; he was transfused blood products with return of hemoglobin to 9.5. This gradually trended upwards to a peak of 11.4 on 12/19/17 and has subsequently been in declining. He was evaluated with a CTA of the abdomen and chest on 12/25/17 demonstrating a moderate amount of mesenteric edema and induration of the right lower quadrant, no organized fluid collection, enlarged umbilical vein with herniation into the anterior subcutaneous space, a left flank subcutaneous inflammation/possible hematoma, and vascular calcifications of the superior mesenteric and inferior mesenteric arteries. There is no evidence of retroperitoneal bleed. Local gastroenterology was consulted and did not feel that the patient warranted endoscopy/colonoscopy and made no further recommendations regarding management of liver failure. His hemoglobin continues to drift downwards; 8.1 today. No overt bleeding; urinalysis is negative, stools are normal, however the patient has significant ecchymosis and edema to his left shoulder. An arthrocentesis was completed 12/29 with aspiration of bloody fluid. (10) Hyponatremia Is this a current diagnosis for this admission?: Yes Diagnosis Summary: Improving. The patient's maintenance IV fluids were discontinued 12/17/17 as the patient was tolerating 25% of all meals and drinking p.o. fluids well. At that time he had a sodium of 139.9. This is gradually drifted downwards over the following 11 days to a elisabet of 126.1. During this same period, the patient bilirubin and ammonia increased and the patient became more confused with decreased p.o. intake. On 12/27/17, his cardiac diet was suspended and he was placed on IVF. A head CT was obtained on 12/27/17 to evaluate worsening mental status and to rule out cerebral edema; CT revealed no acute intracranial findings. The sodium continued to decline to 126. No further adjustments to his diet or medications were made. Sodium is now gradually correcting with NS at 150ml/hr; current sodium is 131.5. (11) Alcohol intoxication Is this a current diagnosis for this admission?: Yes Diagnosis Summary: Resolved; the patient was admitted with an EtOH level of 277, repeat serum alcohol the following day was less than 10. The patient was initially placed on as needed and scheduled IV Ativan. He was provided folate and thiamine supplementation. The patient did withdrawal with increased agitation, diaphoresis, tachycardia, and hallucinations. His scheduled Valium was gradually weaned and discontinued on 12/14/17 and then as needed IV lorazepam was weaned with last dose on 12/25/17. (12) LLL pneumonia Is this a current diagnosis for this admission?: Yes Diagnosis Summary: Resolved; the patient developed a low-grade temperature with rhonchi and productive cough on 12/13/17. Chest x-ray revealed left basilar atelectasis versus infiltrate. ABG revealed complete respiratory alkalosis. Final blood cultures have no growth. He was placed on a 7 day course of IV Levaquin with resolution of all symptoms. (13) Electrolyte abnormality Is this a current diagnosis for this admission?: Yes Diagnosis Summary: Resolved; initially the patient required multiple days of magnesium and potassium replacement. The patient was obtunded and subsequently had minimal p.o. intake for 7-8 days. The patient did not receive enteral feedings or TPN at this time. His electrolytes were corrected and the patient gradually increased his alertness and was evaluated to be safe for p.o. intake by speech therapy. He is currently eating 25% of most meals and has had no further issues regarding hypomagnesemia or hypokalemia. (14) Fluid volume excess Is this a current diagnosis for this admission?: Yes Diagnosis Summary: Resolved; approximately 1 week after admission the patient developed bibasilar crackles and +1 edema to bilateral lower extremities and perineum. ProBNP was evaluated to be 2230. Chest x-ray revealed atelectasis or infiltrate to the left base. Echocardiogram revealed mild concentric left ventricular hypertrophy and mild to moderate diastolic dysfunction with a preserved ejection fraction. The patient maintenance IV fluids were decreased and he was placed on spironolactone 100 mg daily and furosemide 20 mg twice daily. The patient's weight trended down to his baseline and proBNP returned to normal. Lung sounds cleared. He has had no further occurrences of fluid volume overload. (15) DNR (do not resuscitate) Is this a current diagnosis for this admission?: Yes - Transfer Medications Home Medications: No Home Medications 06/26/16 Aspirin [Aspirin 325 mg Tablet] 325 mg PO DAILY 12/07/17 Transfer Medications: Current Medications Albuterol/Ipratropium (Duoneb 3 Ml Ampul) 3 ml NEB RTQ6HP PRN PRN Reason: FOR WHEEZING Stop: 01/14/18 14:17 Last Admin: 12/18/17 14:58 Dose: 3 ml Dextrose (Dextrose Inj 50% Syringe (25 Gm/50 Ml)) 12.5 gm IV PRN PRN; Protocol PRN Reason: FOR BG 50-69 IN ALERT PATIENT Stop: 01/28/18 12:01 Dextrose (Dextrose Inj 50% Syringe (25 Gm/50 Ml)) 25 gm IV PRN PRN; Protocol PRN Reason: See Label Comments Stop: 01/28/18 12:01 Folic Acid (Folvite 1 Mg Tablet) 1 mg PO DAILY REPLACED BY [facility] Stop: 01/23/18 09:59 Last Admin: 12/30/17 09:44 Dose: 1 mg Furosemide (Lasix 20 Mg Tablet) 20 mg PO BID@0800,1400 REPLACED BY [facility] Stop: 01/16/18 13:59 Last Admin: 12/30/17 15:21 Dose: 20 mg Glucagon (Glucagen Inj 1 Mg Vial) 1 mg SUBCUT PRN PRN; Protocol PRN Reason: Evaluate for BG < 70 Stop: 01/28/18 12:01 Glucose (Glutose 40% Gel 15 Gm Tube) 15 gm PO PRN PRN; Protocol PRN Reason: For BG 50-69 in Alert Patient Stop: 01/28/18 12:01 Glucose (Glutose 40% Gel 15 Gm Tube) 30 gm PO PRN PRN; Protocol PRN Reason: FOR BG < 50 IN ALERT PATIENT Stop: 01/28/18 12:01 Haloperidol Lactate (Haldol 5 Mg/Ml Inj 1 Ml Vial) 2 mg IV Q6HP PRN PRN Reason: RESTLESSNESS/AGITATION Stop: 01/24/18 11:01 Sodium Chloride (Nacl 0.9% 1000 Ml Iv Soln) 1,000 mls @ 150 mls/hr IV CONTINUOUS PRN PRN Reason: THIS MED IS NOT "PRN" Stop: 01/27/18 07:58 Lactulose (Cephulac Syrup 20 Gm/30 Ml Udcup) 10 gm PO TID REPLACED BY [facility] Stop: 01/27/18 09:59 Last Admin: 12/30/17 15:22 Dose: 10 gm Lansoprazole (Prevacid 30 Mg Odt Tablet) 30 mg PO Q6AM REPLACED BY [facility] Stop: 01/06/18 05:59 Last Admin: 12/30/17 05:18 Dose: 30 mg Lidocaine (Lidoderm 5% (700 Mg) Transdermal Patch) 1 patch TP DAILY REPLACED BY [facility] Stop: 01/19/18 09:59 Last Admin: 12/30/17 09:57 Dose: 1 patch Megestrol Acetate (Megace Rocio 400 Mg/10 Ml Udcup) 400 mg PO DAILY@1400 REPLACED BY [facility] Stop: 01/25/18 13:59 Last Admin: 12/30/17 15:25 Dose: 400 mg Nicotine (Nicoderm 14 Mg/24 Hr Transdermal Patch) 1 each TD DAILY MANJULA Stop: 01/13/18 09:59 Last Admin: 12/30/17 09:46 Dose: 1 each Ondansetron HCl (Zofran Odt 4 Mg Tablet) 4 mg PO Q6HP PRN PRN Reason: FOR NAUSEA/VOMITING Stop: 01/24/18 09:49 Oxycodone HCl (Oxy-Ir 5 Mg Tablet) 5 mg PO Q6HP PRN PRN Reason: FOR PAIN Stop: 01/05/18 11:57 Last Admin: 12/30/17 15:21 Dose: 5 mg Pharmacy Profile Note (Medication Communication Order) 1 each QHS MANJULA Stop: 01/21/18 21:59 Last Admin: 12/29/17 21:21 Dose: Not Given Prednisolone Sodium Phosphate (Prelone Soln 15 Mg/5 Ml Oral Syring) 40 mg PO QPM REPLACED BY [facility] Stop: 01/29/18 17:59 Spironolactone (Aldactone 25 Mg Tablet) 100 mg PO DAILY REPLACED BY [facility] Stop: 01/13/18 09:59 Last Admin: 12/30/17 09:45 Dose: 100 mg Thiamine HCl (Thiamine 100 Mg Tablet) 100 mg PO DAILY REPLACED BY [facility] Stop: 01/23/18 09:59 Last Admin: 12/30/17 09:44 Dose: 100 mg - Allergies Allergies/Adverse Reactions: Penicillins Allergy (Unknown, Verified 06/25/16 21:15) Sulfa (Sulfonamide Antibiotics) Allergy (Unknown, Verified 10/07/11 00:42) Physical Exam Vital Signs: Temp Pulse Resp BP Pulse Ox 98.9 F 92 16 109/56 L 100 12/30/17 16:48 12/30/17 16:48 12/30/17 11:25 12/30/17 16:48 12/30/17 16:48 Intake & Output 12/29/17 12/30/17 12/31/17 06:59 06:59 06:59 Intake Total 777 3944 480 Output Total 600 1000 Balance 777 3344 -520 Weight 87.6 kg 87.2 kg General appearance: PRESENT: no acute distress, well-developed, well-nourished, other - Overweight Head exam: PRESENT: atraumatic, normocephalic Eye exam: PRESENT: conjunctiva pink, EOMI, PERRLA, scleral icterus Ear exam: PRESENT: normal external ear exam Mouth exam: PRESENT: dry mucosa, tongue midline Neck exam: ABSENT: carotid bruit, JVD, lymphadenopathy, thyromegaly Respiratory exam: PRESENT: clear to auscultation noreen, symmetrical, unlabored. ABSENT: rales, rhonchi, wheezes Cardiovascular exam: PRESENT: RRR, +S1, +S2. ABSENT: diastolic murmur, rubs, systolic murmur Pulses: PRESENT: normal dorsalis pedis pul Vascular exam: PRESENT: normal capillary refill GI/Abdominal exam: PRESENT: normal bowel sounds, soft. ABSENT: distended, guarding, mass, organolmegaly, rebound, tenderness Rectal exam: PRESENT: deferred Extremities exam: PRESENT: joint swelling - Lt shoulder, other - Ecchymosis to anterior chest wall, left shoulder extending down left arm, and left flank.. ABSENT: calf tenderness, clubbing, full ROM - Lt shoulder, pedal edema Musculoskeletal exam: PRESENT: ambulatory - 2% assist Neurological exam: PRESENT: alert, awake, oriented to person, oriented to place , oriented to time, oriented to situation, CN II-XII grossly intact, other - While technically alert and oriented 4, the patient becomes easily confused during conversations and is forgetful.. ABSENT: motor sensory deficit Psychiatric exam: PRESENT: appropriate affect, normal mood. ABSENT: homicidal ideation, suicidal ideation Skin exam: PRESENT: dry, intact, jaundice, warm, other - Scattered ecchymosis. ABSENT: cyanosis, rash Results Laboratory Results: 12/30/17 07:23 12/30/17 05:06 12/30/17 12/30/17 12/30/17 05:06 05:06 07:23 WBC Cancelled 10.4 RBC Cancelled 2.13 L Hgb Cancelled 8.1 L Hct Cancelled 22.3 L MCV Cancelled 105 H MCH Cancelled 38.3 H MCHC Cancelled 36.5 H RDW Cancelled 23.8 H Plt Count Cancelled 85 L Sodium 131.5 L Potassium 3.9 Chloride 99 Carbon Dioxide 22 Anion Gap 11 BUN 16 Creatinine 0.64 Est GFR ( Amer) > 60 Est GFR (Non-Af Amer) > 60 Glucose 93 Calcium 8.3 L Total Bilirubin 15.5 H AST 85 H ALT 40 Alkaline Phosphatase 96 Total Protein 6.5 Albumin 2.6 L Triglycerides 65 Cholesterol 100.86 LDL Cholesterol Direct 40 VLDL Cholesterol 13.0 HDL Cholesterol 19 L 12/13/17 12/15/17 12/24/17 09:03 04:28 04:57 Creatine Kinase NT-Pro-B Natriuret Pep 2230 H 913 H 463 12/30/17 05:06 Creatine Kinase 116 NT-Pro-B Natriuret Pep Impressions: Humerus X-Ray 12/07/17 00:00 IMPRESSION: 1. Left anterior shoulder dislocation. Fluoroscopy 12/08/17 00:00 IMPRESSION: Intra procedural imaging and fluoro Abdomen Ultrasound 12/09/17 00:00 IMPRESSION: 1. Fatty infiltration of the liver. Splenomegaly. 2. Dilatation of the common bile duct with no significant intrahepatic ductal dilatation. 3. There appears to be some pericholecystic fluid. No gallstones are present. No gallbladder wall thickening is seen. Chest X-Ray 12/13/17 00:00 IMPRESSION: Atelectasis or infiltrate left base. Shoulder X-Ray 12/19/17 00:00 IMPRESSION: No acute fracture. No glenohumeral joint or AC joint malalignment Abdomen/Pelvis CT 12/25/17 00:00 IMPRESSION: CHRONIC CHANGES ABOVE. NO ACUTE FINDINGS. IMPRESSION: 1. Moderate amount of mesenteric edema and induration, most prominent in the right lower quadrant. No organized fluid collection is present. No clear source of inflammation is identified. Recommend correlation with patient's history. 2. Enlarged umbilical vein with herniation into the anterior subcutaneous space is just superior to the umbilicus. Recommend clinical correlation. 3. Left flank subcutaneous inflammation/possible hematoma. Recommend correlation with patient's symptoms and any history of trauma. No evidence of underlying fracture. 4. Vascular calcifications at the origin of the superior mesenteric and inferior mesenteric arteries. This exam is not optimized to evaluate the patency of these vessels, as such, stenosis cannot be excluded however there is no evidence of bowel wall thickening or other signs of bowel injury with the exception of the previously mentioned mesenteric induration. Head CT 12/27/17 00:00 IMPRESSION: No acute intracranial findings. EVIDENCE OF ACUTE STROKE: NO. Chest CT 12/28/17 00:00 IMPRESSION: Asymmetric diffuse enlargement of the left subscapularis muscle and left deltoid muscle, worrisome for intramuscular hematoma. Superimposed intramuscular abscess/myositis could not be excluded. Spotty calcifications/ossification along the periphery of the left shoulder capsule. No left glenohumeral malalignment on today's study. No aggressive bony demineralization, left shoulder. Abdomen MRI 12/29/17 00:00 IMPRESSION: No biliary ductal dilatation. No gallstones or common bile duct stones. Mild splenomegaly. Recannulized umbilical vein. Guidance Fluoroscopy 12/29/17 00:00 IMPRESSION: SUCCESSFUL NEEDLE PLACEMENT AND ASPIRATION OF THE LEFT SHOULDER JOINT SPACE, BLOODY SYNOVIAL FLUID SENT FOR GRAM STAIN CULTURE AND SENSITIVITY. POSTERIOR APPROACH. Hip Aspiration/Injection 12/29/17 00:00 IMPRESSION: SUCCESSFUL NEEDLE PLACEMENT AND ASPIRATION OF THE LEFT SHOULDER JOINT SPACE, BLOODY SYNOVIAL FLUID SENT FOR GRAM STAIN CULTURE AND SENSITIVITY. POSTERIOR APPROACH. Plan Discharge Plan: The patient will be transferred to [facility] under the care of Dr. Rodriguez. They anticipate a bed will be available on 12/31/17. Time Spent: Greater than 30 Minutes
[2017-12-30] MEDS: PHARMACY COMMUNICATION ORDER MC SCH (21:36)
--- NOTE | 2017-12-31 00:32 | Palliative Consultation Report ---
Consultation From:: KAYLYN DIAZ Consult Reason: Palliative care consult - HPI Chief Complaint: confusion, discomfort from left shoulder injury HPI: Palliative care consult visit 12/30/17 1:50 PM Appreciate pc consult request with this 52 year old man who is admitted for dislocatd left shoulder with possible infection in shoulder, Metabolic encephalopathy related to alcoholic cirrhosis, CAD, and thrombocytopenia. He has pneumonia. He has hyponatremia, thrombocytopenia and anemia. Hois albumin levels have fallen to 2.7, now ack to 3.1. Mr. Dietz still has some evidence of confusion and encephalopathy. He is not able to focus enough today to discuss advance directives or plans for care after hospitalization. He is complaining of pain in his left shoulder which is very ecchymotic and swollen. He states he has pain and very limited movement. 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 He has DNR ordered, which I did not discuss with him today. Onset: Just prior to arrival Onset/Duration: Sudden Quality of Pain: Stabbing, Throbbing Severity: Moderate Pain Level: 3 Exacerbated by: Movement Past Medical History(Consults) - General Information Source: Patient, COUNT INCLUDES [facility] Records Home Medications: No Home Medications 06/26/16 Aspirin [Aspirin 325 mg Tablet] 325 mg PO DAILY 12/07/17 Allergies/Adverse Reactions: Penicillins Allergy (Unknown, Verified 06/25/16 21:15) Sulfa (Sulfonamide Antibiotics) Allergy (Unknown, Verified 10/07/11 00:42) - Social History Lives with: Alone, Friend Family History: None Parental Family History Reviewed: No Children Family History Reviewed: No Sibling(s) Family History Reviewed.: No Smoking Status: Current Every Day Smoker Frequency of Alcohol Use: Occasional Amount of Alcoholic Beverages Per Day: states 1-2 beers per day Last Alcohol Use: 12/05/17 Hx Recreational Drug Use: No Drugs: None Hx Prescription Drug Abuse: No - Past Medical History Cardiac Medical History: Reports: Hx Coronary Artery Disease, Hx Hypercholesterolemia, Hx Hypertension Denies: Hx Atrial Fibrillation, Hx Congestive Heart Failure, Hx DVT, Hx Heart Attack, Hx Peripheral Vascular Disease, Hx Pulmonary Embolism, Hx Heart Murmur Pulmonary Medical History: Reports: Hx COPD, Hx Pneumonia Denies: Hx Asthma, Hx Bronchitis, Hx Respiratory Failure, Hx Sleep Apnea, Hx Tuberculosis Neurological Medical History: Reports: Hx Cerebrovascular Accident - TIA 3 years ago, Hx Seizures - Possible seizure; see history and physical, 06/25/2016 Endocrine Medical History: Denies: Hx Diabetes Mellitus Type 1, Hx Diabetes Mellitus Type 2, Hx Graves' Disease, Hx Hyperthyroidism, Hx Hypothyroidism Renal/ Medical History: Denies: Hx Benign Prostatic Hyperplasia, Hx End Stage Renal Disease, Hx Kidney Stones, Hx Peritoneal Dialysis Malignancy Medical History: Denies Hx Leukemia, Denies Hx Lung Cancer GI Medical History: Denies: Hx Cirrhosis, Hx Crohn's Disease, Hx Gastroesophageal Reflux Disease, Hx Hepatitis, Hx Hiatal Hernia, Hx Irritable Bowel, Hx Liver Failure, Hx Pancreatitis, Hx Ulcer Musculoskeltal Medical History: Reports Hx Arthritis - hands, Denies Hx Fibromyalgia, Denies Hx Multiple Sclerosis, Denies Hx Muscular Dystrophy Psychiatric Medical History: Reports: Hx Depression Denies: Hx Bipolar Disorder, Hx Dementia, Hx Post Traumatic Stress Disorder, Hx Schizophrenia Traumatic Medical History: Denies: Hx Fractures Infectious Medical History: Denies: Hx Hepatitis, Hx HIV Hematology: Denies: Anemia, Hemophilia, Sickle Cell Disease - Surgical History Past Surgical History: Reports: Hx Cardiac Surgery, Hx Coronary Artery Bypass Graft - x3 (2009), Hx Coronary Stent, Hx Open Heart Surgery, Other - Incision and drainage of dental abscess, with tooth extraction, 2005.. Denies: Hx Appendectomy, Hx Bowel Surgery, Hx Cholecystectomy, Hx Colostomy, Hx Gastric Bypass Surgery, Hx Herniorrhaphy, Hx Pacemaker, Hx Tonsillectomy Review of systems ROS unobtainable: other - Patient is awake and alert, but cannot stay on topic. He tells me he lives with his boss who is his business administration program chair and he calls him "grandpa". Constitutional: Weakness Cardiovascular: Heart racing Respiratory: Cough Geniturinary: Frequency Skin: Change in color Ojective:Exam Vital Signs: Temp Pulse Resp BP Pulse Ox 98.7 F 93 20 141/64 H 100 12/30/17 19:00 12/30/17 19:00 12/30/17 19:00 12/30/17 19:00 12/30/17 19:00 Intake & Output 12/29/17 12/30/17 12/31/17 06:59 06:59 06:59 Intake Total 777 3944 480 Output Total 600 1000 Balance 777 9775 -520 Weight 87.6 kg 87.2 kg - General General Appearance: Anxious In distress: Moderate Note:: Mr. Dietz is awake and alert, talkative, but conversation is disjointed and he cannot stay on topic. He tells me he has a lot of pain in his left shoulder but is not allowed to take any pain meds for a few days. He says he is hungry but he is not allowed to have any food. He wants to go to but the nurses wont give him a urinal. He tells me he lives with his friend and business administration program chair who he calls [employer]. They had someone stay with them for a while and he thinks that is how he got hepatitis because he only drinks one ot two beers a day. He told me about having his sh shoulder cut open for biopsy and how much that hurt. - HEENT Head: Atraumatic Eyes: Scleral icterus Conjunctiva: Icteric Pupils: PERRLA Mucous membrane: Dry - Respiratory Respiratory Status: No respiratory distress Breath sounds: Rhonchi, Nonproductive cough, Productive cough - Cardiovascular Rhythm: Regular Pulses: Normal: Radial - Abdominal Inspection: Normal Tenderness: Nontender - Extremities Upper extremity: Other - Left shouldr swollen and bruised, tight edema. - Psychological Associated symptoms: Anxious, Confused - Skin Skin Temperature: Warm Skin Moisture: Dry Skin Color: Jaundiced, Petechiae, Ecchymosis Objective-Diagnostic Laboratory: 12/30/17 07:23 12/30/17 05:06 12/30/17 12/30/17 12/30/17 05:06 05:06 07:23 WBC Cancelled 10.4 RBC Cancelled 2.13 L Hgb Cancelled 8.1 L Hct Cancelled 22.3 L MCV Cancelled 105 H MCH Cancelled 38.3 H MCHC Cancelled 36.5 H RDW Cancelled 23.8 H Plt Count Cancelled 85 L Sodium 131.5 L Potassium 3.9 Chloride 99 Carbon Dioxide 22 Anion Gap 11 BUN 16 Creatinine 0.64 Est GFR ( Amer) > 60 Est GFR (Non-Af Amer) > 60 Glucose 93 Calcium 8.3 L Total Bilirubin 15.5 H AST 85 H ALT 40 Alkaline Phosphatase 96 Total Protein 6.5 Albumin 2.6 L Triglycerides 65 Cholesterol 100.86 LDL Cholesterol Direct 40 VLDL Cholesterol 13.0 HDL Cholesterol 19 L 0512/15/17 12/24/17 09:03 04:28 04:57 Creatine Kinase NT-Pro-B Natriuret Pep 2230 H 913 H 463 12/30/17 05:06 Creatine Kinase 116 NT-Pro-B Natriuret Pep Plan and Recommendation Plan and Recommendation: Patient is not alert enough today to discuss advance directives or other plans for care. He is having pain and is hungry. He is worried why the nurse will not let him keep urinal, but nurse says he spills urine in the bed. I will visit again next week to discuss plan of care and advance directives if patient is more oriented. Consulted with nurse who states marcel has been confused at intervals all day. - Time Spent with Patient Time spent with patient: 15 to 30 Minutes Time: 20 min.
[2017-12-31] MEDS: OXYCODONE HCL IR 5 MG TABLET PO PRN ×3 (03:03→18:24)
[2017-12-31] MEDS: LANSOPRAZOLE 30 MG TAB.RAP.DR PO SCH (05:24)
[2017-12-31 07:10] LABS: ALANINE AMINOTRANSFERASE 43 U/L (21-72); ALBUMIN 2.7 g/dL (3.5-5.0); ALKALINE PHOSPHATASE 103 U/L (38-126); ANION GAP 10 (5-19); ASPARTATE AMINO TRANSFERASE 76 U/L (17-59); BILIRUBIN,DIRECT 7.6 mg/dL (0.0-0.4); BILIRUBIN,TOTAL 14.8 mg/dL (0.2-1.3); BLOOD UREA NITROGEN 11 mg/dL (7-20); CALCIUM 8.4 mg/dL (8.4-10.2); CARBON DIOXIDE 19 mmol/L (22-30); CHLORIDE 102 mmol/L (98-107); GLUCOSE 130 mg/dL (75-110); POTASSIUM 4.2 mmol/L (3.6-5.0); SODIUM 130.9 mmol/L (137-145); TOTAL PROTEIN 6.6 g/dL (6.3-8.2)
[2017-12-31 07:13] LABS: ABSOLUTE LYMPHOCYTES (AUTO) 0.5 10^3/uL (0.5-4.7); ABSOLUTE MONOCYTES (AUTO) 0.7 10^3/uL (0.1-1.4); ABSOLUTE NEUT (AUTO) 8.5 10^3/uL (1.7-8.2); BASOPHILS % (AUTO) 0.2 % (0-2); EOSINOPHILS % (AUTO) 0.4 % (0-6); HEMATOCRIT 21.5 % (37.9-51.0); LYMPHOCYTES % (AUTO) 5.1 % (13-45); MEAN CORPUSCULAR HGB CONC 35.7 g/dL (32.0-36.0); MEAN CORPUSCULAR VOLUME 107 fl (80-97); MONOCYTES % (AUTO) 7.6 % (3-13); RED BLOOD COUNT 2.02 10^6/uL (4.35-5.55); RED CELL DISTRIBUTION WIDTH 23.9 % (11.5-14.0); SEGMENTED NEUTROPHILS % (AUTO) 86.7 % (42-78); TOTAL CELLS COUNTED % (AUTO) 100 %; WHITE BLOOD COUNT 9.8 10^3/uL (4.0-10.5)
[2017-12-31 07:58] LABS: HEMOGLOBIN 7.7 g/dL (13.5-17.0); PLATELET COUNT 85 10^3/uL (150-450)
[2017-12-31] MEDS: FUROSEMIDE 20 MG TABLET PO SCH ×2 (08:21→13:23)
[2017-12-31] MEDS: NORMAL SALINE 1000 ML 1,000 ML IV PRN ×2 (08:59→15:47)
[2017-12-31] MEDS: NICOTINE 14 MG/24 HR PATCH.TD24 TD SCH (09:48)
[2017-12-31] MEDS: LACTULOSE SYRUP 20 GM/30 ML UDCUP PO SCH ×3 (09:49→18:24)
[2017-12-31] MEDS: THIAMINE HCL 100 MG TABLET PO SCH (09:51)
[2017-12-31] MEDS: SPIRONOLACTONE 25 MG TABLET PO SCH (09:51)
[2017-12-31] MEDS: FOLIC ACID 1 MG TABLET PO SCH (09:51)
[2017-12-31] MEDS: LIDOCAINE 5% (700 MG) TRANSDERMAL ADH..PATCH TP SCH (09:54)
[2017-12-31] MEDS ORDERED: LORAZEPAM 0.5 MG TABLET PO ONE (10:00)
[2017-12-31 10:15] LABS: INTERNATIONAL RATION (INR) 1.92; PROTHROMBIN TIME 22.9 SEC (11.4-15.4)
[2017-12-31] MEDS: MEGESTROL ACETATE SUSP 400 MG/10 ML UDCUP PO SCH (15:46)
[2017-12-31] MEDS ORDERED: NORMAL SALINE 1000 ML 1,000 ML IV PRN (16:39)
--- NOTE | 2017-12-31 16:41 | PDOC PROGRESS REPORT ---
Subjective Progress Note for:: 12/31/17 Subjective:: The patient is a 52-year-old male with past medical history of hypertension, hyperlipidemia, CAD post CABG, EtOH dependence who was admitted on 12/08/17 for a left shoulder dislocation requiring fluoroscopic guided closed reduction by orthopedics. He subsequently developed acute alcohol liver failure. The patient is seen on morning rounds. He is found resting in bed comfortably on room air. He is alert and orientated x4 however is noted to become increasingly confused and repetitive as our conversation progresses. He is aware that he is being transferred to [place], but believes this to be to manage his shoulder pain. Despite multiple attempts to explain the concern regarding his liver function, the patient continues to speak only of his shoulder; it is unclear whether or not he does not remember previous conversations, understand me, or is in denial. The patient denies headache, dizziness, chest pain, palpitations, shortness of breath, cough, abdominal pain, nausea vomiting and diarrhea. His only complaint at present is persistent left shoulder pain. He has no other questions or concerns. Per nursing, the patient remains intermittently confused and impulsive. Reason For Visit: ETOH WITHDRAWL, ACUTE LIVER FAILURE Physical Exam Vital Signs: Temp Pulse Resp BP Pulse Ox 98.1 F 91 16 144/71 H 100 12/31/17 11:37 12/31/17 11:37 12/31/17 11:37 12/31/17 11:37 12/31/17 11:37 Intake & Output 12/30/17 12/31/17 01/01/18 06:59 06:59 06:59 Intake Total 3944 2502 120 Output Total 600 1760 Balance 3344 742 120 Weight 87.2 kg 86.9 kg General appearance: PRESENT: no acute distress, well-developed, well-nourished, other - Overweight Head exam: PRESENT: atraumatic, normocephalic Eye exam: PRESENT: conjunctiva pink, EOMI, PERRLA, scleral icterus Ear exam: PRESENT: normal external ear exam Mouth exam: PRESENT: moist, tongue midline Neck exam: ABSENT: carotid bruit, JVD, lymphadenopathy, thyromegaly Respiratory exam: PRESENT: clear to auscultation noreen, symmetrical, unlabored. ABSENT: rales, rhonchi, wheezes Cardiovascular exam: PRESENT: RRR, +S1, +S2. ABSENT: diastolic murmur, rubs, systolic murmur Pulses: PRESENT: normal dorsalis pedis pul Vascular exam: PRESENT: normal capillary refill GI/Abdominal exam: PRESENT: normal bowel sounds, soft. ABSENT: distended, guarding, mass, organolmegaly, rebound, tenderness Rectal exam: PRESENT: deferred Extremities exam: PRESENT: full ROM. ABSENT: calf tenderness, clubbing, pedal edema Neurological exam: PRESENT: alert, awake, oriented to person, oriented to place , oriented to time, oriented to situation, CN II-XII grossly intact, other - Forgetful and easily confused. ABSENT: motor sensory deficit Psychiatric exam: PRESENT: appropriate affect, normal mood. ABSENT: homicidal ideation, suicidal ideation Skin exam: PRESENT: dry, intact, jaundice, warm, other - Ecchymosis to anterior chest wall, left shoulder, left upper extremity, and left flank. ABSENT: cyanosis, rash Results Laboratory Results: 12/31/17 06:09 12/31/17 06:09 12/31/17 12/31/17 12/31/17 06:09 06:09 09:40 WBC 9.8 RBC 2.02 L Hgb 7.7 L Hct 21.5 L MCV 107 H MCH 38.0 H MCHC 35.7 RDW 23.9 H Plt Count 85 L Seg Neutrophils % 86.7 H Lymphocytes % 5.1 L Monocytes % 7.6 Eosinophils % 0.4 Basophils % 0.2 Absolute Neutrophils 8.5 H Absolute Lymphocytes 0.5 Absolute Monocytes 0.7 Absolute Eosinophils 0.0 Absolute Basophils 0.0 Sodium 130.9 L Potassium 4.2 Chloride 102 Carbon Dioxide 19 L Anion Gap 10 BUN 11 Creatinine 0.54 Est GFR ( Amer) > 60 Est GFR (Non-Af Amer) > 60 Glucose 130 H Calcium 8.4 Total Bilirubin 14.8 H AST 76 H ALT 43 Alkaline Phosphatase 103 Total Protein 6.6 Albumin 2.7 L Blood Type O POSITIVE Antibody Screen NEGATIVE 12/13/17 12/15/17 12/24/17 09:03 04:28 04:57 Creatine Kinase NT-Pro-B Natriuret Pep 2230 H 913 H 463 12/30/17 05:06 Creatine Kinase 116 NT-Pro-B Natriuret Pep Impressions: Humerus X-Ray 12/07/17 00:00 IMPRESSION: 1. Left anterior shoulder dislocation. Fluoroscopy 12/08/17 00:00 IMPRESSION: Intra procedural imaging and fluoro Abdomen Ultrasound 12/09/17 00:00 IMPRESSION: 1. Fatty infiltration of the liver. Splenomegaly. 2. Dilatation of the common bile duct with no significant intrahepatic ductal dilatation. 3. There appears to be some pericholecystic fluid. No gallstones are present. No gallbladder wall thickening is seen. Chest X-Ray 12/13/17 00:00 IMPRESSION: Atelectasis or infiltrate left base. Shoulder X-Ray 12/19/17 00:00 IMPRESSION: No acute fracture. No glenohumeral joint or AC joint malalignment Abdomen/Pelvis CT 12/25/17 00:00 IMPRESSION: CHRONIC CHANGES ABOVE. NO ACUTE FINDINGS. IMPRESSION: 1. Moderate amount of mesenteric edema and induration, most prominent in the right lower quadrant. No organized fluid collection is present. No clear source of inflammation is identified. Recommend correlation with patient's history. 2. Enlarged umbilical vein with herniation into the anterior subcutaneous space is just superior to the umbilicus. Recommend clinical correlation. 3. Left flank subcutaneous inflammation/possible hematoma. Recommend correlation with patient's symptoms and any history of trauma. No evidence of underlying fracture. 4. Vascular calcifications at the origin of the superior mesenteric and inferior mesenteric arteries. This exam is not optimized to evaluate the patency of these vessels, as such, stenosis cannot be excluded however there is no evidence of bowel wall thickening or other signs of bowel injury with the exception of the previously mentioned mesenteric induration. Head CT 12/27/17 00:00 IMPRESSION: No acute intracranial findings. EVIDENCE OF ACUTE STROKE: NO. Chest CT 12/28/17 00:00 IMPRESSION: Asymmetric diffuse enlargement of the left subscapularis muscle and left deltoid muscle, worrisome for intramuscular hematoma. Superimposed intramuscular abscess/myositis could not be excluded. Spotty calcifications/ossification along the periphery of the left shoulder capsule. No left glenohumeral malalignment on today's study. No aggressive bony demineralization, left shoulder. Abdomen MRI 12/29/17 00:00 IMPRESSION: No biliary ductal dilatation. No gallstones or common bile duct stones. Mild splenomegaly. Recannulized umbilical vein. Guidance Fluoroscopy 12/29/17 00:00 IMPRESSION: SUCCESSFUL NEEDLE PLACEMENT AND ASPIRATION OF THE LEFT SHOULDER JOINT SPACE, BLOODY SYNOVIAL FLUID SENT FOR GRAM STAIN CULTURE AND SENSITIVITY. POSTERIOR APPROACH. Hip Aspiration/Injection 12/29/17 00:00 IMPRESSION: SUCCESSFUL NEEDLE PLACEMENT AND ASPIRATION OF THE LEFT SHOULDER JOINT SPACE, BLOODY SYNOVIAL FLUID SENT FOR GRAM STAIN CULTURE AND SENSITIVITY. POSTERIOR APPROACH. Assessment & Plan - Diagnosis (1) Alcoholic hepatitis with ascites Is this a current diagnosis for this admission?: Yes Plan: Slight improvement in LFTs today as compared to yesterday, however hemoglobin and platelets are declining and PT/INR are trending up. Ultrasound of the abdomen revealed fatty infiltration of the liver, splenomegaly , dilatation of the common bile duct without significant intrahepatic ductal dilatation, some pericholecystic fluid. No gallstones or wall thickening was noted. Abdominal/pelvic CT demonstrated a moderate amount of mesenteric edema, enlarged umbilical vein with herniation into the anterior subcutaneous space, left flank subcutaneous inflammation/possible hematoma, no evidence of underlying fracture, and vascular calcifications of the superior and inferior dysenteric arteries. Head CT negative for acute processes (r/o cerebral edema per GI recommendations) MRCP was negative for stones or common bile duct dilatation. Hgb and PLT are trending down; hemoglobin is 7.7 today. Continue Lasix 20 mg twice daily and spironolactone 100 mg p.o. daily. He is receiving Prevacid for ulcer prophylaxis. Continue Lactulose 10 g twice daily. Continue thiamine and folic acid supplementation. I discussed the patient's case with Dr. Rodriguez at [facility] yesterday. They have agreed to accept the patient. Per nursing, the patient now has a bed assignment and they are attempting to arrange transportation. (2) Anterior dislocation of left shoulder Qualifiers: Encounter type: initial encounter Qualified Code(s): S43.015A - Anterior dislocation of left humerus, initial encounter Is this a current diagnosis for this admission?: Yes Plan: S/p fluoroscopy-guided reduction of left shoulder by orthopedic surgeon. Large area of ecchymosis to left shoulder, anterior and left chest wall; slight improvement. Shoulder sling in place; encourage use. Repeat shoulder xray (12/19/17) is negative for acute fracture. Chest CT with contrast completed today; received call from Dr. White with concerns for septic arthritis with myositis. Fluoroscopic guided arthrocentesis completed today; cultures pending. Orthopedics has been reconsulted; appreciate their evaluation and recommendations. Low dose oxycodone as needed for pain. Encourage use of sling. May benefit from ice or heat therapy. (3) Leukocytosis Qualifiers: Leukocytosis type: unspecified Qualified Code(s): D72.829 - Elevated white blood cell count, unspecified Is this a current diagnosis for this admission?: Yes Plan: Improved; WBCs have been normal 2 days. Urinalysis is negative for urinary tract infection. Repeat blood cultures are negative at [address] of the chest was negative for pneumonia. Urinalysis was negative for UTI. Skin is intact; no evidence of cellulitis. Orthopedics does not believe that his left shoulder is septic. Will continue to hold on antibiotics at this time as leukocytosis has resolved, the patient is afebrile, and there is no clear source/infectious process.. (4) Acute metabolic encephalopathy Is this a current diagnosis for this admission?: Yes Plan: Waxing and waning; oriented 4 today and slightly improved today. Acute metabolic encephalopathy is secondary to alcohol hepatitis and sedating medications. Possibly r/t infectious process. Head CT negative for acute processes. Cultures and antibiotics as above. Plan for alcohol hepatitis as above. Haldol IV as needed every 8 hours for acute agitation. Fall and aspiration precautions. (5) Coronary artery disease Qualifiers: Coronary Disease-Associated Artery/Lesion type: [place] artery Is this a current diagnosis for this admission?: Yes Plan: Holding Aspirin secondary to thrombocytopenia and anemia with acute blood loss requiring transfusions. (6) Tobacco abuse Is this a current diagnosis for this admission?: Yes Plan: Nicotine replacement therapy is provided. (7) Hypoalbuminemia Is this a current diagnosis for this admission?: Yes Plan: Stable. Secondary to alcohol hepatitis and ascites. The patient has also had very low p.o. intake. With assistance from nurse aide, patient eats approximately 25% of each meal. Albumin is trending down from 3.8-2.7; currently 3.1 The registered dietitian has been consulted and has made recommendations for tube feedings should the patient's p.o. intake not improve. Will continue to monitor. (8) Thrombocytopenia Is this a current diagnosis for this admission?: Yes Plan: Slight downward trend; platelets 85. Secondary to liver failure. Now s/p 4 units PLTs. Will continue to monitor closely. Fall and bleeding precautions. (9) Anemia Qualifiers: Anemia type: unspecified type Qualified Code(s): D64.9 - Anemia, unspecified Is this a current diagnosis for this admission?: Yes Plan: Multifactorial secondary to alcohol dependence, liver failure, folate/B12 deficiency and ABLA anemia. Pt is now s/p 4 units PRBC. Hgb 97.7 today; drifting down from 11.3 over [address] of the abdomen and pelvis was negative for retroperitoneal bleed, however, did note a left flank hematoma. No overt signs of bleeding. Anemia panel evaluated; elevated retic count, nml iron, folate and B12. The patient was blood banded today. We will hold on transfusion given no evidence of active bleeding and likelihood of patient being transferred to [facility] this afternoon. Should the patient develop spontaneous bleeding or transfer be delayed, will reevaluate hemoglobin and consider transfusing. Local GI was consulted; no indication for EGD at this time. Folate and thiamin supplementation. (10) Hyponatremia Is this a current diagnosis for this admission?: Yes Plan: Worsening; sodium trended down to 126.1. This is improved moderately with IV fluids; 130.9 today. Multifactorial secondary to liver disease and poor p.o. intake. TSH was evaluated to be normal. Antidiuretic hormone and serum osmolality are pending. Urine sodium is low. We will obtain lipid panel as severely elevated (total cholesterol greater than 900) has been demonstrated to cause pseudohyponatremia. Continue maintenance IV fluids; normal saline at 125 mL/hour Continue Lasix and spironolactone. Will monitor with daily chemistry. (11) Alcohol intoxication Qualifiers: Complication of substance-induced condition: uncomplicated Qualified Code(s ): F10.920 - Alcohol use, unspecified with intoxication, uncomplicated Is this a current diagnosis for this admission?: Yes Plan: Resolved; The patient was admitted with an EtOH level of 277, repeat EtOH <10 He endorses as chronic alcohol intake of at least 2-3 beers daily. He was placed on alcohol withdrawal protocol with IV haldol as needed for agitation. Oral thiamine and folate supplementation. Recommend 1:1 sitter for safety. (12) LLL pneumonia Qualifiers: Pneumonia type: due to unspecified organism Qualified Code(s): J18.1 - Lobar pneumonia, unspecified organism Is this a current diagnosis for this admission?: Yes Plan: Resolved; lung sounds are clear and the patient is maintaining oxygen saturations on room air. ABG revealed Respiratory Alkalosis. CXR atelectasis versus infiltrate of the left lung base. Blood cultures have no growth to date. The patient completed a seven-day course of Levaquin. He is maintaining oxygen saturations on room air. (13) Electrolyte abnormality Is this a current diagnosis for this admission?: Yes Plan: Hyponatremia; trending down. See above. Patient had persistent hypokalemia and hypomagnesemia secondary to malnutrition , chronic alcohol abuse, and acute disease process. Daily potassium has been discontinued. Will continue to monitor daily chemistries and replace as needed. (14) Fluid volume excess Qualifiers: Hypervolemia type: unspecified Qualified Code(s): E87.70 - Fluid overload, unspecified Is this a current diagnosis for this admission?: Yes Plan: Resolved; breath sounds are clear, no edema to perineum/extremities. Pro BNP trending down from 2230 --> 913 --> 463. Echocardiogram reveals mild to moderate diastolic dysfunction with a preserved ejection fraction. Strict I&Os limited secondary to incontinence. I am concerned about placing a Martinez as the patient has been removing IV lines. I do not wish to restrain or sedate if avoidable. Daily weights. Wt trending down (103.5 kg --> 89.4 kg) Continue furosemide 20 mg p.o twice daily and spironolactone 100 mg p.o daily. (15) DNR (do not resuscitate) Is this a current diagnosis for this admission?: Yes - Time Time Spent with patient: 15-24 minutes Medications reviewed and adjusted accordingly: Yes [facility]ated [facility]: when bed available
[2017-12-31] MEDS: PREDNISOLONE SOD PHOS 15 MG/5 ML ORAL SYRING PO SCH (18:26)
[2017-12-31 20:52] VITALS: BP 136/66
[2018-01-05 15:19] LABS: ANTIDIURETIC HORMONE <0.8 pg/mL (0.0-4.7); OSMOLALITY 265 mOsmol/kg (275-295)
== END 2017-12-31 20:20 | disposition short-term general hospital (02) | DRG 432 ==
LOC: ER 01:11 → EH 03:56 → INTOOBSV 03:56 → OBSVTOIN 03:56 → 4S 11:30 → OBSVTOIN 12-09 07:49 → 4S 12-10 13:18 → 4W 12-11 23:30 → 4N 12-12 17:31
PROVIDERS: ADMIT Internal Medicine; ATTEND Internal Medicine
PROC: 30233N1 Transfusion of Nonautologous Red Blood Cells into Peripheral Vein, Percutaneous Approach (ICD-10-PCS; 2017-12-08)
PROC: 0RSKXZZ Reposition Left Shoulder Joint, External Approach (ICD-10-PCS; principal; 2017-12-08 08:30)
PROC: 30233R1 Transfusion of Nonautologous Platelets into Peripheral Vein, Percutaneous Approach (ICD-10-PCS; 2017-12-10)
PROC: 30233N1 Transfusion of Nonautologous Red Blood Cells into Peripheral Vein, Percutaneous Approach (ICD-10-PCS; 2017-12-10)
PROC: 3E0F73Z Introduction of Anti-inflammatory into Respiratory Tract, Via Natural or Artificial Opening (ICD-10-PCS; 2017-12-13)
PROC: 0R9K3ZX Drainage of Left Shoulder Joint, Percutaneous Approach, Diagnostic (ICD-10-PCS; 2017-12-29)
DX: K70.11 Alcoholic hepatitis with ascites (principal); G93.41 Metabolic encephalopathy; J18.9 Pneumonia, unspecified organism; F10.231 Alcohol dependence with withdrawal delirium; F10.221 Alcohol dependence with intoxication delirium; E46 Unspecified protein-calorie malnutrition; E87.3 Alkalosis; D62 Acute posthemorrhagic anemia; J44.0 Chronic obstructive pulmonary disease with (acute) lower respiratory infection; K70.31 Alcoholic cirrhosis of liver with ascites; Y90.8 Blood alcohol level of 240 mg/100 ml or more; D69.6 Thrombocytopenia, unspecified; I25.10 Atherosclerotic heart disease of native coronary artery without angina pectoris; I10 Essential (primary) hypertension; E78.5 Hyperlipidemia, unspecified; R31.9 Hematuria, unspecified; S43.015A Anterior dislocation of left humerus, initial encounter; S40.012A Contusion of left shoulder, initial encounter; S20.212A Contusion of left front wall of thorax, initial encounter; E87.6 Hypokalemia; E83.42 Hypomagnesemia; W10.9XXA Fall (on) (from) unspecified stairs and steps, initial encounter; Y92.9 Unspecified place or not applicable; E87.70 Fluid overload, unspecified; F17.210 Nicotine dependence, cigarettes, uncomplicated; E88.09 Other disorders of plasma-protein metabolism, not elsewhere classified; D51.9 Vitamin B12 deficiency anemia, unspecified; R04.0 Epistaxis; D72.829 Elevated white blood cell count, unspecified; J44.9 Chronic obstructive pulmonary disease, unspecified; Z88.2 Allergy status to sulfonamides; Z66 Do not resuscitate; R16.1 Splenomegaly, not elsewhere classified; Z88.0 Allergy status to penicillin; Z95.1 Presence of aortocoronary bypass graft
CPT/HCPCS: 01620; 20610; 36415; 36430; 36600; 70450; 71045; 71260; 74177; 74181; 76700; 77002; 80048; 80053; 80061; 80074; 80076; 80307; 81001; 82140; 82550; 82607; 82746; 82803; 83540; 83615; 83690; 83735; 83880; 84100; 84300; 84439; 84443; 84588; 85025; 85027; 85045; 85610; 85730; 86592; 86701; 86850; 86900; 86901; 86920; 87040; 87070; 87075; 87205; 89060; 93005; 93010; 93306; 93976; 94640; 96374; 99285; G0378; J1940; J1956; J2060; J2250; J2270; J2704; J3010; J3411; J3430; J3475; J3480; J3490; J7030; J7050; J7510; J7620; L3650; P9016; P9035; P9047

== ENCOUNTER 2018-01-14 20:10 | Emergency (ER) | payer SELFPAY ==
[2018-01-14] MEDS ORDERED: MORPHINE SULFATE IR 15 MG TABLET PO ONE (22:34)
[2018-01-14] MEDS ORDERED: CEPHALEXIN 500 MG CAPSULE PO ONE (22:34)
--- NOTE | 2018-01-14 22:35 | RADIOLOGY REPORT (SQ) ---
EXAM DESCRIPTION: U/S SCROTUM W/DOPPLER COMPLETED DATE/TIME: 01/14/2018 10:02 pm REASON FOR STUDY: testicular pain COMPARISON: None. TECHNIQUE: Grayscale imaging of the scrotum and testes. Selected color Doppler and spectral images recorded to document blood flow. LIMITATIONS: None. FINDINGS: RIGHT: TESTICLE: Measures 3.4 x 2.2 x 1.7 cm. Normal echotexture. Normal blood flow. No mass. EPIDIDYMIS: Not visualized. HYDROCELE OR VARICOCELE: Large right-sided hydrocele measuring 5 cm. No obvious varicocele. HERNIA OR EXTRA-TESTICULAR MASS: No. OTHER: Scrotal wall thickening measuring 8.7 mm in thickness. LEFT: TESTICLE: Measures 2.8 x 2.2 x 1.9 cm. Normal echotexture. Normal blood flow. No mass. EPIDIDYMIS: Not visualized. HYDROCELE OR VARICOCELE: No. HERNIA OR EXTRA-TESTICULAR MASS: No. OTHER: Scrotal wall thickening measuring 8.9 mm in thickness. IMPRESSION: 1. No sonographic evidence of testicular mass or torsion. Nonvisualized bilateral epidi dymides. 2. Large right-sided hydrocele. 3. Diffuse scrotal wall thickening. TECHNICAL DOCUMENTATION: JOB ID: [id number] [employer]- All Rights Reserved Reading location - IP/workstation name: [email or web address]
--- NOTE | 2018-01-14 22:40 | ER Document Report ---
ED General - General Chief Complaint: Testicular Swelling Stated Complaint: TESTICLE PAIN Time Seen by Provider: 01/14/18 20:45 Notes: The patient is a 52-year-old male with history of liver cirrhosis with associated ascites, hypertension, hyperlipidemia, prior alcohol abuse although he reports he has been sober for the past 38 days who presents with 3 days of scrotal swelling and right testicular pain. He notes that his scrotum has become more edematous but his main concern is severe pain to the right testicle particularly when he stands or attempts to walk. He states if he is lying flat or not moving he does not have any pain. However he reports each time he tries to get up and walk the pain is a stabbing, severe pain to the right testicle that shoots up through his body. He denies any history of similar symptoms in the past. He has not seen a urologist or his primary doctor regarding today's concerns. He denies any trauma to the testicle. No dysuria, urinary hesitancy , hematuria, fever or constitutional symptoms. He denies any abdominal pain. Of note, the patient is visibly icteric which he reports is baseline and he does not present with any concerns regarding his underlying liver failure which he notes is chronic. TRAVEL OUTSIDE OF THE [place] IN LAST 30 DAYS: No - Related Data Allergies/Adverse Reactions: Penicillins Allergy (Severe, Verified 01/14/18 20:17) Sulfa (Sulfonamide Antibiotics) Allergy (Severe, Verified 01/14/18 20:17) Past Medical History - General Information source: Patient - Social History Smoking Status: Current Every Day Smoker Chew tobacco use (# tins/day): No Frequency of alcohol use: None Drug Abuse: None Lives with: Alone Family History: Reviewed & Not Pertinent Patient has suicidal ideation: No Patient has homicidal ideation: No - Past Medical History Cardiac Medical History: Reports: Hx Coronary Artery Disease, Hx Hypercholesterolemia, Hx Hypertension Denies: Hx Atrial Fibrillation, Hx Congestive Heart Failure, Hx DVT, Hx Heart Attack, Hx Peripheral Vascular Disease, Hx Pulmonary Embolism, Hx Heart Murmur Pulmonary Medical History: Reports: Hx COPD, Hx Pneumonia Denies: Hx Asthma, Hx Bronchitis, Hx Respiratory Failure, Hx Sleep Apnea, Hx Tuberculosis Neurological Medical History: Reports: Hx Cerebrovascular Accident - TIA 3 years ago, Hx Seizures - Possible seizure; see history and physical, 06/25/2016 Endocrine Medical History: Denies: Hx Diabetes Mellitus Type 1, Hx Diabetes Mellitus Type 2, Hx Graves' Disease, Hx Hyperthyroidism, Hx Hypothyroidism Renal/ Medical History: Denies: Hx Benign Prostatic Hyperplasia, Hx End Stage Renal Disease, Hx Kidney Stones, Hx Peritoneal Dialysis Malignancy Medical History: Denies Hx Leukemia, Denies Hx Lung Cancer GI Medical History: Denies: Hx Cirrhosis, Hx Crohn's Disease, Hx Gastroesophageal Reflux Disease, Hx Hepatitis, Hx Hiatal Hernia, Hx Irritable Bowel, Hx Liver Failure, Hx Pancreatitis, Hx Ulcer Musculoskeltal Medical History: Reports Hx Arthritis - hands, Denies Hx Fibromyalgia, Denies Hx Multiple Sclerosis, Denies Hx Muscular Dystrophy Psychiatric Medical History: Reports: Hx Depression Denies: Hx Bipolar Disorder, Hx Dementia, Hx Post Traumatic Stress Disorder, Hx Schizophrenia Traumatic Medical History: Denies: Hx Fractures Infectious Medical History: Denies: Hx Hepatitis, Hx HIV Past Surgical History: Reports: Hx Cardiac Surgery, Hx Coronary Artery Bypass Graft - x3 (2009), Hx Coronary Stent, Hx Open Heart Surgery, Other - Incision and drainage of dental abscess, with tooth extraction, 2005.. Denies: Hx Appendectomy, Hx Bowel Surgery, Hx Cholecystectomy, Hx Colostomy, Hx Gastric Bypass Surgery, Hx Herniorrhaphy, Hx Pacemaker, Hx Tonsillectomy - Immunizations Hx Diphtheria, Pertussis, Tetanus Vaccination: Yes Hx Pneumococcal Vaccination: 05/18/12 Review of Systems - Review of Systems Notes: Constitutional: Negative for fever. HENT: Negative for sore throat. Eyes: Negative for visual changes. Cardiovascular: Negative for chest pain. Respiratory: Negative for shortness of breath. Gastrointestinal: Negative for abdominal pain, vomiting or diarrhea. Genitourinary: Negative for dysuria. Positive for right testicular pain and scrotal swelling Musculoskeletal: Negative for back pain. Skin: Negative for rash. Neurological: Negative for headaches, weakness or numbness. 10 point ROS negative except as marked above and in HPI. Physical Exam - Vital signs Vitals: Temp Pulse Resp BP Pulse Ox 98.4 F 98 16 148/78 H 98 01/14/18 20:22 01/14/18 20:22 01/14/18 20:22 01/14/18 20:22 01/14/18 20:22 Interpretation: Hypertensive Notes: PHYSICAL EXAMINATION: GENERAL: Well-appearing, well-nourished and in no acute distress. HEAD: Atraumatic, normocephalic. EYES: Pupils equal round and reactive to light, extraocular movements intact, mild scleral icterus, conjunctiva are normal. ENT: nares patent, oropharynx clear without exudates. Moist mucous membranes. NECK: Normal range of motion, supple without lymphadenopathy LUNGS: Breath sounds clear to auscultation bilaterally and equal. No wheezes rales or rhonchi. HEART: Regular rate and rhythm without murmurs ABDOMEN: Soft, mild abdominal ascites, nontender, normoactive bowel sounds. No guarding, no rebound. No masses appreciated. : Diffusely edematous scrotum, pain on palpation of the right epididymis. No tenderness to palpation of the left testicle. Pain is relieved by elevation of the right testicle. EXTREMITIES: Normal range of motion, no pitting or edema. No cyanosis. NEUROLOGICAL: No focal neurological deficits. Moves all extremities spontaneously and on command. PSYCH: Normal mood, normal affect. Very pleasant on contact. SKIN: Warm, Dry, normal turgor, no rashes or lesions noted. Course - Re-evaluation Re-evalutation: 01/14/18 22:39 Patient presents with complaints of 3-4 days of scrotal pain and swelling worse towards the right side. On examination he has Global scrotal edema although does have a history of liver failure with associated ascites and likely has some edema to the scrotum at all times. Scrotal ultrasound is pending. He denies any dysuria. No additional complaints other than right-sided scrotal pain. 01/15/18 00:42 Ultrasound does show a right-sided hydrocele and urinalysis is consistent with a urinary tract infection. A culture has been sent. The patient will be treated with cephalexin, a urology referral has also been made. At this time will discharge with return precautions and follow-up recommendations. Verbal discharge instructions given a the bedside and opportunity for questions given. Medication warnings reviewed. Patient is in agreement with this plan and has verbalized understanding of return precautions and the need for primary care follow-up in the next 24-72 hours. - Vital Signs Vital signs: Temp Pulse Resp BP Pulse Ox 98.4 F 98 17 159/74 H 100 01/15/18 01:08 01/14/18 20:22 01/15/18 01:08 01/15/18 01:08 01/15/18 01:08 - Laboratory Laboratory results interpreted by me: 01/14/18 22:00 Urine Protein 30 H Urine Blood SMALL H Urine Bilirubin MODERATE H Urine Urobilinogen 4.0 H - Diagnostic Test Radiology reviewed: Reports reviewed Discharge - Discharge Clinical Impression: Hydrocele, right, Epididymitis, Cellulitis, scrotum Liver cirrhosis, alcoholic Qualifiers: Ascites presence: with ascites Qualified Code(s): K70.31 - Alcoholic cirrhosis of liver with ascites Condition: Stable Disposition: HOME, SELF-CARE Additional Instructions: Your urine and ultrasound suggest that there is an infection in your testicle on the right. You also have some the called a hydrocele on your right testicle which is a fluid buildup around the right testicle. This is likely the major cause of the pain you are experiencing. Your being started on antibiotics to treat ear infection. You should wear very supportive underwear that elevates your testicle to reduce the pain. You may take the morphine that has been prescribed as needed for severe pain not controlled by supportive measures of elevating the testicle. Please contact the urologist included in the paperwork as soon as possible to schedule follow-up for your right hydrocele as well as the infection. You should return to the emergency department immediately if you have worsening pain, fever greater than 100.4F, become unable to urinate, have persistent vomiting, or have any other symptoms that are worrisome to you. Prescriptions: Morphine Sulfate [Morphine Ir 15 mg Tablet] 15 mg PO Q4HP PRN #12 tablet PRN Reason: Cephalexin Monohydrate [Keflex 500 mg Capsule] 500 mg PO Q6H 7 Days capsule Referrals: WILMAR BRANCH II, MD [[facility]] - Follow up as needed
[2018-01-14 22:57] LABS: APPEARANCE,URINE CLOUDY; BILIRUBIN,URINE MODERATE (NEGATIVE); COLOR,URINE AMBER; GLUCOSE, URINE NEGATIVE (NEGATIVE); KETONES,URINE NEGATIVE (NEGATIVE); LEUKOCYTE ESTERASE,URINE NEGATIVE (NEGATIVE); NITRITE,URINE NEGATIVE (NEGATIVE); PROTEIN,URINE 30 mg/dL (NEGATIVE); URINE SPECIFIC GRAVITY 1.025
[2018-01-15 01:32] VITALS: BP 159/74
== END 2018-01-15 01:32 | disposition home or self-care (01) ==
LOC: ER 20:10
DX: N45.1 Epididymitis (principal); N43.3 Hydrocele, unspecified; K70.31 Alcoholic cirrhosis of liver with ascites; I10 Essential (primary) hypertension; F17.200 Nicotine dependence, unspecified, uncomplicated; I25.10 Atherosclerotic heart disease of native coronary artery without angina pectoris; J44.9 Chronic obstructive pulmonary disease, unspecified; Z88.0 Allergy status to penicillin; Z88.2 Allergy status to sulfonamides
CPT/HCPCS: 76870; 81001; 87086; 93976; 99284

== ENCOUNTER 2018-01-21 22:38 | Emergency (ER) | payer SELFPAY ==
[2018-01-22] MEDS ORDERED: KETOROLAC TROMETHAMINE INJ/PF 30 MG/1 ML SDV IM ONE (00:52)
[2018-01-22] MEDS ORDERED: ONDANSETRON 4 MG TAB.RAPDIS PO ONE (00:52)
--- NOTE | 2018-01-22 00:56 | ER Document Report ---
ED General - General Chief Complaint: Testicular Pain Stated Complaint: TESTICULAR PAIN Time Seen by Provider: 01/22/18 00:51 Notes: Patient is a 52-year-old male, past medical history alcoholic liver disease with ascites, right hydrocele, presents with worsening pain in his right testicle. He was seen in the ER last week for these symptoms and was diagnosed with a hydrocele. There is also a questionable UTI and he was started on Keflex. He is taking the Keflex, but he is still having pain in his left testicle. He is also feeling some nausea. Patient has not followed up with the urologist yet. Denies dysuria, vomiting, flank pain, hematuria, rash, abdominal pain, chest pain or shortness of breath. TRAVEL OUTSIDE OF THE [place] IN LAST 30 DAYS: No - Related Data Allergies/Adverse Reactions: Penicillins Allergy (Severe, Verified 01/14/18 20:17) Sulfa (Sulfonamide Antibiotics) Allergy (Severe, Verified 01/14/18 20:17) Past Medical History - General Information source: Patient - Social History Smoking Status: Unknown if Ever Smoked Family History: Reviewed & Not Pertinent - Past Medical History Cardiac Medical History: Reports: Hx Coronary Artery Disease, Hx Hypercholesterolemia, Hx Hypertension Denies: Hx Atrial Fibrillation, Hx Congestive Heart Failure, Hx DVT, Hx Heart Attack, Hx Peripheral Vascular Disease, Hx Pulmonary Embolism, Hx Heart Murmur Pulmonary Medical History: Reports: Hx COPD, Hx Pneumonia Denies: Hx Asthma, Hx Bronchitis, Hx Respiratory Failure, Hx Sleep Apnea, Hx Tuberculosis Neurological Medical History: Reports: Hx Cerebrovascular Accident - TIA 3 years ago, Hx Seizures - Possible seizure; see history and physical, 06/25/2016 Endocrine Medical History: Denies: Hx Diabetes Mellitus Type 1, Hx Diabetes Mellitus Type 2, Hx Graves' Disease, Hx Hyperthyroidism, Hx Hypothyroidism Renal/ Medical History: Denies: Hx Benign Prostatic Hyperplasia, Hx End Stage Renal Disease, Hx Kidney Stones, Hx Peritoneal Dialysis Malignancy Medical History: Denies Hx Leukemia, Denies Hx Lung Cancer GI Medical History: Denies: Hx Cirrhosis, Hx Crohn's Disease, Hx Gastroesophageal Reflux Disease, Hx Hepatitis, Hx Hiatal Hernia, Hx Irritable Bowel, Hx Liver Failure, Hx Pancreatitis, Hx Ulcer Musculoskeltal Medical History: Reports Hx Arthritis - hands, Denies Hx Fibromyalgia, Denies Hx Multiple Sclerosis, Denies Hx Muscular Dystrophy Psychiatric Medical History: Reports: Hx Depression Denies: Hx Bipolar Disorder, Hx Dementia, Hx Post Traumatic Stress Disorder, Hx Schizophrenia Traumatic Medical History: Denies: Hx Fractures Infectious Medical History: Denies: Hx Hepatitis, Hx HIV Past Surgical History: Reports: Hx Cardiac Surgery, Hx Coronary Artery Bypass Graft - x3 (2009), Hx Coronary Stent, Hx Open Heart Surgery, Other - Incision and drainage of dental abscess, with tooth extraction, 2005.. Denies: Hx Appendectomy, Hx Bowel Surgery, Hx Cholecystectomy, Hx Colostomy, Hx Gastric Bypass Surgery, Hx Herniorrhaphy, Hx Pacemaker, Hx Tonsillectomy - Immunizations Hx Diphtheria, Pertussis, Tetanus Vaccination: Yes Hx Pneumococcal Vaccination: 05/18/12 Review of Systems - Review of Systems Notes: REVIEW OF SYSTEMS: CONSTITUTIONAL: -fevers, -chills EENT: -eye pain, -difficulty swallowing, -nasal congestion CARDIOVASCULAR: -chest pain, -syncope. RESPIRATORY: -cough, -SOB GASTROINTESTINAL: +abdominal pain, +nausea, -vomiting, -diarrhea GENITOURINARY: +right swollen testicle, -dysuria, -hematuria MUSCULOSKELETAL: -back pain, -neck pain SKIN: -rash or skin lesions. HEMATOLOGIC: -easy bruising or bleeding. LYMPHATIC: -swollen, enlarged glands. NEUROLOGICAL: -altered mental status or loss of consciousness, -headache, - neurologic symptoms PSYCHIATRIC: -anxiety, -depression. ALL OTHER SYSTEMS REVIEWED AND NEGATIVE. Physical Exam - Vital signs Vitals: Temp Pulse Resp BP Pulse Ox 98.6 F 95 16 131/59 H 98 01/21/18 23:16 01/21/18 23:16 01/21/18 23:16 01/21/18 23:16 01/21/18 23:16 - Notes Notes: PHYSICAL EXAMINATION: GENERAL: Well-appearing, well-nourished and in no acute distress. HEAD: Atraumatic, normocephalic. EYES: Pupils equal round and reactive to light, extraocular movements intact, sclera anicteric, conjunctiva are normal. ENT: nares patent, oropharynx clear without exudates. Moist mucous membranes. NECK: Normal range of motion, supple without lymphadenopathy LUNGS: Breath sounds clear to auscultation bilaterally and equal. No wheezes rales or rhonchi. HEART: Regular rate and rhythm without murmurs ABDOMEN: Soft, nontender, normoactive bowel sounds. Fluid wave present. No guarding, no rebound. No masses appreciated. : Swelling of right testicle with positive light illumination, consitent with known hydrocele. EXTREMITIES: Normal range of motion, 2+ pitting in legs. No cyanosis. NEUROLOGICAL: Cranial nerves grossly intact. Normal speech, normal gait. Normal sensory and motor exams. PSYCH: Normal mood, normal affect. SKIN: Warm, Dry, normal turgor, no rashes or lesions noted. Course - Re-evaluation Re-evalutation: Patient appears well and is in no acute distress. Abdomen soft nontender. He does have a right hydrocele diagnosed last week, but no redness and no crepitus to suggest Aide's gangrene. Blood work is unremarkable, other than hypokalemia, which was repleted in the ER, and chronic thrombocytopenia. Patient has not had any active bleeding and does not require platelets. Instructed patient to follow-up with his primary care physician for further evaluation and treatment. He is also given referral to urology for treatment of his hydrocele. - Vital Signs Vital signs: Temp Pulse Resp BP Pulse Ox 98.6 F 95 16 131/59 H 98 01/21/18 23:16 01/21/18 23:16 01/21/18 23:16 01/21/18 23:16 01/21/18 23:16 - Laboratory Result Diagrams: 01/22/18 01:20 01/22/18 01:20 Laboratory results interpreted by me: 01/22/18 01/22/18 01/22/18 01:20 01:20 01:20 RBC 2.52 L Hgb 10.4 L Hct 30.1 L MCV 120 H D MCH 41.3 H RDW 21.1 H Plt Count 44 L Band Neutrophils % 2 L Sodium 134.3 L Potassium 3.1 L Calcium 8.2 L Total Bilirubin 11.4 H Direct Bilirubin 5.4 H Alkaline Phosphatase 159 H Albumin 2.7 L Urine Protein 30 H Urine Ketones TRACE H Urine Bilirubin MODERATE H Urine Urobilinogen 4.0 H Discharge - Discharge Clinical Impression: Nausea, Hypokalemia Hydrocele Qualifiers: Hydrocele type: unspecified Qualified Code(s): N43.3 - Hydrocele, unspecified Condition: Stable Disposition: HOME, SELF-CARE Additional Instructions: You must follow-up with the urologist for further evaluation and treatment of your hydrocele. Hydrocele You have been diagnosed as having a hydrocele. The sac that holds the testicles is called the scrotum. A hydrocele is a collection of fluid in the membrane that covers the testicle(s). This may be present at or develop later on in life. The cause is usually unknown. In infants a hydrocele can be due to a miscommunication of the fluid surrounding the testes. In adults a hydrocele may form due to injury or inflammation of surrounding structures. Most hydroceles require no treatment, and usually resolve on their own. However , sometimes surgical intervention is recommended for recurrent, or for unusually large hydroceles. The surgery to fix a hydrocele is a minor procedure and usually takes about 1 and 1/2 hours. HYPOKALEMIA: You have an abnormally decreased level of serum potassium. Hypokalemia may cause weakness, fatigue, or heart rhythm abnormalities. Sometimes there are no symptoms at all. Usually, low serum potassium is due to taking diuretics ( water pills). It can also be due to excessive vomiting or diarrhea. If no obvious cause is evident, further evaluation will be necessary. Treatment is usually oral potassium supplements. Take these exactly as prescribed. You may also want to select foods which are naturally high in potassium -- fruits (such as bananas, cantaloupe, grapes, oranges, prunes, tomatoes), fresh vegetables (potatoes, spinach, beans, peas), orange or tomato juice, tomato pasta sauce, milk, fish (halibut, tuna, salmon, erwin) A follow-up blood test is usually performed to assure that the potassium is returning to normal. Call the physician if you suffer severe weakness, muscle twitching or cramping, palpitations (pounding or irregular heartbeat), or any other new or alarming symptoms. POTASSIUM: A potassium-containing medication has been prescribed. This is usually used to treat potassium depletion caused by diuretics or by vomiting and diarrhea. This type of medicine is available in many forms, including elixirs, powders, fruity drinks, and pills. If one type is not working out for you, another can be substituted. Potassium can cause stomach upset. This can be prevented by taking it with meals. Do not take more than your doctor recommends. Notify your doctor if you develop repeated vomiting, black or bloody stool , severe weakness or numbness. FOODS HIGH IN POTASSIUM: baked potato with skin 1080 mg tomato pasta sauce, 1 cup 940 sweet potato with skin 690 orange juice, 1 cup 480 malian chard 480 tuna, 3 oz 480 cantaloupe, 1 cup 430 banana 420 spinach 420 yogurt, plain, nofat, 6 oz 400 milk, 1 cup 370 watermelon, 2 cups 340 tomato, 1/2 cup 210 Other foods high in potassium are most other fruits and vegetables and fish. FOLLOW-UP CARE: If you have been referred to a physician for follow-up care, call the physician s office for an appointment as you were instructed or within the next two days. If you experience worsening or a significant change in your symptoms, notify the physician immediately or return to the Emergency Department at any time for re-evaluation. Prescriptions: Ondansetron [Zofran Odt 4 mg Tablet] 1 - 2 tab PO Q4H PRN #15 tab.rapdis PRN Reason: For Nausea/Vomiting Forms: Elevated Blood Pressure Referrals: [facility] [Provider Group] - Follow up as needed
[2018-01-22 02:08] LABS: ALANINE AMINOTRANSFERASE 48 U/L (21-72); ALBUMIN 2.7 g/dL (3.5-5.0); ALKALINE PHOSPHATASE 159 U/L (38-126); ANION GAP 10 (5-19); ASPARTATE AMINO TRANSFERASE 58 U/L (17-59); BILIRUBIN,DIRECT 5.4 mg/dL (0.0-0.4); BILIRUBIN,TOTAL 11.4 mg/dL (0.2-1.3); BLOOD UREA NITROGEN 9 mg/dL (7-20); CALCIUM 8.2 mg/dL (8.4-10.2); CARBON DIOXIDE 24 mmol/L (22-30); CHLORIDE 100 mmol/L (98-107); GLUCOSE 109 mg/dL (75-110); POTASSIUM 3.1 mmol/L (3.6-5.0); SODIUM 134.3 mmol/L (137-145); TOTAL PROTEIN 6.3 g/dL (6.3-8.2)
[2018-01-22 02:09] LABS: APPEARANCE,URINE SLIGHTLY-CLOUDY; BILIRUBIN,URINE MODERATE (NEGATIVE); COLOR,URINE AMBER; GLUCOSE, URINE NEGATIVE (NEGATIVE); KETONES,URINE TRACE mg/dL (NEGATIVE); LEUKOCYTE ESTERASE,URINE NEGATIVE (NEGATIVE); NITRITE,URINE NEGATIVE (NEGATIVE); PROTEIN,URINE 30 mg/dL (NEGATIVE); URINE SPECIFIC GRAVITY 1.024
[2018-01-22 02:12] LABS: HEMATOCRIT 30.1 % (37.9-51.0); HEMOGLOBIN 10.4 g/dL (13.5-17.0); MEAN CORPUSCULAR HEMOGLOBIN 41.3 pg (27.0-33.4); MEAN CORPUSCULAR HGB CONC 34.6 g/dL (32.0-36.0); RED BLOOD COUNT 2.52 10^6/uL (4.35-5.55); RED CELL DISTRIBUTION WIDTH 21.1 % (11.5-14.0); WHITE BLOOD COUNT 5.6 10^3/uL (4.0-10.5)
[2018-01-22] MEDS ORDERED: POTASSIUM CHLORIDE 10 MEQ TABLET.SA PO ONE (02:25)
[2018-01-22 02:46] LABS: PLATELET COUNT 44 10^3/uL (150-450)
[2018-01-22 02:58] LABS: ABSOLUTE LYMPHOCYTES# (MANUAL) 0.8 10^3/uL (0.5-4.7); ABSOLUTE MONOCYTES # (MANUAL) 0.7 10^3/uL (0.1-1.4); ANISOCYTOSIS 2+; BAND NEUTROPHILS % (MANUAL) 2 % (3-5); BASOPHILS % (MANUAL) 0 % (0-2); EOSINOPHILS % (MANUAL) 1 % (0-6); HYPOCHROMASIA 1+; LYMPHOCYTES % (MANUAL) 14 % (13-45); MONOCYTES % (MANUAL) 13 % (3-13); POLYCHROMASIA 1+; SEGMENTED NEUTROPHILS % (MAN) 70 % (42-78); TOTAL CELLS COUNTED 100; TOXIC GRANULATION 2+
[2018-01-22 02:59] LABS: PLATELET COMMENT DECREASED; POIKILOCYTOSIS 1+
[2018-01-22 03:01] LABS: MEAN CORPUSCULAR VOLUME 120 fl (80-97)
[2018-01-22 06:14] VITALS: BP 116/65
[2018-01-23 10:04] LABS: PATH REVIEW PATHOLOGIST REVIEWED
== END 2018-01-22 04:00 | disposition home or self-care (01) ==
LOC: ER 22:38
DX: N43.3 Hydrocele, unspecified (principal); E87.6 Hypokalemia; R11.0 Nausea; R10.9 Unspecified abdominal pain; D69.6 Thrombocytopenia, unspecified; I25.10 Atherosclerotic heart disease of native coronary artery without angina pectoris; I10 Essential (primary) hypertension; J44.9 Chronic obstructive pulmonary disease, unspecified; Z87.19 Personal history of other diseases of the digestive system; Z95.1 Presence of aortocoronary bypass graft; Z95.5 Presence of coronary angioplasty implant and graft; Z88.0 Allergy status to penicillin; Z88.2 Allergy status to sulfonamides
CPT/HCPCS: 99284; 96372; 36415; 85025; 80053; 81001; S0119; J1885

== ENCOUNTER 2018-01-26 22:48 | Inpatient (IN) | payer SELFPAY ==
--- NOTE | 2018-01-26 23:48 | ER Document Report ---
ED General - General Chief Complaint: Swelling Stated Complaint: TESTICULAR SWELLING Time Seen by Provider: 01/26/18 23:29 Notes: Patient is a 52-year-old male that comes to the emergency department by EMS for chief complaint of swelling to his scrotum and lower extremities. He states he has been evaluated here previously for his scrotal swelling but it was previously worse on the right and he states now it is 3 times worse and his legs have swollen for the past couple of days now to the point that he cannot walk. He denies shortness of breath, chest pain, abdominal pain. Past medical history includes cirrhosis of the liver, ascites, hypertension, alcohol abuse, and a right hydrocele that he was referred to urology for but he states he does not have insurance. He states he has not drank alcohol and 58 days. He smokes. TRAVEL OUTSIDE OF THE [place] IN LAST 30 DAYS: No - Related Data Allergies/Adverse Reactions: Penicillins Allergy (Severe, Verified 01/14/18 20:17) Sulfa (Sulfonamide Antibiotics) Allergy (Severe, Verified 01/14/18 20:17) Past Medical History - General Information source: Patient - Social History Smoking Status: Current Every Day Smoker Smoking Education Provided: Yes - <3 min Frequency of alcohol use: Former heavy user Drug Abuse: None Lives with: Alone Family History: Reviewed & Not Pertinent - Past Medical History Cardiac Medical History: Reports: Hx Coronary Artery Disease, Hx Hypercholesterolemia, Hx Hypertension Denies: Hx Atrial Fibrillation, Hx Congestive Heart Failure, Hx DVT, Hx Heart Attack, Hx Peripheral Vascular Disease, Hx Pulmonary Embolism, Hx Heart Murmur Pulmonary Medical History: Reports: Hx COPD, Hx Pneumonia Denies: Hx Asthma, Hx Bronchitis, Hx Respiratory Failure, Hx Sleep Apnea, Hx Tuberculosis Neurological Medical History: Reports: Hx Cerebrovascular Accident - TIA 3 years ago, Hx Seizures - Possible seizure; see history and physical, 06/25/2016 Endocrine Medical History: Denies: Hx Diabetes Mellitus Type 1, Hx Diabetes Mellitus Type 2, Hx Graves' Disease, Hx Hyperthyroidism, Hx Hypothyroidism Renal/ Medical History: Denies: Hx Benign Prostatic Hyperplasia, Hx End Stage Renal Disease, Hx Kidney Stones, Hx Peritoneal Dialysis Malignancy Medical History: Denies Hx Leukemia, Denies Hx Lung Cancer GI Medical History: Denies: Hx Cirrhosis, Hx Crohn's Disease, Hx Gastroesophageal Reflux Disease, Hx Hepatitis, Hx Hiatal Hernia, Hx Irritable Bowel, Hx Liver Failure, Hx Pancreatitis, Hx Ulcer Musculoskeltal Medical History: Reports Hx Arthritis - hands, Denies Hx Fibromyalgia, Denies Hx Multiple Sclerosis, Denies Hx Muscular Dystrophy Psychiatric Medical History: Reports: Hx Depression Denies: Hx Bipolar Disorder, Hx Dementia, Hx Post Traumatic Stress Disorder, Hx Schizophrenia Traumatic Medical History: Denies: Hx Fractures Infectious Medical History: Denies: Hx Hepatitis, Hx HIV Past Surgical History: Reports: Hx Cardiac Surgery, Hx Coronary Artery Bypass Graft - x3 (2009), Hx Coronary Stent, Hx Open Heart Surgery, Other - Incision and drainage of dental abscess, with tooth extraction, 2005.. Denies: Hx Appendectomy, Hx Bowel Surgery, Hx Cholecystectomy, Hx Colostomy, Hx Gastric Bypass Surgery, Hx Herniorrhaphy, Hx Pacemaker, Hx Tonsillectomy - Immunizations Hx Diphtheria, Pertussis, Tetanus Vaccination: Yes Hx Pneumococcal Vaccination: 05/18/12 Review of Systems - Review of Systems Constitutional: No symptoms reported EENT: No symptoms reported Cardiovascular: See HPI Respiratory: No symptoms reported Gastrointestinal: No symptoms reported Genitourinary: No symptoms reported Male Genitourinary: See HPI Musculoskeletal: See HPI Skin: No symptoms reported Hematologic/Lymphatic: No symptoms reported Neurological/Psychological: No symptoms reported Physical Exam - Vital signs Vitals: Temp Pulse Resp BP Pulse Ox 98.6 F 92 20 159/67 H 99 01/26/18 23:11 01/26/18 23:11 01/26/18 23:11 01/26/18 23:11 01/26/18 23:11 - Notes Notes: GENERAL: Alert, interacts well. No acute distress. HEAD: Normocephalic, atraumatic. EYES: Pupils equal, round, and reactive to light. Extraocular movements intact. Sclera are icteric ENT: Oral mucosa moist, tongue midline. NECK: Full range of motion. Supple. Trachea midline. LUNGS: Clear to auscultation bilaterally, faint expiratory wheezes, rales, or rhonchi. No respiratory distress. HEART: Regular rate and rhythm. No murmur ABDOMEN: Soft, non-tender. Minimal distention. Bowel sounds present in all 4 quadrants. EXTREMITIES: Severe 3+ pitting edema bilaterally extending up to the knees. Distal sensation, capillary refill, and pulses intact. GENITOURINARY: Swelling of the scrotum diffusely, no abnormal heat, no severe tenderness, no fluctuance or induration, no significant tenderness with palpation over the perineum. BACK: no cervical, thoracic, lumbar midline tenderness. No saddle anesthesia, normal distal neurovascular exam. NEUROLOGICAL: Alert and oriented x3. Normal speech. [cranial nerves II through XII grossly intact]. PSYCH: Normal affect, normal mood. SKIN: Warm, dry, normal turgor. No rashes or lesions noted. Skin is icteric Course - Re-evaluation Re-evalutation: Patient with severe lower extremity edema bilaterally, swelling of the scrotum, however abdomen is not significantly distended or rigid. CBC shows anemia, PT and PTT elevated, chemistry shows hyponatremia and hypoalbuminemia. Slight wheezing on exam, no rales. Appears to be lower extremity swelling secondary to hypoalbuminemia secondary to cirrhosis of the liver. Patient states that he was on diuretics but they were too expensive after there was prescribed when he was released from [facility]. He is currently not taking any daily medications. Beginning Lasix, because patient cannot ambulate because of the severe swelling will discuss with hospitalist for potential admission. Discussed with Dr. Sawant. Discussed with Dr. Freire, patient will be admitted to telemetry full admission. Patient states agreement with this plan. - Vital Signs Vital signs: Temp Pulse Resp BP Pulse Ox 98.4 F 88 20 128/61 H 99 01/27/18 03:55 01/27/18 04:30 01/27/18 03:55 01/27/18 03:55 01/27/18 03:55 - Laboratory Result Diagrams: 01/27/18 04:11 01/27/18 04:11 Laboratory results interpreted by me: 01/27/18 01/27/18 01/27/18 00:12 00:12 01:10 RBC 2.49 L Hgb 10.1 L Hct 29.1 L MCV 117 H MCH 40.4 H RDW 19.7 H Plt Count 90 L PT 22.7 H APTT 37.0 H Sodium 132.3 L Calcium 8.1 L Total Bilirubin 8.1 H Direct Bilirubin 3.9 H Alkaline Phosphatase 270 H Total Protein 5.7 L Albumin 2.4 L Discharge - Discharge Clinical Impression: Hypoalbuminemia, Swelling of lower extremity, Scrotal swelling Condition: Stable Disposition: ADMITTED INPATIENT Admitting Provider: Hospitalist Unit Admitted: Telemetry
[2018-01-27] MEDS ORDERED: MORPHINE SULFATE 10 MG/ML INJ IV ONE (00:14)
[2018-01-27 00:26] LABS: ABSOLUTE BASOPHILS # (AUTO) 0.1 10^3/uL (0.0-0.2); ABSOLUTE EOSINOPHILS # (AUTO) 0.2 10^3/uL (0.0-0.6); ABSOLUTE LYMPHOCYTES (AUTO) 1.3 10^3/uL (0.5-4.7); ABSOLUTE MONOCYTES (AUTO) 0.7 10^3/uL (0.1-1.4); ABSOLUTE NEUT (AUTO) 3.9 10^3/uL (1.7-8.2); BASOPHILS % (AUTO) 1.1 % (0-2); EOSINOPHILS % (AUTO) 3.1 % (0-6); HEMATOCRIT 29.1 % (37.9-51.0); HEMOGLOBIN 10.1 g/dL (13.5-17.0); LYMPHOCYTES % (AUTO) 21.3 % (13-45); MEAN CORPUSCULAR HEMOGLOBIN 40.4 pg (27.0-33.4); MEAN CORPUSCULAR HGB CONC 34.6 g/dL (32.0-36.0); MEAN CORPUSCULAR VOLUME 117 fl (80-97); RED BLOOD COUNT 2.49 10^6/uL (4.35-5.55); RED CELL DISTRIBUTION WIDTH 19.7 % (11.5-14.0); SEGMENTED NEUTROPHILS % (AUTO) 63.5 % (42-78); TOTAL CELLS COUNTED % (AUTO) 100 %; WHITE BLOOD COUNT 6.1 10^3/uL (4.0-10.5)
[2018-01-27 00:31] LABS: INTERNATIONAL RATION (INR) 1.89; PROTHROMBIN TIME 22.7 SEC (11.4-15.4)
[2018-01-27 00:45] LABS: PLATELET COUNT 90 10^3/uL (150-450)
[2018-01-27 00:51] LABS: ANISOCYTOSIS 2+; PLATELET COMMENT DECREASED; POIKILOCYTOSIS SLIGHT; POLYCHROMASIA SLIGHT; TOXIC GRANULATION 1+
[2018-01-27 01:38] LABS: ALANINE AMINOTRANSFERASE 50 U/L (21-72); ALBUMIN 2.4 g/dL (3.5-5.0); ALCOHOL < 10 mg/dL (NONE DETECTED); ALKALINE PHOSPHATASE 270 U/L (38-126); ANION GAP 8 (5-19); ASPARTATE AMINO TRANSFERASE 58 U/L (17-59); BILIRUBIN,DIRECT 3.9 mg/dL (0.0-0.4); BILIRUBIN,TOTAL 8.1 mg/dL (0.2-1.3); BLOOD UREA NITROGEN 11 mg/dL (7-20); CALCIUM 8.1 mg/dL (8.4-10.2); CARBON DIOXIDE 22 mmol/L (22-30); CHLORIDE 102 mmol/L (98-107); GLUCOSE 96 mg/dL (75-110); POTASSIUM 3.7 mmol/L (3.6-5.0); SODIUM 132.3 mmol/L (137-145); TOTAL PROTEIN 5.7 g/dL (6.3-8.2)
[2018-01-27] MEDS ORDERED: FUROSEMIDE INJ/PF 40 MG/4 ML SDV IV ONE ×2 (02:07→16:44)
[2018-01-27] MEDS ORDERED: SPIRONOLACTONE 25 MG TABLET PO ONE (02:20)
[2018-01-27] MEDS ORDERED: PHYTONADIONE INJ 10 MG/1 ML AMPULE SUBCUT ONE (02:20)
[2018-01-27] MEDS ORDERED: POTASSIUM CHLORIDE 20 MEQ/15 ML UDCUP PO ONE (02:21)
[2018-01-27] MEDS ORDERED: MAG HYDROX/AL HYDROX/SIMETH SUSP 30 ML UDCUP PO PRN (02:22)
[2018-01-27] MEDS ORDERED: IPRATROPIUM/ALBUTEROL 0.5-2.5 MG/3 ML AMPUL NEB PRN (02:22)
[2018-01-27] MEDS ORDERED: MAGNESIUM HYDROXIDE SUSP 30 ML UDCUP PO PRN (02:22)
[2018-01-27] MEDS ORDERED: THIAMINE HCL 100 MG, FOLIC ACID 1 MG in NORMAL SALINE 250 ML IV ONE (03:00)
[2018-01-27] MEDS ORDERED: FOLIC ACID INJ 5 MG/1 ML 10 ML VIAL IV PRN (03:01)
[2018-01-27] MEDS ORDERED: THIAMINE HCL INJ 200 MG/2 ML VIAL IV PRN (03:01)
[2018-01-27 04:58] LABS: ABSOLUTE BASOPHILS # (AUTO) 0.1 10^3/uL (0.0-0.2); ABSOLUTE EOSINOPHILS # (AUTO) 0.2 10^3/uL (0.0-0.6); ABSOLUTE LYMPHOCYTES (AUTO) 1.5 10^3/uL (0.5-4.7); ABSOLUTE MONOCYTES (AUTO) 0.7 10^3/uL (0.1-1.4); ABSOLUTE NEUT (AUTO) 3.7 10^3/uL (1.7-8.2); BASOPHILS % (AUTO) 1.3 % (0-2); EOSINOPHILS % (AUTO) 3.7 % (0-6); HEMATOCRIT 30.9 % (37.9-51.0); HEMOGLOBIN 10.8 g/dL (13.5-17.0); LYMPHOCYTES % (AUTO) 24.2 % (13-45); MEAN CORPUSCULAR HGB CONC 35.1 g/dL (32.0-36.0); MEAN CORPUSCULAR VOLUME 117 fl (80-97); MONOCYTES % (AUTO) 11.2 % (3-13); RED BLOOD COUNT 2.64 10^6/uL (4.35-5.55); RED CELL DISTRIBUTION WIDTH 19.5 % (11.5-14.0); SEGMENTED NEUTROPHILS % (AUTO) 59.6 % (42-78); TOTAL CELLS COUNTED % (AUTO) 100 %; WHITE BLOOD COUNT 6.1 10^3/uL (4.0-10.5)
[2018-01-27] MEDS ORDERED: RIFAXIMIN 200 MG TABLET PO ONE (05:00)
[2018-01-27 05:08] LABS: ALANINE AMINOTRANSFERASE 49 U/L (21-72); ALBUMIN 2.5 g/dL (3.5-5.0); ALKALINE PHOSPHATASE 258 U/L (38-126); ANION GAP 11 (5-19); ASPARTATE AMINO TRANSFERASE 62 U/L (17-59); BILIRUBIN,DIRECT 4.2 mg/dL (0.0-0.4); BILIRUBIN,TOTAL 9.1 mg/dL (0.2-1.3); BLOOD UREA NITROGEN 12 mg/dL (7-20); CALCIUM 8.3 mg/dL (8.4-10.2); CARBON DIOXIDE 22 mmol/L (22-30); CHLORIDE 102 mmol/L (98-107); GLUCOSE 96 mg/dL (75-110); POTASSIUM 3.6 mmol/L (3.6-5.0); SODIUM 134.8 mmol/L (137-145); TOTAL PROTEIN 6.1 g/dL (6.3-8.2)
[2018-01-27 05:31] LABS: POLYCHROMASIA SLIGHT; TOXIC GRANULATION 2+
[2018-01-27 05:32] LABS: ANISOCYTOSIS 3+; PLATELET COMMENT DECREASED; POIKILOCYTOSIS SLIGHT; SCHISTOCYTES SLIGHT
[2018-01-27] MEDS ORDERED: RIFAXIMIN 200 MG TABLET ONE (05:38)
[2018-01-27 05:47] LABS: PLATELET COUNT 84 10^3/uL (150-450)
[2018-01-27] MEDS: LACTULOSE SYRUP 20 GM/30 ML UDCUP PO SCH ×3 (06:04→22:19)
--- NOTE | 2018-01-27 08:24 | EKG REPORT ---
SEVERITY:- ABNORMAL ECG - SINUS RHYTHM PROBABLE LEFT ATRIAL ABNORMALITY INFERIOR INFARCT, AGE INDETERMINATE : Confirmed by: Howard Adrian 27-Jan-2018 08:23:36
[2018-01-27] MEDS: CLOPIDOGREL BISULFATE 75 MG TABLET PO SCH (09:08)
[2018-01-27] MEDS: RIFAXIMIN 200 MG TABLET PO SCH ×3 (09:13→17:28)
[2018-01-27] MEDS: DOCUSATE SODIUM 100 MG CAPSULE PO SCH ×2 (09:13→17:29)
--- NOTE | 2018-01-27 16:48 | Progress Note ---
Provider Note Provider Note: This is a 52-year-old male patient with alcohol induced cirrhosis admitted with anasarca. Patient has bilateral edema including scrotal swelling. I explained to the patient in layman language of fat necrosis his anasarca. I told him also, all the treatment we are going to give him is a temporizing measure.
[2018-01-27] MEDS ORDERED: FUROSEMIDE INJ/PF 100 MG/10 ML SDV IV ONE (17:15)
[2018-01-27] MEDS ORDERED: KETOROLAC TROMETHAMINE INJ/PF 30 MG/1 ML SDV IV ONE (18:45)
[2018-01-27] MEDS: ALBUMIN HUMAN 12.5 GM/50 ML RTUINJ IV SCH ×2 (19:14→20:55)
[2018-01-27] MEDS: SPIRONOLACTONE 25 MG TABLET PO SCH (22:19)
[2018-01-28] MEDS: KETOROLAC TROMETHAMINE INJ/PF 30 MG/1 ML SDV IV PRN ×2 (03:07→13:55)
[2018-01-28 05:25] LABS: ABSOLUTE EOSINOPHILS # (AUTO) 0.2 10^3/uL (0.0-0.6); ABSOLUTE LYMPHOCYTES (AUTO) 1.4 10^3/uL (0.5-4.7); ABSOLUTE MONOCYTES (AUTO) 0.8 10^3/uL (0.1-1.4); ABSOLUTE NEUT (AUTO) 3.4 10^3/uL (1.7-8.2); BASOPHILS % (AUTO) 0.8 % (0-2); EOSINOPHILS % (AUTO) 3.1 % (0-6); HEMATOCRIT 25.9 % (37.9-51.0); HEMOGLOBIN 9.1 g/dL (13.5-17.0); LYMPHOCYTES % (AUTO) 24.7 % (13-45); MEAN CORPUSCULAR HGB CONC 35.2 g/dL (32.0-36.0); RED BLOOD COUNT 2.23 10^6/uL (4.35-5.55); RED CELL DISTRIBUTION WIDTH 18.5 % (11.5-14.0); SEGMENTED NEUTROPHILS % (AUTO) 58.4 % (42-78); TOTAL CELLS COUNTED % (AUTO) 100 %; WHITE BLOOD COUNT 5.8 10^3/uL (4.0-10.5)
[2018-01-28 05:36] LABS: ALANINE AMINOTRANSFERASE 40 U/L (21-72); ALBUMIN 2.3 g/dL (3.5-5.0); ALKALINE PHOSPHATASE 185 U/L (38-126); ANION GAP 12 (5-19); ASPARTATE AMINO TRANSFERASE 50 U/L (17-59); BILIRUBIN,DIRECT 3.6 mg/dL (0.0-0.4); BILIRUBIN,TOTAL 7.7 mg/dL (0.2-1.3); BLOOD UREA NITROGEN 13 mg/dL (7-20); CALCIUM 8.3 mg/dL (8.4-10.2); CARBON DIOXIDE 21 mmol/L (22-30); CHLORIDE 103 mmol/L (98-107); GLUCOSE 100 mg/dL (75-110); POTASSIUM 3.2 mmol/L (3.6-5.0); SODIUM 135.5 mmol/L (137-145); TOTAL PROTEIN 5.3 g/dL (6.3-8.2)
[2018-01-28] MEDS: LACTULOSE SYRUP 20 GM/30 ML UDCUP PO SCH ×2 (05:54→14:52)
[2018-01-28 06:24] LABS: MEAN CORPUSCULAR VOLUME 117 fl (80-97)
[2018-01-28 06:25] LABS: PLATELET COUNT 80 10^3/uL (150-450)
[2018-01-28] MEDS: THIAMINE HCL 100 MG, FOLIC ACID 1 MG in NORMAL SALINE 250 ML IV SCH (08:56)
[2018-01-28] MEDS ORDERED: FUROSEMIDE INJ/PF 40 MG/4 ML SDV IV ONE (09:02)
[2018-01-28] MEDS ORDERED: FUROSEMIDE INJ/PF 100 MG/10 ML SDV IV ONE (09:45)
[2018-01-28] MEDS ORDERED: POTASSIUM CHLORIDE 10 MEQ TABLET.SA PO ONE (09:45)
[2018-01-28] MEDS: DOCUSATE SODIUM 100 MG CAPSULE PO SCH ×2 (09:53→17:06)
[2018-01-28] MEDS: CLOPIDOGREL BISULFATE 75 MG TABLET PO SCH (09:53)
[2018-01-28] MEDS: ASPIRIN 81 MG TABLET, ENT COATED PO SCH (09:54)
[2018-01-28] MEDS: RIFAXIMIN 200 MG TABLET PO SCH ×3 (09:54→17:05)
[2018-01-28] MEDS: ALBUMIN HUMAN 12.5 GM/50 ML RTUINJ IV SCH ×3 (09:54→12:16)
[2018-01-28] MEDS: SPIRONOLACTONE 25 MG TABLET PO SCH ×2 (09:54→21:23)
--- NOTE | 2018-01-28 12:21 | PDOC PROGRESS REPORT ---
Subjective Progress Note for:: 01/28/18 Subjective:: This is 53 years old male patient admitted for anasarca and ascites due to alcohol induced cirrhosis. Patient has been started on Aldactone and Lasix and his leg edema and scrotal swelling is relatively improved. Patient does not have any acute constitutional symptoms. Reason For Visit: ALCOHOLIC HEPATITIS W HEPATIC FAILURE, ANEMIA Physical Exam Vital Signs: Temp Pulse Resp BP Pulse Ox 98.6 F 92 19 166/56 H 99 01/28/18 11:06 01/28/18 11:06 01/28/18 11:06 01/28/18 11:06 01/28/18 11:06 Intake & Output 01/27/18 01/28/18 01/29/18 06:59 06:59 06:59 Intake Total 130 685 Output Total 525 600 Balance -395 85 Weight 95 kg General appearance: PRESENT: no acute distress, well-developed, well-nourished Head exam: PRESENT: atraumatic, normocephalic Eye exam: PRESENT: conjunctiva pink, EOMI, PERRLA. ABSENT: scleral icterus Ear exam: PRESENT: normal external ear exam Mouth exam: PRESENT: moist, tongue midline Neck exam: ABSENT: carotid bruit, JVD, lymphadenopathy, thyromegaly Respiratory exam: PRESENT: clear to auscultation noreen. ABSENT: rales, rhonchi, wheezes Cardiovascular exam: PRESENT: RRR. ABSENT: diastolic murmur, rubs, systolic murmur Pulses: PRESENT: normal dorsalis pedis pul Vascular exam: PRESENT: normal capillary refill GI/Abdominal exam: PRESENT: normal bowel sounds, soft. ABSENT: distended, guarding, mass, organolmegaly, rebound, tenderness Rectal exam: PRESENT: deferred Gentrourinary exam: PRESENT: scrotal swelling Extremities exam: PRESENT: full ROM, other - Bilateral extensive edema. ABSENT : calf tenderness, clubbing, pedal edema Neurological exam: PRESENT: alert, awake, oriented to person, oriented to place , oriented to time, oriented to situation, CN II-XII grossly intact. ABSENT: motor sensory deficit Psychiatric exam: PRESENT: appropriate affect, normal mood. ABSENT: homicidal ideation, suicidal ideation Skin exam: PRESENT: dry, intact, warm. ABSENT: cyanosis, rash Results Laboratory Results: 01/28/18 04:07 01/28/18 04:07 01/28/18 01/28/18 04:07 04:07 WBC 5.8 RBC 2.23 L Hgb 9.1 L Hct 25.9 L MCV 117 H MCH 41.0 H MCHC 35.2 RDW 18.5 H Plt Count 80 L Seg Neutrophils % 58.4 Lymphocytes % 24.7 Monocytes % 13.0 Eosinophils % 3.1 Basophils % 0.8 Absolute Neutrophils 3.4 Absolute Lymphocytes 1.4 Absolute Monocytes 0.8 Absolute Eosinophils 0.2 Absolute Basophils 0.0 Sodium 135.5 L Potassium 3.2 L Chloride 103 Carbon Dioxide 21 L Anion Gap 12 BUN 13 Creatinine 0.82 Est GFR ( Amer) > 60 Est GFR (Non-Af Amer) > 60 Glucose 100 Calcium 8.3 L Total Bilirubin 7.7 H AST 50 ALT 40 Alkaline Phosphatase 185 H Total Protein 5.3 L Albumin 2.3 L Assessment & Plan - Diagnosis (1) Anasarca Is this a current diagnosis for this admission?: Yes Plan: Due to #2 Patient is being diuresed cautiously (2) Decompensated hepatic cirrhosis Is this a current diagnosis for this admission?: Yes Plan: Patient has been on lactulose, rifaximin and Lasix. (3) Hypokalemia Is this a current diagnosis for this admission?: Yes Plan: We will replete and check his BMP in a.m. (4) Alcohol dependence Is this a current diagnosis for this admission?: Yes Plan: Patient claims that he is sober for the last 60 days. - Time Time Spent with patient: 25-34 minutes
[2018-01-29 05:00] LABS: ABSOLUTE BASOPHILS # (AUTO) 0.1 10^3/uL (0.0-0.2); ABSOLUTE EOSINOPHILS # (AUTO) 0.1 10^3/uL (0.0-0.6); ABSOLUTE LYMPHOCYTES (AUTO) 1.5 10^3/uL (0.5-4.7); ABSOLUTE MONOCYTES (AUTO) 0.6 10^3/uL (0.1-1.4); ABSOLUTE NEUT (AUTO) 3.4 10^3/uL (1.7-8.2); BASOPHILS % (AUTO) 2.4 % (0-2); EOSINOPHILS % (AUTO) 2.6 % (0-6); HEMATOCRIT 25.1 % (37.9-51.0); HEMOGLOBIN 8.8 g/dL (13.5-17.0); LYMPHOCYTES % (AUTO) 26.1 % (13-45); MEAN CORPUSCULAR HEMOGLOBIN 40.7 pg (27.0-33.4); MEAN CORPUSCULAR HGB CONC 35.1 g/dL (32.0-36.0); MONOCYTES % (AUTO) 10.2 % (3-13); RED BLOOD COUNT 2.17 10^6/uL (4.35-5.55); RED CELL DISTRIBUTION WIDTH 18.4 % (11.5-14.0); SEGMENTED NEUTROPHILS % (AUTO) 58.7 % (42-78); TOTAL CELLS COUNTED % (AUTO) 100 %; WHITE BLOOD COUNT 5.7 10^3/uL (4.0-10.5)
[2018-01-29 05:19] LABS: ANION GAP 10 (5-19); BLOOD UREA NITROGEN 16 mg/dL (7-20); CALCIUM 8.3 mg/dL (8.4-10.2); CARBON DIOXIDE 23 mmol/L (22-30); CHLORIDE 101 mmol/L (98-107); GLUCOSE 91 mg/dL (75-110); POTASSIUM 3.8 mmol/L (3.6-5.0); SODIUM 133.9 mmol/L (137-145)
[2018-01-29 06:43] LABS: MEAN CORPUSCULAR VOLUME 116 fl (80-97); PLATELET COUNT 79 10^3/uL (150-450)
[2018-01-29] MEDS: THIAMINE HCL 100 MG, FOLIC ACID 1 MG in NORMAL SALINE 250 ML IV SCH (08:28)
[2018-01-29] MEDS: CLOPIDOGREL BISULFATE 75 MG TABLET PO SCH (09:25)
[2018-01-29] MEDS: ASPIRIN 81 MG TABLET, ENT COATED PO SCH (09:25)
[2018-01-29] MEDS: RIFAXIMIN 200 MG TABLET PO SCH (09:25)
[2018-01-29] MEDS: SPIRONOLACTONE 25 MG TABLET PO SCH (09:26)
[2018-01-29] MEDS: DOCUSATE SODIUM 100 MG CAPSULE PO SCH (09:26)
[2018-01-29] MEDS ORDERED: LACTULOSE SYRUP 20 GM/30 ML UDCUP PO SCH (10:00)
[2018-01-29 11:09] VITALS: BP 128/61
--- NOTE | 2018-01-29 11:24 | PDOC DISCHARGE SUMMARY ---
General - Admit/Disc Date/PCP Admission Date/Primary Care Provider: 01/27/18 02:25 Discharge Date: 01/29/18 - Discharge Diagnosis (1) Anasarca Is this a current diagnosis for this admission?: Yes (2) Decompensated hepatic cirrhosis Is this a current diagnosis for this admission?: Yes (3) Hypokalemia Is this a current diagnosis for this admission?: Yes (4) Alcohol dependence Is this a current diagnosis for this admission?: Yes - Additional Information Resuscitation Status: Full Code Discharge Diet: As Tolerated Discharge Activity: Activity As Tolerated Prescriptions: Ca/D3/Mag Ox/Zinc/Restrike Hammer Operator/Neal/Bor [Calcium 279-R3-Iymjqqnn Chw Tb] 1 each PO BID # 60 tab.chew Furosemide [Lasix 40 mg Tablet] 40 mg PO QAM #30 tablet Potassium Chloride [Klor-Con 10] 10 meq PO DAILY #30 tablet.er Spironolactone [Aldactone 25 mg Tablet] 25 mg PO Q12 #60 tablet Home Medications: Thiamine Mononitrate (Vit B1) [Vitamin B-1] 100 mg PO DAILY 01/27/18 Ca/D3/Mag Ox/Zinc/Restrike Hammer Operator/Neal/Bor [Calcium 713-F4-Puudhzsx Chw Tb] 1 each PO BID # 60 tab.chew 01/29/18 Furosemide [Lasix 40 mg Tablet] 40 mg PO QAM #30 tablet 01/29/18 Potassium Chloride [Klor-Con 10] 10 meq PO DAILY #30 tablet.er 01/29/18 Spironolactone [Aldactone 25 mg Tablet] 25 mg PO Q12 #60 tablet 01/29/18 History of Present Illness History of Present Illness: TASHA FUENTES is a 52 year old male that comes to the emergency department by EMS for chief complaint of swelling to his scrotum and lower extremities. He states he has been evaluated here previously for his scrotal swelling but it was previously worse on the right and he states now it is 3 times worse and his legs have swollen for the past couple of days now to the point that he cannot walk. He denies shortness of breath, chest pain, abdominal pain. Past medical history includes cirrhosis of the liver, ascites, hypertension, alcohol abuse, and a right hydrocele that he was referred to urology for but he states he does not have insurance. He states he has not drank alcohol and 58 days. He smokes. Hospital Course Hospital Course: This is a 52 years old male patient admitted with anasarca and gross ascites secondary to decompensated alcohol induced cirrhosis. Patient has been managed to supportively with IV Lasix, Aldactone, lactulose and rifaximin. The edema of his scrotum and bilateral legs has relatively decreased. This morning when examined the patient was awake alert and oriented. He requests this to be discharged today because a friend of his is going to have surgery. I try to convince him to stay 1 or 2 more days more but he insisted and is adamant for discharge. I will continue all his home medication and added for him magnesium hydroxide to his calcium and vitamin D, Aldactone, KCl and Lasix. I advised him to see his primary care physician. Physical Exam Vital Signs: Temp Pulse Resp BP Pulse Ox 98.1 F 95 16 128/61 H 99 01/29/18 11:07 01/29/18 11:07 01/29/18 11:07 01/29/18 11:07 01/29/18 11:07 Intake & Output 01/28/18 01/29/18 01/30/18 06:59 06:59 06:59 Intake Total 685 1385 Output Total 600 1150 Balance 85 235 Weight 102.4 kg General appearance: PRESENT: no acute distress Head exam: PRESENT: atraumatic Eye exam: PRESENT: conjunctiva pink Respiratory exam: PRESENT: clear to auscultation noreen. ABSENT: rales, rhonchi, wheezes Cardiovascular exam: PRESENT: RRR. ABSENT: diastolic murmur, rubs, systolic murmur GI/Abdominal exam: PRESENT: ascites Extremities exam: PRESENT: other - Gross edema of both legs and scrotum Results Laboratory Results: 01/29/18 03:42 01/29/18 03:42 01/29/18 01/29/18 03:42 03:42 WBC 5.7 RBC 2.17 L Hgb 8.8 L Hct 25.1 L MCV 116 H MCH 40.7 H MCHC 35.1 RDW 18.4 H Plt Count 79 L Seg Neutrophils % 58.7 Lymphocytes % 26.1 Monocytes % 10.2 Eosinophils % 2.6 Basophils % 2.4 H Absolute Neutrophils 3.4 Absolute Lymphocytes 1.5 Absolute Monocytes 0.6 Absolute Eosinophils 0.1 Absolute Basophils 0.1 Sodium 133.9 L Potassium 3.8 Chloride 101 Carbon Dioxide 23 Anion Gap 10 BUN 16 Creatinine 0.87 Est GFR ( Amer) > 60 Est GFR (Non-Af Amer) > 60 Glucose 91 Calcium 8.3 L Qualifiers - * PATIENT BEING DISCHARGED WITH ANY OF THE FOLLOWING DIAGNOSIS: No
== END 2018-01-29 11:40 | disposition home or self-care (01) | DRG 433 ==
LOC: ER 22:48 → EH 01-27 02:25 → 5 01-27 03:55
PROVIDERS: ADMIT Internal Medicine; ATTEND Internal Medicine
PROC: 3E0F73Z Introduction of Anti-inflammatory into Respiratory Tract, Via Natural or Artificial Opening (ICD-10-PCS; principal; 2018-01-27)
DX: K70.31 Alcoholic cirrhosis of liver with ascites (principal); F10.288 Alcohol dependence with other alcohol-induced disorder; E87.6 Hypokalemia; I10 Essential (primary) hypertension; N43.3 Hydrocele, unspecified; K70.11 Alcoholic hepatitis with ascites; F10.20 Alcohol dependence, uncomplicated; D64.9 Anemia, unspecified; I25.10 Atherosclerotic heart disease of native coronary artery without angina pectoris; E78.00 Pure hypercholesterolemia, unspecified; M19.042 Primary osteoarthritis, left hand; M19.041 Primary osteoarthritis, right hand; F17.210 Nicotine dependence, cigarettes, uncomplicated; F32.9 Major depressive disorder, single episode, unspecified; Z60.2 Problems related to living alone; Z88.0 Allergy status to penicillin; Z88.2 Allergy status to sulfonamides; Z86.73 Personal history of transient ischemic attack (TIA), and cerebral infarction without residual deficits; Z95.1 Presence of aortocoronary bypass graft; Z95.5 Presence of coronary angioplasty implant and graft
CPT/HCPCS: 36415; 80048; 80053; 80307; 83735; 84100; 85025; 85610; 85730; 93005; 93010; 96374; 99285; A9270 GY; J1885; J1940; J2270; J3411; J3430; J3490; J7050; P9047

== ENCOUNTER 2018-02-14 14:47 | Inpatient (IN) | payer SELFPAY ==
--- NOTE | 2018-02-14 15:14 | ER Document Report ---
ED Medical Screen (RME) - General Chief Complaint: Shoulder Pain Stated Complaint: SHOULDER PAIN Time Seen by Provider: 02/14/18 15:03 Mode of Arrival: Wheelchair Information source: Patient Notes: Patient states that he had a left shoulder injury a month ago after falling. Patient denies any recent injury to the shoulder. Patient complains of left shoulder pain that goes into the left upper chest and upper back area. Patient also complains of left lateral side pain with nausea and vomiting 3 episodes today. Patient reports left lower extremity swelling for the past 1-2 months. Patient does have a history of liver failure. Patient is visibly jaundiced. I have greeted and performed a rapid initial assessment of this patient. A comprehensive ED assessment and evaluation of the patient, analysis of test results and completion of the medical decision making process will be conducted by additional ED providers. TRAVEL OUTSIDE OF THE [place] IN LAST 30 DAYS: No - Related Data Allergies/Adverse Reactions: Penicillins Allergy (Severe, Verified 01/27/18 09:02) Sulfa (Sulfonamide Antibiotics) Allergy (Severe, Verified 01/27/18 09:02) Past Medical History - Past Medical History Cardiac Medical History: Reports: Hx Coronary Artery Disease, Hx Hypercholesterolemia, Hx Hypertension Denies: Hx Atrial Fibrillation, Hx Congestive Heart Failure, Hx DVT, Hx Heart Attack, Hx Peripheral Vascular Disease, Hx Pulmonary Embolism, Hx Heart Murmur Pulmonary Medical History: Reports: Hx COPD, Hx Pneumonia Denies: Hx Asthma, Hx Bronchitis, Hx Respiratory Failure, Hx Sleep Apnea, Hx Tuberculosis Neurological Medical History: Reports: Hx Cerebrovascular Accident - TIA 3 years ago, Hx Seizures - Possible seizure; see history and physical, 06/25/2016 Endocrine Medical History: Denies: Hx Diabetes Mellitus Type 1, Hx Diabetes Mellitus Type 2, Hx Graves' Disease, Hx Hyperthyroidism, Hx Hypothyroidism Renal/ Medical History: Denies: Hx Benign Prostatic Hyperplasia, Hx End Stage Renal Disease, Hx Kidney Stones, Hx Peritoneal Dialysis Malignancy Medical History: Denies Hx Leukemia, Denies Hx Lung Cancer GI Medical History: Denies: Hx Cirrhosis, Hx Crohn's Disease, Hx Gastroesophageal Reflux Disease, Hx Hepatitis, Hx Hiatal Hernia, Hx Irritable Bowel, Hx Liver Failure, Hx Pancreatitis, Hx Ulcer Musculoskeltal Medical History: Reports Hx Arthritis - hands, Denies Hx Fibromyalgia, Denies Hx Multiple Sclerosis, Denies Hx Muscular Dystrophy Psychiatric Medical History: Reports: Hx Depression Denies: Hx Bipolar Disorder, Hx Dementia, Hx Post Traumatic Stress Disorder, Hx Schizophrenia Traumatic Medical History: Denies: Hx Fractures Infectious Medical History: Denies: Hx Hepatitis, Hx HIV Past Surgical History: Reports: Hx Cardiac Surgery, Hx Coronary Artery Bypass Graft - x3 (2009), Hx Coronary Stent, Hx Open Heart Surgery, Other - Incision and drainage of dental abscess, with tooth extraction, 2005.. Denies: Hx Appendectomy, Hx Bowel Surgery, Hx Cholecystectomy, Hx Colostomy, Hx Gastric Bypass Surgery, Hx Herniorrhaphy, Hx Pacemaker, Hx Tonsillectomy - Immunizations Hx Diphtheria, Pertussis, Tetanus Vaccination: Yes Physical Exam - Vital signs Vitals: Temp Pulse Resp BP Pulse Ox 98.5 F 91 18 152/86 H 100 02/14/18 14:56 02/14/18 14:56 02/14/18 14:56 02/14/18 14:56 02/14/18 14:56 - General General appearance: Alert In distress: Mild Notes: Patient icteric, left lateral side tenderness with palpation, left lower extremity edematous Course - Vital Signs Vital signs: Temp Pulse Resp BP Pulse Ox 98.5 F 91 18 152/86 H 100 02/14/18 14:56 02/14/18 14:56 02/14/18 14:56 02/14/18 14:56 02/14/18 14:56
[2018-02-14] MEDS ORDERED: FENTANYL CITRATE INJ/PF 100 MCG/2 ML AMPUL IV ONE (15:25)
--- NOTE | 2018-02-14 15:30 | ER Document Report ---
ED General - General Chief Complaint: Shoulder Pain Stated Complaint: SHOULDER PAIN Time Seen by Provider: 02/14/18 15:03 Mode of Arrival: Wheelchair Notes: Chief complaint: Left shoulder pain History of complain:( obtained from----patient) 52 years old male with alcoholic cirrhosis, jaundice presents today with left shoulder pain. He had a dislocated shoulder 2 months ago apparently it was corrected, but he continuously having the pain and last few days was unbearable therefore he presented to the ED. He also jaundiced, and has stopped drinking alcohol for the last 80 days. Has nausea no vomiting. Has generalized body aches and pain as well as abdominal pain. Denies any diarrhea dysuria or frequency. Onset: 2 months ago gradual Duration: 2 months ago Severity: Severe Quality: Sharp Context:fall and dislocation Exacerbating factor and relieving factors: REVIEW OF SYSTEMS: CONSTITUTIONAL : Denies fever, chills, or sweats. Denies recent illness. EENT: Denies eye, ear, throat, or mouth pain or symptoms. Denies nasal or sinus congestion or discharge. Denies throat, tongue, or mouth swelling or difficulty swallowing. CARDIOVASCULAR: Denies chest pain. Denies palpitations or racing or irregular heart beat. Denies ankle edema. RESPIRATORY: Denies cough, cold, or chest congestion. Denies shortness of breath, difficulty breathing, or wheezing. GASTROINTESTINAL: As per history of complain GENITOURINARY: Denies difficulty urinating, painful urination, burning, frequency, blood in urine, or discharge. FEMALE GENITOURINARY: Denies vaginal bleeding, heavy or abnormal periods, irregular periods. Denies vaginal discharge or odor. MUSCULOSKELETAL: As per history of complain SKIN: Lower leg edema. HEMATOLOGIC : Denies easy bruising or bleeding. LYMPHATIC: Denies swollen, enlarged glands. NEUROLOGICAL: Denies confusion or altered mental status. Denies passing out or loss of consciousness. Denies dizziness or lightheadedness. Denies headache. Denies weakness or paralysis or loss of use of either side. Denies problems with gait or speech. Denies sensory loss, numbness, or tingling. Denies seizures. PSYCHIATRIC: Denies anxiety or stress. Denies depression, suicidal ideation, or homicidal ideation. ALL OTHER SYSTEMS REVIEWED AND NEGATIVE. PHYSICAL EXAMINATION: GENERAL: Appears very sick, seems to be in severe pain. Icteric and jaundiced HEAD: Atraumatic, normocephalic. EYES: Pupils equal round and reactive to light, extraocular movements intact, conjunctiva are normal. ENT: Nares patent, oropharynx clear without exudates. Moist mucous membranes. NECK: Normal range of motion, supple without lymphadenopathy LUNGS: Breath sounds clear to auscultation bilaterally and equal. No wheezes rales or rhonchi. HEART: Regular rate and rhythm without murmurs ABDOMEN: Icteric, distended, palpable mass on the right side of the abdomen. Horseshoe dullness Examination of genitals-deferred Musculoskeletal: Lower extremity shows 4+ pitting edema and chronic stasis dermatosis. Left shoulder-anterior dislocation noted with the glenohumeral region is empty. Extremely tender. Could not perform any movement due to pain. NEUROLOGICAL: Cranial nerves grossly intact. Normal speech, normal gait. Normal sensory, motor exams PSYCH: Normal mood, normal affect. SKIN: Yellow discoloration with jaundice throughout the whole skin Dictation was performed using [employer] voice recognition software TRAVEL OUTSIDE OF THE [place] IN LAST 30 DAYS: No - HPI Onset: Just prior to arrival - Related Data Allergies/Adverse Reactions: Penicillins Allergy (Severe, Verified 01/27/18 09:02) Sulfa (Sulfonamide Antibiotics) Allergy (Severe, Verified 01/27/18 09:02) Past Medical History - General Information source: Patient - Social History Smoking Status: Former Smoker Cigarette use (# per day): No Chew tobacco use (# tins/day): No Smoking Education Provided: No Frequency of alcohol use: Heavy - Stop drinking for the last 80 days Drug Abuse: None Lives with: Family Family History: Reviewed & Not Pertinent - Past Medical History Cardiac Medical History: Reports: Hx Coronary Artery Disease, Hx Hypercholesterolemia, Hx Hypertension Denies: Hx Atrial Fibrillation, Hx Congestive Heart Failure, Hx DVT, Hx Heart Attack, Hx Peripheral Vascular Disease, Hx Pulmonary Embolism, Hx Heart Murmur Pulmonary Medical History: Reports: Hx COPD, Hx Pneumonia Denies: Hx Asthma, Hx Bronchitis, Hx Respiratory Failure, Hx Sleep Apnea, Hx Tuberculosis Neurological Medical History: Reports: Hx Cerebrovascular Accident - TIA 3 years ago, Hx Seizures - Possible seizure; see history and physical, 06/25/2016 Endocrine Medical History: Denies: Hx Diabetes Mellitus Type 1, Hx Diabetes Mellitus Type 2, Hx Graves' Disease, Hx Hyperthyroidism, Hx Hypothyroidism Renal/ Medical History: Denies: Hx Benign Prostatic Hyperplasia, Hx End Stage Renal Disease, Hx Kidney Stones, Hx Peritoneal Dialysis Malignancy Medical History: Denies Hx Leukemia, Denies Hx Lung Cancer GI Medical History: Denies: Hx Cirrhosis, Hx Crohn's Disease, Hx Gastroesophageal Reflux Disease, Hx Hepatitis, Hx Hiatal Hernia, Hx Irritable Bowel, Hx Liver Failure, Hx Pancreatitis, Hx Ulcer Musculoskeltal Medical History: Reports Hx Arthritis - hands, Denies Hx Fibromyalgia, Denies Hx Multiple Sclerosis, Denies Hx Muscular Dystrophy Psychiatric Medical History: Reports: Hx Depression Denies: Hx Bipolar Disorder, Hx Dementia, Hx Post Traumatic Stress Disorder, Hx Schizophrenia Traumatic Medical History: Denies: Hx Fractures Infectious Medical History: Denies: Hx Hepatitis, Hx HIV Past Surgical History: Reports: Hx Cardiac Surgery, Hx Coronary Artery Bypass Graft - x3 (2009), Hx Coronary Stent, Hx Open Heart Surgery, Other - Incision and drainage of dental abscess, with tooth extraction, 2005.. Denies: Hx Appendectomy, Hx Bowel Surgery, Hx Cholecystectomy, Hx Colostomy, Hx Gastric Bypass Surgery, Hx Herniorrhaphy, Hx Pacemaker, Hx Tonsillectomy - Immunizations Hx Diphtheria, Pertussis, Tetanus Vaccination: Yes Hx Pneumococcal Vaccination: 05/18/12 Review of Systems - Review of Systems Notes: Dictated Physical Exam - Vital signs Vitals: Temp Pulse Resp BP Pulse Ox 98.5 F 91 18 152/86 H 100 02/14/18 14:56 02/14/18 14:56 02/14/18 14:56 02/14/18 14:56 02/14/18 14:56 - Notes Notes: Dictated Course - Re-evaluation Re-evalutation: 02/14/18 17:21 Case was discussed with hospitalist and currently being admitted - Vital Signs Vital signs: Temp Pulse Resp BP Pulse Ox 98.5 F 91 18 152/86 H 100 02/14/18 14:56 02/14/18 14:56 02/14/18 14:56 02/14/18 14:56 02/14/18 14:56 - Laboratory Result Diagrams: 02/14/18 16:00 02/14/18 16:00 Laboratory results interpreted by me: 02/14/18 02/14/18 02/14/18 16:00 16:00 16:00 WBC 13.4 H RBC 2.71 L Hgb 10.5 L Hct 31.1 L MCV 115 H MCH 38.7 H RDW 18.4 H Plt Count 106 L Absolute Neutrophils 9.9 H PT 23.0 H APTT 42.6 H Sodium 135.9 L Carbon Dioxide 21 L Glucose 119 H Total Bilirubin 14.1 H Direct Bilirubin 5.0 H AST 71 H Alkaline Phosphatase 153 H Albumin 3.0 L - Diagnostic Test Radiology reviewed: Reports reviewed - Radiology reported as calcified left shoulder joint,, CT showed ascites and other findings that were there before. Discharge - Discharge Clinical Impression: Alcoholic hepatitis with ascites, Decompensated hepatic cirrhosis, Elevated troponin I level Coronary artery disease Qualifiers: Coronary Disease-Associated Artery/Lesion type: [place] artery [place] vs. transplanted heart: [place] heart Associated angina: without angina Qualified Code(s): I25.10 - Atherosclerotic heart disease of [place] coronary artery without angina pectoris Condition: Fair Disposition: ADMITTED INPATIENT Admitting Provider: Hospitalist Unit Admitted: Telemetry
[2018-02-14 16:24] LABS: ABSOLUTE BASOPHILS # (AUTO) 0.1 10^3/uL (0.0-0.2); ABSOLUTE EOSINOPHILS # (AUTO) 0.1 10^3/uL (0.0-0.6); ABSOLUTE LYMPHOCYTES (AUTO) 2.2 10^3/uL (0.5-4.7); ABSOLUTE MONOCYTES (AUTO) 1.1 10^3/uL (0.1-1.4); ABSOLUTE NEUT (AUTO) 9.9 10^3/uL (1.7-8.2); BASOPHILS % (AUTO) 0.8 % (0-2); EOSINOPHILS % (AUTO) 0.5 % (0-6); HEMATOCRIT 31.1 % (37.9-51.0); HEMOGLOBIN 10.5 g/dL (13.5-17.0); LYMPHOCYTES % (AUTO) 16.5 % (13-45); MEAN CORPUSCULAR HEMOGLOBIN 38.7 pg (27.0-33.4); MEAN CORPUSCULAR HGB CONC 33.7 g/dL (32.0-36.0); MEAN CORPUSCULAR VOLUME 115 fl (80-97); PLATELET COUNT 106 10^3/uL (150-450); RED BLOOD COUNT 2.71 10^6/uL (4.35-5.55); RED CELL DISTRIBUTION WIDTH 18.4 % (11.5-14.0); SEGMENTED NEUTROPHILS % (AUTO) 74.2 % (42-78); TOTAL CELLS COUNTED % (AUTO) 100 %; WHITE BLOOD COUNT 13.4 10^3/uL (4.0-10.5)
[2018-02-14 16:28] LABS: INTERNATIONAL RATION (INR) 1.93
[2018-02-14 16:29] LABS: PARTIAL THROMBOPLASTIN TIME 42.6 SEC (23.5-35.8)
[2018-02-14 16:43] LABS: ALANINE AMINOTRANSFERASE 28 U/L (21-72); ALKALINE PHOSPHATASE 153 U/L (38-126); ANION GAP 14 (5-19); ASPARTATE AMINO TRANSFERASE 71 U/L (17-59); BILIRUBIN,TOTAL 14.1 mg/dL (0.2-1.3); BLOOD UREA NITROGEN 14 mg/dL (7-20); CALCIUM 8.5 mg/dL (8.4-10.2); CARBON DIOXIDE 21 mmol/L (22-30); CHLORIDE 101 mmol/L (98-107); GLUCOSE 119 mg/dL (75-110); POTASSIUM 3.6 mmol/L (3.6-5.0); SODIUM 135.9 mmol/L (137-145); TOTAL PROTEIN 6.9 g/dL (6.3-8.2)
--- NOTE | 2018-02-14 16:44 | RADIOLOGY REPORT (SQ) ---
EXAM DESCRIPTION: CT ABD/PELVIS NO ORAL OR IV COMPLETED DATE/TIME: 02/14/2018 4:25 pm REASON FOR STUDY: Rule out mass/ascites COMPARISON: None. TECHNIQUE: CT scan of the abdomen and pelvis performed without intravenous or oral contrast. Images reviewed with lung, soft tissue, and bone windows. Reconstructed coronal and sagittal MPR images revi ewed. All images stored on PACS. All CT scanners at this facility use dose modulation, iterative reconstruction, and/or weight based d osing when appropriate to reduce radiation dose to as low as reasonably achievable (ALARA). [facility]: Dose Right [facility]: CareDose [facility]: Dose Right [facility]: Teradose 4D [facility]: [employer] RADIATION DOSE: CT Rad equipment meets quality standard of care and radiation dose reduction techniq ues were employed. CTDIvol: 15.2 mGy. DLP: 842 mGy-cm.mGy. LIMITATIONS: None. FINDINGS: LOWER CHEST: No significant findings. No nodules or infiltrates. NON-CONTRASTED LIVER, SPLEEN, ADRENALS: No liver masses. Mild splenomegaly. PANCREAS: No masses. No peripancreatic inflammatory changes. GALLBLADDER: No identified stones by CT criteria. No inflammatory changes to suggest cholecystitis. RIGHT KIDNEY AND URETER: No suspicious masses. Assessment limited by lack of IV contrast. No signif icant calcifications. No hydronephrosis or hydroureter. LEFT KIDNEY AND URETER: No suspicious masses. Assessment limited by lack of IV contrast. No signifi cant calcifications. No hydronephrosis or hydroureter. AORTA AND RETROPERITONEUM: No aneurysm. No retroperitoneal masses or adenopathy. BOWEL AND PERITONEAL CAVITY: No obvious masses or inflammatory changes. Increased attenuation of the mesenteric consistent with dirty mesentery APPENDIX: Normal. PELVIS, BLADDER, AND ABDOMINAL WALL:3 cm mass midline anterior abdominal wall cephalad to the umbilic us. Contiguous with the abdominal wall. Moderate ascites surrounding the liver and along the alejandra lic gutters. Small volume in the pelvis. BONES: No significant findings. OTHER: Extensive subcutaneous edema. IMPRESSION: Moderate ascites. Mild splenomegaly. Mild diffuse mesenteric fat stranding extensive s ubcutaneous edema. Subcutaneous mass anterior abdominal wall cephalad to the umbilicus. COMMENT: Quality ID # [id number]: Final reports with documentation of one or more dose reduction techniques (e.g., Automated exposure control, adjustment of the mA and/or kV according to patient size, use of iterative reconstruction technique) TECHNICAL DOCUMENTATION: JOB ID: [id number] [employer]- All Rights Reserved Reading location - IP/workstation name: [email or web address]
--- NOTE | 2018-02-14 16:53 | RADIOLOGY REPORT (SQ) ---
EXAM DESCRIPTION: SHOULDER LEFT 2 OR MORE VIEWS COMPLETED DATE/TIME: 02/14/2018 4:35 pm REASON FOR STUDY: pain COMPARISON: None. NUMBER OF VIEWS: Two views. TECHNIQUE: Internal rotation and Y-view images acquired of the left shoulder. LIMITATIONS: None. FINDINGS: MINERALIZATION: Osteopenia. BONES: No acute fracture or dislocation. No worrisome bone lesions. JOINTS: No dislocation. VISUALIZED LUNGS AND RIBS: No pneumothorax. No rib fracture. SOFT TISSUES: 2 cm calcific density adjacent to the humeral head that probably represents bursal calc ification. OTHER: No other significant finding. IMPRESSION: No significant bony pathology. Calcific density adjacent to the humeral head probably b ursal calcification. TECHNICAL DOCUMENTATION: JOB ID: [id number] [employer]- All Rights Reserved Reading location - IP/workstation name: [email or web address]
[2018-02-14 16:56] LABS: ANISOCYTOSIS 1+; OVALOCYTES SLIGHT; PLATELET COMMENT DECREASED; POIKILOCYTOSIS SLIGHT; SCHISTOCYTES SLIGHT; TEAR DROP CELLS SLIGHT
[2018-02-14] MEDS ORDERED: HYDROMORPHONE HCL INJ/PF 2 MG/ML AMPULE ONE (17:55)
[2018-02-14] MEDS ORDERED: ONDANSETRON 4 MG TAB.RAPDIS PO PRN (18:07)
[2018-02-14] MEDS ORDERED: LEVALBUTEROL HCL NEB 0.63 MG/3 ML AMPUL NEB PRN (18:07)
[2018-02-14] MEDS ORDERED: ONDANSETRON HCL INJ/PF 4 MG/2 ML SDV IV PRN (18:07)
--- NOTE | 2018-02-14 18:23 | PDOC H&P ---
History of Present Illness Admission Date/PCP: NO PCP February 14, 2018 Patient complains of: L shoulder pain History of Present Illness: TASHA FUENTES is a 52 year old male with a history of Alcohol dependence Alcohol withdrawal seizures Cirrhosis Coronary artery disease Hypertension He was recently discharged from this hospital after being treated for anasarca. The patient does not have any outpatient follow-up. He presented to the emergency room today complaining of left shoulder pain and was found to be visibly jaundiced. The patient reports that approximately a month ago he had seizures due to alcohol withdrawal and at that time he dislocated his left shoulder which was corrected and continued to have some discomfort. This morning he had abrupt onset left shoulder pain with inability to move it. An x-ray of the left shoulder done by the ER physician showed some calcification indicating possible bursitis. CAT scan of the abdomen and pelvis showed moderate ascites with mild diffuse mesenteric fat stranding and extensive subcutaneous edema with a subcutaneous mass in the anterior abdominal wall. He follows at the [facility] liver clinic with Dr. Valdez. His last alcoholic drink was 28 days ago reportedly. He reports that he is on diuretics lactulose and rifaximin but does not remember all his medications or the doses at this time. He requests to be a full code. Past Medical History Cardiac Medical History: Reports: Coronary Artery Disease, Hyperlipidema, Hypertension Pulmonary Medical History: Reports: Chronic Obstructive Pulmonary Disease (COPD) Neurological Medical History: Reports: Seizures - Possible seizure; see history and physical, 06/25/2016 Musculoskeltal Medical History: Reports: Arthritis - hands Psychiatric Medical History: Reports: Depression Past Surgical History Past Surgical History: Reports: Appendectomy, Coronary Artery Bypass Graft - x3 (2009), Coronary Stent, Other - Incision and drainage of dental abscess, with tooth extraction, 2005. Social History Lives with: Family Smoking Status: Current Every Day Smoker Frequency of Alcohol Use: None Hx Recreational Drug Use: No Drugs: None Hx Prescription Drug Abuse: No - Advance Directive Resuscitation Status: Full Code Family History Family History: Hypertension Parental Family History Reviewed: Yes Children Family History Reviewed: Yes Sibling(s) Family History Reviewed.: Yes Medication/Allergy Allergies/Adverse Reactions: Penicillins Allergy (Severe, Verified 01/27/18 09:02) Sulfa (Sulfonamide Antibiotics) Allergy (Severe, Verified 01/27/18 09:02) Review of Systems Constitutional: ABSENT: fever(s) Eyes: ABSENT: visual disturbances Ears: ABSENT: hearing changes Nose, Mouth, and Throat: ABSENT: sore throat Cardiovascular: PRESENT: edema Respiratory: ABSENT: cough, hemoptysis Gastrointestinal: PRESENT: bloating. ABSENT: hematemesis, vomiting Musculoskeletal: PRESENT: deformity - Left shoulder pain weakness, joint swelling Integumentary: ABSENT: lesions Neurological: ABSENT: syncope Psychiatric: ABSENT: hallucinations Endocrine: PRESENT: cold intolerance Hematologic/Lymphatic: PRESENT: easy bruising Allergic/Immunologic: ABSENT: seasonal rhinorrhea Physical Exam Vital Signs: Temp Pulse Resp BP Pulse Ox 98.5 F 91 18 152/86 H 100 02/14/18 14:56 02/14/18 14:56 02/14/18 14:56 02/14/18 14:56 02/14/18 14:56 Intake & Output 02/13/18 02/14/18 02/15/18 06:59 06:59 06:59 Weight 93.2 kg General appearance: PRESENT: mild distress Head exam: PRESENT: normocephalic Eye exam: PRESENT: scleral icterus Ear exam: PRESENT: normal external ear exam Mouth exam: PRESENT: moist Teeth exam: PRESENT: poor dentation Neck exam: ABSENT: tracheal deviation Respiratory exam: PRESENT: symmetrical, unlabored. ABSENT: crackles, wheezes Cardiovascular exam: PRESENT: RRR, tachycardia Vascular exam: PRESENT: pallor GI/Abdominal exam: PRESENT: distended, normal bowel sounds, soft. ABSENT: guarding Rectal exam: PRESENT: deferred Extremities exam: PRESENT: pedal edema Musculoskeletal exam: PRESENT: deformity, tenderness - Left shoulder Neurological exam: PRESENT: alert, awake, oriented to person, oriented to place , oriented to time, oriented to situation Psychiatric exam: PRESENT: anxious Skin exam: PRESENT: jaundice. ABSENT: petechiae Results Laboratory Results: 02/14/18 16:00 02/14/18 16:00 02/14/18 02/14/18 02/14/18 16:00 16:00 16:00 WBC 13.4 H RBC 2.71 L Hgb 10.5 L Hct 31.1 L MCV 115 H MCH 38.7 H MCHC 33.7 RDW 18.4 H Plt Count 106 L Seg Neutrophils % 74.2 Lymphocytes % 16.5 Monocytes % 8.0 Eosinophils % 0.5 Basophils % 0.8 Absolute Neutrophils 9.9 H Absolute Lymphocytes 2.2 Absolute Monocytes 1.1 Absolute Eosinophils 0.1 Absolute Basophils 0.1 Sodium 135.9 L Potassium 3.6 Chloride 101 Carbon Dioxide 21 L Anion Gap 14 BUN 14 Creatinine 0.89 Est GFR ( Amer) > 60 Est GFR (Non-Af Amer) > 60 Glucose 119 H Calcium 8.5 Total Bilirubin 14.1 H AST 71 H ALT 28 Alkaline Phosphatase 153 H Ammonia 16.3 Total Protein 6.9 Albumin 3.0 L 02/14/18 16:00 Troponin I 0.590 Impressions: Abdomen/Pelvis CT 02/14/18 15:24 IMPRESSION: Moderate ascites. Mild splenomegaly. Mild diffuse mesenteric fat stranding extensive subcutaneous edema. Subcutaneous mass anterior abdominal wall cephalad to the umbilicus. Shoulder X-Ray 02/14/18 15:24 IMPRESSION: No significant bony pathology. Calcific density adjacent to the humeral head probably bursal calcification. Assessment & Plan - Diagnosis (1) Left anterior shoulder pain Is this a current diagnosis for this admission?: Yes Plan: Stat CT of the left shoulder to rule out hematoma. (2) Decompensated hepatic cirrhosis Is this a current diagnosis for this admission?: Yes Plan: Resume outpatient medications. (3) Elevated troponin I level Is this a current diagnosis for this admission?: Yes Plan: No EKG changes. Denies any chest pain. Monitor on telemetry. Serial cardiac enzymes. He has a history of coronary artery disease with CABG in the past. No recent stress test. (4) Thrombocytopenia Is this a current diagnosis for this admission?: Yes Plan: Due to cirrhosis. Monitor. (5) Ascites due to alcoholic cirrhosis Is this a current diagnosis for this admission?: Yes Plan: Diagnostic and therapeutic paracentesis. Low-sodium diet. Resume outpatient medications including diuretics. Creatinine is normal. (6) Coagulopathy Is this a current diagnosis for this admission?: Yes Plan: Due to cirrhosis. - Time Time Spent: Greater than 70 Minutes
--- NOTE | 2018-02-14 18:27 | RADIOLOGY REPORT (SQ) ---
EXAM DESCRIPTION: CT LT UPPER EXTREMITY WITHOUT COMPLETED DATE/TIME: 02/14/2018 6:12 pm REASON FOR STUDY: Severe L shoulder pain and swelling- ?hematoma COMPARISON: Plain radiograph TECHNIQUE: Axial imaging performed through the left shoulder with reformatted coronal and sagittal i maging windowed for bone and soft tissues. Images saved to PACS. 3D IMAGING: Were 3D images as MIP, SSD, or volume rendering performed at the work station? [address] scanners at this facility use dose modulation, iterative reconstruction, and/or weight based d osing when appropriate to reduce radiation dose to as low as reasonably achievable (ALARA). [facility]: Dose Right [facility]: CareDose [facility]: Dose Right [facility]: Teradose 4D [facility]: [employer] LIMITATIONS: None. RADIATION DOSE: CT Rad equipment meets quality standard of care and radiation dose reduction techniq ues were employed. CTDIvol: 12.4 mGy. DLP: 314 mGy-cm. mGy. FINDINGS: SOFT TISSUES: Extensive calcification is present in the subscapularis and infraspinatus. Mild calcification the supraspinatus. Large joint effusion. BONES: No acute fracture. Mild superior migration of the humeral head. MINERALIZATION: Normal. OTHER: No other significant finding. IMPRESSION: Large joint effusion. Calcific tendinitis. No occult fracture. TECHNICAL DOCUMENTATION: JOB ID: [id number] Quality ID # [id number]: Final reports with documentation of one or more dose reduction techniques (e.g., Au tomated exposure control, adjustment of the mA and/or kV according to patient size, use of iterative reconstruction technique) 2010 [employer]- All Rights Reserved Reading location - IP/workstation name: [email or web address]
[2018-02-14] MEDS ORDERED: NORMAL SALINE 250 ML IV PRN ×2 (18:32)
--- NOTE | 2018-02-14 18:36 | RADIOLOGY REPORT (SQ) ---
EXAM DESCRIPTION: CHEST SINGLE VIEW COMPLETED DATE/TIME: 02/14/2018 6:26 pm REASON FOR STUDY: chest pain COMPARISON: None. EXAM PARAMETERS: NUMBER OF VIEWS: One view. TECHNIQUE: Single frontal radiographic view of the chest acquired. RADIATION DOSE: NA LIMITATIONS: None. FINDINGS: LUNGS AND PLEURA: No opacities, masses or pneumothorax. No pleural effusion. MEDIASTINUM AND HILAR STRUCTURES: No masses. Contour normal. HEART AND VASCULAR STRUCTURES: Heart normal in size. Normal vasculature. BONES: No acute findings. HARDWARE: Sternotomy wires. OTHER: No other significant finding. IMPRESSION: NO ACUTE RADIOGRAPHIC FINDING IN THE CHEST. TECHNICAL DOCUMENTATION: JOB ID: [id number] [employer]- All Rights Reserved Reading location - IP/workstation name: [email or web address]
[2018-02-14] MEDS ORDERED: RIFAXIMIN 550 MG TABLET PO ONE (19:30)
--- NOTE | 2018-02-14 20:44 | EKG REPORT ---
SEVERITY:- ABNORMAL ECG - SINUS TACHYCARDIA LEFT ATRIAL ABNORMALITY PROBABLE INFERIOR INFARCT, AGE INDETERMINATE BORDERLINE PROLONGED QT INTERVAL : Confirmed by: Deidre Haywood MD 14-Feb-2018 20:44:13
[2018-02-14] MEDS: KETOROLAC TROMETHAMINE INJ/PF 30 MG/1 ML SDV IV PRN (20:59)
[2018-02-14] MEDS ORDERED: NORMAL SALINE 1000 ML 1,000 ML IV ONE (21:00)
[2018-02-14] MEDS ORDERED: VANCOMYCIN HCL 0 MG in DEXTROSE 5%-WATER 250 ML IV NR (21:00)
[2018-02-14] MEDS ORDERED: CEFTRIAXONE 1 GM/D5W RTU 1 GM/50 ML RTUPB IV SCH (21:00)
[2018-02-14] MEDS ORDERED: CEFTRIAXONE SODIUM 1,000 MG in DEXTROSE 5%-WATER 50 ML IV SCH (22:00)
[2018-02-14] MEDS ORDERED: VANCOMYCIN HCL 1,500 MG in DEXTROSE 5%-WATER 250 ML IV ONE (22:00)
[2018-02-14 22:03] LABS: CREATINE KINASE MB 0.68 ng/mL (<4.55)
[2018-02-14 22:09] LABS: TROPONIN I 0.565 ng/mL
[2018-02-15] MEDS: HYDROMORPHONE HCL INJ/PF 2 MG/ML AMPULE IV PRN ×3 (00:24→20:36)
[2018-02-15 00:30] LABS: APPEARANCE,URINE SLIGHTLY-CLOUDY; BILIRUBIN,URINE NEGATIVE (NEGATIVE); COLOR,URINE AMBER; GLUCOSE, URINE NEGATIVE (NEGATIVE); KETONES,URINE NEGATIVE (NEGATIVE); LEUKOCYTE ESTERASE,URINE NEGATIVE (NEGATIVE); NITRITE,URINE NEGATIVE (NEGATIVE); PROTEIN,URINE NEGATIVE (NEGATIVE); URINE SPECIFIC GRAVITY 1.017
[2018-02-15 00:44] LABS: URINE AMPHETAMINES SCREEN NEGATIVE; URINE BARBITURATES SCREEN NEGATIVE; URINE BENZODIAZEPINES SCREEN NEGATIVE; URINE COCAINE SCREEN NEGATIVE; URINE MARIJUANA (THC) SCREEN NEGATIVE; URINE METHADONE SCREEN NEGATIVE; URINE PHENCYCLIDINE SCREEN NEGATIVE
[2018-02-15 04:00] LABS: INTERNATIONAL RATION (INR) 1.81; PROTHROMBIN TIME 21.9 SEC (11.4-15.4)
[2018-02-15 04:07] LABS: HEMATOCRIT 26.2 % (37.9-51.0); HEMOGLOBIN 9.1 g/dL (13.5-17.0); MEAN CORPUSCULAR HEMOGLOBIN 39.6 pg (27.0-33.4); MEAN CORPUSCULAR HGB CONC 34.8 g/dL (32.0-36.0); MEAN CORPUSCULAR VOLUME 114 fl (80-97); RED CELL DISTRIBUTION WIDTH 17.7 % (11.5-14.0); WHITE BLOOD COUNT 23.3 10^3/uL (4.0-10.5)
[2018-02-15 04:11] LABS: PLATELET COUNT 53 10^3/uL (150-450)
[2018-02-15 04:15] LABS: ALANINE AMINOTRANSFERASE 35 U/L (21-72); ALBUMIN 2.6 g/dL (3.5-5.0); ALKALINE PHOSPHATASE 104 U/L (38-126); ANION GAP 14 (5-19); ASPARTATE AMINO TRANSFERASE 50 U/L (17-59); BILIRUBIN,DIRECT 5.8 mg/dL (0.0-0.4); BILIRUBIN,TOTAL 13.5 mg/dL (0.2-1.3); BLOOD UREA NITROGEN 17 mg/dL (7-20); CALCIUM 8.4 mg/dL (8.4-10.2); CARBON DIOXIDE 20 mmol/L (22-30); CHLORIDE 103 mmol/L (98-107); GLUCOSE 92 mg/dL (75-110); PHOSPHORUS 3.7 mg/dL (2.5-4.5); POTASSIUM 3.8 mmol/L (3.6-5.0); SODIUM 136.9 mmol/L (137-145); TOTAL PROTEIN 5.9 g/dL (6.3-8.2)
[2018-02-15 04:26] LABS: CREATINE KINASE MB 0.7 ng/mL (<4.55); TROPONIN I 0.438 ng/mL
[2018-02-15] MEDS: KETOROLAC TROMETHAMINE INJ/PF 30 MG/1 ML SDV IV PRN (05:31)
[2018-02-15] MEDS: LANSOPRAZOLE 30 MG TAB.RAP.DR PO SCH ×2 (05:32→16:26)
[2018-02-15] MEDS ORDERED: VANCOMYCIN HCL 1,250 MG in DEXTROSE 5%-WATER 250 ML IV SCH ×2 (06:00→18:00)
[2018-02-15] MEDS ORDERED: DEXTROSE 50%-WATER 25 GM/50 ML DISP.SYRIN IV PRN (07:23)
[2018-02-15] MEDS ORDERED: GLUCAGON,HUMAN RECOMB 1 MG INJ SUBCUT PRN (07:23)
[2018-02-15] MEDS ORDERED: DEXTROSE 40% GEL 15 GM TUBE PO PRN (07:23)
[2018-02-15] MEDS ORDERED: NORMAL SALINE 250 ML IV PRN ×2 (07:30)
--- NOTE | 2018-02-15 08:57 | PDOC CONSULTATION ---
Consultation Consult Date: 02/15/18 Consult reason:: Left shoulder pain History of Present Illness Admission Date/PCP: 02/14/18 17:31 History of Present Illness: TASHA FUENTES is a 52 year old male The patient is a 52-year-old white male chronic alcoholic with multiple comorbidities who initially presented in December 2017 to [facility] with a left shoulder dislocation. He underwent a closed reduction by Dr. Banks which was uneventful. Post reduction there was a large shoulder effusion with leukocytosis and fevers. The patient underwent aspiration of the shoulder to rule out a potential underlying septic joint. The aspiration was negative. He was then subsequently transferred to [facility] for tertiary care at which point an additional aspiration of the left shoulder was performed which was negative. The patient now presents to the emergency room yesterday with left shoulder pain where imaging studies demonstrate a calcific tendinitis/bursitis and a large shoulder effusion. He also has a leukocytosis which is greater than it was previously, 23,000 versus 14,000, and febrile episodes. The question orthopedics is twofold. The first is worse the source of the inflammatory condition and is or potentially a septic left shoulder and, secondly management of the patient's shoulder discomfort. Past Medical History Cardiac Medical History: Reports: Coronary Artery Disease, Hyperlipidema, Hypertension Denies: Atrial Fibrillation, Congestive Heart Failure, DVT, Myocardial Infarction, Peripheral Vascular Disease, Pulmonary Embolism, Heart Murmur Pulmonary Medical History: Reports: Chronic Obstructive Pulmonary Disease (COPD) , Pneumonia Denies: Asthma, Bronchitis, Respiratory Failure, Sleep Apnea, Tuberculosis Neurological Medical History: Reports: Seizures - Possible seizure; see history and physical, 06/25/2016 Endocrine Medical History: Denies: Diabetes Mellitus Type 1, Diabetes Mellitus Type 2, Hyperthyroidism, Hypothyroidism Renal/ Medical History: Denies: End Stage Renal Disease Malignancy Medical History: Denies: Leukemia, Lung Cancer GI Medical History: Denies: Cirrhosis, Crohn's Disease, Gastroesophageal Reflux Disease, Hepatitis, Hiatal Hernia Musculoskeltal Medical History: Reports: Arthritis - hands Denies: Fibromyalgia Psychiatric Medical History: Reports: Depression Denies: Bipolar Disorder, Dementia, Post Traumatic Stress Disorder Infectious Medical History: Denies: HIV Past Surgical History Past Surgical History: Reports: Appendectomy, Coronary Artery Bypass Graft - x3 (2009), Coronary Stent, Orthopedic Surgery - Closed reduction left shoulder dislocation December 2007, Other - Incision and drainage of dental abscess, with tooth extraction, 2005. Denies: Cholecystectomy, Colostomy, Gastric Bypass Surgery, Herniorrhaphy, Pacemaker, Tonsillectomy Social History Information Source: Patient, [facility] Records Lives with: Family Smoking Status: Current Every Day Smoker Frequency of Alcohol Use: None Hx Recreational Drug Use: No Drugs: None Hx Prescription Drug Abuse: No - Advance Directive Resuscitation Status: Full Code Family History Family History: Hypertension Parental Family History Reviewed: No Children Family History Reviewed: No Sibling(s) Family History Reviewed.: No Medication/Allergy Home Medications: Aspirin [Ecotrin 81 mg EC Tablet] 81 mg PO DAILY 02/14/18 Furosemide [Lasix 40 mg Tablet] 40 mg PO BID 02/14/18 Spironolactone [Aldactone 25 mg Tablet] 25 mg PO Q12 02/14/18 Allergies/Adverse Reactions: Penicillins Allergy (Severe, Verified 01/27/18 09:02) Sulfa (Sulfonamide Antibiotics) Allergy (Severe, Verified 01/27/18 09:02) Review of Systems All systems: as per H Physical Exam Vital Signs: Temp Pulse Resp BP Pulse Ox 37.0 C 95 19 93/51 L 100 02/15/18 08:41 02/15/18 08:41 02/15/18 08:41 02/15/18 08:41 02/15/18 08:41 Intake & Output 02/14/18 02/15/18 02/16/18 06:59 06:59 06:59 Intake Total 1145 0 Output Total 200 Balance 945 0 Weight 103.4 kg Physical Exam: Disheveled appearing middle-aged white male lying in hospital bed. The patient is alert oriented and provides a coherent history. General appearance: PRESENT: no acute distress, mild distress Head exam: PRESENT: normocephalic Eye exam: PRESENT: scleral icterus Respiratory exam: PRESENT: unlabored Cardiovascular exam: PRESENT: RRR Pulses: PRESENT: normal radial pulses, +1 pedal pulses bilateral Vascular exam: PRESENT: normal capillary refill GI/Abdominal exam: PRESENT: soft Rectal exam: PRESENT: deferred Extremities exam: PRESENT: other - Left upper extremity is held against his chest with a clenched fist. There is tenderness to palpation about the shoulder. Patient resists passive range of motion. There is no erythema or induration. There does appear to be resolving ecchymosis about the upper arm. Distal neurovascular examination is intact. Neurological exam: PRESENT: alert, awake, oriented to person, oriented to place , oriented to time, oriented to situation. ABSENT: motor sensory deficit Psychiatric exam: PRESENT: appropriate affect, normal mood. ABSENT: homicidal ideation, suicidal ideation Skin exam: PRESENT: dry, intact, warm. ABSENT: cyanosis, rash Results Laboratory Results: 02/15/18 03:23 02/15/18 03:23 02/14/18 02/14/18 02/15/18 19:10 21:20 00:00 WBC RBC Hgb Hct MCV MCH MCHC RDW Plt Count Sodium Potassium Chloride Carbon Dioxide Anion Gap BUN Creatinine Est GFR ( Amer) Est GFR (Non-Af Amer) Glucose Lactic Acid 3.9 H Calcium Phosphorus Magnesium Total Bilirubin AST ALT Alkaline Phosphatase Total Protein Albumin TSH Urine Color TONI Urine Appearance SLIGHTLY-CLOUDY Urine pH 5.0 Ur Specific [place] 1.017 Urine Protein NEGATIVE Urine Glucose (UA) NEGATIVE Urine Ketones NEGATIVE Urine Blood NEGATIVE Urine Nitrite NEGATIVE Ur Leukocyte Esterase NEGATIVE Urine WBC (Auto) 1 Urine RBC (Auto) 0 Blood Type O POSITIVE 02/15/18 02/15/18 02/15/18 01:09 03:23 03:23 WBC 23.3 H RBC 2.30 L Hgb 9.1 L Hct 26.2 L MCV 114 H MCH 39.6 H MCHC 34.8 RDW 17.7 H Plt Count 53 L Sodium 136.9 L Potassium 3.8 Chloride 103 Carbon Dioxide 20 L Anion Gap 14 BUN 17 Creatinine 1.25 Est GFR ( Amer) > 60 Est GFR (Non-Af Amer) > 60 Glucose 92 Lactic Acid 4.0 H Calcium 8.4 Phosphorus 3.7 Magnesium 1.6 Total Bilirubin 13.5 H AST 50 ALT 35 Alkaline Phosphatase 104 Total Protein 5.9 L Albumin 2.6 L TSH Urine Color Urine Appearance Urine pH Ur Specific [place] Urine Protein Urine Glucose (UA) Urine Ketones Urine Blood Urine Nitrite Ur Leukocyte Esterase Urine WBC (Auto) Urine RBC (Auto) Blood Type 02/15/18 03:23 WBC RBC Hgb Hct MCV MCH MCHC RDW Plt Count Sodium Potassium Chloride Carbon Dioxide Anion Gap BUN Creatinine Est GFR ( Amer) Est GFR (Non-Af Amer) Glucose Lactic Acid Calcium Phosphorus Magnesium Total Bilirubin AST ALT Alkaline Phosphatase Total Protein Albumin TSH 5.36 H Urine Color Urine Appearance Urine pH Ur Specific [place] Urine Protein Urine Glucose (UA) Urine Ketones Urine Blood Urine Nitrite Ur Leukocyte Esterase Urine WBC (Auto) Urine RBC (Auto) Blood Type 02/14/18 02/15/18 21:20 03:23 CK-MB (CK-2) 0.68 0.70 Troponin I 0.565 0.438 Impressions: Chest X-Ray 02/14/18 00:00 IMPRESSION: NO ACUTE RADIOGRAPHIC FINDING IN THE CHEST. Upper Extremity CT 02/14/18 00:00 IMPRESSION: Large joint effusion. Calcific tendinitis. No occult fracture. Abdomen/Pelvis CT 02/14/18 15:24 IMPRESSION: Moderate ascites. Mild splenomegaly. Mild diffuse mesenteric fat stranding extensive subcutaneous edema. Subcutaneous mass anterior abdominal wall cephalad to the umbilicus. Shoulder X-Ray 02/14/18 15:24 IMPRESSION: No significant bony pathology. Calcific density adjacent to the humeral head probably bursal calcification. Status: Imported from PACS Assessment & Plan - Diagnosis (1) Left shoulder pain Qualifiers: Chronicity: acute Qualified Code(s): M25.512 - Pain in left shoulder Is this a current diagnosis for this admission?: Yes Plan: 52-year-old white male with an increase of left shoulder pain over the last 24- 48 hours. Imaging studies suggest a calcific tendinitis. The concern is a potential underlying septic arthritis but with 2 previous aspirations and the patient's coagulopathy I am not particularly inclined to perform an additional aspiration unless there is further evidence of a septic arthritis. Likewise I am somewhat hesitant to suggest a subacromial injection in light of the potential septic background of the left shoulder. My recommendation is that we further evaluate the patient to determine the source of leukocytosis and febrile episodes and once this has been resolved we can treat the shoulder with either a systemic Medrol Dosepak or subacromial injection. In the interim the patient be placed in a shoulder immobilizer. Alternatively the last hospital admission resulted in her transfer to [facility]. This may be consideration at this admission as well. - Time Time Spent: 50 to 70 Minutes Anticipated discharge: Other Within: Other
[2018-02-15] MEDS ORDERED: SPIRONOLACTONE 25 MG TABLET PO SCH (10:00)
[2018-02-15] MEDS ORDERED: FUROSEMIDE 40 MG TABLET PO SCH (10:00)
[2018-02-15] MEDS ORDERED: RIFAXIMIN 550 MG TABLET PO SCH (10:00)
[2018-02-15] MEDS: MAGNESIUM SULFATE/D5W 1 GM/100 ML RTUPB IV SCH ×2 (10:23→11:35)
[2018-02-15 10:44] LABS: ABSOLUTE BASOPHILS # (AUTO) 0.1 10^3/uL (0.0-0.2); ABSOLUTE EOSINOPHILS # (AUTO) 0.2 10^3/uL (0.0-0.6); ABSOLUTE LYMPHOCYTES (AUTO) 1.6 10^3/uL (0.5-4.7); ABSOLUTE MONOCYTES (AUTO) 0.7 10^3/uL (0.1-1.4); ABSOLUTE NEUT (AUTO) 13.7 10^3/uL (1.7-8.2); BASOPHILS % (AUTO) 0.4 % (0-2); EOSINOPHILS % (AUTO) 1.3 % (0-6); HEMATOCRIT 23.7 % (37.9-51.0); HEMOGLOBIN 8.2 g/dL (13.5-17.0); LYMPHOCYTES % (AUTO) 9.5 % (13-45); MEAN CORPUSCULAR HEMOGLOBIN 39.6 pg (27.0-33.4); MEAN CORPUSCULAR HGB CONC 34.6 g/dL (32.0-36.0); MEAN CORPUSCULAR VOLUME 115 fl (80-97); MONOCYTES % (AUTO) 4.6 % (3-13); RED BLOOD COUNT 2.07 10^6/uL (4.35-5.55); RED CELL DISTRIBUTION WIDTH 17.8 % (11.5-14.0); SEGMENTED NEUTROPHILS % (AUTO) 84.2 % (42-78); TOTAL CELLS COUNTED % (AUTO) 100 %; WHITE BLOOD COUNT 16.3 10^3/uL (4.0-10.5)
[2018-02-15 10:55] LABS: PLATELET COUNT 51 10^3/uL (150-450)
[2018-02-15 11:05] LABS: ANISOCYTOSIS 1+; CREATINE KINASE MB 0.86 ng/mL (<4.55); SMUDGE CELLS PRESENT; TOXIC GRANULATION SLIGHT; TOXIC VACUOLATION PRESENT; TROPONIN I 0.207 ng/mL
[2018-02-15 11:06] LABS: ACANTHOCYTES SLIGHT; OVALOCYTES SLIGHT; POIKILOCYTOSIS 1+; POLYCHROMASIA SLIGHT; SCHISTOCYTES SLIGHT
[2018-02-15 11:09] LABS: PLATELET COMMENT DECREASED
[2018-02-15 11:13] LABS: ANION GAP 11 (5-19); BLOOD UREA NITROGEN 21 mg/dL (7-20); C-REACTIVE PROTEIN 34.3 mg/L (<10.0); CALCIUM 8.2 mg/dL (8.4-10.2); CARBON DIOXIDE 22 mmol/L (22-30); CHLORIDE 102 mmol/L (98-107); GLUCOSE 88 mg/dL (75-110); POTASSIUM 3.7 mmol/L (3.6-5.0); SODIUM 134.8 mmol/L (137-145)
[2018-02-15 11:20] LABS: ERYTHROCYTE SEDIMENTATION RATE 41 mm/hr (0-20)
--- NOTE | 2018-02-15 14:49 | RADIOLOGY REPORT (SQ) ---
EXAM DESCRIPTION: U/S ABDOMEN LIMITED W/O DOP COMPLETED DATE/TIME: 02/15/2018 2:40 pm REASON FOR STUDY: Ascites- diagnostic and therapeutic COMPARISON: CT abdomen pelvis 02/14/2018 Abdominal ultrasound 12/09/2017 TECHNIQUE: Dynamic and static grayscale images acquired of the abdomen 4 quadrants and recorded on P ACS. Additional selected color Doppler and spectral images recorded. LIMITATIONS: None. FINDINGS: 4 quadrant abdominal ultrasound was performed. There is trace fluid in the right subphren ic space. No ascites in the lower abdomen. Paracentesis was not performed. IMPRESSION: Trace fluid in the right subphrenic space. No paracentesis was performed today. TECHNICAL DOCUMENTATION: JOB ID: [id number] [employer]- All Rights Reserved Reading location - IP/workstation name: [email or web address]
[2018-02-15] MEDS: LACTOBACILLUS ACIDOPHILUS 250 MG TAB PO SCH ×2 (15:30→17:57)
[2018-02-15] MEDS ORDERED: DEXTROSE 5% IV SCH (15:32)
[2018-02-15] MEDS ORDERED: CEFTRIAXONE SODIUM IV SCH (15:32)
[2018-02-15] MEDS ORDERED: WATER IV SCH (15:32)
[2018-02-15] MEDS: LACTULOSE SYRUP 20 GM/30 ML UDCUP PO SCH ×2 (15:33→17:57)
--- NOTE | 2018-02-15 15:43 | PDOC PROGRESS REPORT ---
Subjective Progress Note for:: 02/15/18 Subjective:: The patient developed high-grade fevers overnight up to 102F. He was started on vancomycin and Rocephin. Unfortunately blood cultures were not drawn. Urine analysis is unremarkable. Chest x-ray does not show an infiltrate. He has no significant tenderness on abdominal exam. I set him up for diagnostic paracentesis this morning however, it was not performed because ultrasound did not show any ascites. Of note, a CAT scan of the abdomen done in the ER yesterday was reported to show moderate ascites. The CT report also mentioned a subcutaneous mass in the anterior abdominal wall , which is not palpable clinically, there is no tenderness or bruising. The patient has severe alcoholic liver disease and is coagulopathic, has thrombocytopenia and a bilirubin of 14. His documentation nurse is at [facility], and I have placed a call and awaiting to hear back to discuss his case. I have ordered stat blood cultures. The patient was evaluated by Dr. Morel from the orthopedic service who feels that septic arthritis of the left shoulder is unlikely. The patient's symptoms of L shoulder pain appear exaggerated based on physical exam. Reason For Visit: L SHOULDER PAIN AND SWELLING, COAGULOPATHY, Physical Exam Vital Signs: Temp Pulse Resp BP Pulse Ox 98.6 F 93 17 99/52 L 100 02/15/18 13:17 02/15/18 13:17 02/15/18 13:17 02/15/18 13:17 02/15/18 13:17 Intake & Output 02/14/18 02/15/18 02/16/18 06:59 06:59 06:59 Intake Total 1145 813 Output Total 200 Balance 945 813 Weight 103.4 kg General appearance: PRESENT: disheveled Head exam: PRESENT: normocephalic Eye exam: PRESENT: scleral icterus Ear exam: PRESENT: normal external ear exam Mouth exam: PRESENT: moist Teeth exam: PRESENT: poor dentation Neck exam: ABSENT: tracheal deviation Respiratory exam: PRESENT: symmetrical. ABSENT: crackles, wheezes Cardiovascular exam: PRESENT: RRR GI/Abdominal exam: PRESENT: normal bowel sounds, soft. ABSENT: tenderness Rectal exam: PRESENT: deferred Extremities exam: PRESENT: pedal edema Neurological exam: PRESENT: alert, awake, oriented to person, oriented to place , oriented to time - I did, oriented to situation Psychiatric exam: PRESENT: anxious Skin exam: PRESENT: jaundice Results Laboratory Results: 02/15/18 09:59 02/15/18 09:59 02/14/18 02/14/18 02/15/18 19:10 21:20 00:00 WBC RBC Hgb Hct MCV MCH MCHC RDW Plt Count Seg Neutrophils % Lymphocytes % Monocytes % Eosinophils % Basophils % Absolute Neutrophils Absolute Lymphocytes Absolute Monocytes Absolute Eosinophils Absolute Basophils Sodium Potassium Chloride Carbon Dioxide Anion Gap BUN Creatinine Est GFR ( Amer) Est GFR (Non-Af Amer) Glucose Lactic Acid 3.9 H Calcium Phosphorus Magnesium Total Bilirubin AST ALT Alkaline Phosphatase C-Reactive Protein Total Protein Albumin TSH Urine Color TONI Urine Appearance SLIGHTLY-CLOUDY Urine pH 5.0 Ur Specific [place] 1.017 Urine Protein NEGATIVE Urine Glucose (UA) NEGATIVE Urine Ketones NEGATIVE Urine Blood NEGATIVE Urine Nitrite NEGATIVE Ur Leukocyte Esterase NEGATIVE Urine WBC (Auto) 1 Urine RBC (Auto) 0 Blood Type O POSITIVE 02/15/18 02/15/18 02/15/18 01:09 03:23 03:23 WBC 23.3 H RBC 2.30 L Hgb 9.1 L Hct 26.2 L MCV 114 H MCH 39.6 H MCHC 34.8 RDW 17.7 H Plt Count 53 L Seg Neutrophils % Lymphocytes % Monocytes % Eosinophils % Basophils % Absolute Neutrophils Absolute Lymphocytes Absolute Monocytes Absolute Eosinophils Absolute Basophils Sodium 136.9 L Potassium 3.8 Chloride 103 Carbon Dioxide 20 L Anion Gap 14 BUN 17 Creatinine 1.25 Est GFR ( Amer) > 60 Est GFR (Non-Af Amer) > 60 Glucose 92 Lactic Acid 4.0 H Calcium 8.4 Phosphorus 3.7 Magnesium 1.6 Total Bilirubin 13.5 H AST 50 ALT 35 Alkaline Phosphatase 104 C-Reactive Protein Total Protein 5.9 L Albumin 2.6 L TSH Urine Color Urine Appearance Urine pH Ur Specific [place] Urine Protein Urine Glucose (UA) Urine Ketones Urine Blood Urine Nitrite Ur Leukocyte Esterase Urine WBC (Auto) Urine RBC (Auto) Blood Type 02/15/18 02/15/18 02/15/18 03:23 09:59 09:59 WBC 16.3 H RBC 2.07 L Hgb 8.2 L Hct 23.7 L MCV 115 H MCH 39.6 H MCHC 34.6 RDW 17.8 H Plt Count 51 L Seg Neutrophils % 84.2 H Lymphocytes % 9.5 L Monocytes % 4.6 Eosinophils % 1.3 Basophils % 0.4 Absolute Neutrophils 13.7 H Absolute Lymphocytes 1.6 Absolute Monocytes 0.7 Absolute Eosinophils 0.2 Absolute Basophils 0.1 Sodium 134.8 L Potassium 3.7 Chloride 102 Carbon Dioxide 22 Anion Gap 11 BUN 21 H Creatinine 1.46 H Est GFR ( Amer) > 60 Est GFR (Non-Af Amer) 51 L Glucose 88 Lactic Acid Calcium 8.2 L Phosphorus Magnesium Total Bilirubin AST ALT Alkaline Phosphatase C-Reactive Protein 34.3 H Total Protein Albumin TSH 5.36 H Urine Color Urine Appearance Urine pH Ur Specific [place] Urine Protein Urine Glucose (UA) Urine Ketones Urine Blood Urine Nitrite Ur Leukocyte Esterase Urine WBC (Auto) Urine RBC (Auto) Blood Type 02/14/18 02/15/18 02/15/18 21:20 03:23 09:59 CK-MB (CK-2) 0.68 0.70 0.86 Troponin I 0.565 0.438 0.207 Impressions: Chest X-Ray 02/14/18 00:00 IMPRESSION: NO ACUTE RADIOGRAPHIC FINDING IN THE CHEST. Upper Extremity CT 02/14/18 00:00 IMPRESSION: Large joint effusion. Calcific tendinitis. No occult fracture. Abdomen/Pelvis CT 02/14/18 15:24 IMPRESSION: Moderate ascites. Mild splenomegaly. Mild diffuse mesenteric fat stranding extensive subcutaneous edema. Subcutaneous mass anterior abdominal wall cephalad to the umbilicus. Shoulder X-Ray 02/14/18 15:24 IMPRESSION: No significant bony pathology. Calcific density adjacent to the humeral head probably bursal calcification. Abdomen Ultrasound 02/15/18 08:00 IMPRESSION: Trace fluid in the right subphrenic space. No paracentesis was performed today. Assessment & Plan - Diagnosis (1) Left anterior shoulder pain Is this a current diagnosis for this admission?: Yes Plan: Secondary to calcific tendinitis. Orthopedic input appreciated. Shoulder immobilizer and analgesics (2) Decompensated hepatic cirrhosis Is this a current diagnosis for this admission?: Yes Plan: Lasix, spironolactone, rifaximin, lactulose. We will discuss his case with his documentation nurse. He does not know what meds he supposed to be taking. (3) Elevated troponin I level Is this a current diagnosis for this admission?: Yes Plan: No chest pain or EKG changes. Monitor on telemetry. Downtrending. He has a history of coronary artery disease with CABG in the past. (4) Thrombocytopenia Is this a current diagnosis for this admission?: Yes Plan: Due to cirrhosis. Monitor. (5) Ascites due to alcoholic cirrhosis Is this a current diagnosis for this admission?: Yes Plan: This was ruled out by abdominal ultrasound this morning. (6) Coagulopathy Is this a current diagnosis for this admission?: Yes Plan: Secondary to cirrhosis. Received FFP in anticipation of paracentesis. - Time Time Spent with patient: 35 or more minutes
[2018-02-15] MEDS ORDERED: NORMAL SALINE 1000 ML 1,000 ML IV PRN (16:07)
[2018-02-15 17:03] LABS: ABSOLUTE BASOPHILS # (AUTO) 0.1 10^3/uL (0.0-0.2); ABSOLUTE EOSINOPHILS # (AUTO) 0.3 10^3/uL (0.0-0.6); ABSOLUTE LYMPHOCYTES (AUTO) 1.2 10^3/uL (0.5-4.7); ABSOLUTE MONOCYTES (AUTO) 0.3 10^3/uL (0.1-1.4); ABSOLUTE NEUT (AUTO) 7.4 10^3/uL (1.7-8.2); BASOPHILS % (AUTO) 0.7 % (0-2); EOSINOPHILS % (AUTO) 2.8 % (0-6); HEMATOCRIT 27.2 % (37.9-51.0); HEMOGLOBIN 9.4 g/dL (13.5-17.0); LYMPHOCYTES % (AUTO) 12.8 % (13-45); MEAN CORPUSCULAR HEMOGLOBIN 39.9 pg (27.0-33.4); MEAN CORPUSCULAR HGB CONC 34.7 g/dL (32.0-36.0); MEAN CORPUSCULAR VOLUME 115 fl (80-97); MONOCYTES % (AUTO) 3.5 % (3-13); RED BLOOD COUNT 2.36 10^6/uL (4.35-5.55); RED CELL DISTRIBUTION WIDTH 17.7 % (11.5-14.0); SEGMENTED NEUTROPHILS % (AUTO) 80.2 % (42-78); TOTAL CELLS COUNTED % (AUTO) 100 %; WHITE BLOOD COUNT 9.3 10^3/uL (4.0-10.5)
[2018-02-15 17:25] LABS: PLATELET COUNT 49 10^3/uL (150-450)
[2018-02-15 17:27] LABS: ANISOCYTOSIS 1+; POIKILOCYTOSIS 1+; POLYCHROMASIA SLIGHT; TOXIC GRANULATION 1+
[2018-02-15 17:28] LABS: OVALOCYTES 1+; PLATELET COMMENT DECREASED; TEAR DROP CELLS SLIGHT
[2018-02-15] MEDS: ALBUMIN HUMAN 50 GM/200 ML RTUINJ IV SCH (18:02)
--- NOTE | 2018-02-15 21:48 | EKG REPORT ---
SEVERITY:- ABNORMAL ECG - SINUS RHYTHM LEFT ATRIAL ABNORMALITY PROLONGED QT INTERVAL : Confirmed by: Deidre Haywood MD 15-Feb-2018 21:46:50
[2018-02-15] MEDS: CEFTRIAXONE 2 GM/D5W RTU 2 GM/50 ML RTUPB IV SCH (22:04)
[2018-02-15] MEDS ORDERED: KETOROLAC TROMETHAMINE INJ/PF 30 MG/1 ML SDV IV PRN (22:41)
[2018-02-16] MEDS: HYDROMORPHONE HCL INJ/PF 2 MG/ML AMPULE IV PRN ×4 (03:09→22:31)
[2018-02-16] MEDS: LANSOPRAZOLE 30 MG TAB.RAP.DR PO SCH ×2 (05:12→18:05)
[2018-02-16] MEDS: ALBUMIN HUMAN 50 GM/200 ML RTUINJ IV SCH ×2 (05:12→18:06)
[2018-02-16 06:24] LABS: VANCOMYCIN,TROUGH 16.2 ug/mL (5.0-20.0)
[2018-02-16 06:28] LABS: ALANINE AMINOTRANSFERASE 27 U/L (21-72); ALBUMIN 2.5 g/dL (3.5-5.0); ALKALINE PHOSPHATASE 78 U/L (38-126); ANION GAP 12 (5-19); ASPARTATE AMINO TRANSFERASE 65 U/L (17-59); BILIRUBIN,DIRECT 5.3 mg/dL (0.0-0.4); BILIRUBIN,TOTAL 9.9 mg/dL (0.2-1.3); BLOOD UREA NITROGEN 30 mg/dL (7-20); CALCIUM 8.1 mg/dL (8.4-10.2); CARBON DIOXIDE 21 mmol/L (22-30); CHLORIDE 102 mmol/L (98-107); GLUCOSE 113 mg/dL (75-110); PHOSPHORUS 4.3 mg/dL (2.5-4.5); POTASSIUM 3.4 mmol/L (3.6-5.0); SODIUM 134.5 mmol/L (137-145); TOTAL PROTEIN 5.5 g/dL (6.3-8.2)
[2018-02-16 06:50] LABS: HEMATOCRIT 20.9 % (37.9-51.0); MEAN CORPUSCULAR HGB CONC 35.5 g/dL (32.0-36.0); MEAN CORPUSCULAR VOLUME 113 fl (80-97); RED BLOOD COUNT 1.85 10^6/uL (4.35-5.55); RED CELL DISTRIBUTION WIDTH 17.5 % (11.5-14.0)
[2018-02-16] MEDS ORDERED: NORMAL SALINE 1000 ML 1,000 ML IV PRN (07:24)
[2018-02-16 07:28] LABS: PLATELET COUNT 51 10^3/uL (150-450)
[2018-02-16 07:30] LABS: HEMOGLOBIN 7.4 g/dL (13.5-17.0)
[2018-02-16] MEDS ORDERED: POTASSIUM CHLORIDE 20 MEQ/15 ML UDCUP PO ONE (07:45)
[2018-02-16] MEDS ORDERED: NORMAL SALINE 250 ML IV PRN ×2 (07:47)
[2018-02-16 07:51] LABS: INTERNATIONAL RATION (INR) 1.32
[2018-02-16] MEDS ORDERED: ONDANSETRON HCL INJ/PF 4 MG/2 ML SDV IV PRN (08:00)
[2018-02-16] MEDS ORDERED: ONDANSETRON 4 MG TAB.RAPDIS PO PRN (08:00)
[2018-02-16] MEDS ORDERED: VANCOMYCIN HCL 0 MG in DEXTROSE 5%-WATER 250 ML IV NR (09:30)
[2018-02-16] MEDS: LACTULOSE SYRUP 20 GM/30 ML UDCUP PO SCH ×3 (11:25→18:06)
[2018-02-16] MEDS: LACTOBACILLUS ACIDOPHILUS 250 MG TAB PO SCH ×2 (11:26→18:05)
[2018-02-16] MEDS: HYDROMORPHONE HCL 2 MG TABLET PO PRN (11:26)
[2018-02-16] MEDS ORDERED: VANCOMYCIN HCL 1,250 MG in DEXTROSE 5%-WATER 250 ML IV SCH (12:00)
--- NOTE | 2018-02-16 16:46 | PDOC PROGRESS REPORT ---
Subjective Progress Note for:: 02/16/18 Subjective:: The patient developed high-grade fevers overnight up to 102F. He was started on vancomycin and Rocephin. Unfortunately blood cultures were not drawn. Urine analysis is unremarkable. Chest x-ray does not show an infiltrate. He has no significant tenderness on abdominal exam. I set him up for diagnostic paracentesis this morning however, it was not performed because ultrasound did not show any ascites. Of note, a CAT scan of the abdomen done in the ER yesterday was reported to show moderate ascites. The CT report also mentioned a subcutaneous mass in the anterior abdominal wall , which is not palpable clinically, there is no tenderness or bruising. The patient has severe alcoholic liver disease and is coagulopathic, has thrombocytopenia and a bilirubin of 14. He has not developed hepatorenal syndrome. Urine output has been minimal. His case was discussed with the it application development manager commissioned police officer at [facility] Dr. 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 IV albumin was recommended which was started yesterday. His blood cultures are now positive for gram-positive clusters 2 out of 2. Source is currently unclear. I had a long discussion with the patient and his healthcare power of criminal attorney Mr. Madan Gu, the patient has opted for comfort care and home hospice. Reason For Visit: L SHOULDER PAIN AND SWELLING, COAGULOPATHY, Physical Exam Vital Signs: Temp Pulse Resp BP Pulse Ox 98.7 F 95 16 93/48 L 96 02/16/18 07:31 02/16/18 16:00 02/16/18 16:00 02/16/18 07:31 02/16/18 16:00 Intake & Output 02/15/18 02/16/18 02/17/18 06:59 06:59 06:59 Intake Total 1145 3192 Output Total 200 160 Balance 945 3032 Weight 103.4 kg 104.2 kg General appearance: PRESENT: no acute distress Eye exam: PRESENT: scleral icterus Ear exam: PRESENT: normal external ear exam Mouth exam: PRESENT: moist Neck exam: ABSENT: tracheal deviation Respiratory exam: PRESENT: symmetrical, unlabored GI/Abdominal exam: PRESENT: soft. ABSENT: tenderness Rectal exam: PRESENT: deferred Extremities exam: PRESENT: pedal edema Neurological exam: PRESENT: alert, awake Psychiatric exam: PRESENT: anxious Skin exam: PRESENT: jaundice Results Laboratory Results: 02/16/18 05:47 02/16/18 05:47 02/14/18 02/15/18 02/16/18 19:10 16:23 05:47 WBC 9.3 8.0 RBC 2.36 L 1.85 L Hgb 9.4 L 7.4 L Hct 27.2 L 20.9 L MCV 115 H 113 H MCH 39.9 H 40.0 H MCHC 34.7 35.5 RDW 17.7 H 17.5 H Plt Count 49 L 51 L Seg Neutrophils % 80.2 H Lymphocytes % 12.8 L Monocytes % 3.5 Eosinophils % 2.8 Basophils % 0.7 Absolute Neutrophils 7.4 Absolute Lymphocytes 1.2 Absolute Monocytes 0.3 Absolute Eosinophils 0.3 Absolute Basophils 0.1 Sodium Potassium Chloride Carbon Dioxide Anion Gap BUN Creatinine Est GFR ( Amer) Est GFR (Non-Af Amer) Glucose Calcium Phosphorus Magnesium Total Bilirubin AST ALT Alkaline Phosphatase Total Protein Albumin Blood Type O POSITIVE Antibody Screen NEGATIVE 02/16/18 05:47 WBC RBC Hgb Hct MCV MCH MCHC RDW Plt Count Seg Neutrophils % Lymphocytes % Monocytes % Eosinophils % Basophils % Absolute Neutrophils Absolute Lymphocytes Absolute Monocytes Absolute Eosinophils Absolute Basophils Sodium 134.5 L Potassium 3.4 L Chloride 102 Carbon Dioxide 21 L Anion Gap 12 BUN 30 H Creatinine 2.66 H Est GFR ( Amer) 31 L Est GFR (Non-Af Amer) 25 L Glucose 113 H Calcium 8.1 L Phosphorus 4.3 Magnesium 2.2 Total Bilirubin 9.9 H AST 65 H ALT 27 Alkaline Phosphatase 78 Total Protein 5.5 L Albumin 2.5 L Blood Type Antibody Screen 02/14/18 02/15/18 02/15/18 21:20 03:23 09:59 CK-MB (CK-2) 0.68 0.70 0.86 Troponin I 0.565 0.438 0.207 Impressions: Chest X-Ray 02/14/18 00:00 IMPRESSION: NO ACUTE RADIOGRAPHIC FINDING IN THE CHEST. Upper Extremity CT 02/14/18 00:00 IMPRESSION: Large joint effusion. Calcific tendinitis. No occult fracture. Abdomen/Pelvis CT 02/14/18 15:24 IMPRESSION: Moderate ascites. Mild splenomegaly. Mild diffuse mesenteric fat stranding extensive subcutaneous edema. Subcutaneous mass anterior abdominal wall cephalad to the umbilicus. Shoulder X-Ray 02/14/18 15:24 IMPRESSION: No significant bony pathology. Calcific density adjacent to the humeral head probably bursal calcification. Abdomen Ultrasound 02/15/18 08:00 IMPRESSION: Trace fluid in the right subphrenic space. No paracentesis was performed today. Assessment & Plan - Diagnosis (1) Left anterior shoulder pain Is this a current diagnosis for this admission?: Yes Plan: [place] to be secondary to calcific tendinitis per Orthopedics. Shoulder immobilizer and analgesics recommended (2) Decompensated hepatic cirrhosis Is this a current diagnosis for this admission?: Yes Plan: Plan for comfort care and home hospice (3) Elevated troponin I level Is this a current diagnosis for this admission?: Yes Plan: No chest pain or EKG changes. Monitor on telemetry. Downtrending. He has a history of coronary artery disease with CABG in the past. (4) Thrombocytopenia Is this a current diagnosis for this admission?: Yes Plan: Due to cirrhosis. (5) Ascites due to alcoholic cirrhosis Is this a current diagnosis for this admission?: Yes (6) Coagulopathy Is this a current diagnosis for this admission?: Yes Plan: Secondary to cirrhosis. - Time Time Spent with patient: 35 or more minutes
--- NOTE | 2018-02-16 20:00 | PDOC CONSULTATION ---
Consultation Consult Date: 02/16/18 Attending physician:: JUAN SANTIAGO Consult reason:: I was asked to see this patient because of acute renal failure. History of Present Illness Admission Date/PCP: 02/14/18 17:31 History of Present Illness: TASHA FUENTES is a 52 year old male with history of alcoholic liver cirrhosis, coronary artery disease, hypertension, COPD, and most recent left shoulder dislocation presented to the emergency room on February 14 for left shoulder pain. For the left shoulder the patient was evaluated by orthopedic surgeon Dr. Morel who assessed the patient to have either calcific tendinitis, shoulder effusion and questionable septic arthritis. Patient was also noted to be edematous and previously had anasarca secondary to alcohol liver cirrhosis. Patient is proud to say that that he has abstained from alcohol for the last [address] scan of the abdomen found moderate ascites but when ultrasound was done today there was not much significant fluid to the paracentesis so that was held. Patient also developed high-grade temperature of 102 Fahrenheit in clusters. Patient is currently on vancomycin. Patient's blood pressure has been in the low 90s. Patient was given Toradol twice yesterday 50 mg each. In terms of the kidney function he get admitted with normal kidney function with a BUN of 14 and creatinine of 0.89. Yesterday his BUN went up to 21, creatinine 1.46 and estimated GFR of 51 and today it is further went up to a BUN of 30, creatinine of 2.6 and estimated GFR of 35. Patient has been oliguric for the last 48 hours and this made only 160-200 mL per day despite a +4 L fluid balance. This urinalysis did not show any proteinuria nor hematuria. He was initially given furosemide and spironolactone which is currently held today. The patient's primary service, Dr. Santiago notes that she has discussed the case with the patient's cigar wrapper tender automatic at [facility] liver clinic, Dr. Valdez. She was told that the patient's prognosis is poor. She went ahead and discuss the patient's condition with the patient himself and he opted for comfort care measures and hospice. He actually confirmed this to me. Patient tells me that he is eating and drinking fluids. He denies any nausea or vomiting. He is aware that his kidneys are failing and is not making good amount of urine. When I talked to him he was drowsy although arousable and answering questions when prompted. He otherwise did not have any other further complaints. Past Medical History Cardiac Medical History: Reports: Coronary Artery Disease, Hyperlipidemia, Hypertension-primary Pulmonary Medical History: Reports: Chronic Obstructive Pulmonary Disease (COPD) , Pneumonia Neurological Medical History: Reports: Seizures - Possible seizure; see history and physical, 06/25/2016 GI Medical History: Reports: Cirrhosis Musculoskeltal Medical History: Reports: Arthritis - hands Psychiatric Medical History: Reports: Depression Past Surgical History Past Surgical History: Reports: Appendectomy, Coronary Artery Bypass Graft - x3 (2009), Coronary Stent, Orthopedic Surgery - Closed reduction left shoulder dislocation December 2007, Other - Incision and drainage of dental abscess, with tooth extraction, 2005. Social History Information Source: Patient, [facility] Records Lives with: Family Smoking Status: Current Every Day Smoker Frequency of Alcohol Use: None Hx Recreational Drug Use: No Drugs: None Hx Prescription Drug Abuse: No - Advance Directive Resuscitation Status: Comfort Measures Only Family History Family History: Hypertension Parental Family History Reviewed: Yes Children Family History Reviewed: Unknown Sibling(s) Family History Reviewed.: Unknown Medication/Allergy Home Medications: Aspirin [Ecotrin 81 mg EC Tablet] 81 mg PO DAILY 02/14/18 Furosemide [Lasix 40 mg Tablet] 40 mg PO BID 02/14/18 Spironolactone [Aldactone 25 mg Tablet] 25 mg PO Q12 02/14/18 Allergies/Adverse Reactions: Penicillins Allergy (Severe, Verified 01/27/18 09:02) Sulfa (Sulfonamide Antibiotics) Allergy (Severe, Verified 01/27/18 09:02) Review of Systems All systems: reviewed and no additional remarkable complaints except as stated Review of Systems: Constitutional: ABSENT: chills, headache(s), weight gain, weight loss; admits fever and fatigue Eyes: ABSENT: visual disturbances Ears: ABSENT: hearing changes Cardiovascular: ABSENT: chest pain, dyspnea on exertion,orthropnea, palpitations ; admits significant lower extremity edema Respiratory: ABSENT: cough, dyspnea, hemoptysis Gastrointestinal: ABSENT: abdominal pain, constipation, diarrhea, hematemesis, hematochezia, nausea, vomiting Genitourinary: ABSENT: dysuria, hematuria; patient has oliguria Musculoskeletal: ABSENT: joint swelling; left shoulder pain Integumentary: ABSENT: rash, wounds Neurological: ABSENT: abnormal gait, abnormal speech, confusion, dizziness, focal weakness, numbness, syncope Psychiatric: ABSENT: anxiety, depression Endocrine: ABSENT: cold intolerance, heat intolerance, polydipsia, polyuria Hematologic/Lymphatic: ABSENT: easy bleeding, easy bruising, lymphadenopathy Physical Exam Vital Signs: Temp Pulse Resp BP Pulse Ox 98.7 F 95 16 93/48 L 96 02/16/18 07:31 02/16/18 16:00 02/16/18 16:00 02/16/18 07:31 02/16/18 16:00 Intake & Output 02/15/18 02/16/18 02/17/18 06:59 06:59 06:59 Intake Total 1145 3192 399 Output Total 200 160 Balance 945 3032 399 Weight 103.4 kg 104.2 kg Exam: General appearance: No acute distress, cooperative, well-developed, well- nourished Head exam: PRESENT: atraumatic, normocephalic Eye exam: PRESENT: Conjunctiva pale, mild icteric sclerae EOMI, PERRLA. ABSENT : conjunctival injection Mouth exam: PRESENT: moist, neck supple, tongue midline Neck exam: PRESENT: full ROM. ABSENT: carotid bruit, JVD, lymphadenopathy, thyromegaly Respiratory exam: PRESENT: Diminished to auscultation bilaterally. ABSENT: rales, rhonchi, stridor, wheezes Cardiovascular exam: PRESENT: RRR, +S1, +S2. ABSENT: systolic murmur Pulses: PRESENT: normal radial pulses, normal dorsalis pedis pulses GI/Abdominal exam: PRESENT: normal bowel sounds, soft. Abdomen distended with very minimal fluid wave; subcutaneous edema and dependent portion ABSENT: guarding, mass, tenderness Rectal exam: Deferred Extremities exam: PRESENT: full ROM. Grade 2 bilateral lower extremity edema up to the thighs ABSENT: calf tenderness, Musculoskeletal: PRESENT: full ROM. ABSENT: deformity Neurological exam: PRESENT: Drowsy but arousable and answers questions, oriented to person, Oriented to place, Oriented to time, reflexes normal, CN II- XII grossly intact. ABSENT: motor sensory deficit Psychiatric exam: PRESENT: appropriate affect, normal mood. ABSENT: homicidal ideation, suicidal ideation Skin exam: PRESENT: intact, dry, warm. ABSENT: rash Results Laboratory Results: 02/16/18 05:47 02/16/18 05:47 02/14/18 02/16/18 02/16/18 19:10 05:47 05:47 WBC 8.0 RBC 1.85 L Hgb 7.4 L Hct 20.9 L MCV 113 H MCH 40.0 H MCHC 35.5 RDW 17.5 H Plt Count 51 L Sodium 134.5 L Potassium 3.4 L Chloride 102 Carbon Dioxide 21 L Anion Gap 12 BUN 30 H Creatinine 2.66 H Est GFR ( Amer) 31 L Est GFR (Non-Af Amer) 25 L Glucose 113 H Calcium 8.1 L Phosphorus 4.3 Magnesium 2.2 Total Bilirubin 9.9 H AST 65 H ALT 27 Alkaline Phosphatase 78 Total Protein 5.5 L Albumin 2.5 L Blood Type O POSITIVE Antibody Screen NEGATIVE 02/14/18 02/15/18 02/15/18 21:20 03:23 09:59 CK-MB (CK-2) 0.68 0.70 0.86 Troponin I 0.565 0.438 0.207 Impressions: Chest X-Ray 02/14/18 00:00 IMPRESSION: NO ACUTE RADIOGRAPHIC FINDING IN THE CHEST. Upper Extremity CT 02/14/18 00:00 IMPRESSION: Large joint effusion. Calcific tendinitis. No occult fracture. Abdomen/Pelvis CT 02/14/18 15:24 IMPRESSION: Moderate ascites. Mild splenomegaly. Mild diffuse mesenteric fat stranding extensive subcutaneous edema. Subcutaneous mass anterior abdominal wall cephalad to the umbilicus. Shoulder X-Ray 02/14/18 15:24 IMPRESSION: No significant bony pathology. Calcific density adjacent to the humeral head probably bursal calcification. Abdomen Ultrasound 02/15/18 08:00 IMPRESSION: Trace fluid in the right subphrenic space. No paracentesis was performed today. Assessment & Plan - Diagnosis (1) Acute kidney injury Is this a current diagnosis for this admission?: Yes Plan: Patient is oliguric with hypervolemic state. This is most likely secondary to multifactorial acute tubular necrosis secondary to combination of sepsis with hypotension and nonsteroidal anti-inflammatory agents specifically Toradol. Acute and abrupt worsening of kidney function more consistent with ATN rather than hepatorenal syndrome. Ideally the patient would need renal replacement therapy and I talked to the patient regarding this. Patient has outrightly declined this treatment option and tells me that he does wants to follow the natural course of his disease. Explained the consequences of possible continued deterioration of kidney function without renal replacement therapy including and he understood and maintain his decision of no dialysis. Since the patient has not initially opted also for comfort care and hospice I think this is an appropriate decision. I would just recommend to avoid nephrotoxic agents. Vancomycin dose needs to be adjusted if will be continued since this patient is going to be very prone to acute vancomycin toxicity at this state. I do not think we need to do any more diagnostics nor do any more labs at this point since no treatment is going to be done. Patient may need some diuretics if he gets to the point that he starts to get short of breath just for comfort. (2) Sepsis Is this a current diagnosis for this admission?: Yes Plan: Secondary to gram-positive cocci bacteremia. Currently still on antibiotics per primary service. (3) Decompensated hepatic cirrhosis Is this a current diagnosis for this admission?: Yes Plan: Poor prognosis according to his cigar wrapper tender automatic from [facility]. Patient opted for comfort care and hospice. (4) Coagulopathy Is this a current diagnosis for this admission?: Yes (5) Left anterior shoulder pain Is this a current diagnosis for this admission?: Yes (6) Coronary artery disease Qualifiers: Coronary Disease-Associated Artery/Lesion type: [place] artery [place] vs. transplanted heart: [place] heart Associated angina: without angina Qualified Code(s): I25.10 - Atherosclerotic heart disease of [place] coronary artery without angina pectoris Is this a current diagnosis for this admission?: Yes (7) Anasarca Is this a current diagnosis for this admission?: Yes (8) Anemia Qualifiers: Anemia type: unspecified type Qualified Code(s): D64.9 - Anemia, unspecified Is this a current diagnosis for this admission?: Yes (9) Hypoalbuminemia Is this a current diagnosis for this admission?: Yes (10) Hypokalemia Is this a current diagnosis for this admission?: Yes (11) Thrombocytopenia Is this a current diagnosis for this admission?: Yes (12) Hyponatremia Is this a current diagnosis for this admission?: Yes - Notes Notes: The patient has opted for comfort care, hospice and no dialysis treatment I recommend that patient only continues treatment to make himself comfortable and no further diagnostics nor other therapeutic treatment. Thank you very much for this consultation.
[2018-02-16] MEDS: CEFTRIAXONE 2 GM/D5W RTU 2 GM/50 ML RTUPB IV SCH (22:27)
[2018-02-17] MEDS: HYDROMORPHONE HCL INJ/PF 2 MG/ML AMPULE IV PRN ×3 (03:58→15:13)
[2018-02-17 04:47] LABS: INTERNATIONAL RATION (INR) 1.89; PROTHROMBIN TIME 22.6 SEC (11.4-15.4)
[2018-02-17 04:51] LABS: ALANINE AMINOTRANSFERASE 31 U/L (21-72); ALBUMIN 3.2 g/dL (3.5-5.0); ALKALINE PHOSPHATASE 78 U/L (38-126); ANION GAP 15 (5-19); ASPARTATE AMINO TRANSFERASE 71 U/L (17-59); BILIRUBIN,TOTAL 9.1 mg/dL (0.2-1.3); BLOOD UREA NITROGEN 36 mg/dL (7-20); CALCIUM 8.8 mg/dL (8.4-10.2); CARBON DIOXIDE 20 mmol/L (22-30); CHLORIDE 102 mmol/L (98-107); GLUCOSE 114 mg/dL (75-110); HEMATOCRIT 23.8 % (37.9-51.0); HEMOGLOBIN 8.3 g/dL (13.5-17.0); MEAN CORPUSCULAR HEMOGLOBIN 39.7 pg (27.0-33.4); MEAN CORPUSCULAR VOLUME 113 fl (80-97); PHOSPHORUS 4.2 mg/dL (2.5-4.5); POTASSIUM 3.9 mmol/L (3.6-5.0); RED CELL DISTRIBUTION WIDTH 17.5 % (11.5-14.0); TOTAL PROTEIN 6.5 g/dL (6.3-8.2); WHITE BLOOD COUNT 10.1 10^3/uL (4.0-10.5)
[2018-02-17 04:59] LABS: PLATELET COUNT 55 10^3/uL (150-450)
[2018-02-17] MEDS: LANSOPRAZOLE 30 MG TAB.RAP.DR PO SCH (05:04)
[2018-02-17] MEDS: ALBUMIN HUMAN 50 GM/200 ML RTUINJ IV SCH (05:05)
[2018-02-17] MEDS: LACTULOSE SYRUP 20 GM/30 ML UDCUP PO SCH ×2 (09:30→14:58)
[2018-02-17] MEDS: LACTOBACILLUS ACIDOPHILUS 250 MG TAB PO SCH (09:30)
--- NOTE | 2018-02-17 15:42 | PDOC DISCHARGE SUMMARY ---
General - Admit/Disc Date/PCP Admission Date/Primary Care Provider: 02/14/18 17:31 Discharge Date: 02/17/18 - Discharge Diagnosis (1) Left anterior shoulder pain Is this a current diagnosis for this admission?: Yes (2) Decompensated hepatic cirrhosis Is this a current diagnosis for this admission?: Yes (3) Elevated troponin I level Is this a current diagnosis for this admission?: Yes (4) Thrombocytopenia Is this a current diagnosis for this admission?: Yes (5) Ascites due to alcoholic cirrhosis Is this a current diagnosis for this admission?: Yes (6) Coagulopathy Is this a current diagnosis for this admission?: Yes (7) Bacteremia Is this a current diagnosis for this admission?: Yes (8) Hospice care Is this a current diagnosis for this admission?: Yes - Additional Information Resuscitation Status: Comfort Measures Only Discharge Diet: As Tolerated Prescriptions: Hydromorphone HCl [Dilaudid 2 mg Tablet] 4 mg PO Q4HP PRN 5 Days #30 tablet PRN Reason: Ondansetron [Zofran Odt 4 mg Tablet] 4 mg PO Q4HP PRN 5 Days #30 tab.rapdis PRN Reason: Alprazolam [Xanax] 0.25 mg PO Q6HP PRN 5 Days #20 tablet PRN Reason: Anxiety Haloperidol [Haldol 2 Mg Tablet] 2 mg PO Q12HP PRN 10 Days #20 tablet PRN Reason: Anxiety/Agitation Lactobacillus Acidophilus [Bacid 250 mg Tablet] 500 mg PO BID 5 Days #10 tab Lactulose [Cephulac Syrup 20 gm/30 ml Udcup] 10 gm PO TID #1 bottle Home Medications: Alprazolam [Xanax] 0.25 mg PO Q6HP PRN 5 Days #20 tablet 02/17/18 Haloperidol [Haldol 2 Mg Tablet] 2 mg PO Q12HP PRN 10 Days #20 tablet 02/17/18 Hydromorphone HCl [Dilaudid 2 mg Tablet] 4 mg PO Q4HP PRN 5 Days #30 tablet Lactobacillus Acidophilus [Bacid 250 mg Tablet] 500 mg PO BID 5 Days #10 tab Lactulose [Cephulac Syrup 20 gm/30 ml Udcup] 10 gm PO TID #1 bottle 02/17/18 Ondansetron [Zofran Odt 4 mg Tablet] 4 mg PO Q4HP PRN 5 Days #30 tab.rapdis History of Present Illness History of Present Illness: TASHA FUENTES is a 52 year old male with a history of Alcohol dependence Alcohol withdrawal seizures Cirrhosis Coronary artery disease Hypertension He was recently discharged from this hospital after being treated for anasarca. The patient does not have any outpatient follow-up. He presented to the emergency room today complaining of left shoulder pain and was found to be visibly jaundiced. The patient reports that approximately a month ago he had seizures due to alcohol withdrawal and at that time he dislocated his left shoulder which was corrected and continued to have some discomfort. This morning he had abrupt onset left shoulder pain with inability to move it. An x-ray of the left shoulder done by the ER physician showed some calcification indicating possible bursitis. CAT scan of the abdomen and pelvis showed moderate ascites with mild diffuse mesenteric fat stranding and extensive subcutaneous edema with a subcutaneous mass in the anterior abdominal wall. Overnight the patient developed high-grade fevers overnight up to 102F. He was started on vancomycin and Rocephin. The patient was evaluated by Dr. Morel from the orthopedic service who feels that septic arthritis of the left shoulder is unlikely. He recommended conservative management given his underlying comorbidities. The patient follows at the [facility] liver clinic with Dr. Valdez. His last alcoholic drink was approximately 2 months ago Urine analysis is unremarkable. Chest x-ray did not show an infiltrate. He had no significant tenderness on abdominal exam. I set him up for diagnostic paracentesis this however, it was not performed because ultrasound did not show any ascites. Of note, a CAT scan of the abdomen done in the ER yesterday was reported to show moderate ascites. The CT report also mentioned a subcutaneous mass in the anterior abdominal wall , which is not palpable clinically, there is no tenderness or bruising. The patient has severe alcoholic liver disease and is coagulopathic, has thrombocytopenia and a bilirubin of 14. He subsequently developed oliguric renal failure due to suspected hepatorenal syndrome. Urine output has been minimal. His case was discussed with the microsoft windows engineer university relations director at [facility] Dr. López who feels that his prognosis is poor He is Child's de leon class C. IV albumin was recommended which was started on 02/15/18 His blood cultures were positive for gram-positive clusters 2 out of 2. Source is currently unclear. I had a long discussion with the patient and his healthcare power of employee benefits attorney Mr. Madan Gu, the patient has opted for comfort care and home hospice. He is being discharged home today with hospice services. Hospital Course Hospital Course: As above Physical Exam Vital Signs: Temp Pulse Resp BP Pulse Ox 99.2 F 94 16 129/69 H 94 02/16/18 23:32 02/17/18 07:00 02/16/18 23:32 02/16/18 23:32 02/16/18 23:32 Intake & Output 02/16/18 02/17/18 02/18/18 06:59 06:59 06:59 Intake Total 3192 1625 125 Output Total 160 350 Balance 3032 1275 125 Weight 104.2 kg 105 kg Results Laboratory Results: 02/17/18 03:58 02/17/18 03:58 02/17/18 02/17/18 03:58 03:58 WBC 10.1 RBC 2.10 L Hgb 8.3 L Hct 23.8 L MCV 113 H MCH 39.7 H MCHC 35.0 RDW 17.5 H Plt Count 55 L Sodium 137.0 Potassium 3.9 Chloride 102 Carbon Dioxide 20 L Anion Gap 15 BUN 36 H Creatinine 3.17 H Est GFR ( Amer) 25 L Est GFR (Non-Af Amer) 21 L Glucose 114 H Calcium 8.8 Phosphorus 4.2 Magnesium 2.3 Total Bilirubin 9.1 H AST 71 H ALT 31 Alkaline Phosphatase 78 Total Protein 6.5 Albumin 3.2 L 02/14/18 02/15/18 02/15/18 21:20 03:23 09:59 CK-MB (CK-2) 0.68 0.70 0.86 Troponin I 0.565 0.438 0.207 Impressions: Chest X-Ray 02/14/18 00:00 IMPRESSION: NO ACUTE RADIOGRAPHIC FINDING IN THE CHEST. Upper Extremity CT 02/14/18 00:00 IMPRESSION: Large joint effusion. Calcific tendinitis. No occult fracture. Abdomen/Pelvis CT 02/14/18 15:24 IMPRESSION: Moderate ascites. Mild splenomegaly. Mild diffuse mesenteric fat stranding extensive subcutaneous edema. Subcutaneous mass anterior abdominal wall cephalad to the umbilicus. Shoulder X-Ray 02/14/18 15:24 IMPRESSION: No significant bony pathology. Calcific density adjacent to the humeral head probably bursal calcification. Abdomen Ultrasound 02/15/18 08:00 IMPRESSION: Trace fluid in the right subphrenic space. No paracentesis was performed today. Qualifiers - * PATIENT BEING DISCHARGED WITH ANY OF THE FOLLOWING DIAGNOSIS: No Plan Time Spent: Less than 30 Minutes
[2018-02-17 16:15] VITALS: BP 110/55
[2018-02-17] MEDS: HYDROMORPHONE HCL 2 MG TABLET PO PRN (17:26)
== END 2018-02-17 17:43 | disposition hospice, home (50) | DRG 432 ==
LOC: ER 14:47 → EH 17:31 → 5 19:15 → 3N 23:37
PROVIDERS: ADMIT Internal Medicine; ATTEND Internal Medicine
PROC: 30233K1 Transfusion of Nonautologous Frozen Plasma into Peripheral Vein, Percutaneous Approach (ICD-10-PCS; principal; 2018-02-15)
DX: K70.31 Alcoholic cirrhosis of liver with ascites (principal); K76.7 Hepatorenal syndrome; D68.9 Coagulation defect, unspecified; N17.9 Acute kidney failure, unspecified; E87.1 Hypo-osmolality and hyponatremia; R78.81 Bacteremia; K70.11 Alcoholic hepatitis with ascites; F10.20 Alcohol dependence, uncomplicated; D69.59 Other secondary thrombocytopenia; R74.8 Abnormal levels of other serum enzymes; M75.32 Calcific tendinitis of left shoulder; Z51.5 Encounter for palliative care; F17.200 Nicotine dependence, unspecified, uncomplicated; F32.9 Major depressive disorder, single episode, unspecified; D64.9 Anemia, unspecified; I25.10 Atherosclerotic heart disease of native coronary artery without angina pectoris; I10 Essential (primary) hypertension; J44.9 Chronic obstructive pulmonary disease, unspecified; E87.6 Hypokalemia; E88.09 Other disorders of plasma-protein metabolism, not elsewhere classified; M19.042 Primary osteoarthritis, left hand; M19.041 Primary osteoarthritis, right hand; Z88.2 Allergy status to sulfonamides; Z86.73 Personal history of transient ischemic attack (TIA), and cerebral infarction without residual deficits; Z95.1 Presence of aortocoronary bypass graft; Z88.0 Allergy status to penicillin
CPT/HCPCS: 36415; 36430; 71045; 74176; 76705; 80048; 80053; 80202; 80307; 81001; 82140; 82550; 82553; 83605; 83735; 84100; 84443; 84484; 85025; 85027; 85610; 85652; 85730; 86140; 86850; 86900; 86901; 86920; 87040; 87077; 87186; 93005; 93010; 96374; 99285; A9270-GY; J0696; J1170; J1885; J3010; J3370; J3475; J7030; J7060; L3650; P9017; P9047